=== PATIENT | male | born 1940 | race Caucasian/White ===

== ENCOUNTER 2022-07-26 07:17 | Outpatient (CLI) | payer MEDICARE, SELFPAY | END 2022-07-26 07:18 | disposition home or self-care (01) | LOC: INJ CL 07:18 | PROVIDERS: PCP Family Medicine; Visit Provider Family Medicine | DX: M51.36 Other intervertebral disc degeneration, lumbar region (principal); M54.16 Radiculopathy, lumbar region | CPT/HCPCS: 62323; J0702; Q9966 ==

== ENCOUNTER 2025-07-27 11:03 | Emergency (ER) | payer MEDICARE, SELFPAY ==
--- OUTSIDE RECORDS SUMMARY | 2025-06-30 08:46 | XMS_ITS | Encounter Summary ---
Author Organization [facility] Address [address] [place] [address] Care Team Providers Care Business Operations Analyst Name Role Phone Unavailable Primary Care Provider Unavailabl e Reason for Referral * Radiation Therapy (Routine) - Authorized Specialty Diagnoses / Procedures Referred By Norma t Referred To Contact Diagnoses Malignant Neoplasm Of Tongue Base (HCC) Procedures Initial Rad Onc Treatment Planning CT Simulation AR IMRT RADIOTHERAPY PLAN Julio Cesar Mendenhall M.D. [address] [place] [address] Phone: tel: fax: [facility] Radiation Oncology at [place] [address] [place] [address] Referral ID Status Reason Start Date Expiration Date V isits Requested Visits Authorized [id number] Authorized 07/02/2025 09/30/2026 2 2 * Outpatient (Routine) - Closed Specialty Diagnoses / Procedures Referred By Norma choi Referred To Contact Social Work Diagnoses Malignant Neoplasm Of Tongue Base (HCC) Julio Cesar Rebolledo M.D. [address] [place] [address] Phone: tel: fax: [facility] Region Referral ID Status Reason Start Date Expiration Date Visits Re quested Visits Authorized [id number] Closed 06/30/2025 12/30/2026 1 1 * Outpatient (Routine) - Closed Specialty Diagnoses / Procedures Referred By Norma choi Referred To Contact Radiation Oncology Diagnoses Malignant Neoplasm Of Tongue Base (HCC) Julio Cesar Rebolledo M.D. [address] [place] [address] Phone: tel: fax: [facility] Region Referral ID Status Reason Start Date Expiration Date Visits Re quested Visits Authorized [id number] Closed 06/30/2025 12/30/2026 1 1 * Specialty Diagnoses / Procedures Referred By Norma choi Referred To Contact Diagnoses Malignant Neoplasm Of Tongue Base (HCC) Julio Cesar Rebolledo M.D. [address] [place] [address] Phone: tel: fax: [facility] Region Referral ID Status Reason Start Date [...] Management Visit Julio Cesar Rebolledo M.D. [address] [place] [address] Phone: tel: fax: [facility] Region Referral ID Status Reason Start Date Expiration Date V isits Requested Visits Authorized [id number] Authorized 06/30/2025 09/30/2026 10 10 * Radiation Therapy (Routine) - Authorized Specialty Diagnoses / Procedures Referred By Norma choi Referred To Contact Diagnoses Malignant Neoplasm Of Tongue Base (HCC) Procedures Prior Auth Rad Tx AR IMRT COMPLEX AR GUIDANCE FOR LOC RAD TX AR IMRT RADIOTHERAPY PLAN IMRT Julio Cesar Rebolledo M.D. [address] [place] [address] Phone: tel: fax: [facility] Referral ID Status Reason Start Date Expiration Date V isits Requested Visits Authorized [id number] Authorized 07/14/2025 09/30/2026 35 35 Reason for Visit * Appointment Request (Routine) - Closed Specialty Diagnoses / Procedures Referred By Contac t Referred To Contact Radiation Oncology Diagnoses Malignant Neoplasm Of Tongue Base (HCC) Avery Holland M.D. [address] [address] Phone: tel: fax: Referral ID Status Reason Start Date Expiration Date Visits Re quested Visits Authorized [id number] Closed 06/19/2025 09/19/2026 1 1 Encounter Details Date Type Department Care Team (Latest Contact Info) Description 06/30/2025 8:46 AM CDT - 07/14/2025 5:41 PM CDT Hospital Encounter Department of Radiation Oncology in [place], [place] [address] [place] [phone] Julio Cesar Rebolledo M.D. [address] [place] [address] Malignant Neoplasm Of Tongue Base (HCC) (Primary [...] this encounter Medications at Time of Discharge folic acid 1 mg tablet Take 1 mg by mouth daily. 08/28/2024 methotrexate (TrexalL) 2.5 mg tablet Take 10 mg by mouth over 168 hr. 12/18/2024 documented as of this encounter Consult Notes * Julio Cesar Rebolledo M.D. - 06/30/2025 9:00 AM CDT RADIATION ONCOLOGY CONSULTATION SUBJECTIVE REQUESTING PROVIDER Avery Hloland M.D. REASON FOR CONSULT Asked to see [...] M.D. 07/14/2025 5:28 PM CDT Radiation Oncology [facility] Radiation Therapy Center [address] [place] [address] [1] Past Medical History: Diagnosis Date Gastroesophageal Reflux Disease NOS 04/11/2011 Presumptive diagnosis after negative stress echocardiogram. 04/11/2011 Hyperlipidemia Hypertension Essential Primary Psoriasis Raynaud's Phenomena Without Gangrene 04/11/2011 [2] Past Surgical History: Procedure Laterality Date PERICARDIECTOMY [3] No family history on file. documented in this encounter Plan of Treatment Upcoming Encounters Date Type Department Care Team (Late st Contact Info) Description 07/29/2025 8:30 AM CDT Appointment Department [place] [address] Julio Cesar Rebolledo M.D. [address] [place] [address] 07/30/2025 8:30 AM CDT Appointment Department of Radiation Oncology in [place], [place] [address] [facility] [place] [address] Julio Cesar Rebolledo M.D. [address] [place] [address] 07/31/2025 10:15 AM CDT Appointment Department of Radiation Oncology in [place], [place] [address] [facility] [place] [address] Julio Cesar Rebolledo M.D. [address] [place] [address] 07/31/2025 10:30 AM CDT Appointment Department of Radiation Oncology in [place], [place] [address] [place] [address] Julio Cesar Rebolledo M.D. [address] [place] [address] 08/01/2025 8:30 AM CDT Appointment Department of Radiation Oncology in [place], [place] [address] [place] [address] Julio Cesar Rebolledo M.D. [address] [place] [address] 08/04/2025 8:30 AM CDT Appointment Department of Radiation Oncology in [place], [place] [address] [facility] [place] [address] Julio Cesar Rebolledo M.D. [address] [place] [address] 08/05/2025 8:30 AM CDT Appointment Department of Radiation Oncology in [place], [place] [address] [place] [address] Julio Cesar Rebolledo M.D. [address] [place] [address] 08/06/2025 8:30 AM CDT Appointment Department of Radiation Oncology in [address] [address] Julio Cesar Rebolledo M.D. [address] [place] [address] 08/07/2025 8:30 AM CDT Appointment Department of Radiation Oncology in [address] [address] Julio Cesar Rebolledo M.D. [place] [address] 08/07/2025 9:00 AM CDT Appointment Department of Radiation Oncology in [address] [address] Julio Cesar Rebolledo M.D. [address] [place] [address] 08/07/2025 9:15 AM CDT Appointment Department of Radiation Oncology in [address] [address] Julio Cesar Rebolledo [place]. [place] [address] 08/08/2025 8:30 AM CDT Appointment Department of Radiation Oncology in [address] [address] Julio Cesar Rebolledo M.D. [address] [place] [address] 08/11/2025 8:30 AM CDT Appointment Department of Radiation Oncology in [place], [place] [address] [place] [address] Julio Cesar Rebolledo M.D. [address] [place] [address] 08/12/2025 8:30 AM CDT Appointment Department of Radiation Oncology in [place], [place] [address] [place] [address] Julio Cesar Rebolledo M.D. [address] [place] [address] 08/13/2025 8:30 AM CDT Appointment Department of Radiation Oncology in [place], [place] [address] [place] [address] Julio Cesar Rebolledo M.D. [address] [place] [address] 08/14/2025 8:30 AM CDT Appointment Department of Radiation Oncology in [place], [place] [address] [place] [address] Julio Cesar Rebolledo M.D. [address] [place] [address] 08/14/2025 9:00 AM CDT Appointment Department of Radiation Oncology in [place], [place] [address] [place] [address] Julio Cesar Rebolledo M.D. [address] [place] [address] 08/15/2025 8:30 AM CDT Appointment Department of Radiation Oncology in [place], [place] [address] [place] [address] Julio Cesar Rebolledo M.D. [address] [place] [address] 08/18/2025 8:30 AM CDT Appointment Department of Radiation Oncology in [place], [place] [address] [place] [address] Julio Cesar Rebolledo M.D. [address] [place] [address] 08/19/2025 8:30 AM CDT Appointment Department of Radiation Oncology in [address] [address] Julio Cesar Rebolledo M.D. [address] [place] [address] 08/20/2025 8:30 AM CDT Appointment Department of Radiation Oncology in [place], [place] [address] [place] [address] Julio Cesar Rebolledo M.D. [place] [address] 08/21/2025 8:30 AM CDT Appointment Department of Radiation Oncology in [place], [place] [address] [place] [address] Julio Cesar Rebolledo [place]. [place] [address] 08/21/2025 9:00 AM CDT Appointment Department of Radiation Oncology in [address] [address] Julio Cesar Rebolledo M.D. [address] [place] [address] 08/22/2025 8:30 AM CDT Appointment Department of Radiation Oncology in [place], [place] [address] [place] [address] Julio Cesar Rebolledo M.D. [address] [place] [address] 08/25/2025 8:30 AM CDT Appointment Department of Radiation Oncology in [place], [place] [address] [place] [address] Julio Cesar Rebolledo M.D. [place] [address] 08/26/2025 8:30 AM CDT Appointment Department of Radiation Oncology in [address] [address] Julio Cesar Rebolledo [place]. [place] [address] 08/27/2025 8:30 AM CDT Appointment Department of Radiation Oncology in [place], [place] [address] [place] [address] Julio Cesar Rebolledo [place]. [place] [address] 08/28/2025 8:30 AM CDT Appointment Department of Radiation Oncology in [place], [place] [address] [place] [address] Julio Cesar Rebolledo M.D. [address] [place] [address] 08/28/2025 9:00 AM CDT Appointment Department of Radiation Oncology in [place], [place] [address] [place] [address] Julio Cesar Rebolledo M.D. [address] [place] [address] 08/29/2025 8:30 AM CDT Appointment Department of Radiation Oncology in [place], [place] [address] [place] [address] Julio Cesar Rebolledo M.D. [address] [place] [address] 09/01/2025 8:30 AM CDT Appointment Department of Radiation Oncology in [address] [address] Julio Cesar Rebolledo [place] [address] 09/02/2025 8:30 AM CDT Appointment Department of Radiation Oncology in [place] [address] [place] [address] Julio Cesar Rebolledo [place]. [place] [address] 09/03/2025 8:30 AM CDT Appointment Department of Radiation Oncology in [place], [place] [address] [place] [address] Julio Cesar Rebolledo M.D. [address] [place] [address] 09/03/2025 8:45 AM CDT Appointment Department of Radiation Oncology in [address] [address] Julio Cesar Rebolledo [place]. [place] [address] 09/04/2025 8:30 AM CDT Appointment Department of Radiation Oncology in [place], [place] [address] [place] [address] Julio Cesar Rebolledo M.D. [address] [place] [address] 09/05/2025 8:30 AM CDT Appointment Department of Radiation Oncology in [address] [address] Julio Cesar Rebolledo M.D. [address] [place] [address] 09/08/2025 8:30 AM CDT Appointment Department of Radiation Oncology in [address] [address] Julio Cesar Rebolledo M.D. [address] [place] [address] Scheduled Orders Name Type Priority Associated Diagnoses [...] CT Simulation (07/02/2025 12:30 PM CDT) Narrative CARY VARGAS - 07/02/2025 12:30 PM CDT Julio Cesar [...] planning. CT images were transferred to the Eclipse treatment planning system, after a reference isocenter was determined and marked. Segmentation and treatment planning will take place prior to treatment delivery. Patient set up and imaging was appropriate and completed without incident. Electronic Console Display Operator use:No us Julio Cesar Rebolledo M.D. RADIATION [...]
--- OUTSIDE RECORDS SUMMARY | 2025-07-02 12:30 | XMS_ITS | Encounter Summary ---
Author Organization [facility] Address [address] [place] [address] Care Team Providers Care Media Relations Intern Name Role Phone Unavailable Primary Care Provider Unavailabl e Reason for Referral * Radiation Therapy (Routine) - Closed Specialty Diagnoses / Procedures Referred By Norma choi Referred To Contact Diagnoses Malignant Neoplasm Of Tongue Base (HCC) Procedures Verification/Re-Julio Cesar Mendenhall M.D. [address] [place] [address] Phone: tel: fax: [facility] Region Referral ID Status Reason Start Date Expiration Date Visits Re quested Visits Authorized [id number] Closed 07/03/2025 10/03/2026 1 1 * Radiation Therapy (Routine) - Authorized Specialty Diagnoses / Procedures Referred By Norma choi Referred To Contact Diagnoses Malignant Neoplasm Of Tongue Base (HCC) Procedures Initial Rad Onc Treatment Planning CT Simulation PA IMRT RADIOTHERAPY PLAN Julio Cesar Mendenhall M.D. [address] [place] [address] Phone: tel: fax: T Radiation Oncology at [address] [phone] Referral ID Status Reason Start Date Expiration Date V isits Requested Visits Authorized [id number] Authorized 07/02/2025 09/30/2026 2 2 Reason for Visit * Radiation Therapy (Routine) - Authorized Specialty Diagnoses / Procedures Referred By Norma t Referred To Contact Diagnoses Malignant Neoplasm Of Tongue Base (HCC) Procedures Initial Rad Onc Treatment Planning CT Simulation PA IMRT RADIOTHERAPY PLAN Julio Cesar Mendenhall M.D. [address] [place] [address] Phone: tel: fax: [facility] Radiation Oncology at [place] [address] [place] [phone] Referral ID Status Reason Start Date Expiration Date V isits Requested Visits Authorized [id number] Authorized 07/02/2025 09/30/2026 2 2 Encounter Details Date Type Department Care Team (Latest Contact Info) Description 07/02/2025 12:30 PM CDT - 07/02/2025 2:34 PM CDT Hospital Encounter Department of Radiation Oncology in [place], [place] [address] [place] [address] Julio Cesar Rebolledo M.D. [address] [place] [phone] Malignant Neoplasm Of Tongue Base (HCC) Social History Tobacco Use Types Packs/Day Years Used Date Smoking Tobacco: Never Sex and Gender Information Value Date Recorded Sex Assigned at Not on file Legal Sex Male 12:18 PM CDT Gender Identity Not on file Sexual Orientation Not on file documented as of this encounter Medications at Time of Discharge folic acid 1 mg tablet Take 1 mg by mouth daily. 08/28/2024 methotrexate (TrexalL) 2.5 mg tablet Take 10 mg by mouth over 168 hr. 12/18/2024 documented as of this encounter Procedure Notes * Mana Oreilly, RTT - 07/02/2025 12:30 PM CDTAssociated Order(s): Initial Rad Onc Treatment Planning CT Simulation Pre-Procedure Diagnose(s): Malignant Neoplasm Of Tongue Base (HCC) Post-Procedure Diagnose(s): Malignant Neoplasm Of Tongue Base (HCC) Initial Rad Onc Treatment Planning CT Simulation [...] planning. CT images were transferred to the Inotrem treatment planning system, after a reference isocenter was determined and marked. Segmentation and treatment planning will take place prior to treatment delivery. Patient set up and imaging was appropriate and completed without incident. Software Manager use:No Cosigned by Julio Cesar Rebolledo M.D. at 07/02/2025 2:33 PM CDT Associated attestation - Julio Cesar Rebolledo M.D. - 07/02/2025 2:33 PM CDT Agree with documentation as below. I was personally available during the simulation. documented in this encounter Miscellaneous Notes * Addendum Note - Julio Cesar Rebolledo M.D. - 07/02/2025 12:30 PM CDTEncounter addended by: Julio Cesar Rebolledo M.D. on: 07/03/2025 1:09 PM Actions taken: Order list changed, Diagnosis association updated documented in this encounter Plan of Treatment Upcoming Encounters Date Type Department Care Team (Late st Contact Info) Description 07/29/2025 8:30 AM CDT Appointment Department of Radiation Oncology in [place], [place] [address] [place] [address] Julio Cesar Rebolledo M.D. [address] [place] [address] 07/30/2025 8:30 AM CDT Appointment Department of Radiation Oncology in [place], [place] [address] [place] [address] Julio Cesar Rebolledo M.D. [address] [place] [address] 07/31/2025 10:15 AM CDT Appointment Department of Radiation Oncology in [place], [place] [address] [place] [address] Julio Cesar Rebolledo M.D. [facility] [place] [address] 07/31/2025 10:30 AM CDT Appointment Department of Radiation Oncology in [place], [place] [address] [place] [address] Julio Cesar Rebolledo M.D. [address] [place] [address] 08/01/2025 8:30 AM CDT Appointment Department of Radiation Oncology in [place], [place] [address] [place] [address] Julio Cesar Rebolledo M.D. [address] [place] [address] 08/04/2025 8:30 AM CDT Appointment Department of Radiation Oncology in [place], [place] [address] [place] [address] Julio Cesar Rebolledo M.D. [address] [place] [address] 08/05/2025 8:30 AM CDT Appointment Department of Radiation Oncology in [place], [place] [address] [place] [address] Julio Cesar Rebolledo M.D. [address] [place] [address] 08/06/2025 8:30 AM CDT Appointment Department of Radiation Oncology in [place], [place] [address] [place] [address] Julio Cesar Rebolledo M.D. [address] [place] [address] 08/07/2025 8:30 AM CDT Appointment Department of Radiation Oncology in [address] [address] Julio Cesar Rebolledo M.D. [facility] [place] [address] 08/07/2025 9:00 AM CDT Appointment Department of Radiation Oncology in [place] [address] [place] [address] Julio Cesar Rebolledo M.D. [facility] [place] [address] 08/07/2025 9:15 AM CDT Appointment Department of Radiation Oncology in [place], [place] [address] [place] [address] Julio Cesar Rebolledo M.D. [facility] [place] [address] 08/08/2025 8:30 AM CDT Appointment Department of Radiation Oncology in [place] [address] [place] [address] Julio Cesar Rebolledo M.D. [facility] [place] [address] 08/11/2025 8:30 AM CDT Appointment Department of Radiation Oncology in [place], [place] [address] [facility] [place] [address] Julio Cesar Rebolledo M.D. [address] [place] [address] 08/12/2025 8:30 AM CDT Appointment Department of Radiation Oncology in [place], [place] [address] [place] [address] Julio Cesar Rebolledo M.D. [facility] [place] [address] 08/13/2025 8:30 AM CDT Appointment Department of Radiation Oncology in [place], [place] [address] [place] [address] Julio Cesar Rebolledo M.D. [address] [place] [address] 08/14/2025 8:30 AM CDT Appointment Department of Radiation Oncology in [address] [address] Julio Cesar Rebolledo M.D. [address] [place] [address] 08/14/2025 9:00 AM CDT Appointment Department of Radiation Oncology in [place], [place] [address] [place] [address] Julio Cesar Rebolledo M.D. [facility] [place] [address] 08/15/2025 8:30 AM CDT Appointment Department of Radiation Oncology in [address] [place] [address] Julio Cesar Rebolledo M.D. [address] [place] [address] 08/18/2025 8:30 AM CDT Appointment Department of Radiation Oncology in [place], [place] [address] [place] [address] Julio Cesar Rebolledo M.D. [address] [place] [address] 08/19/2025 8:30 AM CDT Appointment Department of Radiation Oncology in [place] [address] [place] [address] Julio Cesar Rebolledo M.D. [facility] [place] [address] 08/20/2025 8:30 AM CDT Appointment Department of Radiation Oncology in [address] [address] Julio Cesar Rebolledo M.D. [facility] [place] [address] 08/21/2025 8:30 AM CDT Appointment Department of Radiation Oncology in [place], [place] [address] [place] [address] Julio Cesar Rebolledo M.D. [facility] [place] [address] 08/21/2025 9:00 AM CDT Appointment Department of Radiation Oncology in [address] [address] Julio Cesar Rebolledo M.D. [address] [place] [address] 08/22/2025 8:30 AM CDT Appointment Department of Radiation Oncology in [place], [place] [address] [place] [address] Julio Cesar Rebolledo M.D. [address] [place] [address] 08/25/2025 8:30 AM CDT Appointment Department of Radiation Oncology in [address] [address] Julio Cesar Rebolledo M.D. [facility] [place] [address] 08/26/2025 8:30 AM CDT Appointment Department of Radiation Oncology in [address] [address] Julio Cesar Rebolledo M.D. [facility] [place] [address] 08/27/2025 8:30 AM CDT Appointment Department of Radiation Oncology in [address] [address] Julio Cesar Rebolledo M.D. [address] [place] [address] 08/28/2025 8:30 AM CDT Appointment Department of Radiation Oncology in [address] [address] Julio Cesar Rebolledo M.D. [address] [place] [address] 08/28/2025 9:00 AM CDT Appointment Department of Radiation Oncology in [address] [address] Julio Cesar Rebolledo M.D. [address] [place] [address] 08/29/2025 8:30 AM CDT Appointment Department of Radiation Oncology in [place], [place] [address] [place] [address] Julio Cesar Rebolledo M.D. [address] [place] [address] 09/01/2025 8:30 AM CDT Appointment Department of Radiation Oncology in [place], [place] [address] [place] [address] Julio Cesar Rebolledo M.D. [address] [place] [address] 09/02/2025 8:30 AM CDT Appointment Department of Radiation Oncology in [place], [place] [address] [place] [address] Julio Cesar Rebolledo M.D. [address] [place] [address] 09/03/2025 8:30 AM CDT Appointment Department of Radiation Oncology in [place], [place] [address] [place] [address] Julio Cesar Rebolledo M.D. [address] [place] [address] 09/03/2025 8:45 AM CDT Appointment Department of Radiation Oncology in [place], [place] [address] [place] [address] Julio Cesar Rebolledo M.D. [address] [place] [address] 09/04/2025 8:30 AM CDT Appointment Department of Radiation Oncology in [address] [address] Julio Cesar Rebolledo M.D. [address] [place] [address] 09/05/2025 8:30 AM CDT Appointment Department of Radiation Oncology in [address] [address] Julio Cesar Rebolledo M.D. [address] [place] [address] 09/08/2025 8:30 AM CDT Appointment Department of Radiation Oncology in [address] [address] Julio Cesar Rebolledo M.D. [address] [place] [phone] documented as of this encounter Procedures Procedure Name Priority Date/Time Associated Diagnosis Comments INITIAL RAD ONC TREATMENT PLANNING CT SIMULATION Routine 07/02/2025 12:30 PM CDT Malignant Neoplasm Of Tongue Base (HCC) documented in this encounter Results * Verification/Re-Sim (07/15/2025 8:46 AM CDT) Narrative CARY VARGAS - 07/15/2025 8:46 AM CDT This exam does not require a oncologist review or interpretation. Please refer to the patient s medical record on this date for clinical details. us Julio Cesar Rebolledo M.D. RADIATION ONCOLOGY ORDER NAGI Final Result CARY VARGAS na * Initial Rad Onc Treatment Planning CT [...] planning. CT images were transferred to the Inotrem treatment planning system, after a reference isocenter was determined and marked. Segmentation and treatment planning will take place prior to treatment delivery. Patient set up and imaging was appropriate and completed without incident. Software Manager use:No us Julio Cesar Rebolledo M.D. 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
--- OUTSIDE RECORDS SUMMARY | 2025-07-15 08:46 | XMS_ITS | Encounter Summary ---
Author Organization [facility] Address [address] [place] [address] Care Team Providers Care Manager Ed Name Role Phone Unavailable Primary Care Provider Unavailabl e Reason for Referral * Radiation Therapy (Routine) - Closed Specialty Diagnoses / Procedures Referred By Norma choi Referred To Contact Diagnoses Malignant Neoplasm Of Tongue Base (HCC) Procedures Verification/Re-Sim Julio Cesar Rebolledo M.D. [address] [place] [address] Phone: tel: fax: [facility] Region Referral ID Status Reason Start Date Expiration Date Visits Re quested Visits Authorized [id number] Closed 07/03/2025 10/03/2026 1 1 Reason for Visit * Radiation Therapy (Routine) - Closed Specialty Diagnoses / Procedures Referred By Norma choi Referred To Contact Diagnoses Malignant Neoplasm Of Tongue Base (HCC) Procedures Verification/Re-Sim Julio Cesar Rebolledo M.D. [address] [place] [address] Phone: tel: fax: [facility] Region Referral ID Status Reason Start Date Expiration Date Visits Re quested Visits Authorized [id number] Closed 07/03/2025 10/03/2026 1 1 Encounter Details Date Type Department Care Team (Latest Contact Info) Description 07/15/2025 8:46 AM CDT - 07/15/2025 9:18 AM CDT Hospital Encounter Department of Radiation Oncology in [place], [place] [address] [place] [address] Julio Cesar Rebolledo M.D. [address] [place] [address] Malignant Neoplasm Of Tongue Base (HCC) Social [...] as of this encounter Procedure Notes * Joan Bright RTT - 07/15/2025 9:00 AM CDT Procedures Simulation was performed under physician supervision based [...] placed to facilitate marking of isocenter. Area scanned:Head and Neck Contrast used for the simulation procedure: None Patient position:head first supine Custom immobilization: 5 point mask Motion management: None Bolus: No CT guidance: [...] imaging was appropriate and completed without incident. Supervisor Asbestos Removal use:No Cosigned by Julio Cesar Rebolledo M.D. at 07/15/2025 4:36 PM CDT Associated attestation - Julio Cesar Rebolledo M.D. - 07/15/2025 4:36 PM CDT Agree with documentation as below. I was personally available during the simulation. documented in this encounter Plan of Treatment Upcoming Encounters Date Type Department Care Team (Late st Contact Info) Description 07/29/2025 8:30 AM CDT Appointment Department of Radiation Oncology in [address] [address] Julio Cesar Rebolledo M.D. [address] [place] [address] 07/30/2025 8:30 AM CDT Appointment Department of Radiation Oncology in [address] [address] Julio Cesar Rebolledo M.D. [address] [place] [address] 07/31/2025 10:15 AM CDT Appointment Department of Radiation Oncology in [address] [address] Julio Cesar Rebolledo M.D. [address] [place] [address] 07/31/2025 10:30 AM CDT Appointment Department of Radiation Oncology in [address] [address] Julio Cesar Rebolledo M.D. [address] [place] [address] 08/01/2025 8:30 AM CDT Appointment Department of Radiation Oncology in [address] [address] Julio Cesar Rebolledo M.D. [address] [place] [address] 08/04/2025 8:30 AM CDT Appointment Department of Radiation Oncology in [place], [place] [address] [place] [address] Julio Cesar Rebolledo M.D. [address] [place] [address] 08/05/2025 8:30 AM CDT Appointment Department of Radiation Oncology in [place], [place] [address] [place] [address] Julio Cesar Rebolledo M.D. [address] [place] [address] 08/06/2025 8:30 AM CDT Appointment Department of Radiation Oncology in [address] [address] Julio Cesar Rebolledo M.D. [facility] [place] [address] 08/07/2025 8:30 AM CDT Appointment Department of Radiation Oncology in [address] [address] Julio Cesar Rebolledo M.D. [facility] [place] [address] 08/07/2025 9:00 AM CDT Appointment Department of Radiation Oncology in [place], [place] [address] [place] [address] Julio Cesar Rebolledo M.D. [address] [place] [address] 08/07/2025 9:15 AM CDT Appointment Department of Radiation Oncology in [address] [address] Julio Cesar Rebolledo M.D. [address] [place] [address] 08/08/2025 8:30 AM CDT Appointment Department of Radiation Oncology in [place], [place] [address] [place] [address] Julio Cesar Rebolledo M.D. [address] [place] [address] 08/11/2025 8:30 AM CDT Appointment Department of Radiation Oncology in [place], [place] [address] [place] [address] Julio Cesar Rebolledo M.D. [facility] [place] [address] 08/12/2025 8:30 AM CDT Appointment Department of Radiation Oncology in [place], [place] [address] [place] [address] Julio Cesar Rebolledo M.D. [address] [place] [address] 08/13/2025 8:30 AM CDT Appointment Department of Radiation Oncology in [place], [place] [address] [place] [address] Julio Cesar Rebolledo M.D. [address] [place] [address] 08/14/2025 8:30 AM CDT Appointment Department of Radiation Oncology in [place], [place] [address] [place] [address] Julio Cesar Rebolledo M.D. [address] [place] [address] 08/14/2025 9:00 AM CDT Appointment Department of Radiation Oncology in [place], [place] [address] [facility] [place] [address] Julio Cesar Rebolledo M.D. [address] [place] [address] 08/15/2025 8:30 AM CDT Appointment Department of Radiation Oncology in [place], [place] [address] [place] [address] Julio Cesar Rebolledo M.D. [address] [place] [address] 08/18/2025 8:30 AM CDT Appointment Department of Radiation Oncology in [address] [address] Julio Cesar Rebolledo M.D. [facility] [place] [address] 08/19/2025 8:30 AM CDT Appointment Department of Radiation Oncology in [place], [place] [address] [place] [address] Julio Cesar Rebolledo M.D. [address] [place] [address] 08/20/2025 8:30 AM CDT Appointment Department of Radiation Oncology in [place], [place] [address] [place] [address] Julio Cesar Rebolledo M.D. [address] [place] [address] 08/21/2025 8:30 AM CDT Appointment Department of Radiation Oncology in [place], [place] [address] [place] [address] Julio Cesar Rebolledo M.D. [facility] [place] [address] 08/21/2025 9:00 AM CDT Appointment Department of Radiation Oncology in [place], [place] [address] [facility] [place] [address] Julio Cesar Rebolledo M.D. [address] [place] [address] 08/22/2025 8:30 AM CDT Appointment Department of Radiation Oncology in [place], [place] [address] [place] [address] Julio Cesar Rebolledo M.D. [facility] [place] [address] 08/25/2025 8:30 AM CDT Appointment Department of Radiation Oncology in [place], [place] [address] [place] [address] Julio Cesar Rebolledo M.D. [address] [place] [address] 08/26/2025 8:30 AM CDT Appointment Department of Radiation Oncology in [address] [address] Julio Cesar Rebolledo M.D. [facility] [place] [address] 08/27/2025 8:30 AM CDT Appointment Department of Radiation Oncology in [place], [place] [address] [place] [address] Julio Cesar Rebolledo M.D. [facility] [place] [address] 08/28/2025 8:30 AM CDT Appointment Department of Radiation Oncology in [address] [place] [address] Julio Cesar Rebolledo M.D. [address] [place] [address] 08/28/2025 9:00 AM CDT Appointment Department of Radiation Oncology in [place], [place] [address] [place] [address] Julio Cesar Rebolledo M.D. [address] [place] [address] 08/29/2025 8:30 AM CDT Appointment Department of Radiation Oncology in [place] [address] [place] [address] Julio Cesar Rebolledo M.D. [facility] [place] [address] 09/01/2025 8:30 AM CDT Appointment Department of Radiation Oncology in [address] [address] Julio Cesar Rebolledo M.D. [facility] [place] [address] 09/02/2025 8:30 AM CDT Appointment Department of Radiation Oncology in [place], [place] [address] [place] [address] Julio Cesar Rebolledo M.D. [facility] [place] [address] 09/03/2025 8:30 AM CDT Appointment Department of Radiation Oncology in [address] [address] Julio Cesar Rebolledo M.D. [address] [place] [address] 09/03/2025 8:45 AM CDT Appointment Department of Radiation Oncology in [address] [address] Julio Cesar Rebolledo M.D. [address] [place] [address] 09/04/2025 8:30 AM CDT Appointment Department of Radiation Oncology in [address] [address] Julio Cesar Rebolledo M.D. [address] [place] [address] 09/05/2025 8:30 AM CDT Appointment Department of Radiation Oncology in [address] [address] Julio Cesar Rebolledo M.D. [address] [place] [address] 09/08/2025 8:30 AM CDT Appointment Department of Radiation Oncology in [address] [address] Julio Cesar Rebolledo M.D. [address] [place] [address] documented as of this encounter Procedures Procedure Name Priority Date/Time Associated Diagnosis Comments VERIFICATION/RE-SIM Routine 07/15/2025 8 :46 AM CDT Malignant Neoplasm Of Tongue Base (HCC) documented in this encounter Results * Verification/Re-Sim (07/15/2025 8:46 AM CDT) Narrative CARY VARGAS - 07/15/2025 8:46 AM CDT This exam does not require a oncologist review or interpretation. Please refer to the patient s medical record on this date for clinical details. us Julio Cesar Rebolledo M.D. RADIATION ONCOLOGY ORDER NAGI Final Result CARY bishop documented in this encounter Visit Diagnoses Diagnosis Malignant Neoplasm Of Tongue Base (HCC) documented in this encounter Additional Health Concerns Infection Onset Date Last Indicated Resolved Time Protective Environment 06/30/2025 06/30/2025 documented as of this encounter
--- OUTSIDE RECORDS SUMMARY | 2025-07-21 08:08 | XMS_ITS | Encounter Summary ---
Author Organization [facility] Address [address] [place] [address] Care Team Providers Care Medical Staff Coordinator Name Role Phone Unavailable Primary Care Provider Unavailabl e Reason for Visit * Radiation Therapy (Routine) - Authorized Specialty Diagnoses / Procedures Referred By Contjerson t Referred To Contact Diagnoses Malignant Neoplasm Of Tongue Base (HCC) Procedures Prior Auth Rad Tx W[place] IMRT COMPLEX [place] GUIDANCE FOR LOC RAD TX W[place] IMRT RADIOTHERAPY PLAN IMRT Julio Cesar Rebolledo M.D. [address] [place] [phone] Phone: tel: fax: [facility] Referral ID Status Reason Start Date Expiration Date V isits Requested Visits Authorized [id number] Authorized 07/14/2025 09/30/2026 35 35 Encounter Details Date Type Department Care Team (Late st Contact Info) Description 07/21/2025 8:08 AM CDT Hospital Encounter Department of Radiation Oncology in [place], [place] [address] [place] [phone] Julio Cesar Rebolledo M.D. [address] [place] [phone] Social History Tobacco Use Types Packs/Day [...] things needed for daily living? No 07/22/2025 [facility] Utilities Answer Date Recorded In the past 12 months has [facility] electric, gas, oil, or water company threatened to shut off services in your home? No 07/22/2025 Housing Stability Answer Date Recorded What is your living situation today? I have a [facility] place to live 07/22/2025 Sex and Gender Information Value Date Recorded Sex Assigned at Not on file Legal Sex Male 12:18 PM CDT Gender Identity Not on file Sexual Orientation Not on file documented as of this encounter Plan of Treatment Upcoming Encounters Date Type Department Care Team (Late st Contact Info) Description 07/29/2025 8:30 AM CDT Appointment Department of Radiation Oncology in [place], [place] [address] [place] [phone] Julio Cesar Rebolledo M.D. [address] [place] [address] 07/30/2025 8:30 AM CDT Appointment Department of Radiation Oncology in [place], [place] [address] [place] [address] Julio Cesar Rebolledo M.D. [address] [place] [address] 07/31/2025 10:15 AM CDT Appointment Department of Radiation Oncology in [place], [place] [address] [place] [address] Julio Cesar Rebolledo M.D. [address] [place] [address] 07/31/2025 10:30 AM CDT Appointment Department of Radiation Oncology in [place], [place] [address] [place] [address] Julio Cesar Rebolledo M.D. [address] [place] [phone] 08/01/2025 8:30 AM CDT Appointment Department of Radiation Oncology in [address] [address] Julio Cesar Rebolledo M.D. [facility] [place] [address] 08/04/2025 8:30 AM CDT Appointment Department of Radiation Oncology in [place] [address] [place] [address] Julio Cesar Rebolledo M.D. [address] [place] [address] 08/05/2025 8:30 AM CDT Appointment Department of Radiation Oncology in [place], [place] [address] [place] [address] Julio Cesar Rebolledo M.D. [facility] [place] [address] 08/06/2025 8:30 AM CDT Appointment Department of Radiation Oncology in [address] [address] Julio Cesar Rebolledo M.D. [address] [place] [address] 08/07/2025 8:30 AM CDT Appointment Department of Radiation Oncology in [place], [place] [address] [place] [address] Julio Cesar Rebolledo M.D. [address] [place] [address] 08/07/2025 9:00 AM CDT Appointment Department of Radiation Oncology in [place], [place] [address] [place] [address] Julio Cesar Rebolledo M.D. [facility] [place] [address] 08/07/2025 9:15 AM CDT Appointment Department of Radiation Oncology in [place], [place] [address] [place] [address], [place] [address] Julio Cesar Rebolledo M.D. [address] [place] [address] 08/08/2025 8:30 AM CDT Appointment Department of Radiation Oncology in [place], [place] [address] [place] [address] Julio Cesar Rebolledo M.D. [address] [place] [address] 08/11/2025 8:30 AM CDT Appointment Department of Radiation Oncology in [place], [place] [address] [place] [address] Julio Cesar Rebolledo M.D. [address] [place] [address] 08/12/2025 8:30 AM CDT Appointment Department of Radiation Oncology in [place], [place] [address] [place] [address] Julio Cesar Rebolledo M.D. [address] [place] [address] 08/13/2025 8:30 AM CDT Appointment Department of Radiation Oncology in [place], [place] [address] [place] [address] Julio Cesar Rebolledo M.D. [address] [place] [address] 08/14/2025 8:30 AM CDT Appointment Department of Radiation Oncology in [address] [address] Julio Cesar Rebolledo M.D. [address] [place] [address] 08/14/2025 9:00 AM CDT Appointment Department of Radiation Oncology in [place], [place] [address] [place] [address] Julio Cesar Rebolledo M.D. [address] [place] [address] 08/15/2025 8:30 AM CDT Appointment Department of Radiation Oncology in [place], [place] [address] [place] [address] Julio Cesar Rebolledo M.D. [address] [place] [address] 08/18/2025 8:30 AM CDT Appointment Department of Radiation Oncology in [place], [place] [address] [place] [address] Julio Cesar Rebolledo M.D. [address] [place] [address] 08/19/2025 8:30 AM CDT Appointment Department of Radiation Oncology in [place], [place] [address] [place] [address] Julio Cesar Rebolledo M.D. [address] [place] [address] 08/20/2025 8:30 AM CDT Appointment Department of Radiation Oncology in [place], [place] [address] [place] [address] Julio Cesar Rebolledo M.D. [facility] [place] [address] 08/21/2025 8:30 AM CDT Appointment Department of Radiation Oncology in [address] [address] Julio Cesar Rebolledo M.D. [address] [place] [address] 08/21/2025 9:00 AM CDT Appointment Department of Radiation Oncology in [place] [address] [place] [address] Julio Cesar Rebolledo M.D. [address] [place] [address] 08/22/2025 8:30 AM CDT Appointment Department of Radiation Oncology in [place], [place] [address] [place] [address] Julio Cesar Rebolledo M.D. [address] [place] [address] 08/25/2025 8:30 AM CDT Appointment Department of Radiation Oncology in [place], [place] [address] [place] [address] Julio Cesar Rebolledo M.D. [address] [place] [address] 08/26/2025 8:30 AM CDT Appointment Department of Radiation Oncology in [place], [place] [address] [place] [address] Julio Cesar Rebolledo M.D. [address] [place] [address] 08/27/2025 8:30 AM CDT Appointment Department of Radiation Oncology in [address] [address] Julio Cesar Rebolledo M.D. [facility] [place] [address] 08/28/2025 8:30 AM CDT Appointment Department of Radiation Oncology in [place], [place] [address] [place] [address] Julio Cesar Rebolledo M.D. [facility] [place] [address] 08/28/2025 9:00 AM CDT Appointment Department of Radiation Oncology in [place], [place] [address] [place] [address] Julio Cesar Rebolledo M.D. [facility] [place] [address] 08/29/2025 8:30 AM CDT Appointment Department of Radiation Oncology in [place] [address] [place] [address] Julio Cesar Rebolledo M.D. [facility] [place] [address] 09/01/2025 8:30 AM CDT Appointment Department of Radiation Oncology in [place], [place] [address] [facility] [place] [address] Julio Cesar Rebolledo M.D. [address] [place] [address] 09/02/2025 8:30 AM CDT Appointment Department of Radiation Oncology in [place], [place] [address] [place] [address] Julio Cesar Rebolledo M.D. [address] [place] [address] 09/03/2025 8:30 AM CDT Appointment Department of Radiation Oncology in [place], [place] [address] [place] [address] Julio Cesar Rebolledo M.D. [address] [place] [address] 09/03/2025 8:45 AM CDT Appointment Department of Radiation Oncology in [place], [place] [address] [place] [address] Julio Cesar Rebolledo M.D. [address] [place] [address] 09/04/2025 8:30 AM CDT Appointment Department of Radiation Oncology in [place], [place] [address] [place] [address] Julio Cesar Rebolledo M.D. [address] [place] [address] 09/05/2025 8:30 AM CDT Appointment Department of Radiation Oncology in [address] [place] [address] Julio Cesar Rebolledo M.D. [address] [place] [address] 09/08/2025 8:30 AM CDT Appointment Department of Radiation Oncology in [address] [address] Julio Cesar Rebolledo M.D. [address] [place] [address] documented as of this encounter Visit Diagnoses Not on filedocumented in this encounter Additional Health Concerns Infection Onset Date Last Indicated Resolved Time Protective Environment 06/30/2025 06/30/2025 documented as of this encounter
--- OUTSIDE RECORDS SUMMARY | 2025-07-22 07:57 | XMS_ITS | Encounter Summary ---
Author Organization [facility] Address [address] [place] [address] Care Team Providers Care Physical Metallurgist Name Role Phone Unavailable Primary Care Provider Unavailabl e Reason for Visit * Radiation Therapy (Routine) - Authorized Specialty Diagnoses / Procedures Referred By Contjerson t Referred To Contact Diagnoses Malignant Neoplasm Of Tongue Base (HCC) Procedures Prior Auth Rad Tx [place] IMRT COMPLEX [place] GUIDANCE FOR LOC RAD TX [place] IMRT RADIOTHERAPY PLAN IMRT Julio Cesar Rebolledo M.D. [address] [place] [phone] Phone: tel: fax: [facility] Referral ID Status Reason Start Date Expiration Date V isits Requested Visits Authorized [id number] Authorized 07/14/2025 09/30/2026 35 35 Encounter Details Date Type Department Care Team (Late st Contact Info) Description 07/22/2025 7:57 AM CDT Hospital Encounter Department of Radiation Oncology in [place], [place] [address] [place] [phone] Julio Cesar Rebolledo M.D. [address] [place] [phone] Social History Tobacco Use Types Packs/Day [...] things needed for daily living? No 07/22/2025 [facility] Utilities Answer Date Recorded In the past 12 months has [facility] electric, gas, oil, or water company threatened to shut off services in your home? No 07/22/2025 Housing Stability Answer Date Recorded What is your living situation today? I have a [facility] place to live 07/22/2025 Sex and Gender Information Value Date Recorded Sex Assigned at Not on file Legal Sex Male 12:18 PM CDT Gender Identity Not on file Sexual Orientation Not on file documented as of this encounter Plan of Treatment Upcoming Encounters Date Type Department Care Team (Late st Contact Info) Description 07/29/2025 8:30 AM CDT Appointment Department of Radiation Oncology in [place], [place] [address] [place] [phone] Julio Cesar Rebolledo M.D. [address] [place] [address] 07/30/2025 8:30 AM CDT Appointment Department of Radiation Oncology in [place], [place] [address] [place] [address] Julio Cesar Rebolledo M.D. [address] [place] [address] 07/31/2025 10:15 AM CDT Appointment Department of Radiation Oncology in [place], [place] [address] [place] [address] Julio Cesar Rebolledo M.D. [address] [place] [address] 07/31/2025 10:30 AM CDT Appointment Department of Radiation Oncology in [place], [place] [address] [place] [address] Julio Cesar Rebolledo M.D. [address] [place] [address] 08/01/2025 8:30 AM CDT Appointment Department of Radiation Oncology in [address] [address] Julio Cesar Rebolledo M.D. [facility] [place] [address] 08/04/2025 8:30 AM CDT Appointment Department of Radiation Oncology in [place] [address] [place] [address] Julio Cesar Rebolledo M.D. [address] [place] [address] 08/05/2025 8:30 AM CDT Appointment Department of Radiation Oncology in [place], [place] [address] [place] [address] Julio Cesar Rebolledo M.D. [facility] [place] [address] 08/06/2025 8:30 AM CDT Appointment Department of Radiation Oncology in [address] [address] Julio Cesar Rebolledo M.D. [address] [place] [address] 08/07/2025 8:30 AM CDT Appointment Department of Radiation Oncology in [place], [place] [address] [place] [address] Julio Cesar Rebolledo M.D. [address] [place] [address] 08/07/2025 9:00 AM CDT Appointment Department of Radiation Oncology in [place], [place] [address] [place] [address] Julio Cesar Rebolledo M.D. [facility] [place] [address] 08/07/2025 9:15 AM CDT Appointment Department of Radiation Oncology in [place], [place] [address] [place] [address], [place] [address] Julio Cesar Rebolledo M.D. [address] [place] [address] 08/08/2025 8:30 AM CDT Appointment Department of Radiation Oncology in [place], [place] [address] [place] [address] Julio Cesar Rebolledo M.D. [address] [place] [address] 08/11/2025 8:30 AM CDT Appointment Department of Radiation Oncology in [place], [place] [address] [place] [address] Julio Cesar Rebolledo M.D. [address] [place] [address] 08/12/2025 8:30 AM CDT Appointment Department of Radiation Oncology in [place], [place] [address] [place] [address] Julio Cesar Rebolledo M.D. [address] [place] [address] 08/13/2025 8:30 AM CDT Appointment Department of Radiation Oncology in [place], [place] [address] [place] [address] Julio Cesar Rebolledo M.D. [address] [place] [address] 08/14/2025 8:30 AM CDT Appointment Department of Radiation Oncology in [address] [address] Julio Cesar Rebolledo M.D. [address] [place] [address] 08/14/2025 9:00 AM CDT Appointment Department of Radiation Oncology in [place], [place] [address] [place] [address] Julio Cesar Rebolledo M.D. [address] [place] [address] 08/15/2025 8:30 AM CDT Appointment Department of Radiation Oncology in [place], [place] [address] [place] [address] Julio Cesar Rebolledo M.D. [address] [place] [address] 08/18/2025 8:30 AM CDT Appointment Department of Radiation Oncology in [place], [place] [address] [place] [address] Julio Cesar Rebolledo M.D. [address] [place] [address] 08/19/2025 8:30 AM CDT Appointment Department of Radiation Oncology in [place], [place] [address] [place] [address] Julio Cesar Rebolledo M.D. [address] [place] [address] 08/20/2025 8:30 AM CDT Appointment Department of Radiation Oncology in [place], [place] [address] [place] [phone] Juilo Cesar Rebolledo M.D. [facility] [place] [address] 08/21/2025 8:30 AM CDT Appointment Department of Radiation Oncology in [address] [address] Julio Cesar Rebolledo M.D. [address] [place] [address] 08/21/2025 9:00 AM CDT Appointment Department of Radiation Oncology in [place] [address] [place] [address] Julio Cesar Rebolledo M.D. [address] [place] [address] 08/22/2025 8:30 AM CDT Appointment Department of Radiation Oncology in [place], [place] [address] [place] [address] Julio Cesar Rebolledo M.D. [address] [place] [address] 08/25/2025 8:30 AM CDT Appointment Department of Radiation Oncology in [place], [place] [address] [place] [address] Julio Cesar Rebolledo M.D. [address] [place] [address] 08/26/2025 8:30 AM CDT Appointment Department of Radiation Oncology in [place], [place] [address] [place] [address] Julio Cesar Rebolledo M.D. [address] [place] [address] 08/27/2025 8:30 AM CDT Appointment Department of Radiation Oncology in [address] [address] Julio Cesar Rebolledo M.D. [facility] [place] [address] 08/28/2025 8:30 AM CDT Appointment Department of Radiation Oncology in [place], [place] [address] [place] [address] Julio Cesar Rebolledo M.D. [facility] [place] [address] 08/28/2025 9:00 AM CDT Appointment Department of Radiation Oncology in [place], [place] [address] [place] [address] Julio Cesar Rebolledo M.D. [facility] [place] [address] 08/29/2025 8:30 AM CDT Appointment Department of Radiation Oncology in [place] [address] [place] [address] Julio Cesar Rebolledo M.D. [facility] [place] [address] 09/01/2025 8:30 AM CDT Appointment Department of Radiation Oncology in [place], [place] [address] [facility] [address] Julio Cesar Rebolledo M.D. [address] [place] [address] 09/02/2025 8:30 AM CDT Appointment Department of Radiation Oncology in [place], [place] [address] [place] [address] Julio Cesar Rebolledo M.D. [address] [place] [address] 09/03/2025 8:30 AM CDT Appointment Department of Radiation Oncology in [place], [place] [address] [place] [address] Julio Cesar Rebolledo M.D. [address] [place] [address] 09/03/2025 8:45 AM CDT Appointment Department of Radiation Oncology in [place], [place] [address] [place] [address] Julio Cesar Rebolledo M.D. [address] [place] [address] 09/04/2025 8:30 AM CDT Appointment Department of Radiation Oncology in [place], [place] [address] [place] [address] Julio Cesar Rebolledo M.D. [address] [place] [address] 09/05/2025 8:30 AM CDT Appointment Department of Radiation Oncology in [address] [place] [address] Julio Cesar Rebolledo M.D. [address] [place] [address] 09/08/2025 8:30 AM CDT Appointment Department of Radiation Oncology in [address] [address] Julio Cesar Rebolledo M.D. [address] [place] [address] documented as of this encounter Visit Diagnoses Not on filedocumented in this encounter Additional Health Concerns Infection Onset Date Last Indicated Resolved Time Protective Environment 06/30/2025 06/30/2025 documented as of this encounter
--- OUTSIDE RECORDS SUMMARY | 2025-07-22 08:41 | XMS_ITS | Encounter Summary ---
Author Organization [facility] Address [address] [place] [address] Care Team Providers Care Director Of Outpatient Services Name Role Phone Unavailable Primary Care Provider Unavailabl e Reason for Referral * Outpatient (Routine) - Closed Specialty Diagnoses / Procedures Referred By Norma choi Referred To Contact Social Work Diagnoses Malignant Neoplasm Of Tongue Base (HCC) Julio Cesar Rebolledo M.D. [address] [place] [address] Phone: tel: fax: [facility] Region Referral ID Status Reason Start Date Expiration Date Visits Re quested Visits Authorized [id number] Closed 06/30/2025 12/30/2026 1 1 Reason for Visit * Outpatient (Routine) - Closed Specialty Diagnoses / Procedures Referred By Norma choi Referred To Contact Social Work Diagnoses Malignant Neoplasm Of Tongue Base (HCC) Julio Cesar Rebolledo M.D. [address] [place] [address] Phone: tel: fax: [facility] Region Referral ID Status Reason Start Date Expiration Date Visits Re quested Visits Authorized [id number] Closed 06/30/2025 12/30/2026 1 1 Encounter Details Date Type Department Care Team (Latest Contact Info) Description 07/22/2025 8:41 AM CDT - 07/22/2025 9:33 AM CDT Hospital Encounter Department of Radiation Oncology in [place], [place] [address] [place] [address] Julio Cesar Rebolledo M.D. [address] [place] [address] Myra Mead M.S.W., L.I.C.S.W. 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 No 07/22/2025 [facility] Utilities Answer Date Recorded In the past 12 months has th e electric, gas, oil, or water company threatened to shut off services in your home? No 07/22/2025 Housing Stability Answer Date Recorded What is your living situation today? I have a [facility] place to live 07/22/2025 Sex and [...] hr. 12/18/2024 documented as of this encounter Progress Notes * Dawna Mane - 07/22/2025 9:00 AM CDT The patient was present for a consult via real-time audio/video technology by Myra Mead on 07/22/25. * Myra Mead M.S.Shoaib., L.IAliciaS.W. - 07/22/2025 9:00 AM CDT General Progress Note Referring provider: Julio Cesar Rebolledo M.D. Location: Department of Radiation Oncology in [place], [place] SUBJECTIVE Social Work received request from Radiation provider to meet with patient regarding his cancer diagnosis and treatments. Patient reported he is on day two of treatment and so far feeling well. He noted his daughter, Mauriciond , Antionette were present with him today. 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 Patient reported he hasn't let this get him down, he denies any history of mentalhealth concerns. 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 He noted his teeth were removed prior to starting treatment so he is on a soft foods diet but so far his appetite remains good. He denies any concerns with sleeping other thanwaking a couple times to use to the bathroom in the night. He has a great family support network and they deny any needs or concerns at this time. Social Work met with patient and family to check in on how he was doing, how he is coping, any concerns or care needs they have. Patient and family agree they are managing well and have no new concerns today. OBJECTIVE [place] Suicide Scale 1. Within the past month, have you wished you were or wished you could go to sleep and not wake up?: No (07/22/25928) 2. Within the past month, have you actually had any thoughts of killing yourself?: No 6. In your whole life have you ever done anything, started to do anything, or prepared to do anything to end your life?: No ASSESSMENT / PLAN ASSESSMENT MENTAL STATUS EXAM Orientation: Oriented to person, place and time Level of consciousness: Awake and alert Appearance: Age appearing, Relaxed, and Well-groomed Behavior observed: Calm and Interactive Memory: Good based on ability to recall Estimated intellectual functioning: Average for developmental level Status of concentration: Good based on conversation today Cooperation: Cooperative Mood: euthymic and Calm Affect: Mood-congruent Speech: Within normal limits for volume, rate and tone. Thought process: Logical, linear, and goal-directed Thought content, auditory/visual hallucinations and/or delusions: No abnormality noted Judgement: intact Insight: intact Motivation for treatment: Adequate Safety: low risk Suicidal ideation: Reported no suicidal ideation Homicidal ideations: Reported no homicidal ideation PLAN Patient was provided with the contact information for the following resourcesnone. Patient and family will reach out should any new needs, symptoms, or concerns arise. Richie Salazar, L.I.C.S.W. 07/22/2025 documented in this encounter Plan of Treatment Upcoming Encounters Date Type Department Care Team (Late st Contact Info) Description 07/29/2025 8:30 AM CDT Appointment Department of Radiation Oncology in [address] [phone] Julio Cesar Rebolledo M.D. [facility] [place] [address] 07/30/2025 8:30 AM CDT Appointment Department of Radiation Oncology in [address] [address] Julio Cesar Rebolledo M.D. [address] [place] [address] 07/31/2025 10:15 AM CDT Appointment Department of Radiation Oncology in [place], [place] [address] [facility] [place] [address] Julio Cesar Rebolledo M.D. [address] [place] [address] 07/31/2025 10:30 AM CDT Appointment Department of Radiation Oncology in [place], [place] [address] [facility] [place] [address] Julio Cesar Rebolledo M.D. [facility] [place] [address] 08/01/2025 8:30 AM CDT Appointment Department of Radiation Oncology in [place], [place] [address] [place] [address] Julio Cesar Rebolledo M.D. [address] [place] [address] 08/04/2025 8:30 AM CDT Appointment Department of Radiation Oncology in [place], [place] [address] [place] [address] Julio Cesar Rebolledo M.D. [address] [place] [address] 08/05/2025 8:30 AM CDT Appointment Department of Radiation Oncology in [place], [place] [address] [facility] [place] [address] Julio Cesar Rebolledo M.D. [address] [place] [address] 08/06/2025 8:30 AM CDT Appointment Department of Radiation Oncology in [place], [place] [address] [place] [address] Julio Cesar Rebolledo M.D. [address] [place] [address] 08/07/2025 8:30 AM CDT Appointment Department of Radiation Oncology in [place], [place] [address] [place] [address] Julio Cesar Rebolledo M.D. [address] [place] [address] 08/07/2025 9:00 AM CDT Appointment Department of Radiation Oncology in [address] [address] Julio Cesar Rebolledo M.D. [facility] [place] [address] 08/07/2025 9:15 AM CDT Appointment Department of Radiation Oncology in [address] [address] Julio Cesar Rebolledo M.D. [address] [place] [address] 08/08/2025 8:30 AM CDT Appointment Department of Radiation Oncology in [place], [place] [address] [place] [address] Julio Cesar Rebolledo M.D. [facility] [place] [address] 08/11/2025 8:30 AM CDT Appointment Department of Radiation Oncology in [address] [address] Julio Cesar Rebolledo M.D. [address] [place] [address] 08/12/2025 8:30 AM CDT Appointment Department of Radiation Oncology in [place], [place] [address] [place] [address] Julio Cesar Rebolledo M.D. [address] [place] [address] 08/13/2025 8:30 AM CDT Appointment Department of Radiation Oncology in [place], [place] [address] [place] [address] Julio Cesar Rebolledo M.D. [address] [place] [address] 08/14/2025 8:30 AM CDT Appointment Department of Radiation Oncology in [place], [place] [address] [place] [address], [place] [address] Julio Cesar Rebolledo M.D. [address] [place] [address] 08/14/2025 9:00 AM CDT Appointment Department of Radiation Oncology in [place], [place] [address] [place] [address] Julio Cesar Rebolledo M.D. [address] [place] [address] 08/15/2025 8:30 AM CDT Appointment Department of Radiation Oncology in [place], [place] [address] [place] [address] Julio Cesar Rebolledo M.D. [address] [place] [address] 08/18/2025 8:30 AM CDT Appointment Department of Radiation Oncology in [place], [place] [address] [facility] [place] [address] Julio Cesar Rebolledo M.D. [address] [place] [address] 08/19/2025 8:30 AM CDT Appointment Department of Radiation Oncology in [place], [place] [address] [place] [address] Julio Cesar Rebolledo M.D. [address] [place] [address] 08/20/2025 8:30 AM CDT Appointment Department of Radiation Oncology in [address] [address] Julio Cesar Rebolledo M.D. [address] [place] [address] 08/21/2025 8:30 AM CDT Appointment Department of Radiation Oncology in [place], [place] [address] [place] [address] Julio Cesar Rebolledo M.D. [address] [place] [address] 08/21/2025 9:00 AM CDT Appointment Department of Radiation Oncology in [place], [place] [address] [place] [address] Julio Cesar Rebolledo M.D. [address] [place] [address] 08/22/2025 8:30 AM CDT Appointment Department of Radiation Oncology in [place], [place] [address] [place] [address] Julio Cesar Rebolledo M.D. [address] [place] [address] 08/25/2025 8:30 AM CDT Appointment Department of Radiation Oncology in [place], [place] [address] [place] [address] Julio Cesar Rebolledo M.D. [address] [place] [address] 08/26/2025 8:30 AM CDT Appointment Department of Radiation Oncology in [place], [place] [address] [place] [address] Julio Cesar Rebolledo M.D. [facility] [place] [address] 08/27/2025 8:30 AM CDT Appointment Department of Radiation Oncology in [address] [address] Julio Cesar Rebolledo M.D. [address] [place] [address] 08/28/2025 8:30 AM CDT Appointment Department of Radiation Oncology in [place] [address] [place] [address] Julio Cesar Rebolledo M.D. [address] [place] [address] 08/28/2025 9:00 AM CDT Appointment Department of Radiation Oncology in [place], [place] [address] [place] [address] Julio Cesar Rebolledo M.D. [address] [place] [address] 08/29/2025 8:30 AM CDT Appointment Department of Radiation Oncology in [place], [place] [address] [place] [address] Julio Cesar Rebolledo M.D. [address] [place] [address] 09/01/2025 8:30 AM CDT Appointment Department of Radiation Oncology in [place], [place] [address] [place] [address] Julio Cesar Rebolledo M.D. [address] [place] [address] 09/02/2025 8:30 AM CDT Appointment Department of Radiation Oncology in [address] [address] Julio Cesar Rebolledo M.D. [facility] [place] [address] 09/03/2025 8:30 AM CDT Appointment Department of Radiation Oncology in [place], [place] [address] [place] [address] Julio Cesar Rebolledo M.D. [facility] [place] [address] 09/03/2025 8:45 AM CDT Appointment Department of Radiation Oncology in [place], [place] [address] [place] [address] Julio Cesar Rebolledo M.D. [address] [place] [address] 09/04/2025 8:30 AM CDT Appointment Department of Radiation Oncology in [place], [place] [address] [place] [address] Julio Cesar Rebolledo M.D. [facility] [place] [address] 09/05/2025 8:30 AM CDT Appointment Department of Radiation Oncology in [place], [place] [address] [facility] [place] [address] Julio Cesar Rebolledo M.D. [address] [place] [address] 09/08/2025 8:30 AM CDT Appointment Department of Radiation Oncology in [place], [place] [address] [place] [address] JulioC esar Rebolledo M.D. [facility] [place] [address] Scheduled Referrals Name Type Priority Associated Diagnoses Order Schedule Social Work - General consult (clinic) Outpatient Referral Routine Once for 1 Occurrences starting 07/22/2025 until 07/22/2025 documented as of this encounter Visit Diagnoses Diagnosis Malignant Neoplasm Of Tongue Base (HCC)- Primary documented in this encounter Additional Health Concerns Infection Onset Date Last Indicated Resolved Time Protective Environment 06/30/2025 06/30/2025 documented as of this encounter
--- OUTSIDE RECORDS SUMMARY | 2025-07-23 08:12 | XMS_ITS | Encounter Summary ---
Author Organization [facility] Address [address] [place] [address] Care Team Providers Care Sas Administrator Name Role Phone Unavailable Primary Care Provider Unavailabl e Reason for Visit * Radiation Therapy (Routine) - Authorized Specialty Diagnoses / Procedures Referred By Contjerson t Referred To Contact Diagnoses Malignant Neoplasm Of Tongue Base (HCC) Procedures Prior Auth Rad Tx [place] IMRT COMPLEX [place] GUIDANCE FOR LOC RAD [place] IMRT RADIOTHERAPY PLAN IMRT Julio Cesar Rebolledo M.D. [address] [place] [phone] Phone: tel: fax: [facility] Referral ID Status Reason Start Date Expiration Date V isits Requested Visits Authorized [id number] Authorized 07/14/2025 09/30/2026 35 35 Encounter Details Date Type Department Care Team (Late st Contact Info) Description 07/23/2025 8:12 AM CDT Hospital Encounter Department of Radiation Oncology in [place], [place] [address] [place] [phone] Julio Cesar Rebolledo M.D. [address] [place] [phone] Social History Tobacco Use Types Packs/Day [...] things needed for daily living? No 07/22/2025 [facility] Utilities Answer Date Recorded In the past 12 months has [facility] electric, gas, oil, or water company threatened to shut off services in your home? No 07/22/2025 Housing Stability Answer Date Recorded What is your living situation today? I have a [facility] place to live 07/22/2025 Sex and [...] CDT Appointment Department of Radiation Oncology in [place], [place] [address] [place] [phone] Julio Cesar Rebolledo M.D. [address] [place] [address] 07/30/2025 8:30 AM CDT Appointment Department of Radiation Oncology in [place], [place] [address] [place] [address] Julio Cesar Rebolledo M.D. [address] [place] [address] 07/31/2025 10:15 AM CDT Appointment Department of Radiation Oncology in [place], [place] [address] [place] [address] Julio Cesar Rebolledo M.D. [address] [place] [address] 07/31/2025 10:30 AM CDT Appointment Department of Radiation Oncology in [place], [place] [address] [place] [address] Julio Cesar Rebolledo M.D. [address] [place] [address] 08/01/2025 8:30 AM CDT Appointment Department of Radiation Oncology in [address] [address] Julio Cesar Rebolledo M.D. [facility] [place] [address] 08/04/2025 8:30 AM CDT Appointment Department of Radiation Oncology in [place] [address] [place] [address] Julio Cesar Rebolledo M.D. [address] [place] [address] 08/05/2025 8:30 AM CDT Appointment Department of Radiation Oncology in [place], [place] [address] [place] [address] Julio Cesar Rebolledo M.D. [facility] [place] [address] 08/06/2025 8:30 AM CDT Appointment Department of Radiation Oncology in [address] [address] Julio Cesar Rebolledo M.D. [address] [place] [address] 08/07/2025 8:30 AM CDT Appointment Department of Radiation Oncology in [place], [place] [address] [place] [address] Julio Cesar Rebolledo M.D. [address] [place] [address] 08/07/2025 9:00 AM CDT Appointment Department of Radiation Oncology in [place], [place] [address] [place] [address] Julio Cesar Rebolledo M.D. [facility] [place] [address] 08/07/2025 9:15 AM CDT Appointment Department of Radiation Oncology in [place], [place] [address] [place] [address], [place] [address] Julio Cesar Rebolledo M.D. [address] [place] [address] 08/08/2025 8:30 AM CDT Appointment Department of Radiation Oncology in [place], [place] [address] [place] [address] Julio Cesar Rebolledo M.D. [address] [place] [address] 08/11/2025 8:30 AM CDT Appointment Department of Radiation Oncology in [place], [place] [address] [place] [address] Julio Cesar Rebolledo M.D. [address] [place] [address] 08/12/2025 8:30 AM CDT Appointment Department of Radiation Oncology in [place], [place] [address] [place] [address] Julio Cesar Rebolledo M.D. [address] [place] [address] 08/13/2025 8:30 AM CDT Appointment Department of Radiation Oncology in [place], [place] [address] [place] [address] Julio Cesar Rebolledo M.D. [address] [place] [address] 08/14/2025 8:30 AM CDT Appointment Department of Radiation Oncology in [address] [address] Julio Cesar Rebolledo M.D. [address] [place] [address] 08/14/2025 9:00 AM CDT Appointment Department of Radiation Oncology in [place], [place] [address] [place] [address] Julio Cesar Rebolledo M.D. [address] [place] [address] 08/15/2025 8:30 AM CDT Appointment Department of Radiation Oncology in [place], [place] [address] [place] [address] Julio Cesar Rebolledo M.D. [address] [place] [address] 08/18/2025 8:30 AM CDT Appointment Department of Radiation Oncology in [place], [place] [address] [place] [address] Julio Cesar Rebolledo M.D. [address] [place] [address] 08/19/2025 8:30 AM CDT Appointment Department of Radiation Oncology in [place], [place] [address] [place] [address] Julio Cesar Rebolledo M.D. [address] [place] [address] 08/20/2025 8:30 AM CDT Appointment Department of Radiation Oncology in [place], [place] [address] [place] [address] Julio Cesar Rebolledo M.D. [facility] [place] [address] 08/21/2025 8:30 AM CDT Appointment Department of Radiation Oncology in [address] [address] Julio Cesar Rebolledo M.D. [address] [place] [address] 08/21/2025 9:00 AM CDT Appointment Department of Radiation Oncology in [place] [address] [place] [address] Julio Cesar Rebolledo M.D. [address] [place] [address] 08/22/2025 8:30 AM CDT Appointment Department of Radiation Oncology in [place], [place] [address] [place] [address] Julio Cesar Rebolledo M.D. [address] [place] [address] 08/25/2025 8:30 AM CDT Appointment Department of Radiation Oncology in [place], [place] [address] [place] [address] Julio Cesar Rebolledo M.D. [address] [place] [address] 08/26/2025 8:30 AM CDT Appointment Department of Radiation Oncology in [place], [place] [address] [place] [address] Julio Cesar Rebolledo M.D. [address] [place] [address] 08/27/2025 8:30 AM CDT Appointment Department of Radiation Oncology in [address] [address] Julio Cesar Rebolledo M.D. [facility] [place] [address] 08/28/2025 8:30 AM CDT Appointment Department of Radiation Oncology in [place], [place] [address] [place] [address] Julio Cesar Rebolledo M.D. [facility] [place] [address] 08/28/2025 9:00 AM CDT Appointment Department of Radiation Oncology in [place], [place] [address] [place] [address] Julio Cesar Rebolledo M.D. [facility] [place] [address] 08/29/2025 8:30 AM CDT Appointment Department of Radiation Oncology in [place] [address] [place] [address] Julio Cesar Rebolledo M.D. [facility] [place] [address] 09/01/2025 8:30 AM CDT Appointment Department of Radiation Oncology in [place], [place] [address] [facility] [place] [address] Julio Cesar Rebolledo M.D. [address] [place] [address] 09/02/2025 8:30 AM CDT Appointment Department of Radiation Oncology in [place], [place] [address] [place] [address] Julio Cesar Rebolledo M.D. [address] [place] [address] 09/03/2025 8:30 AM CDT Appointment Department of Radiation Oncology in [place], [place] [address] [place] [address] Julio Cesar Rebolledo M.D. [address] [place] [address] 09/03/2025 8:45 AM CDT Appointment Department of Radiation Oncology in [place], [place] [address] [place] [address] Julio Cesar Reboleldo M.D. [address] [place] [address] 09/04/2025 8:30 AM CDT Appointment Department of Radiation Oncology in [place], [place] [address] [place] [address] Julio Cesar Rebolledo M.D. [address] [place] [address] 09/05/2025 8:30 AM CDT Appointment Department of Radiation Oncology in [address] [place] [address] Julio Cesar Rebolledo M.D. [address] [place] [address] 09/08/2025 8:30 AM CDT Appointment Department of Radiation Oncology in [address] [address] Julio Cesar Rebolledo M.D. [address] [place] [address] documented as of this encounter Visit Diagnoses Not on filedocumented in this encounter Additional Health Concerns Infection Onset Date Last Indicated Resolved Time Protective Environment 06/30/2025 06/30/2025 documented as of this encounter
--- OUTSIDE RECORDS SUMMARY | 2025-07-24 08:09 | XMS_ITS | Encounter Summary ---
Author Organization [facility] Address [address] [place] [address] Care Team Providers Care Diesel Technology Instructor Name Role Phone Unavailable Primary Care Provider Unavailabl e Reason for Visit * Radiation Therapy (Routine) - Authorized Specialty Diagnoses / Procedures Referred By Contjerson t Referred To Contact Diagnoses Malignant Neoplasm Of Tongue Base (HCC) Procedures Prior Auth Rad Tx CO IMRT COMPLEX CO GUIDANCE FOR LOC RAD TX CO IMRT RADIOTHERAPY PLAN IMRT Julio Cesar Rebolledo M.D. [address] [place] [phone] Phone: tel: fax: [facility] Referral ID Status Reason Start Date Expiration Date V isits Requested Visits Authorized [id number] Authorized 07/14/2025 09/30/2026 35 35 Encounter Details Date Type Department Care Team (Late st Contact Info) Description 07/24/2025 8:09 AM CDT Hospital Encounter Department of Radiation Oncology in [place], [place] [address] [place] [phone] Julio Cesar Rebolledo M.D. [address] [place] [phone] Social History Tobacco Use Types Packs/Day [...] things needed for daily living? No 07/22/2025 [facility] Utilities Answer Date Recorded In the past 12 months has [facility] electric, gas, oil, or water company threatened to shut off services in your home? No 07/22/2025 Housing Stability Answer Date Recorded What is your living situation today? I have a [facility] place to live 07/22/2025 Sex and [...] CDT Appointment Department of Radiation Oncology in [place], [place] [address] [place] [phone] Julio Cesar Rebolledo M.D. [address] [place] [address] 07/30/2025 8:30 AM CDT Appointment Department of Radiation Oncology in [place], [place] [address] [place] [address] Julio Cesar Rebolledo M.D. [address] [place] [address] 07/31/2025 10:15 AM CDT Appointment Department of Radiation Oncology in [place], [place] [address] [place] [address] Julio Cesar Rebolledo M.D. [address] [place] [address] 07/31/2025 10:30 AM CDT Appointment Department of Radiation Oncology in [place], [place] [address] [place] [address] Julio Cesar Rebolledo M.D. [address] [place] [phone] 08/01/2025 8:30 AM CDT Appointment Department of Radiation Oncology in [address] [address] Julio Cesar Rebolledo M.D. [facility] [place] [address] 08/04/2025 8:30 AM CDT Appointment Department of Radiation Oncology in [place] [address] [place] [address] Julio Cesar Rebolledo M.D. [address] [place] [address] 08/05/2025 8:30 AM CDT Appointment Department of Radiation Oncology in [place], [place] [address] [place] [address] Julio Cesar Rebolledo M.D. [facility] [place] [address] 08/06/2025 8:30 AM CDT Appointment Department of Radiation Oncology in [address] [address] Julio Cesar Rebolledo M.D. [address] [place] [address] 08/07/2025 8:30 AM CDT Appointment Department of Radiation Oncology in [place], [place] [address] [place] [phone] Julio Cesar Rebolledo M.D. [address] [place] [address] 08/07/2025 9:00 AM CDT Appointment Department of Radiation Oncology in [place], [place] [address] [place] [address] Julio Cesar Rebolledo M.D. [facility] [place] [address] 08/07/2025 9:15 AM CDT Appointment Department of Radiation Oncology in [place], [place] [address] [place] [address], [place] [phone] Julio Cesar Rebolledo M.D. [address] [place] [address] 08/08/2025 8:30 AM CDT Appointment Department of Radiation Oncology in [place], [place] [address] [place] [address] Julio Cesar Rebolledo M.D. [address] [place] [address] 08/11/2025 8:30 AM CDT Appointment Department of Radiation Oncology in [place], [place] [address] [place] [address] Julio Cesar Rebolledo M.D. [address] [place] [address] 08/12/2025 8:30 AM CDT Appointment Department of Radiation Oncology in [place], [place] [address] [place] [address] Julio Cesar Rebolledo M.D. [address] [place] [address] 08/13/2025 8:30 AM CDT Appointment Department of Radiation Oncology in [place], [place] [address] [place] [address] Julio Cesar Rebolledo M.D. [address] [place] [address] 08/14/2025 8:30 AM CDT Appointment Department of Radiation Oncology in [address] [address] Julio Cesar Rebolledo M.D. [address] [place] [address] 08/14/2025 9:00 AM CDT Appointment Department of Radiation Oncology in [place], [place] [address] [place] [address] Julio Cesar Rebolledo M.D. [address] [place] [address] 08/15/2025 8:30 AM CDT Appointment Department of Radiation Oncology in [place], [place] [address] [place] [address] Julio Cesar Rebolledo M.D. [address] [place] [address] 08/18/2025 8:30 AM CDT Appointment Department of Radiation Oncology in [place], [place] [address] [place] [phone] Julio Cesar Rebolledo M.D. [address] [place] [address] 08/19/2025 8:30 AM CDT Appointment Department of Radiation Oncology in [place], [place] [address] [place] [address] Julio Cesar Rebolledo M.D. [address] [place] [address] 08/20/2025 8:30 AM CDT Appointment Department of Radiation Oncology in [place], [place] [address] [place] [address] Julio Cesar Rebolledo M.D. [facility] [place] [address] 08/21/2025 8:30 AM CDT Appointment Department of Radiation Oncology in [address] [address] Julio Cesar Rebolledo M.D. [address] [place] [phone] 08/21/2025 9:00 AM CDT Appointment Department of Radiation Oncology in [place] [address] [place] [address] Julio Cesar Rebolledo M.D. [address] [place] [address] 08/22/2025 8:30 AM CDT Appointment Department of Radiation Oncology in [place], [place] [address] [place] [address] Julio Cesar Rebolledo M.D. [address] [place] [address] 08/25/2025 8:30 AM CDT Appointment Department of Radiation Oncology in [place], [place] [address] [place] [address] Julio Cesar Rebolledo M.D. [address] [place] [address] 08/26/2025 8:30 AM CDT Appointment Department of Radiation Oncology in [place], [place] [address] [place] [phone] Julio Cesar Rebolledo M.D. [address] [place] [address] 08/27/2025 8:30 AM CDT Appointment Department of Radiation Oncology in [address] [address] Julio Cesar Rebolledo M.D. [facility] [place] [address] 08/28/2025 8:30 AM CDT Appointment Department of Radiation Oncology in [place], [place] [address] [place] [address] Julio Cesar Rebolledo M.D. [facility] [place] [address] 08/28/2025 9:00 AM CDT Appointment Department of Radiation Oncology in [place], [place] [address] [place] [address] Julio Cesar Rebolledo M.D. [facility] [place] [address] 08/29/2025 8:30 AM CDT Appointment Department of Radiation Oncology in [place] [address] [place] [address] Julio Cesar Rebolledo M.D. [facility] [place] [address] 09/01/2025 8:30 AM CDT Appointment Department of Radiation Oncology in [place], [place] [address] [facility] [place] [address] Julio Cesar Rebolledo M.D. [address] [place] [address] 09/02/2025 8:30 AM CDT Appointment Department of Radiation Oncology in [place], [place] [address] [place] [address] Julio Cesar Rebolledo M.D. [address] [place] [address] 09/03/2025 8:30 AM CDT Appointment Department of Radiation Oncology in [place], [place] [address] [place] [address] Julio Cesar Rebolledo M.D. [address] [place] [address] 09/03/2025 8:45 AM CDT Appointment Department of Radiation Oncology in [place], [place] [address] [place] [address] Julio Cesar Rebolledo M.D. [address] [place] [address] 09/04/2025 8:30 AM CDT Appointment Department of Radiation Oncology in [place], [place] [address] [place] [address] Julio Cesar Rebolledo M.D. [address] [place] [address] 09/05/2025 8:30 AM CDT Appointment Department of Radiation Oncology in [address] [place] [address] Julio Cesar Rebolledo M.D. [address] [place] [address] 09/08/2025 8:30 AM CDT Appointment Department of Radiation Oncology in [address] [address] Julio Cesar Rebolledo M.D. [address] [place] [address] documented as of this encounter Visit Diagnoses Not on filedocumented in this encounter Additional Health Concerns Infection Onset Date Last Indicated Resolved Time Protective Environment 06/30/2025 06/30/2025 documented as of this encounter
--- OUTSIDE RECORDS SUMMARY | 2025-07-24 08:10 | XMS_ITS | Encounter Summary ---
Author Organization [facility] Address [address] [place] [address] Care Team Providers Care Stone Lathe Operator Name Role Phone Unavailable Primary Care Provider Unavailabl e Reason for Referral * Specialty Diagnoses / Procedures Referred By Contac t Referred To Contact Julio Cesar Rebolledo M.D. [address] [place] [address] Phone: tel: fax: [facility] Region Referral ID Status Reason Start Date Expiration Date Visits Re quested Visits Authorized Scheduling Instructions Please do not schedule if patient has 10 fractions or less, unless requested by care team. Encounter Details Date Type Department Care Team (Latest Contact Info) Description 07/24/2025 8:10 AM CDT - 07/24/2025 9:28 AM CDT Hospital Encounter Department of Radiation Oncology in [place], [place] [address] [place] [address] Julio Cesar Rebolledo M.D. [address] [place] [phone] Britt Ayala R.N. [address] [place] [address] Malignant Neoplasm Of Tongue Base (HCC) (Primary [...] money to buy more. Never true 07/22/20 Within the past 12 months, t he [...] things needed for daily living? No 07/22/2025 [facility] Utilities Answer Date Recorded In the past 12 months has [employer] electric, gas, oil, or water company threatened to shut off services in your home? No 07/22/2025 Housing Stability Answer Date Recorded What is your living situation today? I have a [facility] place to live 07/22/2025 Sex and [...] as of this encounter Progress Notes * Michel Leach RElbaN. - 07/24/2025 9:45 AM CDT Patient was educated on side effects of radiation therapy. Their questions were answered to the best of my ability. The patient was encouraged to contact the team at any point, with questions or concerns. documented in this encounter Plan of Treatment Upcoming Encounters Date Type Department Care Team (Late st Contact Info) Description 07/29/2025 8:30 AM CDT Appointment Department of Radiation Oncology in [address] [address] Julio Cesar Rebolledo M.D. [address] [place] [phone] 07/30/2025 8:30 AM CDT Appointment Department of Radiation Oncology in [address] [address] Julio Cesar Rebolledo M.D. [address] [place] [phone] 07/31/2025 10:15 AM CDT Appointment Department of Radiation Oncology in [address] [address] Julio Cesar Rebolledo M.D. [address] [place] [phone] 07/31/2025 10:30 AM CDT Appointment Department of Radiation Oncology in [address] [address] Julio Cesar Rebolledo M.D. [address] [place] [phone] 08/01/2025 8:30 AM CDT Appointment Department of Radiation Oncology in [address] [address] Julio Cesar Rebolledo M.D. [address] [place] [phone] 08/04/2025 8:30 AM CDT Appointment Department of Radiation Oncology in [place], [place] [address] [place] [address] Julio Cesar Rebolledo M.D. [address] [place] [address] 08/05/2025 8:30 AM CDT Appointment Department of Radiation Oncology in [place], [place] [address] [place] [phone] Julio Cesar Rebolledo M.D. [address] [place] [address] 08/06/2025 8:30 AM CDT Appointment Department of Radiation Oncology in [place] [id number] [place] [address] [address] Rebol[address] M[address] [place] [address] 08/07/2025 8:30 AM CDT Appointment Department of Radiation Oncology in [address] [address] Julio Cesar Rebolledo M.D. [address] [place] [phone] 08/07/2025 9:00 AM CDT Appointment Department of Radiation Oncology in [address] [address] Julio Cesar Rebolledo M.D. [place] [address] 08/07/2025 9:15 AM CDT Appointment Department of Radiation Oncology in [address] [address] Julio Cesar Rebolledo M.D. [address] [place] [address] 08/08/2025 8:30 AM CDT Appointment Department of Radiation Oncology in [place], [place] [address] [place] [address] Julio Cesar Rebolledo M.D. [address] [place] [address] 08/11/2025 8:30 AM CDT Appointment Department of Radiation Oncology in [place], [place] [address] [place] [address] Julio Cesar Rebolledo M.D. [address] [place] [address] 08/12/2025 8:30 AM CDT Appointment Department of Radiation Oncology in [place], [place] [address] [place] [address] Julio Cesar Rebolledo M.D. [address] [place] [address] 08/13/2025 8:30 AM CDT Appointment Department of Radiation Oncology in [place], [place] [address] [place] [address] Julio Cesar Rebolledo M.D. [address] [place] [address] 08/14/2025 8:30 AM CDT Appointment Department of Radiation Oncology in [place], [place] [address] [place] [address] Julio Cesar Rebolledo M.D. [address] [place] [address] 08/14/2025 9:00 AM CDT Appointment Department of Radiation Oncology in [place], [place] [address] [place] [phone] Julio Cesar Rebolledo M.D. [address] [place] [address] 08/15/2025 8:30 AM CDT Appointment Department of Radiation Oncology in [place], [place] [address] [place] [address] Julio Cesar Rebolledo M.D. [address] [place] [address] 08/18/2025 8:30 AM CDT Appointment Department of Radiation Oncology in [address] [address] Julio Cesar Rebolledo M.D. [address] [place] [address] 08/19/2025 8:30 AM CDT Appointment Department of Radiation Oncology in [place], [place] [address] [place] [phone] Julio Cesar Rebolledo M.D. [address] [place] [address] 08/20/2025 8:30 AM CDT Appointment Department of Radiation Oncology in [place], [place] [address] [place] [address] [address] C[address] Rebolledo M.D. [place] [address] 08/21/2025 8:30 AM CDT Appointment Department of Radiation Oncology in [address] [address] Julio Cesar Rebolledo M.D. [address] [place] [address] 08/21/2025 9:00 AM CDT Appointment Department of Radiation Oncology in [place], [place] [address] [place] [phone] Julio Cesar Rebolledo M.D. [address] [place] [address] 08/22/2025 8:30 AM CDT Appointment Department of Radiation Oncology in [place], [place] [address] [place] [address] Julio Cesar Rebolledo M.D. [address] [place] [address] 08/25/2025 8:30 AM CDT Appointment Department of Radiation Oncology in [address] [address] Julio Cesar Rebolledo M.D. [address] [place] [address] 08/26/2025 8:30 AM CDT Appointment Department of Radiation Oncology in [place], [place] [address] [place] [address] [address] C[address] Rebolledo M.D. [place] [address] 08/27/2025 8:30 AM CDT Appointment Department of Radiation Oncology in [place], [place] [address] [place] [address] Julio Cesar Rebolledo M.D. [address] [place] [address] 08/28/2025 8:30 AM CDT Appointment Department of Radiation Oncology in [place], [place] [address] [place] [address] Julio Cesar Rebolledo M.D. [address] [place] [address] 08/28/2025 9:00 AM CDT Appointment Department of Radiation Oncology in [place], [place] [address] [place] [address] Julio Cesar Rebolledo M.D. [address] [place] [address] 08/29/2025 8:30 AM CDT Appointment Department of Radiation Oncology in [address] [address] Julio Cesar Rebolledo M.D. [address] [place] [address] 09/01/2025 8:30 AM CDT Appointment Department of Radiation Oncology in [place], [place] [address] [place] [address] Julio Cesar Rebolledo M.D. [address] [place] [address] 09/02/2025 8:30 AM CDT Appointment Department of Radiation Oncology in [place], [place] [address] [place] [address] Julio Cesar Rebolledo M.D. [address] [place] [address] 09/03/2025 8:30 AM CDT Appointment Department of Radiation Oncology in [place], [place] [address] [place] [address] Julio Cesar Rebolledo M.D. [place] [address] 09/03/2025 8:45 AM CDT Appointment Department of Radiation Oncology in [address] [address] Julio Cesar Rebolledo M.D. [address] [place] [address] 09/04/2025 8:30 AM CDT Appointment Department of Radiation Oncology in [address] [address] Julio Cesar Rebolledo M.D. [address] [place] [address] 09/05/2025 8:30 AM CDT Appointment Department of Radiation Oncology in [address] [address] Julio Cesar Rebolledo M.D. [address] [place] [address] 09/08/2025 8:30 AM CDT Appointment Department of Radiation Oncology in [address] [address] Julio Cesar Rebolledo M.D. [address] [place] [phone] Scheduled Referrals Name Type Priority Associated Diagnoses Order Schedule Radiation Oncology - Nurse education visit (clinic) Outpatient Referral Routine Once for 1 Occurrences starting 07/24/2025 until 07/24/2025 documented as of this encounter Visit Diagnoses Diagnosis Malignant Neoplasm Of Tongue Base (HCC)- Primary documented in this encounter Additional Health Concerns Infection Onset Date Last Indicated Resolved Time Protective Environment 06/30/2025 06/30/2025 documented as of this encounter
--- OUTSIDE RECORDS SUMMARY | 2025-07-24 08:10 | XMS_ITS | Encounter Summary ---
Author Organization [facility] Address [address] [place] [address] Care Team Providers Care Moss Gatherer Name Role Phone Unavailable Primary Care Provider Unavailabl e Reason for Referral * Radiation Therapy (Routine) - Authorized Specialty Diagnoses / Procedures Referred By Norma choi Referred To Contact Diagnoses Malignant Neoplasm Of Tongue Base (HCC) Procedures Management Visit Julio Cesar Rebolledo M.D. [address] [place] [address] Phone: tel: fax: [facility] Region Referral ID Status Reason Start Date Expiration Date V isits Requested Visits Authorized [id number] Authorized 06/30/2025 09/30/2026 10 10 Reason for Visit * Radiation Therapy (Routine) - Authorized Specialty Diagnoses / Procedures Referred By Norma choi Referred To Contact Diagnoses Malignant Neoplasm Of Tongue Base (HCC) Procedures Management Visit Julio Cesar Rebolledo M.D. [address] [place] [address] Phone: tel: fax: [facility] Region Referral ID Status Reason Start Date Expiration Date V isits Requested Visits Authorized [id number] Authorized 06/30/2025 09/30/2026 10 10 Encounter Details Date Type Department Care Team (Latest Contact Info) Description 07/24/2025 8:10 AM CDT Hospital Encounter Department of Radiation Oncology in [place], [place] [address] [place] [address] Julio Cesar Rebolledo M.D. [address] [place] [address] Malignant Neoplasm Of Tongue Base (HCC) Social [...] things needed for daily living? No 07/22/2025 [facility] Utilities Answer Date Recorded In the past 12 months has [facility] [employer], gas, oil, or water [employer] threatened to shut off services in your home? No 07/22/2025 Housing Stability Answer Date Recorded What is your living situation today? I have a [facility] place to live 07/22/2025 Sex and [...] Index - - documented in this encounter Plan of Treatment Upcoming Encounters Date Type Department Care Team (Late st Contact Info) Description 07/29/2025 8:30 AM CDT Appointment Department of Radiation Oncology in [address] [address] Julio Cesar Rebolledo M.D. [address] [place] [address] 07/30/2025 8:30 AM CDT Appointment Department of Radiation Oncology in [address] [address] Julio Cesar Rebolledo M.D. [address] [place] [address] 07/31/2025 10:15 AM CDT Appointment Department of Radiation Oncology in [address] [address] Julio Cesar Rebolledo M.D. [address] [place] [address] 07/31/2025 10:30 AM CDT Appointment Department of Radiation Oncology in [address] [address] Julio Cesar Rebolldeo M.D. [address] [place] [address] 08/01/2025 8:30 AM CDT Appointment Department of Radiation Oncology in [address] [address] Julio Cesar Rebolledo M.D. [address] [place] [address] 08/04/2025 8:30 AM CDT Appointment Department of Radiation Oncology in [place], [place] [address] [place] [address] Julio Cesar Rebolledo M.D. [address] [place] [address] 08/05/2025 8:30 AM CDT Appointment Department of Radiation Oncology in [address] [address] Julio Cesar Rebolledo M.D. [facility] [place] [place] [address] 08/06/2025 8:30 AM CDT Appointment Department of Radiation Oncology in [address] [address] Julio Cesar Rebolledo M.D. [address] [place] [address] 08/07/2025 8:30 AM CDT Appointment Department of Radiation Oncology in [address] [address] Julio Cesar Rebolledo M.D. [facility] [place] [place] [address] 08/07/2025 9:00 AM CDT Appointment Department of Radiation Oncology in [address] [address] Julio Cesar Rebolledo M.D. [address] [place] [address] 08/07/2025 9:15 AM CDT Appointment Department of Radiation Oncology in [place], [place] [address] [place] [address] Julio Cesar Rebolledo M.D. [address] [place] [address] 08/08/2025 8:30 AM CDT Appointment Department of Radiation Oncology in [place], [place] [address] [place] [address] Julio Cesar Rebolledo M.D. [address] [place] [address] 08/11/2025 8:30 AM CDT Appointment Department of Radiation Oncology in [address] [address] Julio Cesar Rebolledo M.D. [facility] [place] [place] [address] 08/12/2025 8:30 AM CDT Appointment Department of Radiation Oncology in [place], [place] [address] [place] [address] Julio Cesar Rebolledo M.D. [address] [place] [address] 08/13/2025 8:30 AM CDT Appointment Department of Radiation Oncology in [place], [place] [address] [place] [address] Julio Cesar Rebolledo M.D. [address] [place] [address] 08/14/2025 8:30 AM CDT Appointment Department of Radiation Oncology in [address] [address] Julio Cesar Rebolledo M.D. [address] [place] [address] 08/14/2025 9:00 AM CDT Appointment Department of Radiation Oncology in [place], [place] [address] [facility] [place] [address] Julio Cesar Rebolledo M.D. [address] [place] [address] 08/15/2025 8:30 AM CDT Appointment Department of Radiation Oncology in [place], [place] [address] [place] [address] Julio Cesar Rebolledo M.D. [address] [place] [address] 08/18/2025 8:30 AM CDT Appointment Department of Radiation Oncology in [place], [place] [address] [place] [address] Julio Cesar Rebolledo M.D. [address] [place] [address] 08/19/2025 8:30 AM CDT Appointment Department of Radiation Oncology in [place], [place] [address] [place] [address] Julio Cesar Rebolledo M.D. [address] [place] [address] 08/20/2025 8:30 AM CDT Appointment Department of Radiation Oncology in [place], [place] [address] [place] [address] Julio Cesar Rebolledo M.D. [address] [place] [address] 08/21/2025 8:30 AM CDT Appointment Department of Radiation Oncology in [place], [place] [address] [place] [address] Julio Cesar Rebolledo M.D. [address] [place] [address] 08/21/2025 9:00 AM CDT Appointment Department of Radiation Oncology in [place], [place] [address] [place] [address] Julio Cesar Rebolledo M.D. [address] [place] [address] 08/22/2025 8:30 AM CDT Appointment Department of Radiation Oncology in [address] [address] Julio Cesar Rebolledo M.D. [facility] [place] [address] 08/25/2025 8:30 AM CDT Appointment Department of Radiation Oncology in [place], [place] [address] [place] [address] Julio Cesar Rebolledo M.D. [facility] [place] [place] [address] 08/26/2025 8:30 AM CDT Appointment Department of Radiation Oncology in [place], [place] [address] [place] [address] Julio Cesar Rebolledo M.D. [facility] [place] [address] 08/27/2025 8:30 AM CDT Appointment Department of Radiation Oncology in [place], [place] [address] [place] [address] Julio Cesar Rebolledo M.D. [facility] [place] [place] [address] 08/28/2025 8:30 AM CDT Appointment Department of Radiation Oncology in [place], [place] [address] [place] [address] Julio Cesar Rebolledo M.D. [address] [place] [address] 08/28/2025 9:00 AM CDT Appointment Department of Radiation Oncology in [address] [address] Julio Cesar Rebolledo M.D. [facility] [place] [place] [address] 08/29/2025 8:30 AM CDT Appointment Department of Radiation Oncology in [address] [address] Julio Cesar Rebolledo M.D. [facility] [place] [address] 09/01/2025 8:30 AM CDT Appointment Department of Radiation Oncology in [address] [address] Julio Cesar Rebolledo M.D. [address] [place] [address] 09/02/2025 8:30 AM CDT Appointment Department of Radiation Oncology in [address] [address] Julio Cesar Rebolledo M.D. [facility] [place] [place] [address] 09/03/2025 8:30 AM CDT Appointment Department of Radiation Oncology in [address] [address] Julio Cesar Rebolledo M.D. [address] [place] [address] 09/03/2025 8:45 AM CDT Appointment Department of Radiation Oncology in [address] [address] Julio Cesar Rebolledo M.D. [facility] [place] [place] [address] 09/04/2025 8:30 AM CDT Appointment Department of Radiation Oncology in [address] [address] Julio Cesar Rebolledo M.D. [address] [place] [address] 09/05/2025 8:30 AM CDT Appointment Department of Radiation Oncology in [address] [address] Julio Cesar Rebolledo M.D. [address] [place] [address] 09/08/2025 8:30 AM CDT Appointment Department of Radiation Oncology in [address] [address] Julio Cesar Rebolledo M.D. [address] [place] [address] Scheduled Orders Name Type Priority Associated Diagnoses [...]
--- OUTSIDE RECORDS SUMMARY | 2025-07-24 08:10 | XMS_ITS | Encounter Summary ---
Author Organization [facility] Address [address] [place] [address] Care Team Providers Care Fire Department Marine Engineer Name Role Phone Unavailable Primary Care Provider Unavailabl e Reason for Referral * Outpatient (Routine) - Closed Specialty Diagnoses / Procedures Referred By Norma choi Referred To Contact Radiation Oncology Diagnoses Malignant Neoplasm Of Tongue Base (HCC) Julio Cesar Rebolledo M.D. [address] [place] [address] Phone: tel: fax: [facility] Region Referral ID Status Reason Start Date Expiration Date Visits Re quested Visits Authorized [id number] Closed 06/30/2025 12/30/2026 1 1 Reason for Visit * Outpatient (Routine) - Closed Specialty Diagnoses / Procedures Referred By Norma choi Referred To Contact Radiation Oncology Diagnoses Malignant Neoplasm Of Tongue Base (HCC) Julio Cesar Rebolledo M.D. [address] [place] [address] Phone: tel: fax: [facility] Region Referral ID Status Reason Start Date Expiration Date Visits Re quested Visits Authorized [id number] Closed 06/30/2025 12/30/2026 1 1 Encounter Details Date Type Department Care Team (Latest Contact Info) Description 07/24/2025 8:10 AM CDT - 07/24/2025 11:00 AM CDT Hospital Encounter Department of Radiation Oncology in [place] [address] [place] [address] Julio Cesar Rebolledo M.D. [address] [place] [phone] Gabriella Pascual, RDN, LD [address] [place] [address] Malignant Neoplasm Of Tongue Base [...] things needed for daily living? No 07/22/2025 [facility] Utilities Answer Date Recorded In the past 12 months has [facility] electric, gas, oil, or water company threatened to shut off services in your home? No 07/22/2025 Housing Stability Answer Date Recorded What is your living situation today? I have a [facility] place to live 07/22/2025 Sex and Gender [...] Chemo is weekly on Monday at the [facility]. ASSESSMENT Nutrition Focused Physical Findings Mouth/Esophagus/Throat: [...] CDT Appointment Department of Radiation Oncology in [address] [address] Julio Cesar Rebolledo M.D. [address] [place] [address] 07/30/2025 8:30 AM CDT Appointment Department of Radiation Oncology in [address] [address] Julio Cesar Rebolledo M.D. [address] [place] [address] 07/31/2025 10:15 AM CDT Appointment Department of Radiation Oncology in [address] [address] Julio Cesar Rebolledo M.D. [address] [place] [address] 07/31/2025 10:30 AM CDT Appointment Department of Radiation Oncology in [address] [address] Julio Cesar Rebolledo M.D. [address] [place] [address] 08/01/2025 8:30 AM CDT Appointment Department of Radiation Oncology in [place], [place] [address] [facility] [place] [address] Julio Cesar Rebolledo M.D. [address] [place] [address] 08/04/2025 8:30 AM CDT Appointment Department of Radiation Oncology in [place], [place] [address] [place] [address] [facility] [address] Julio Cesar Rebolledo M.D. [address] [place] [address] 08/05/2025 8:30 AM CDT Appointment Department of Radiation Oncology in [place] [id number] [facility] [place] [address] Julio Cesar Rebolledo M.D. [facility] [place] [address] 08/06/2025 8:30 AM CDT Appointment Department of Radiation Oncology in [address] [place] [address] Julio Cesar Rebolledo M.D. [address] [place] [address] 08/07/2025 8:30 AM CDT Appointment Department of Radiation Oncology in [place], [place] [address] [place] [address] Julio Cesar Rebolledo M.D. [facility] [place] [address] 08/07/2025 9:00 AM CDT Appointment Department of Radiation Oncology in [address] [address] Julio Cesar Rebolledo M.D. [address] [place] [address] 08/07/2025 9:15 AM CDT Appointment Department of Radiation Oncology in [place], [place] [address] [facility] [place] [address] Julio Cesar Rebolledo M.D. [address] [place] [address] 08/08/2025 8:30 AM CDT Appointment Department of Radiation Oncology in [place], [place] [address] [facility] [place] [address] Julio Cesar Rebolledo M.D. [address] [place] [address] 08/11/2025 8:30 AM CDT Appointment Department of Radiation Oncology in [place], [place] [address] [place] [address] Julio Cesar Rebolledo M.D. [address] [place] [address] 08/12/2025 8:30 AM CDT Appointment Department of Radiation Oncology in [place], [place] [address] [place] [address] Julio Cesar Rebolledo M.D. [address] [place] [address] 08/13/2025 8:30 AM CDT Appointment Department of Radiation Oncology in [place], [place] [address] [facility] [place] [address] Julio Cesar Rebolledo M.D. [address] [place] [address] 08/14/2025 8:30 AM CDT Appointment Department of Radiation Oncology in [place], [place] [address] [place] [address] Julio Cesar Rebolledo M.D. [address] [place] [address] 08/14/2025 9:00 AM CDT Appointment Department of Radiation Oncology in [place], [place] [address] [place] [address] Julio Cesar Rebolledo M.D. [address] [place] [address] 08/15/2025 8:30 AM CDT Appointment Department of Radiation Oncology in [place], [place] [address] [place] [address] Julio Cesar Rebolledo M.D. [facility] [place] [address] 08/18/2025 8:30 AM CDT Appointment Department of Radiation Oncology in [address] [address] Julio Cesar Rebolledo M.D. [address] [place] [address] 08/19/2025 8:30 AM CDT Appointment Department of Radiation Oncology in [place], [place] [address] [place] [address] Julio Cesar Rebolledo M.D. [facility] [place] [address] 08/20/2025 8:30 AM CDT Appointment Department of Radiation Oncology in [address] [address] Julio Cesar Rebolledo M.D. [address] [place] [address] 08/21/2025 8:30 AM CDT Appointment Department of Radiation Oncology in [place], [place] [address] [place] [address] Julio Cesar Rebolledo M.D. [address] [place] [address] 08/21/2025 9:00 AM CDT Appointment Department of Radiation Oncology in [place], [place] [address] [place] [address] Julio Cesar Rebolledo M.D. [address] [place] [address] 08/22/2025 8:30 AM CDT Appointment Department of Radiation Oncology in [place], [place] [address] [place] [address] Julio Cesar Rebolledo M.D. [address] [place] [address] 08/25/2025 8:30 AM CDT Appointment Department of Radiation Oncology in [place], [place] [address] [place] [address] Julio Cesar Rebolledo M.D. [address] [place] [address] 08/26/2025 8:30 AM CDT Appointment Department of Radiation Oncology in [place], [place] [address] [place] [address] Julio Cesar Rebolledo M.D. [address] [place] [address] 08/27/2025 8:30 AM CDT Appointment Department of Radiation Oncology in [place], [place] [address] [place] [address] Julio Cesar Rebolledo M.D. [address] [place] [address] 08/28/2025 8:30 AM CDT Appointment Department of Radiation Oncology in [place], [place] [address] [place] [address] Julio Cesar Rebolledo M.D. [address] [place] [address] 08/28/2025 9:00 AM CDT Appointment Department of Radiation Oncology in [address] [address] Julio Cesar Rebolledo M.D. [address] [place] [address] 08/29/2025 8:30 AM CDT Appointment Department of Radiation Oncology in [place], [place] [address] [place] [address] Julio Cesar Rebolledo M.D. [address] [place] [address] 09/01/2025 8:30 AM CDT Appointment Department of Radiation Oncology in [place], [place] [address] [place] [address] Julio Cesar Rebolledo M.D. [place] [place] [address] 09/02/2025 8:30 AM CDT Appointment Department of Radiation Oncology in [place], [place] [address] [place] [address] Julio Cesar Rebolledo M.D. [address] [place] [address] 09/03/2025 8:30 AM CDT Appointment Department of Radiation Oncology in [address] [address] Julio Cesar Rebolledo M.D. [address] [place] [address] 09/03/2025 8:45 AM CDT Appointment Department of Radiation Oncology in [address] [address] Julio Cesar Rebolledo M.D. [address] [place] [address] 09/04/2025 8:30 AM CDT Appointment Department of Radiation Oncology in [address] [address] Julio Cesar Rebolledo M.D. [address] [place] [address] 09/05/2025 8:30 AM CDT Appointment Department of Radiation Oncology in [address] [address] Julio Cesar Rebolledo M.D. [facility] [place] [address] 09/08/2025 8:30 AM CDT Appointment Department of Radiation Oncology in [address] [address] Julio Cesar Rebolledo M.D. [facility] [place] [address] Scheduled Referrals Name Type Priority Associated Diagnoses [...]
--- OUTSIDE RECORDS SUMMARY | 2025-07-25 08:10 | XMS_ITS | Encounter Summary ---
Author Organization [facility] Address [address] [place] [address] Care Team Providers Care Post Anesthesia Room Nurse Name Role Phone Unavailable Primary Care Provider Unavailabl e Reason for Visit * Radiation Therapy (Routine) - Authorized Specialty Diagnoses / Procedures Referred By Contjerson t Referred To Contact Diagnoses Malignant Neoplasm Of Tongue Base (HCC) Procedures Prior Auth Rad Tx ND IMRT COMPLEX ND GUIDANCE FOR LOC RAD TX ND IMRT RADIOTHERAPY PLAN IMRT Julio Cesar Rebolledo M.D. [address] [place] [phone] Phone: tel: fax: [facility] Referral ID Status Reason Start Date Expiration Date V isits Requested Visits Authorized [id number] Authorized 07/14/2025 09/30/2026 35 35 Encounter Details Date Type Department Care Team (Late st Contact Info) Description 07/25/2025 8:10 AM CDT Hospital Encounter Department of Radiation Oncology in [place], [place] [address] [place] [phone] Julio Cesar Rebolledo M.D. [address] [place] [phone] Social History Tobacco Use Types Packs/Day [...] things needed for daily living? No 07/22/2025 [facility] Utilities Answer Date Recorded In the past 12 months has [facility] electric, gas, oil, or water company threatened to shut off services in your home? No 07/22/2025 Housing Stability Answer Date Recorded What is your living situation today? I have a [facility] place to live 07/22/2025 Sex and [...] CDT Appointment Department of Radiation Oncology in [place], [place] [address] [place] [phone] Julio Cesar Rebolledo M.D. [address] [place] [address] 07/30/2025 8:30 AM CDT Appointment Department of Radiation Oncology in [place], [place] [address] [place] [address] Julio Cesar Rebolledo M.D. [address] [place] [address] 07/31/2025 10:15 AM CDT Appointment Department of Radiation Oncology in [place], [place] [address] [place] [address] Julio Cesar Rebolledo M.D. [address] [place] [address] 07/31/2025 10:30 AM CDT Appointment Department of Radiation Oncology in [place], [place] [address] [place] [address] Julio Cesar Rebolledo M.D. [address] [place] [phone] 08/01/2025 8:30 AM CDT Appointment Department of Radiation Oncology in [address] [phone] Julio Cesar Rebolledo M.D. [facility] [place] [address] 08/04/2025 8:30 AM CDT Appointment Department of Radiation Oncology in [place] [id number] [place] [address] Julio Cesar Rebolledo M.D. [address] [place] [address] 08/05/2025 8:30 AM CDT Appointment Department of Radiation Oncology in [place], [place] [address] [place] [address] Julio Cesar Rebolledo M.D. [facility] [place] [address] 08/06/2025 8:30 AM CDT Appointment Department of Radiation Oncology in [address] [phone] Julio Cesar Rebolledo M.D. [address] [place] [address] 08/07/2025 8:30 AM CDT Appointment Department of Radiation Oncology in [place], [place] [address] [place] [phone] Julio Cesar Rebolledo M.D. [address] [place] [address] 08/07/2025 9:00 AM CDT Appointment Department of Radiation Oncology in [place], [place] [address] [place] [address] Julio Cesar Rebolledo M.D. [facility] [place] [address] 08/07/2025 9:15 AM CDT Appointment Department of Radiation Oncology in [place], [place] [address] [place] [address], [place] [address] Julio Cesar Rebolledo M.D. [address] [place] [address] 08/08/2025 8:30 AM CDT Appointment Department of Radiation Oncology in [place], [place] [address] [place] [address] Julio Cesar Rebolledo M.D. [address] [place] [address] 08/11/2025 8:30 AM CDT Appointment Department of Radiation Oncology in [place], [place] [address] [place] [address] Julio Cesar Rebolledo M.D. [address] [place] [address] 08/12/2025 8:30 AM CDT Appointment Department of Radiation Oncology in [place], [place] [address] [place] [address] Julio Cesar Rebolledo M.D. [address] [place] [address] 08/13/2025 8:30 AM CDT Appointment Department of Radiation Oncology in [place], [place] [address] [place] [address] Julio Cesar Rebolledo M.D. [address] [place] [address] 08/14/2025 8:30 AM CDT Appointment Department of Radiation Oncology in [address] [phone] Julio Cesar Rebolledo M.D. [address] [place] [address] 08/14/2025 9:00 AM CDT Appointment Department of Radiation Oncology in [place], [place] [address] [place] [address] Julio Cesar Rebolledo M.D. [address] [place] [address] 08/15/2025 8:30 AM CDT Appointment Department of Radiation Oncology in [place], [place] [address] [place] [address] Julio Cesar Rebolledo M.D. [address] [place] [address] 08/18/2025 8:30 AM CDT Appointment Department of Radiation Oncology in [place], [place] [address] [place] [phone] Julio Cesar Rebolledo M.D. [address] [place] [address] 08/19/2025 8:30 AM CDT Appointment Department of Radiation Oncology in [place], [place] [address] [place] [address] Julio Cesar Rebolledo M.D. [address] [place] [address] 08/20/2025 8:30 AM CDT Appointment Department of Radiation Oncology in [place], [place] [address] [place] [phone] Julio Cesar Rebolledo M.D. [facility] [place] [address] 08/21/2025 8:30 AM CDT Appointment Department of Radiation Oncology in [address] [address] Julio Cesar Rebolledo M.D. [address] [place] [phone] 08/21/2025 9:00 AM CDT Appointment Department of Radiation Oncology in [place] [address] [place] [address] Julio Cesar Rebolledo M.D. [address] [place] [address] 08/22/2025 8:30 AM CDT Appointment Department of Radiation Oncology in [place], [place] [address] [place] [address] Julio Cesar Rebolledo M.D. [address] [place] [address] 08/25/2025 8:30 AM CDT Appointment Department of Radiation Oncology in [place], [place] [address] [place] [address] Julio Cesar Rebolledo M.D. [address] [place] [address] 08/26/2025 8:30 AM CDT Appointment Department of Radiation Oncology in [place], [place] [address] [place] [phone] Julio Cesar Rebolledo M.D. [address] [place] [address] 08/27/2025 8:30 AM CDT Appointment Department of Radiation Oncology in [address] [address] Julio Cesar Rebolledo M.D. [facility] [place] [address] 08/28/2025 8:30 AM CDT Appointment Department of Radiation Oncology in [place], [place] [address] [place] [address] Julio Cesar Rebolledo M.D. [facility] [place] [address] 08/28/2025 9:00 AM CDT Appointment Department of Radiation Oncology in [place], [place] [address] [place] [address] Julio Cesar Rebolledo M.D. [facility] [place] [address] 08/29/2025 8:30 AM CDT Appointment Department of Radiation Oncology in [place] [address] [place] [address] Julio Cesar Rebolledo M.D. [facility] [place] [address] 09/01/2025 8:30 AM CDT Appointment Department of Radiation Oncology in [place], [place] [address] [facility] [place] [address] Julio Cesar Rebolledo M.D. [address] [place] [address] 09/02/2025 8:30 AM CDT Appointment Department of Radiation Oncology in [place], [place] [address] [place] [address] Julio Cesar Rebolledo M.D. [address] [place] [address] 09/03/2025 8:30 AM CDT Appointment Department of Radiation Oncology in [place], [place] [address] [place] [address] Julio Cesar Rebolledo M.D. [address] [place] [address] 09/03/2025 8:45 AM CDT Appointment Department of Radiation Oncology in [place], [place] [address] [place] [address] Julio Cesar Rebolledo M.D. [address] [place] [address] 09/04/2025 8:30 AM CDT Appointment Department of Radiation Oncology in [place], [place] [address] [place] [address] Julio Cesar Rebolledo M.D. [address] [place] [address] 09/05/2025 8:30 AM CDT Appointment Department of Radiation Oncology in [address] [place] [address] Julio Cesar Rebolledo M.D. [address] [place] [address] 09/08/2025 8:30 AM CDT Appointment Department of Radiation Oncology in [address] [address] Julio Cesar Rebolledo M.D. [address] [place] [address] documented as of this encounter Visit Diagnoses Not on filedocumented in this encounter Additional Health Concerns Infection Onset Date Last Indicated Resolved Time Protective Environment 06/30/2025 06/30/2025 documented as of this encounter
--- OUTSIDE RECORDS SUMMARY | 2025-07-27 11:07 | XMS_ITS ---
Author Organization [facility] Address [address] [place] [address] Care Team Providers Care Acute Care Physician Name Role Phone Unavailable Primary Care Provider Unavailabl e Active Problems Problem Noted Date Diagnosed Date Malignant Neoplasm Of Tongue Base 06/24/2025 Raynaud's Phenomena Without Gangrene 04/11/2011 Gastroesophageal Reflux Disease NOS 04/11/2011 Overview (06/24/2025): Presumptive diagnosis after negative stress echocardiogram. 04/11/2011 Current Treatment and Therapy Plans No current plan information found. Past Treatment and Therapy Plans No past plan information found. Current Radiation Episodes * IMRT: Midline Head and neckOverview* First Treatment Date Latest Treatment Date Treatment Site Technique Goal Episode Provider 07/21/2025 07/25/2025 Midline Head and neck IMRT Curative * Linked Problems Malignant Neoplasm Of Tongue Base Treatment Courses* Course 1xOpx 07/21/2025 - 07/25/2025 Treatment Period Fraction Dose Fractions Total Dose Plans Planned F1Opx 07/21/2025 - 07/25/2025 200 cGy / 35 7 ,000 cGy Reference Points Delivered [id number] 07/21/2025 - 07/25/2025 1,000 cGy
--- OUTSIDE RECORDS SUMMARY | 2025-07-27 11:07 | XMS_ITS | Clinical Summary ---
Author Organization [facility] Address [address] [place] [id number] Care Team Providers Care Tempering Machine Operator Name Role Phone Kallie Rosales MD Primary Care Prov ider Katie Nevarez OCCUP THERAPIST Unavailable Annika Gray MD Unavailable [phone] Allergies Active Allergy Reactions Criticality Noted Date Comments Oxycodone-Acetaminophen Nausea And Vomiting Low Medications folic acid 1 mg tabletIndicatio ns:Psoriasis Take 1 Tablet (1 mg) by mouth once daily. 90 Tablet 4 Active methotrexate (RHEUMATREX) 2.5 mg tabletIndicatio ns:Psoriasis,Hi gh risk medication use Take 4 Tablets (10 mg) by mouth once weekly. 32 Tablet 5 Active methotrexate (RHEUMATREX) 2.5 mg tabletIndicatio ns:Psoriasis,Hi gh risk medication use Take 4 Tablets (10 mg) by mouth once weekly. 64 Tablet 1 5 07/13/20 25 Discontinu ed(Reorder (E-cancel not sent)) Active Problems Problem Noted Date Diagnosed Date Malignant neoplasm of tongue 07/15/2025 Raynaud's phenomenon 04/11/2011 GERD (gastroesophageal reflux disease) 1 Overview (04/11/2011): Presumptive diagnosis after negative stress echocardiogram. 04/11/2011 Elevated blood pressure read ing without diagnosis of hypertension 03/28/2011 Encounters Date Type Department Care Team Description 07/15/2025 7:50 AM CDT Office Visit [facility] [address] [place] [facility] [place] [address] Kallie Rosales MD Blood Pressure (Elevated blood pressure ) 07/15/2025 Telephone [facility] [address] [place] [address] Ijeoma Renteria MD Medication Management (methotrexate (RHEUMATREX) 2.5 mg tablet) 07/15/2025 Travel 07/13/2025 Refill [facility] [address] [place] [address] Ijeoma Renteria MD Refill Request (Methotrexate) 06/30/2025 Telephone [facility] [address] [facility] [address] [place] [address] Myrna Forrest PA Results 06/27/2025 2:52 PM CDT - 06/27/2025 11:59 PM CDT Hospital Encounter [facility] [address] [place] [address] Avery Holland MD 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 Travel 06/18/2025 Orders Only [facility] [address] [place] [address] Avery Holland MD <No scans attached> 06/17/2025 Telephone [facility] [address] [place] [address] Avery Holland MD Questions (Lump) 06/13/2025 8:31 AM CDT - 06/13/2025 11:59 PM CDT Hospital Encounter [facility] [address] [place] [address] Avery Holland MD Neck mass 06/13/2025 Travel 06/09/2025 Telephone [facility] [address] [place] [address] Avery Holland MD Follow Up 06/05/2025 11:40 AM CDT Office Visit [facility] [address] [place] [address] Avery Holland MD Consult (neck mass) 06/04/2025 Travel 06/03/2025 Telephone [facility] [address] [place] [address] Kallie Rosales MD Appointment ([facility] REFERRAL ) 05/29/2025 Telephone [facility] [address] [place] [address] Kallie Rosales MD Results 05/28/2025 3:30 PM CDT Ancillary Procedure [facility] [address] [place] [address] 05/27/2025 8:15 AM CDT Ancillary Procedure [facility] [address] [place] [address] 05/27/2025 Telephone [facility] [address] [place] [address] Kallie Rosales MD Results 05/27/2025 Travel 05/22/2025 Travel 05/14/2025 12:50 PM CDT Office Visit [facility] [address] [place] [address] Kallie Rosales MD Lump (Left side of neck) 05/13/2025 Travel 05/12/2025 Telephone [facility] [address] [place] [address] Kallie Rosales MD Appointment Request from Last 3 Months Immunizations Immunization Administration Dates Next Due COVID-19 vaccine (Prepair-Bio NTech 30mcg/0.3mL) 12YO+ BIVALENT PF, MDV 08/15/2022 HepA-HepB (Twinrix) 09/18/2019 Hepatitis B (Adult) 11/26/2019 Influenza, High-dose Inactivated 08/09/2024,08/28,08/30/2012 Influenza, High-dose Quadriv alent Inactivated 08/17/2021 Influenza, IIV3 (Age >=3 years) 10/15/1999,10/16 Influenza, Inactivated AIIV4 (Age 65+ Years) Preserv Free 08/30/2023,08/15/2022 Influenza, Inactivated IIV3 (Age 65+ Years) Preserv Free 08/03/2019 Pneumococcal Poly,23-Valent (Pneumovax) 08/30/20 12,09/27/2010 Pneumococcal conj 13-Valent (Prevnar 13) 015 Pneumococcal conj 7-Valent (Prevnar 7) 9 Td (Age >=7 Years) 09/13/1995 Tdap 09/18/2019 Zoster (Shingrix-RZV, recombinant) 05/18/2020, Family History Medical History Relation Name Comments Other Brother brainstem aneru ysm Hypertension Father Hypertension Mother Unknown Sister 1 Unknown Sister 2 Unknown Sister 3 Unknown Sister 4 Unknown Sister 5 Relation Name Status Comments Brother Father Alive Mother Sister 1 Sister 2 Sister 3 Sister 4 Sister 5 Social History Tobacco Use Types Packs/Day Years Used Date Smoking Tobacco: Never Smokeless Tobacco: Never Tobacco Cessation:Counseling Given: Yes Alcohol Use Standard Drinks/Week Comments Not Currently 1 (1 standard drink = 0.6 oz pur e alcohol) none for 2 months PHQ-2 Answer Date Recorded PHQ-2 TOTAL SCORE 0 09/04/2024 Social Connections Answer Date Recorded Do you often feel lonely or isolated from those around you? 0 05/13/2025 Financial Resource Strain Answer Date R ecorded Difficulty of Paying Living Expenses 3 05/13/2025 Difficulty of Paying Living Expenses Not on file 05/13/2025 Food Insecurity Answer Date Recorded Do you worry your food will run out before you are able to buy more? 1 05/13/2025 Transportation Needs Answer Date Record ed Does lack of transportation keep you from medica l appointments? 1 05/13/2025 Does lack of transportation keep you from work, meetings or getting things that you need? 1 05/13/2025 Housing Stability Answer Date Recorded What is your housing situation today? 1 05/13/2025 Utilities Answer Date Recorded Do you have trouble paying f or utilities (for example, heat, electricity, water, phone)? 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 Not on file Not on file Not o n file Obstetrics History Last Filed Vital Signs Vital Sign Reading Time Taken Comments Blood Pressure 163/81 07/15/2025 8:28 AM CDT Pulse 47 07/15/2025 8:28 AM CDT Temperature 36.8 C (98.3 F) 07/01/2024 9:52 AM CDT Respiratory Rate 16 07/01/2024 9:52 AM CDT Oxygen Saturation 99% 05/14/2025 1:04 PM CDT Inhaled Oxygen Concentration - - Weight 72.1 kg (159 lb) 07/15/2025 8:04 AM CDT Height 170.2 cm (5' 7) 05/14/2025 1:04 PM CDT Body Mass Index 24.9 05/14/2025 1:04 PM CDT Plan of Treatment Upcoming Encounters Date Type Department Care Team (Late st Contact Info) Description 08/20/2025 2:00 PM CDT Ancillary Procedure [facility] [address] [place] [address] 09/09/2025 9:40 AM CDT Office Visit [facility] [address] [address] Ijeoma Renteria MD [address] [address] Health Maintenance Due Date Last Done Comments RSV vaccine for adults or (1 - 1-dose 75+ series) 2016 Hepatitis B series for 19+ ( 3 of 3 - 19+ 3-dose series) 03/19/2020 11/26/2019, 09/18/2019 COVID-19 vaccine series (7 - Pfizer risk season) 2025 08/09/2024, 09/22/2023, 08/15/2022, Additional history exists Influenza Vaccine (#1) 2025 , 08/30/2023, 08/15/2022, Additional history exists Depression screening for age 12+ 09/04/2025 09/04/2024, 08/30/2023, 08/15/2022, Additional history exists Medicare Wellness for age 65+ 09/05/2025, 08/30/2023, 08/15/2022, Additional history exists BMI (ht and wt on same day) for age 18+ 05/14/2026 05/14/2025, 09/04/2024, 08/30/2023, Additional history exists Tetanus booster 09/18/2029 09/18/2019, 09/13/1995 Pneumococcal series for age 50+ Completed 08/17/2015, 08/30/2012, 09/27/2010, Additional history exists Zoster (shingles) series for age 50+ Completed 05/18/2020, 11/26/2019 Procedures Procedure Name Priority Date/Time Associated Diagnosis Comments PET CT SKULL BASE TO MID THIGH INITIAL TREAT [facility]ISTO 06/27/2025 4:45 PM CDT 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) US BIOPSY NECK SOFT TISSUE [facility]O 06/13/2025 10:07 AM CDT Neck mass PATH [facility] CYTOLOGY ASP CYTOLOGY Today 06/13/2025 9:[address] NECK SOFT TISSUE W EVARISTO 05/28/2025 4:01 PM CDT Neck mass CREATININE,ISTAT Routine 05/28/2025 3:39 PM CDT Observation or evaluation for suspected condition US NECK OR HEAD SOFT TISSUE Routine 05/27/2025 8:24 AM CDT Lump in neck from Last 3 Months Results * PET CT SKULL BASE TO MID THIGH INITIAL TREAT (06/27/2025 4:45 PM CDT) Anatomical Region Laterality Modality Positron Emissio n Tomography (PET) 06/27/2025 4:45 PM CDT Impressions 06/30/2025 7:24 AM CDT Findings suspicious for locally advanced left base of tongue neoplasm with left level IIA lymph node metastasis Narrative 06/30/2025 7:24 AM CDT For Patients: As a result of the Cures Act, medical imaging exams and procedure reports are released immediately into your electronic medical record. You may view this report before your referring provider. If you have questions, please contact your health care provider. EXAM: PET CT SKULL BASE TO MID THIGH INITIAL TREAT LOCATION: [facility] DATE: 06/27/2025 INDICATION: Initial treatment planning and staging for malignant neoplasm of base of tongue. COMPARISON: Head and neck ultrasound dated 05/27/2025 TECHNIQUE: Serum glucose level 84 mg/dL. One hour post intravenous administration of FDG 10.56 mCi, PET imaging was performed from the skull vertex to mid thighs utilizing attenuation correction with concurrent axial CT and PET/CT image fusion. Dose reduction techniques were used. FINDINGS: Large FDG avid lesion centered in the left base of tongue which partially effaces the left vallecula and appears to extend into and across midline measuring 3.3 x 2.6 x 2.8 cm with a dominant centrally necrotic left level II total conglomerate measuring 2.3 x 2.8 x 3.5 cm (Max SUV 14.3) suspicious for locally advanced left base of tongue neoplasm with left level IIA lymph node metastasis. Degenerative shoulder and hip synovitis. Injection related artifact in the left axillary region. Mild senescent intercranial changes. Mild paranasal sinus mucosal thickening. Mild carotid artery bifurcation calcification. The lungs are clear. Sigmoid diverticulosis. Pelvic phleboliths. Mild to moderate prostamegaly. Multiple chronic vertebral body compression deformities. Multilevel degenerative changes of the spine. Procedure Note Wilian Braswell MD - 06/30/2025 For Patients: As a result of the Cures Act, medical imagingexams and procedure reports are released immediately into your electronicmedical record. You may view this report before your referring provider.If you have questions, please contact your health care provider. EXAM: PET CT SKULL BASE TO MID THIGH INITIAL TREAT LOCATION: [facility] RE DATE: 06/27/2025 INDICATION: Initial treatment planning and staging for malignant neoplasmof base of tongue. COMPARISON: Head and neck ultrasound dated 05/27/2025 TECHNIQUE: Serum glucose level 84 mg/dL. One hour post intravenousadministration of FDG 10.56 mCi, PET imaging was performed from the skullvertex to mid thighs utilizing attenuation correction with concurrentaxial CT and PET/CT image fusion. Dose reduction techniques were used. FINDINGS: Large FDG avid lesion centered in the left base of tongue whichpartially effaces the left vallecula and appears to extend into and acrossmidline measuring 3.3 x 2.6 x 2.8 cm with a dominant centrally necroticleft level II total conglomerate measuring 2.3 x 2.8 x 3.5 cm (Max SUV14.3) suspicious for locally advanced left base of tongue neoplasm withleft level IIA lymph node metastasis. Degenerative shoulder and hip synovitis. Injection related artifact in theleft axillary region. Mild senescent intercranial changes. Mild paranasal sinus mucosalthickening. Mild carotid artery bifurcation calcification. The lungs areclear. Sigmoid diverticulosis. Pelvic phleboliths. Mild to moderateprostamegaly. Multiple chronic vertebral body compression deformities.Multilevel degenerative changes of the spine. IMPRESSION: Findings suspicious for locally advanced left base of tongue neoplasm withleft level IIA lymph node metastasis Avery Holland MD PET Dalila l Result * US BIOPSY NECK SOFT TISSUE (06/13/2025 10:07 AM CDT) Anatomical Region Laterality Modality NECK Ultrasound 06/13/2025 10:0 7 AM CDT Impressions 06/13/2025 10:34 AM CDT 1. Status post ultrasound-guided core needle biopsy of a 2.9 cm left neck lymph node. Reference CPT Code: 05558, 56974 Narrative 06/13/2025 10:34 AM CDT For Patients: As a result of the Century Cures Act, medical imaging exams and procedure reports are released immediately into your electronic medical record. You may view this report before your referring provider. If you have questions, please contact your health care provider. EXAM: 1. PERCUTANEOUS CORE NEEDLE BIOPSY LEFT NECK LYMPH NODE 2. ULTRASOUND GUIDANCE LOCATION: [facility] DATE: 06/13/2025 INDICATION: Neck Mass PROCEDURE: Informed written and verbal consent obtained. Site marked. Prior images reviewed. Required items made available. Patient identity confirmed verbally and with arm band. Patient reevaluated immediately before beginning the procedure. [place] protocol was followed. Time out performed. The site was prepped and draped in sterile fashion. Less than 10 mL of 1% lidocaine was infused into the local soft tissues. Using standard technique and under direct ultrasound guidance, a 18 gauge biopsy needle was used to make 6 core biopsies at the request of pathology. In addition, 4 mL of turbid, cloudy thick milky white fluid was aspirated. Tissue was submitted to Pathology, who indicated it was adequate. The patient tolerated the procedure well. No complications. Initial imaging again demonstrates the enlarged left level II neck lymph node, measuring 2.9 x 2.1 cm. This is heterogeneously isoechoic and hypoechoic with central fluid. There are mobile low-level internal echoes on real-time imaging. Subsequent imaging demonstrates needle placement. Initial passes revealed scant fluid and no cores, so I aspirated the fluid. The remaining lymph node measured 2.7 x 1.4 cm. I then took core samples from this lesion, with fragmented whitish cores obtained. At the end of the procedure, there was some introduced air in the lesion. Procedure Note So, J Luis Pascual MD - 06/13/2025 For Patients: As a result of the Century Cures Act, medical imagingexams and procedure reports are released immediately into your electronicmedical record. You may view this report before your referring provider.If you have questions, please contact your health care provider. EXAM: 1. PERCUTANEOUS CORE NEEDLE BIOPSY LEFT NECK LYMPH NODE 2. ULTRASOUND GUIDANCE LOCATION: [facility] DATE: 06/13/2025 INDICATION: Neck Mass PROCEDURE: Informed written and verbal consent obtained. Site marked.Prior images reviewed. Required items made available. Patient identityconfirmed verbally and with arm band. Patient reevaluated immediatelybefore beginning the procedure. [place] protocol was followed. Time outperformed. The site was prepped and draped in sterile fashion. Less than10 mL of 1% lidocaine was infused into the local soft tissues. Usingstandard technique and under direct ultrasound guidance, a 18 gauge biopsyneedle was used to make 6 core biopsies at the request of pathology. Inaddition, 4 mL of turbid, cloudy thick milky white fluid was aspirated.Tissue was submitted to Pathology, who indicated it was adequate. The patient tolerated the procedure well. No complications. Initial imaging again demonstrates the enlarged left level II neck lymphnode, measuring 2.9 x 2.1 cm. This is heterogeneously isoechoic andhypoechoic with central fluid. There are mobile low-level internal echoeson real-time imaging. Subsequent imaging demonstrates needle placement.Initial passes revealed scant fluid and no cores, so I aspirated thefluid. The remaining lymph node measured 2.7 x 1.4 cm. I then took coresamples from this lesion, with fragmented whitish cores obtained. At theend of the procedure, there was some introduced air in the lesion. IMPRESSION: 1. Status post ultrasound-guided core needle biopsy of a 2.9 cm left necklymph node. Reference CPT Code: 17322, 27373 Avery Holland MD Dalila luna Result * [facility] Cytology GENERAL MANAGER IN TRAINING (06/13/2025 9:15 AM CDT) Case Report Medical Cytology Report Case: [id number] Authorizing Provider: Avery Holland, Collected: 06/13/2025 0915 Ordering Location: [facility] Received: 06/13/2025 1044 Imaging Pathologist: Helen Taveras MD Specimen: Left Neck Lymph Node 5 5:18 PM CDT [facility] Final Diagnosis A) LYMPH NODE, LEFT NECK, RADIOGRAPHIC GUIDED CORE BIOPSY: 1. Positive for metastatic minimally keratinizing, HPV positive squamous cell carcinoma 2. Focal lymphoid tissue consistent with sampling of a lymph node 5 5:18 PM CDT [facility] at 1718 CDT Comment HPV Status Testing Patient Results: Positive for P16 by immunohistochemistry (diffuse moderate to strong cytoplasmic and nuclear staining in > 70% of the invasive tumor cells (by manual morphometry)). This case will be sent for confirmatory HR-HPV testing (RNA-ROMAN), the results will be issued in an amended report. Per CAP guidelines HPV status testing is recommended for: 1. Squamous cell carcinomas of the oropharynx 2. Squamous cell carcinoma metastatic to neck lymph nodes with unknown primary This case meets these criteria. P16 has been found to be a sensitive surrogate marker for high risk HPV infection and HPV-associated tumor prognosis. For this reason an immunohistochemical stain was performed for P16. Testing performed on block A4 Reference: [email or web address] Case seen in consultation with Dr. Mcclelland. 5 5:18 PM CDT [facility] Clinical Information Mr. Orr is a 84 y.o. man who with a neck mass and the following recent CT findings: Impression: 1. 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 Recommend ENT consultation. 2. 2.7 cm necrotic left level IIa lymph node consistent with regional lynn metastasis. 3. Additional mild asymmetric enlargement of two subcentimeter left level III nodes. 5 5:18 PM CDT [facility] Gross Description A) Received identified as Left Neck Lymph Node is a radiologic guided biopsy specimen. The core biopsy sampling measures 0.2 cm x 0.3 cm in aggregate. The specimen consists of: -8 Air dried slides -3 Formalin vials -1 Container with 4cc of light yellow opaque fluid -1 RPMI vial The following were prepared from the specimen submitted: -8 Diff-Quik stained slides -3 H&E stained cell block slides The biopsy material is entirely submitted in 3 cassettes. A2 Cell block material was removed from the patient and placed directly in formalin at 0930 on 06/13/25 and fixed in formalin at least 6 hours and no more than 72 hours. A3 Cell block material was removed from the patient and placed directly in formalin at 0930 on 06/13/25 and fixed in formalin at least 6 hours and no more than 72 hours. A4 Cell block material was removed from the patient and placed directly in formalin at 0950 on 06/13/25 and fixed in formalin at least 6 hours and no more than 72 hours. 5 5:18 PM CDT [facility] Adequacy Assessment A) [facility] assessed adequacy from the air-dried smears at the time of the procedure with an impression of Adequate. 5:[address] [facility] Microscopic Description Specimen adequacy: Adequate for interpretation. All slides were reviewed. The microscopic appearance substantiates the diagnosis. To confirm the squamous nature p40 immunoperoxidase stain is performed on A4 and is positive. 5:18 PM CDT [facility] Additional Information Cytology is screened at [facility] - [address] [place] [address] and [facility] - [address] [place] [address] and [facility] - [address] [place] [id number] Interpreted at [facility] - [address], [place] [address] Immunohistochemistry controls were reviewed and approved as appropriate by the pathologist during this examination. 5:18 PM CDT [facility] Aspirate (Left Neck Lymph Node) 06/13/2025 9:15 AM CDT 06/13/2025 10:44 AM CDT Avery Holland MD PATHOLOGY/CYTOLOGY F inal Result [facility] [address] [place] [address], [facility] [address] INTERNAL ZIP [id number] [place] [id number] * CT NECK SOFT TISSUE W (05/28/2025 4:01 PM CDT) Anatomical Region Laterality Modality NECK Computed Tomogra phy 05/28/2025 10:1 8 PM CDT Narrative 05/28/2025 10:18 PM CDT For Patients: As a result of the Century Cures Act, medical imaging exams and procedure reports are released immediately into your electronic medical record. You may view this report before your referring provider. If you have questions, please contact your health care provider. Indication: Neck mass. Technique: Contrast-enhanced CT of the neck with multiplanar reconstruction utilizing 100 cc Omnipaque 350 iodinated intravenous contrast. Comparison: None available. Findings: An enhancing soft tissue mass at the left base of tongue measures up to 3.6 cm (series 10, image 58). An enlarged necrotic left level IIa lymph node measures up to 2.7 cm (series 10, image 57). More inferiorly, there is mild asymmetric enlargement of two subcentimeter left level III nodes (series 10, images 68 and 77). Normal parotid and submandibular glands. 6 mm hypodense left thyroid nodule. Clear lung apices. No aggressive osseous lesion. Evidence of prior median sternotomy. The imaged intracranial structures and orbits appear within normal limits. Impression: 1. 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 Recommend ENT consultation. 2. 2.7 cm necrotic left level IIa lymph node consistent with regional lynn metastasis. 3. Additional mild asymmetric enlargement of two subcentimeter left level III nodes. Please note that all CT scans at this facility use dose modulation, iterative reconstruction, and/or weight-based dosing when appropriate to reduce radiation dose to as low as reasonably achievable. Dictated by Kwame Kennedy MD @ 05/28/2025 10:18:08 PM (Electronically Signed) Procedure Note Ric Kennedy MD - 05/28/2025 For Patients: As a result of the 21st Century Cures Act, medical imagingexams and procedure reports are released immediately into your electronicmedical record. You may view this report before your referring provider.If you have questions, please contact your health care provider. Indication: Neck mass. Technique: Contrast-enhanced CT of the neck with multiplanar reconstruction cc Omnipaque 350 iodinated intravenous contrast. Comparison: None available. Findings: An enhancing soft tissue mass at the left base of tongue measures up to3.6 cm (series 10, image 58). An enlarged necrotic left level IIa lymph node measures up to 2.7 cm(series 10, image 57). More inferiorly, there is mild asymmetricenlargement of two subcentimeter left level III nodes (series 10, [id number] and 77). Normal parotid and submandibular glands. 6 mm hypodense left thyroidnodule. Clear lung apices. No aggressive osseous lesion. Evidence of prior mediansternotomy. The imaged intracranial structures and orbits appear withinnormal limits. Impression: 1. 3.6 cm enhancing soft tissue mass at the left base of tongue highlysuspicious for oropharyngeal squamous cell carcinoma. Recommend ENTconsultation. 2. 2.7 cm necrotic left level IIa lymph node consistent with regionalnodal metastasis. 3. Additional mild asymmetric enlargement of two subcentimeter left levelIII nodes. Please note that all CT scans at this facility use dose modulation,iterative reconstruction, and/or weight-based dosing when appropriate toreduce radiation dose to as low as reasonably achievable. Dictated by Kwame Kennedy MD @ 05/28/2025 10:18:08 PM (Electronically Signed) Kallie Rosales MD CT Fi nal Result * CREATININE,ISTAT (05/28/2025 3:39 PM CDT) POCT,CREATININ E, ISTAT 1.1 0.6 - 1.3 mg/dL [facility] Blood BLOOD SPECIMEN / Unknown 05/28/2025 3:39 PM CDT 05/28/2025 3:39 PM CDT Kallie Rosales MD CHEMISTRY Fi nal Result [facility] [address] [place] [address], [facility] [address] [place] [address] * US NECK OR HEAD SOFT TISSUE (05/27/2025 8:24 AM CDT) Anatomical Region Laterality Modality NECK Ultrasound 05/27/2025 12:4 7 PM CDT Narrative 05/27/2025 12:47 PM CDT For Patients: As a result of the Century Cures Act, medical imaging exams and procedure reports are released immediately into your electronic medical record. You may view this report before your referring provider. If you have questions, please contact your health care provider. Indication: Lump in the neck Technique: Grayscale and color Doppler ultrasound of the left submandibular soft tissues performed. Comparison: None Findings: Solid hypoechoic masses present within the submandibular space which measures 3.9 x 2.2 x 3.2 cm. Some vascularity is suspected at the posterior aspect. Impression: Indeterminate circumscribed hypoechoic mass submandibular left neck measuring 3.[address] neck with contrast recommended. Dictated by Lio Abreu MD @ 05/27/2025 12:47:33 PM (Electronically Signed) Procedure Note Lio Abreu MD - 05/27/2025 For Patients: As a result of the Cures Act, medical imagingexams and procedure reports are released immediately into your electronicmedical record. You may view this report before your referring provider.If you have questions, please contact your health care provider. Indication: Lump in the neck Technique: Grayscale and color Doppler ultrasound of the left submandibular softtissues performed. Comparison: None Findings: Solid hypoechoic masses present within the submandibular space whichmeasures 3.9 x 2.2 x 3.2 cm. Some vascularity is suspected at theposterior aspect. Impression: Indeterminate circumscribed hypoechoic mass submandibular left neckmeasuring 3.[address] neck with contrast recommended. 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
--- OUTSIDE RECORDS SUMMARY | 2025-07-27 11:07 | XMS_ITS | Encounter Summary ---
Author Organization [facility] Address [address] [place] [address] Care Team Providers Care Access Liaison Name Role Phone Unavailable Primary Care Provider Unavailabl e Encounter Details Date Type Department Care Team (Late st Contact Info) Description 07/03/2025 Clinical Communication Department of Radiation Oncology in [place], [place] [address] [place] [phone] Julio Cesar Rebolldeo M.D. [address] [place] [phone] Social History Tobacco Use Types Packs/Day Years Used Date Smoking Tobacco: Never Sex and Gender Information Value Date Recorded Sex Assigned at Not on file Legal Sex Male 12:18 PM CDT Gender Identity Not on file Sexual Orientation Not on file documented as of this encounter Miscellaneous Notes * Telephone Encounter - Helena Marcus - 07/03/2025 9:31 AM CDT Other Reason for Call Caller: Dr. Hanh Dixon Relationships to patient: Dentist Reason for call: Dr. Dixon called asking if Dr. Rebolledo or someone from his team could please give her a call back regarding Mr. Orr. She can be reached at [phone]. documented in this encounter Plan of Treatment Upcoming Encounters Date Type Department Care Team (Late st Contact Info) Description 07/29/2025 8:30 AM CDT Appointment Department of Radiation Oncology in [place], [place] [address] [place] [phone] Julio Cesar Rebolledo M.D. [address] [place] [address] 07/30/2025 8:30 AM CDT Appointment Department of Radiation Oncology in [place], [place] [address] [place] [phone] Julio Cesar Rebolledo M.D. [address] [place] [address] 07/31/2025 10:15 AM CDT Appointment Department of Radiation Oncology in [place], [place] [address] [place] [phone] Julio Cesar Rebolledo M.D. [facility] [place] [address] 07/31/2025 10:30 AM CDT Appointment Department of Radiation Oncology in [address] [address] Julio Cesar Rebolledo M.D. [address] [place] [phone] 08/01/2025 8:30 AM CDT Appointment Department of Radiation Oncology in [address] [address] Julio Cesar Rebolledo M.D. [address] [place] [address] 08/04/2025 8:30 AM CDT Appointment Department of Radiation Oncology in [place], [place] [address] [place] [phone] Julio Cesar Rebolledo M.D. [address] [place] [address] 08/05/2025 8:30 AM CDT Appointment Department of Radiation Oncology in [place], [place] [address] [place] [address] Julio Cesar Rebolledo M.D. [address] [place] [address] 08/06/2025 8:30 AM CDT Appointment Department of Radiation Oncology in [address] [address] Julio Cesar Rebolledo M.D. [address] [place] [address] 08/07/2025 8:30 AM CDT Appointment Department of Radiation Oncology in [address] [address] Julio Cesar Rebolledo M.D. [facility] [place] [address] 08/07/2025 9:00 AM CDT Appointment Department of Radiation Oncology in [place] [address] [place] [address] Julio Cesar Rebolledo M.D. [facility] [place] [address] 08/07/2025 9:15 AM CDT Appointment Department of Radiation Oncology in [address] [address] Julio Cesar Rebolledo M.D. [facility] [place] [address] 08/08/2025 8:30 AM CDT Appointment Department of Radiation Oncology in [address] [address] Julio Cesar Rebolledo M.D. [address] [place] [address] 08/11/2025 8:30 AM CDT Appointment Department of Radiation Oncology in [place], [place] [address] [facility] [place] [address] Julio Cesar Rebolledo M.D. [address] [place] [address] 08/12/2025 8:30 AM CDT Appointment Department of Radiation Oncology in [place], [place] [address] [place] [address] Julio Cesar Rebolledo M.D. [address] [place] [address] 08/13/2025 8:30 AM CDT Appointment Department of Radiation Oncology in [place], [place] [address] [place] [address] Julio Cesar Rebolledo M.D. [address] [place] [address] 08/14/2025 8:30 AM CDT Appointment Department of Radiation Oncology in [place], [place] [address] [place] [address] Julio Cesar Rebolledo M.D. [address] [place] [address] 08/14/2025 9:00 AM CDT Appointment Department of Radiation Oncology in [place], [place] [address] [place] [address] Julio Cesar Rebolledo M.D. [address] [place] [address] 08/15/2025 8:30 AM CDT Appointment Department of Radiation Oncology in [place], [place] [address] [place] [address] Julio Cesar Rebolledo M.D. [address] [place] [address] 08/18/2025 8:30 AM CDT Appointment Department of Radiation Oncology in [place], [place] [address] [place] [address] Julio Cesar Rebolledo M.D. [address] [place] [address] 08/19/2025 8:30 AM CDT Appointment Department of Radiation Oncology in [address] [address] Julio Cesar Rebolledo M.D. [facility] [place] [address] 08/20/2025 8:30 AM CDT Appointment Department of Radiation Oncology in [place], [place] [address] [place] [address] Julio Cesar Reoblledo M.D. [facility] [place] [address] 08/21/2025 8:30 AM CDT Appointment Department of Radiation Oncology in [place], [place] [address] [place] [address] Julio Cesar Rebolledo M.D. [facility] [place] [address] 08/21/2025 9:00 AM CDT Appointment Department of Radiation Oncology in [place], [place] [address] [place] [address] Julio Cesar Rebolledo M.D. [facility] [place] [address] 08/22/2025 8:30 AM CDT Appointment Department of Radiation Oncology in [place], [place] [address] [place] [address] [place] [address] Julio Cesar Rebolledo M.D. [address] [place] [address] 08/25/2025 8:30 AM CDT Appointment Department of Radiation Oncology in [address] [address] Julio Cesar Rebolledo M.D. [facility] [place] [address] 08/26/2025 8:30 AM CDT Appointment Department of Radiation Oncology in [address] [address] Julio Cesar Rebolledo M.D. [facility] [place] [address] 08/27/2025 8:30 AM CDT Appointment Department of Radiation Oncology in [address] [address] Julio Cesar Rebolledo M.D. [address] [place] [address] 08/28/2025 8:30 AM CDT Appointment Department of Radiation Oncology in [address] [address] Julio Cesar Rebolledo M.D. [facility] [place] [address] 08/28/2025 9:00 AM CDT Appointment Department of Radiation Oncology in [address] [address] Julio Cesar Rebolledo M.D. [address] [place] [address] 08/29/2025 8:30 AM CDT Appointment Department of Radiation Oncology in [place], [place] [address] [place] [address] Julio Cesra Rebolledo M.D. [address] [place] [address] 09/01/2025 8:30 AM CDT Appointment Department of Radiation Oncology in [place], [place] [address] [facility] [place] [address] Julio Cesar Rebolledo M.D. [address] [place] [address] 09/02/2025 8:30 AM CDT Appointment Department of Radiation Oncology in [place], [place] [address] [place] [address] Julio Cesar Rebolledo M.D. [address] [place] [address] 09/03/2025 8:30 AM CDT Appointment Department of Radiation Oncology in [place], [place] [address] [place] [address] Julio Cesar Rebolledo M.D. [address] [place] [address] 09/03/2025 8:45 AM CDT Appointment Department of Radiation Oncology in [place], [place] [address] [facility] [place] [address] Julio Cesar Rebolledo M.D. [address] [place] [address] 09/04/2025 8:30 AM CDT Appointment Department of Radiation Oncology in [place], [place] [address] [place] [address] Julio Cesar Rebolledo M.D. [address] [place] [address] 09/05/2025 8:30 AM CDT Appointment Department of Radiation Oncology in [address] [address] Julio Cesar Rebolledo M.D. [address] [place] [address] 09/08/2025 8:30 AM CDT Appointment Department of Radiation Oncology in [address] [address] Julio Cesar Rebolledo M.D. [address] [place] [phone] documented as of this encounter Visit Diagnoses Not on filedocumented in this encounter Additional Health Concerns Infection Onset Date Last Indicated Resolved Time Protective Environment 06/30/2025 06/30/2025 documented as of this encounter
--- OUTSIDE RECORDS SUMMARY | 2025-07-27 11:07 | XMS_ITS | Clinical Summary ---
Author Organization [facility] Address [address] [place] [address] Care Team Providers Care Lpn Private Duty Name Role Phone Unavailable Primary Care Provider Unavailabl e Source Comments Patient records contain information from all sites at [facility]. For routine questions regarding patient records, call [phone] during business hours, M-F 8:00 AM - 5:00 PM Central Time. Record requests for emergency care only can be directed to [phone] at any time.[facility] Allergies No known active allergies Medications folic acid 1 mg tablet Take 1 mg by mouth daily. 08/28/2024 Active methotrexate (TrexalL) 2.5 mg tablet Take 10 mg by mouth over 168 hr. 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 04/11/2011 Encounters Date Type Department Care Team Description 07/25/2025 8:10 AM CDT Hospital Encounter Department of Radiation Oncology in [place], [place] [address] [place] [address] Julio Cesar Rebolledo M.D. 07/24/2025 8:10 AM CDT - 07/24/2025 9:28 AM CDT Hospital Encounter Department of Radiation Oncology in [place], [place] [address] [place] [address] Julio Cesar Rebolledo M.D. Retterath, Chelsey A, RElbaN. 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 von Ruden, Kristi A, RDN, LD Malignant Neoplasm Of Tongue Base (HCC) (Primary Dx) 07/24/2025 8:10 AM CDT Hospital Encounter Department of Radiation Oncology in [address] [address] Julio Cesar Rebolledo M.D. Malignant Neoplasm Of Tongue Base (HCC) 07/24/2025 8:09 AM CDT Hospital Encounter Department of Radiation Oncology in [address] [address] Julio Cesar Rebolledo M.D. 07/23/2025 8:12 AM CDT Hospital Encounter Department of Radiation Oncology in [address] [address] Julio Cesar Rebolledo M.D. 07/22/2025 8:41 AM CDT - 07/22/2025 9:33 AM CDT Hospital Encounter Department of Radiation Oncology in [address] [address] Julio Cesar Rebolledo M.D. Wacholz, Abigail M, M.S.W., L.I.C.S.W. Malignant Neoplasm Of Tongue Base (HCC) (Primary Dx) Discharge Disposition: Home or Self Care 07/22/2025 7:57 AM CDT Hospital Encounter Department of Radiation Oncology in [address] [address] Julio Cesar Rebolledo M.D. 07/21/2025 8:08 AM CDT Hospital Encounter Department of Radiation Oncology in [address] [address] Julio Cesar Rebolledo M.D. 07/15/2025 8:46 AM CDT - 07/15/2025 9:18 AM CDT Hospital Encounter Department of Radiation Oncology in [address] [address] Julio Cesar Rebolledo M.D. Malignant Neoplasm Of Tongue Base (HCC) 07/03/2025 Clinical Communication Department of Radiation Oncology in [address] [address] Julio Cesar Rebolledo M.D. 07/02/2025 12:30 PM CDT - 07/02/2025 2:34 PM CDT Hospital Encounter Department of Radiation Oncology in [address] [address] Julio Cesar Rebolledo M.D. Malignant Neoplasm Of Tongue Base (HCC) 06/30/2025 8:46 AM CDT - 07/14/2025 5:41 PM CDT Hospital Encounter Department of Radiation Oncology in [address] [address] Julio Cesar Rebolledo M.D. Malignant Neoplasm Of Tongue Base (HCC) (Primary Dx) from Last 3 Months Social History Tobacco Use Types Packs/Day Years Used Date Smoking Tobacco: Never Tobacco Cessation:Counseling Given: Not Answered Humiliation, Afraid, Rape, and Kick questionnair e [...] things needed for daily living? No 07/22/2025 [facility] Utilities Answer Date Recorded In the past 12 months has [employer] electric, gas, oil, or water i3 membrane threatened to shut off services in your home? No 07/22/2025 Housing Stability Answer Date Recorded What is your living situation today? I have a [facility] place to live 07/22/2025 Sex and Gender Information Value Date Recorded Sex Assigned at Not on file Legal Sex Male 12:18 PM CDT Gender Identity Not on file Sexual Orientation Not on file Last Filed Vital Signs Vital Sign Reading [...] - - Body Mass Index - - Plan of Treatment Upcoming Encounters Date Type Department Care Team (Late st Contact Info) Description 07/29/2025 8:30 AM CDT Appointment Department of Radiation Oncology in [address] [phone] Julio Cesar Rebolledo M.D. [facility] [place] [address] 07/30/2025 8:30 AM CDT Appointment Department of Radiation Oncology in [address] [address] Julio Cesar Rebolledo M.D. [address] [place] [address] 07/31/2025 10:15 AM CDT Appointment Department of Radiation Oncology in [place], [place] [address] [place] [address] Julio Cesar Rebolledo M.D. [address] [place] [address] 07/31/2025 10:30 AM CDT Appointment Department of Radiation Oncology in [place], [place] [address] [place] [address] Julio Cesar Rebolledo M.D. [address] [place] [address] 08/01/2025 8:30 AM CDT Appointment Department of Radiation Oncology in [place], [place] [address] [place] [address] Julio Cesar Rebolledo M.D. [address] [place] [address] 08/04/2025 8:30 AM CDT Appointment Department of Radiation Oncology in [place], [place] [address] [place] [address] Julio Cesar Rebolledo M.D. [address] [place] [address] 08/05/2025 8:30 AM CDT Appointment Department of Radiation Oncology in [place], [place] [address] [place] [address] Julio Cesar Rebolledo M.D. [address] [place] [address] 08/06/2025 8:30 AM CDT Appointment Department of Radiation Oncology in [place], [place] [address] [place] [address] Julio Cesar Rebolledo M.D. [address] [place] [address] 08/07/2025 8:30 AM CDT Appointment Department of Radiation Oncology in [place], [place] [address] [place] [address] Julio Cesar Rebolledo M.D. [address] [place] [address] 08/07/2025 9:00 AM CDT Appointment Department of Radiation Oncology in [address] [address] Julio Cesar Rebolledo M.D. [facility] [place] [address] 08/07/2025 9:15 AM CDT Appointment Department of Radiation Oncology in [place], [place] [address] [place] [address] Julio Cesar Rebolledo M.D. [facility] [place] [address] 08/08/2025 8:30 AM CDT Appointment Department of Radiation Oncology in [place], [place] [address] [place] [address] Julio Cesar Rebolledo M.D. [address] [place] [address] 08/11/2025 8:30 AM CDT Appointment Department of Radiation Oncology in [place], [place] [address] [place] [address] Julio Cesar Rebolledo M.D. [address] [place] [address] 08/12/2025 8:30 AM CDT Appointment Department of Radiation Oncology in [place], [place] [address] [facility] [place] [address] Julio Cesar Rebolledo M.D. [address] [place] [address] 08/13/2025 8:30 AM CDT Appointment Department of Radiation Oncology in [place], [place] [address] [facility] [place] [address] Julio Cesar Rebolledo M.D. [address] [place] [address] 08/14/2025 8:30 AM CDT Appointment Department of Radiation Oncology in [place], [place] [address] [facility] [place] [address] Julio Cesar Rebolledo M.D. [address] [place] [address] 08/14/2025 9:00 AM CDT Appointment Department of Radiation Oncology in [address] [place] [address] Julio Cesar Rebolledo M.D. [address] [place] [address] 08/15/2025 8:30 AM CDT Appointment Department of Radiation Oncology in [place], [place] [address] [place] [address] Julio Cesar Rebolledo M.D. [facility] [place] [address] 08/18/2025 8:30 AM CDT Appointment Department of Radiation Oncology in [address] [address] Julio Cesar Rebolledo M.D. [address] [place] [address] 08/19/2025 8:30 AM CDT Appointment Department of Radiation Oncology in [place], [place] [address] [facility] [place] [address] Julio Cesar Rebolledo M.D. [address] [place] [address] 08/20/2025 8:30 AM CDT Appointment Department of Radiation Oncology in [place], [place] [address] [facility] [place] [address] Julio Cesar Rebolledo M.D. [address] [place] [address] 08/21/2025 8:30 AM CDT Appointment Department of Radiation Oncology in [place], [place] [address] [place] [address] Julio Cesar Rebolledo M.D. [address] [place] [address] 08/21/2025 9:00 AM CDT Appointment Department of Radiation Oncology in [place], [place] [address] [place] [address] Julio Cesar Rebolledo M.D. [address] [place] [address] 08/22/2025 8:30 AM CDT Appointment Department of Radiation Oncology in [place], [place] [address] [facility] [place] [address] Julio Cesar Rebolledo M.D. [address] [place] [address] 08/25/2025 8:30 AM CDT Appointment Department of Radiation Oncology in [place], [place] [address] [place] [address] Julio Cesar Rebolledo M.D. [address] [place] [address] 08/26/2025 8:30 AM CDT Appointment Department of Radiation Oncology in [address] [address] Julio Cesar Rebolledo M.D. [facility] [place] [address] 08/27/2025 8:30 AM CDT Appointment Department of Radiation Oncology in [place], [place] [address] [place] [address] Julio Cesar Rebolledo M.D. [facility] [place] [address] 08/28/2025 8:30 AM CDT Appointment Department of Radiation Oncology in [address] [address] Julio Cesar Rebolledo M.D. [address] [place] [address] 08/28/2025 9:00 AM CDT Appointment Department of Radiation Oncology in [address] [address] Julio Cesar Rebolledo M.D. [facility] [place] [address] 08/29/2025 8:30 AM CDT Appointment Department of Radiation Oncology in [address] [address] Julio Cesar Rebolledo M.D. [address] [place] [address] 09/01/2025 8:30 AM CDT Appointment Department of Radiation Oncology in [place], [place] [address] [place] [address] Julio Cesar Rebolledo M.D. [address] [place] [address] 09/02/2025 8:30 AM CDT Appointment Department of Radiation Oncology in [place], [place] [address] [place] [address] Julio Cesar Rebolledo M.D. [address] [place] [address] 09/03/2025 8:30 AM CDT Appointment Department of Radiation Oncology in [place], [place] [address] [place] [address] Julio Cesar Rebolledo M.D. [address] [place] [address] 09/03/2025 8:45 AM CDT Appointment Department of Radiation Oncology in [place], [place] [address] [place] [address] Julio Cesar Rebolledo M.D. [address] [place] [address] 09/04/2025 8:30 AM CDT Appointment Department of Radiation Oncology in [place], [place] [address] [place] [address] Julio Cesar Rebolledo M.D. [address] [place] [address] 09/05/2025 8:30 AM CDT Appointment Department of Radiation Oncology in [place], [place] [address] [place] [address] Julio Cesar Rebolledo M.D. [address] [place] [address] 09/08/2025 8:30 AM CDT Appointment Department of Radiation Oncology in [place], [place] [address] [place] [address] Julio Cesar Rebolledo M.D. [facility] [place] [address] Health Maintenance Due Date Last Done Comments RSV vaccine - (32-36 weeks) or 60+ years (1 - 1-dose 75+ series) 2016 COVID-19 Vaccine (2 - Pfizer risk series) 09/05/2022 08/15/2022 Depression Screening (Annual PHQ-2) 11/27/2024 Fall Risk Screen (Annual) 11/27/2024 Influenza Vaccine (#1) 2025 , 08/30/2023, 08/15/2022, Additional history exists DTaP,Tdap,and Td Vaccines (2 - Td or Tdap) 09/18/2029 09/18/2019 Pneumococcal vaccine (50+ years) Completed 08/17/2015, 08/30/2012, 09/27/2010, Additional history exists Zoster Vaccines Completed 05/18/2020, 11/26/2019 HPV Vaccines Aged Out No longer eligi ble based on patient's age to complete this topic IPV Vaccines Aged Out No longer eligi ble based on patient's age to complete this topic Procedures Procedure Name Priority Date/Time Associated Diagnosis Comments ARIA DAILY TREATMENT INFORMATION Routine 07/25/2025 8:31 AM CDT ARIA DAILY TREATMENT INFORMATION Routine 07/24/2025 8:42 AM CDT ARIA DAILY TREATMENT INFORMATION Routine 07/23/2025 8:39 AM CDT ARIA DAILY TREATMENT INFORMATION Routine 07/22/2025 8:33 AM CDT ARIA DAILY TREATMENT INFORMATION Routine 07/21/2025 8:38 AM CDT VERIFICATION/RE-SIM Routine 07/15/2025 8 :46 AM CDT Malignant Neoplasm Of Tongue Base (HCC) INITIAL RAD ONC TREATMENT PLANNING CT SIMULATION Routine 07/02/2025 12:30 PM CDT Malignant Neoplasm Of Tongue Base (HCC) OUTSIDE NM PET Routine 06/27/2025 4:30 PM CDT OUTSIDE US NEURO Routine 06/13/2025 9:[address] NEURO Routine 05/28/2025 3:45 PM CDT OUTSIDE US NEURO Routine 05/27/2025 8:05 AM CDT from Last 3 Months Results * Aria Daily Treatment Information (07/25/2025 8:31 AM CDT) Only the most recent of5 resultswithin the time period is included. Course ID [id number] TOWNSEND ARIA Course Start Date 5 08:42 CDT TOWNSEND ARIA First Treatment Date 5 08:35 CDT TOWNSEND ARIA Last Treatment Date 5 08:31 CDT TOWNSEND ARIA Treatment Elapsed Days 4 TOWNSEND ARIA Reference Point [id number] TOWNSEND ARIA Dosage Given to Date cGy 1000 TOWNSEND ARIA Session Dosage Given 200 TOWNSEND ARIA Plan ID [id number] TOWNSEND ARIA Fractions Treated to Date 5 TOWNSEND ARIA Planned Total Fractions 35 TOWNSEND ARIA Prescribed Dose Per Fraction 200 TOWNSEND ARIA Prescription Dose in cGy 7000 TOWNSEND ARIA Plan Primary Reference Point [id number] TOWNSEND ARIA 07/25/2025 8:31 AM CDT us Provider Not In System RADIATION ONCOLOGY ORDERA BLES Final Result Performing Organization Address [facility] Co de Phone Number CARY bishop * Verification/Re-Sim (07/15/2025 8:46 AM CDT) Narrative CARY VARGAS - 07/15/2025 8:46 AM CDT This exam does not require a oncologist review or interpretation. Please refer to the patient s medical record on this date for clinical details. Julio Cesar Rebolledo M.D. RADIATION ONCOLOGY ORDER NAGI Final Result Performing Organization Address [facility] Co de Phone Number CARY bishop * Initial Rad [...] imaging was appropriate and completed without incident. Bobbin Winder Tender use:No Julio Cesar Rebolledo M.D. RADIATION ONCOLOGY ORDER NAGI Final Result Performing Organization Address [facility] Co de Phone Number CARY bishop * Outside NV Pet (06/27/2025 4:30 PM CDT) 06/30/2025 7:26 AM CDT Addenda Addendum by Yodio, Outside on 06/30/2025 7:24 AM CDT BELOW REPORT RECEIVED BY [facility] ON 06/30/2025 09:08:50 [id number] For Patients: As a result of the Century Cures Act, medical imaging exams and procedure reports are released immediately into your electronic medical record. You may view this report before your referring provider. If you have questions, please contact your health care provider. EXAM: PET CT SKULL BASE TO MID THIGH INITIAL TREAT LOCATION: [facility] DATE: 06/27/2025 INDICATION: Initial treatment planning [...] deformities. Multilevel degenerative changes of the spine. 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 You may view this report before your referring provider. If you have questions, please contact your health care provider. EXAM: PET CT SKULL BASE TO MID THIGH INITIAL TREAT LOCATION: [facility] DATE: 06/27/2025 INDICATION: Initial treatment planning and [...] deformities. Multilevel degenerative changes of the spine. 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 You may view this report before your referring provider. If you have questions, please contact your health care provider. EXAM: PET CT SKULL BASE TO MID THIGH INITIAL TREAT LOCATION: [facility] DATE: 06/27/2025 INDICATION: Initial treatment planning and [...] deformities. Multilevel degenerative changes of the spine. 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 If available, original interpretation can be found on the Media Tab in Chart Review, in Document Viewer, as an image in InfinityView or as an Addendum. If a re-interpretation or overread is required please follow defined workflow. Procedure Note Digital Media, Outside - 06/30/2025 This order has been created and auto-finalized to support the import ofoutside images. If available, original interpretation can be found on theMedia Tab in Chart Review, in Document Viewer, as an image in InfinityViewor as an Addendum. If a re-interpretation or overread is required please follow definedworkflow. us Provider Not In System IMG NM PROCEDURES Edited Result - Final IMAGING NA * Outside US Neuro (06/13/2025 9:10 AM CDT) Only the most recent of2 resultswithin the time period is included. 06/13/2025 10:3 6 AM CDT Addenda Addendum by Yodio, Outside on 06/13/2025 10:34 AM CDT BELOW REPORT RECEIVED BY [facility] ON 06/19/2025 15:16:26 [id number] For Patients: As a result of the Century Cures Act, medical imaging exams and procedure reports are released immediately into your electronic medical record. You may view this report before your referring provider. If you have questions, please contact your health care provider. EXAM: 1. PERCUTANEOUS CORE NEEDLE BIOPSY LEFT NECK LYMPH NODE 2. ULTRASOUND GUIDANCE LOCATION: [facility] DATE: 06/13/2025 INDICATION: Neck Mass PROCEDURE: Informed written and verbal consent obtained. Site marked. Prior images reviewed. Required items made available. Patient identity confirmed verbally and with arm band. Patient reevaluated immediately before beginning the procedure. [place] protocol was followed. Time out performed. The [...] was some introduced air in the lesion. Impression: 1. Status post ultrasound-guided core needle biopsy of a 2.9 cm left neck lymph node. Reference CPT Code: 11226, 76928 READ BY J Luis Pascual So RELEASED BY SO Addendum by Yodio, Outside on 06/13/2025 10:34 AM CDT BELOW REPORT RECEIVED BY [facility] ON 06/19/2025 15:15:52 [id number] For Patients: As a result of the Century Cures Act, medical imaging exams and procedure reports are released immediately into your electronic medical record. You may view this report before your referring provider. If you have questions, please contact your health care provider. EXAM: 1. PERCUTANEOUS CORE NEEDLE BIOPSY LEFT NECK LYMPH NODE 2. ULTRASOUND GUIDANCE LOCATION: [facility] DATE: 06/13/2025 INDICATION: Neck Mass PROCEDURE: Informed written and verbal consent obtained. Site marked. Prior images reviewed. Required items made available. Patient identity confirmed verbally and with arm band. Patient reevaluated immediately before beginning the procedure. [place] protocol was followed. Time out performed. The [...] was some introduced air in the lesion. Impression: 1. Status post ultrasound-guided core needle biopsy of a 2.9 cm left neck lymph node. Reference CPT Code: 64536, 49492 READ BY J Luis Pascual So RELEASED BY SO Narrative IMAGING - 06/19/2025 3:28 PM CDT This order has been created and auto-finalized to support the import of outside images. If available, original interpretation can be found on the Media Tab in Chart Review, in Document Viewer, as an image in InfinityView or as an Addendum. If a re-interpretation or overread is required please follow defined workflow. Procedure Note Digital [place], Outside - 06/19/2025 This order has been created and auto-finalized to support the import ofoutside images. If available, original interpretation can be found on theMedia Tab in Chart Review, in Document Viewer, as an image in InfinityViewor as an Addendum. If a re-interpretation or overread is required please follow definedworkflow. us Provider Not In System IMG US PROCEDURES Edited Result - Final IMAGING NA * Outside CT Neuro (05/28/2025 3:45 PM CDT) 05/28/2025 10:1 8 PM CDT Addenda Addendum by Yodio, Outside on 05/28/2025 10:18 PM CDT BELOW REPORT RECEIVED BY [facility] ON 06/19/2025 15:18:52 [id number] For Patients: As a result of the 21st Century Cures Act, medical imaging exams and [...] MD @ 05/28/2025 10:18:08 PM (Electronically Signed) READ BY Ric Kennedy RELEASED BY CAYDEN Addendum by Yodio, Outside on 05/28/2025 10:18 PM CDT BELOW REPORT RECEIVED BY [facility] ON 06/19/2025 15:18:42 [id number] For Patients: As a result of the 21st Century Cures Act, medical imaging exams and [...] MD @ 05/28/2025 10:18:08 PM (Electronically Signed) READ BY Ric Kennedy RELEASED BY CAYDEN Addendum by Yodio, Outside on 05/28/2025 10:18 PM CDT BELOW REPORT RECEIVED BY [facility] ON 06/19/2025 15:17:52 [id number] For Patients: As a result of the [...] MD @ 05/28/2025 10:18:08 PM (Electronically Signed) READ BY Ric Kennedy RELEASED BY CAYDEN Kaye IMAGING - 06/19/2025 3:32 PM CDT This order has been created and auto-finalized to support the import of outside images. If available, original interpretation can be found on the Media Tab in Chart Review, in Document Viewer, as an image in InfinityView or as an Addendum. If a re-interpretation or overread is required please follow defined workflow. Procedure Note Digital Media, Outside - 06/19/2025 This order has been created and auto-finalized to support the import ofoutside images. If available, original interpretation can be found on theMedia Tab in Chart Review, in Document Viewer, as an image in InfinityViewor as an Addendum. If a re-interpretation or overread is required please follow definedworkflow. us Provider Not In System IMG CT PROCEDURES Edited Result - Final IMAGING NA from Last 3 Months Additional Health Concerns Infection Onset Date Last Indicated Protective Environment 06/30/2025 5 Insurance [facility]
[2025-07-27 11:10] VITALS: BP 178/108; PULSE 92; RESP 18; TEMP 36.6; O2SAT 95; BMI 22.0
--- NOTE | 2025-07-27 11:26 | ED_ITS ---
HPI - Chest Pain General Time Seen by Provider: 11:26 Date Seen: 07/27/25 Chief Complaint: Chest Pain Stated Complaint: chest pain, chemo/radiation past week, constipatio Time Seen by Provider: 07/27/25 11:25 Source: patient and RN notes reviewed Mode of arrival: ambulatory Limitations: no limitations History of Present Illness HPI narrative: This 84-year-old male is ambulatory into the ER accompanied by his with central substernal chest pain. He notes no cough or cold symptoms, no shortness of breath. He feels it started with straining on the toilet yesterday afternoon. He has had pain all night, states he really could not sleep because of it. He has had a remote history of his pericardial sac being removed, did have a sternotomy, this was reported to be for pericarditis per his . This was decades ago, he has not been diagnosed with cardiac ischemic disease before. 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 neck with contrast recommended. 05/28/25:CT neck soft tissue: Impression: ?1. 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 Recommend ENT consultation.? ?2. 2.7 cm necrotic left level IIa lymph node consistent with regional lynn metastasis.? ?3. Additional mild asymmetric enlargement of two subcentimeter left level III nodes. 06/13/25: Biopsy Impression: 1.? Status post ultrasound-guided core needle biopsy of a 2.9 cm left neck lymph node. A) LYMPH NODE, LEFT NECK, RADIOGRAPHIC GUIDED CORE BIOPSY: ?1. Positive for metastatic minimally keratinizing, HPV positive squamous cell carcinoma ?2. Focal lymphoid tissue consistent with sampling of a lymph node 06/27/25: PET EXAM: PET CT SKULL BASE TO MID THIGH INITIAL TREAT ?DATE: 06/27/2025 ??INDICATION: Initial treatment planning and staging for malignant neoplasm of base of tongue. ?COMPARISON: Head and neck ultrasound dated 05/27/2025 ?TECHNIQUE: Serum glucose level 84 mg/dL. One hour post intravenous admin istration of FDG 10.56 mCi, PET imaging was performed from the skull vertex to mid thighs utilizing attenuation correction with concurrent axial CT and PET/CT image fusion. Dose reduction techniques were used. ?FINDINGS: Large FDG avid lesion centered in the left base of tongue which partially effaces the left vallecula and appears to extend into and across midline measuring 3.3 x 2.6 x 2.8 cm with a dominant?centrally necrotic left level II total conglomerate measuring 2.3 x 2.8 x 3.5 cm (Max SUV 14.3) suspicious for locally advanced left base of tongue neoplasm with left level IIA lymph node metastasis. ?Degenerative shoulder and hip synovitis. Injection?related artifact in the left axillary region. ?Mild senescent intercranial changes. Mild paranasal sinus mucosal thickening. Mild carotid artery bifurcation calcification. The lungs are clear. Sigmoid diverticulosis. Pelvic phleboliths. Mild to moderate prostamegaly. Multiple chronic vertebral body compression deformities. Multilevel degenerative changes of the spine. 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 -he will be getting dental clearance this afternoon -he will be getting simulation today -will request audiology consultation -placed for Zofran and Compazine -place for potassium supplementation at home -place for IV fluids/potassium/magnesium along with cisplatin -?? NGS testing -at this point were not actionable eating from [employer] [phone] to pursue Keytruda (this was using perioperative setting, and not in definitive concurrent chemo XRT setting) Torsten is here with his supportive - Antionette and son from [place].. Son's daughter is going to [employer] and she wants to be floor assembler. Tumor was for first noted by their daughter Jamia. They seem to be a very fun loving and close knit family. # advance care planning Prognosis excellent Intent of treatment curative lines of treatment available 2+ Living with power of commercial attorney: Yes Understanding of health related issues: Somewhat (above from oncology note visit on 07/01/25) MD complaint: chest pain Related Data Home Medications ?Medication ?Instructions ?Recorded ?Confirmed folic acid 1 mg tablet 1 mg PO DAILY 04/25/2407/27 ibuprofen 200 mg tablet 200 mg PO Q6H PRN 07/02/25 0 07/27/25 methotrexate sodium 2.5 mg tablet 20 mg PO QWEEK 07/0207/27/25 Previous Rx's ?Medication ?Instructions ?Recorded ondansetron HCl 4 mg tablet 4 mg PO Q8H #60 tabs 07/02 prochlorperazine maleate 5 mg 5 mg PO BID PRN nausea a nd 07/02/25 tablet (Compazine) vomiting #60 tabs Allergies Allergy/AdvReac Type Severity Reaction Status Date / Time acetaminophen (From Percocet) Allergy Verified 07/27/25 11:15 oxycodone (From Percocet) Allergy Verified 07/27/25 11:15 Review of Systems Status of ROS Reports: 6 or more systems reviewed and unremarkable except as noted in History and below PFSH PFSH Social History Smoking Status: Former smoker Exam Const Vital Signs, click to edit/add: Vital Signs - 24 hr 07/27/25 11:10 07/27/25 11:45 07/27/25 11:55 Temperature 97.9 F Pulse Rate [Right Pulse Oximeter] 92 84 89 Respiratory Rate 18 28 H 8 L Blood Pressure [Right Upper Arm] 178/108 H 166/111 H 152/98 H Pulse Oximetry 95 98 98 Oxygen Delivery Method Room Air Room Air Room Air 07/27/25 12:00 07/27/25 12:05 07/27/25 12:10 Temperature Pulse Rate [Right Pulse Oximeter] 129 H 122 H 113 H Respiratory Rate 9 L 16 Blood Pressure [Right Upper Arm] 107/69 93/79 128/98 H Pulse Oximetry 96 95 96 Oxygen Delivery Method Room Air Room Air Room Air This is a slender 84-year-old gentleman ambulatory into the ED of his own accord. He is alert, interactive, no apparent distress. He is hard of hearing but seems to understand me, does understand when I just speak a little louder and enunciate slowly. Sclera clear, face atraumatic. Next Oriana, no jugular venous distension. Lungs are clear come good air entry, no wheeze or crackles, no tachypnea. CV is regular, no significant murmur her normal S1-S2. Has old sternotomy scar, no reproducible tenderness of his chest wall. Abdomen is soft, nontender, nondistended, no organomegaly. He has no lower extremity edema, no calf tenderness. Documenting provider has reviewed patient's vital signs: yes Course Course ED Course: Do have concerns that this patient may actually have ischemic cardiac disease. It is possible he could have some transmission of GI symptoms into chest symptomatology. Did ask nursing staff to get an EKG, we will give him 324 mg of aspirin. Nursing staff did do the EKG right away and it is showing a STEMI. Asked staff to contact [facility] immediately. Reevaluation(s) Time of Reevaluation #1: 12:07 Reevaluation #1: Have discussed with patient the medicines were giving, risk of bleeding but the necessity of these medicines and potentially helping open up vessels and decreasing platelet aggregation. We will start nitro sublingual. Have confirmed with him that he would want to be full code. He understands and agrees that he will transfer to [facility], knows that he will be going to angiogram. Time of Reevaluation #2: 12:15 Reevaluation #2: [facility] is here. Helicopter was able to be here within 15 minutes, opted to go with [facility] to expedite his transfer. They will initiate a nitro drip or morphine. He did get 1 sublingual nitroglycerin here and dropped to systolic pressure to 95. His last systolic is back to 128. His pain originally he was stating was almost 11, he states he is down to a 9.5. [facility] will continue to work on his pain. They have the heparin as well. Consultations Consultation #1: Have spoken with the compliance and control analyst Dr. Guerrero from [facility]. He agrees that the EKG is consistent with a STEMI. We will load with Brilinta, do ACS heparin and I will work on getting the patient's pain down. My plan is to start with s ublingual nitroglycerin, moved to nitroglycerin drip +/-morphine for goal of pain-free. Time: 11:40 Vital Signs Vital signs: Initial Vital Signs Temperature 97.9 F 07/27/25 11:10 Temperature Source Temporal Artery Scan 07/27/25 11:10 Pulse Rate 92 07/27/25 11:10 Pulse Rhythm Regular 07/27/25 11:10 Pulse Strength 3+ Normal 07/27/25 11:10 Respiratory Rate 18 07/27/25 11:10 Blood Pressure 178/108 H 07/27/25 11:10 Blood Pressure Mean 131 H 07/27/25 11:10 Blood Pressure Position Sitting 07/27/25 11:10 Pulse Oximetry 95 07/27/25 11:10 Oxygen Delivery Method Room Air 07/27/25 11:10 Vital Signs Temperature 97.9 F 07/27/25 11:10 Pulse Rate 92 07/27/25 11:10 Respiratory Rate 18 07/27/25 11:10 Blood Pressure 178/108 H 07/27/25 11:10 Pulse Oximetry 95 07/27/25 11:10 Oxygen Delivery Method Room Air 07/27/25 11:10 Temperature 97.9 F 07/27/25 11:10 Pulse Rate 113 H 07/27/25 12:10 Respiratory Rate 16 07/27/25 12:10 Blood Pressure 128/98 H 07/27/25 12:10 Pulse Oximetry 96 07/27/25 12:10 Oxygen Delivery Method Room Air 07/27/25 12:10 Medications Administered Medications: Discontinued Medications Generic Name Dose Route Start Last Admin Trade Name Freq PRN Reason Stop Dose Admin Aspirin 324 mg 07/27/25 11:30 07/27/25 11:35 Aspirin 81 Mg Tab.Chew PO 07/27/25 11:31 324 mg ONCE ONE Administration Heparin Sodium (Porcine) 3,900 unit 07/27/25 11:46 07/27/25 12:00 Heparin 5,000 Unit/0.5 Ml Inj 60 unit/kg (3900 unit) 07/27/25 11:47 3,900 unit IVP Administration ONCE ONE Heparin Sodium/Dextrose 25,000 unit in 500 mls @ 0 mls/hr 07/27/25 12:00 07/27/25 11:56 Heparin IV 800 unit/hr .Q0M FIDELIA 16 mls/hr Protocol Administration Per Protocol Nitroglycerin 0.4 mg 07/27/25 11:46 07/27/25 11:52 Nitroglycerin 0.4 Mg Tab.Subl SUBLINGUAL 0.4 mg Q5M PRN Administration Ticagrelor 180 mg 07/27/25 11:46 07/27/25 11:58 Ticagrelor 90 Mg Tablet PO 07/27/25 11:47 180 mg ONCE ONE Administration MDM - Chest Pain Lab Data Attestation: I reviewed the patient's lab results. Labs: Lab Results 07/27/25 07/27/25 Range/Units 11:30 11:40 WBC 6.51 (4.50-11.00) K/uL RBC 4.56 (4.30-5.90) m/uL Hgb 13.9 (13.5-17.5) gm/dL Hct 42.3 (37.0-53.0) % MCV 93 (80-100) fL MCH 31 (26-34) pg MCHC 33 (32-36) gm/dL RDW Coeff of Dennis 14.3 (11.5-15.5) % Plt Count 299 (140-440) K/uL Neut % (Auto) 82.1 H (42.0-72.0) % Lymph % (Auto) 8.3 L (20-44) % Winn % (Auto) 8.4 (0.0-11.0) % Eos % (Auto) 0.8 (0.0-7.0) % Baso % (Auto) 0.2 (0.0-3.0) % Neut # (Auto) 5.30 (1.7-7.0) K/uL Lymph # (Auto) 0.50 L (0.90-2.90) K/uL Winn # (Auto) 0.50 (0.00-0.90) K/UL Eos # (Auto) 0.05 (0.00-0.50) K/uL Baso # (Auto) 0.01 (0.00-0.30) K/uL Abs Immat Gran (auto) 0.01 (0.00-0.30) K/uL Imm/Tot Granulo (auto) 0.2 % INR 1.01 (0.91-1.10) APTT 31 (23-33) Seconds D-Dimer Quant (PE/DVT) 0.69 H (0.00-0.50) ug/ml VBG pH 7.353 (7.32-7.43) VBG pCO2 47 (40-50) mmHG VBG pO2 < 30.1 (25-47) mmHG VBG HCO3 26 (21-28) mmol/L Sodium 131 L (135-149) mmol/L Potassium 4.8 (3.6-5.1) mmol/L Chloride 97 (96-114) mmol/L Carbon Dioxide 26 (20-32) mmol/L Anion Gap 8 (7-15) mEq/L BUN 31 H (7-30) mg/dL Creatinine 1.0 (0.5-1.5) mg/dL Estimated Creat Clear 52.07 Estimated GFR 75 ml/min Glucose 154 H (60-115) mg/dL Lactate 1.6 (0.5-1.9) mmol/L Calcium 9.8 (8.4-10.6) mg/dL Total Bilirubin 0.4 (0.1-1.5) mg/dL Direct Bilirubin 0.3 (0.0-0.5) mg/dL AST 233 H (12-35) U/L ALT 39 (4-50) U/L Alkaline Phosphatase 80 (40-150) U/L Troponin I 17.10 H* (0.01-0.04) ng/mL C-Reactive Protein 4.8 H (0.5-1.0) mg/dL NT-Pro-B Natriuret Pep 8080 H (See Note) pg/mL Total Protein 8.5 H (6.0-8.3) g/dL Albumin 4.2 (3.3-5.0) g/dL Lipase 287 (23-300) U/L Imaging Data Chest x-ray: Attestation: I have reviewed the pertinent imaging results. My impression: No acute pathology on my preliminary review of his portable chest x-ray. Radiologist's impression: Patient: TORSTEN CRISTOBAL Facility:?[facility] Patient ID:?[id number] Site Patient ID:?[id number]. Site :?[id number] Study:?XRay-Chest PORTABLE-07/27/2025 11:47:38 AM Ordering Physician:?Theresa Collier Final Report: INDICATION: Chest pain. TECHNIQUE: Chest 1 portable view. COMPARISON: None. FINDINGS: No pneumothorax or pleural effusion. Lungs are clear. Median sternotomy. Aortic atherosclerosis and tortuosity. Mild cardiomegaly. No pulmonary edema. Upper abdomen and osseous structures as imaged show no acute abnormality. IMPRESSION: No evidence of acute cardiopulmonary disease. Dictated by Rikki Sullivan MD @ 07/27/2025 12:25:42 PM (Electronic Signature) ECG Data Attestation: I personally reviewed and interpreted this ECG as follows: (Sinus rhythm with PAC, [address] elevation V2 through V5, nonspecific change V6, consistent with STEMI.) ECG interpretation date: 07/27/25 ECG interpretation time: 11:34 Prior ECG tracings: not available for review Critical Care Time Critical Care Time Total Critical Care Time in Minutes: 50 Discharge Plan Discharge Clinical Impression: ST elevation (STEMI) myocardial infarction Qualifiers: Involved coronary artery: unspecified coronary artery Qualified Code(s): I21.3 - ST elevation (STEMI) myocardial infarction of unspecified site Patient Disposition: Xfer [facility] Discharge Location: [facility] Prescriptions: No Action folic acid 1 mg tablet 1 mg PO DAILY methotrexate sodium 2.5 mg tablet 20 mg PO QWEEK ibuprofen 200 mg tablet 200 mg PO Q6H PRN prochlorperazine maleate [Compazine] 5 mg tablet 5 mg PO BID PRN (Reason: nausea and vomiting) Qty: 60 0RF ondansetron HCl 4 mg tablet 4 mg PO Q8H Qty: 60 0RF Stand Alone Forms: MyHealth Info Instructions Procedures ABG Interpretation ABG Results: 07/27/25 11:30 VBG pH 7.353 VBG pCO2 47 VBG pO2 < 30.1 VBG HCO3 26
--- NOTE | 2025-07-27 11:30 | CRLHL7_ITS ---
For Patients: As a result of the Cures Act, medical imaging exams and procedure reports are released immediately into your electronic medical record. You may view this report before your referring provider. If you have questions, please contact your health care provider. INDICATION: Chest pain. TECHNIQUE: Chest 1 portable view. COMPARISON: None. FINDINGS: No pneumothorax or pleural effusion. Lungs are clear. Median sternotomy. Aortic atherosclerosis and tortuosity. Mild cardiomegaly. No pulmonary edema. Upper abdomen and osseous structures as imaged show no acute abnormality. IMPRESSION: No evidence of acute cardiopulmonary disease. Dictated by Rikki Sullivan MD @ 07/27/2025 12:25:42 PM (Electronically Signed)
[2025-07-27] MEDS: ASPIRIN 81 MG TAB.CHEW 324 MG PO (11:35)
[2025-07-27 11:45] VITALS: BP 166/111; PULSE 84; RESP 28; O2SAT 98
[2025-07-27 11:45] LABS: HCO3 VBG 26 mmol/L (21-28); Lactate* 1.6 mmol/L (0.5-1.9); PCO2 VBG 47 mmHG (40-50); PO2 VBG < 30.1 mmHG (25-47); pH VBG 7.353 (7.32-7.43)
[2025-07-27] MEDS: NITROGLYCERIN 0.4 MG TAB.SUBL SUBLINGUAL (11:52)
[2025-07-27 11:54] LABS: Hematocrit* 42.3 % (37.0-53.0); Hemoglobin* 13.9 gm/dL (13.5-17.5); Immature Granulocytes Abs Auto 0.01 K/uL (0.00-0.30); Immature Granulocytes Pct Auto 0.2 %; Mean Corpuscular HGB Conc 33 gm/dL (32-36); Mean Corpuscular Hemoglobin 31 pg (26-34); Mean Corpuscular Volume 93 fL (80-100); RDW Coefficient of Variation % 14.3 % (11.5-15.5); Red Blood Count* 4.56 m/uL (4.30-5.90); White Blood Count* 6.51 K/uL (4.50-11.00)
[2025-07-27 11:55] VITALS: BP 152/98; PULSE 89; RESP 8; O2SAT 98
[2025-07-27] MEDS: HEPARIN 25,000 UNIT/500 ML BAG 16 UNIT IV (11:56)
[2025-07-27] MEDS: TICAGRELOR 90 MG TABLET 180 MG PO (11:58)
[2025-07-27 11:59] LABS: Lymphocytes Absolute Auto 0.50 K/uL (0.90-2.90); Slide Review Reflex No
[2025-07-27 12:00] VITALS: BP 107/69; PULSE 129; RESP 9; O2SAT 96
[2025-07-27] MEDS: HEPARIN 5,000 UNIT/0.5 ML INJ 3900 UNIT IVP (12:00)
[2025-07-27 12:05] VITALS: BP 93/79; PULSE 122; O2SAT 95
[2025-07-27 12:10] VITALS: BP 128/98; PULSE 113; RESP 16; O2SAT 96
[2025-07-27 12:30] LABS: Albumin* 4.2 g/dL (3.3-5.0); Chloride* 97 mmol/L (96-114)
[2025-07-27 12:31] LABS: INR 1.01 (0.91-1.10); Potassium* 4.8 mmol/L (3.6-5.1); Prothrombin Time 14.1 Seconds; Sodium* 131 mmol/L (135-149)
[2025-07-27 12:33] LABS: Blood Urea Nitrogen* 31 mg/dL (7-30); Creatinine* 1.0 mg/dL (0.5-1.5); Est. Creatinine Clearance* 52.07; Estimated Glomerular Filt Rate 75 ml/min
[2025-07-27 12:34] LABS: Alanine Aminotransferase* 39 U/L (4-50); Alkaline Phosphatase* 80 U/L (40-150); Anion Gap 8 mEq/L (7-15); Aspartate Amino Transferase* 233 U/L (12-35); Bilirubin Direct* 0.3 mg/dL (0.0-0.5); Bilirubin Total* 0.4 mg/dL (0.1-1.5); Calcium* 9.8 mg/dL (8.4-10.6); Carbon Dioxide* 26 mmol/L (20-32); D Dimer Quantitative* 0.69 ug/ml (0.00-0.50); Glucose* 154 mg/dL (60-115); Total Protein* 8.5 g/dL (6.0-8.3)
[2025-07-27 12:55] LABS: NT Pro B Type NatriureticPept* 8080 pg/mL (See Note)
== END 2025-07-27 12:35 | disposition short-term general hospital (02) ==
PROVIDERS: Emergency Provider Family Medicine; PCP Family Medicine
DX: I21.3 ST elevation (STEMI) myocardial infarction of unspecified site (principal); R07.89 Other chest pain
CPT/HCPCS: 36415; 71045; 80053; 82248; 82803; 83605; 83690; 83880; 84484; 85025; 85379; 85610; 85730; 86140; 93005; 94761; 99284; 99291; A9270; J1644

== ENCOUNTER 2025-08-01 22:30 | Emergency (ER) | payer MEDICARE, SELFPAY ==
--- OUTSIDE RECORDS SUMMARY | 2025-06-30 08:46 | XMS_ITS | Encounter Summary ---
Author Organization [facility] Address [address] [place] [address] Care Team Providers Care Clinical Laboratory Aide Name Role Phone Unavailable Primary Care Provider Unavailabl e Reason for Referral * Radiation Therapy (Routine) - Authorized Specialty Diagnoses / Procedures Referred By Norma choi Referred To Contact Diagnoses Malignant Neoplasm Of Tongue Base (HCC) Procedures Initial Rad Onc Treatment Planning CT Simulation [place] IMRT RADIOTHERAPY PLAN Julio Cesar Mendenhall M.D. [address] [place] [address] Phone: tel: fax: [facility] Radiation Oncology at [place] [address] [place] [address] Referral ID Status Reason Start Date Expiration Date V isits Requested Visits Authorized [id number] Authorized 07/02/2025 09/30/2026 2 2 * Outpatient (Routine) - Closed Specialty Diagnoses / Procedures Referred By Norma choi Referred To Contact Social Work Diagnoses Malignant Neoplasm Of Tongue Base (HCC) Julio Cesar Rebolledo M.D. [address] [place] [address] Phone: tel: fax: [facility] Region Referral ID Status Reason Start Date Expiration Date Visits Re quested Visits Authorized [id number] Closed 06/30/2025 12/30/2026 1 1 * Outpatient (Routine) - Closed Specialty Diagnoses / Procedures Referred By Norma choi Referred To Contact Radiation Oncology Diagnoses Malignant Neoplasm Of Tongue Base (HCC) Julio Cesar Rebolledo M.D. [address] [place] [address] Phone: tel: fax: [facility] Region Referral ID Status Reason Start Date Expiration Date Visits Re quested Visits Authorized [id number] Closed 06/30/2025 12/30/2026 1 1 * Specialty Diagnoses / Procedures Referred By Norma choi Referred To Contact Diagnoses Malignant Neoplasm Of Tongue Base (HCC) Julio Cesar Rebolledo M.D. [address] [place] [address] Phone: tel: fax: [facility] Region Referral ID Status Reason Start Date Expiration Date Visits Re quested Visits Authorized Scheduling Instructions Please do not schedule if patient has 10 fractions or less, unless requested by care team. * Radiation Therapy (Routine) - Authorized Specialty Diagnoses / Procedures Referred By Norma choi Referred To Contact Diagnoses Malignant Neoplasm Of Tongue Base (HCC) Procedures Management Visit Julio Cesar Rebolledo M.D. [address] [place] [address] Phone: tel: fax: [facility] Region Referral ID Status Reason Start Date Expiration Date V isits Requested Visits Authorized [id number] Authorized 06/30/2025 09/30/2026 10 10 * Radiation Therapy (Routine) - Authorized Specialty Diagnoses / Procedures Referred By Norma t Referred To Contact Diagnoses Malignant Neoplasm Of Tongue Base (HCC) Procedures Prior Auth Rad Tx [place] IMRT COMPLEX [place] GUIDANCE FOR LOC RAD TX [place] IMRT RADIOTHERAPY PLAN IMRT Julio Cesar Rebolledo M.D. [address] [place] [address] Phone: tel: fax: [facility] Referral ID Status Reason Start Date Expiration Date V isits Requested Visits Authorized [id number] Authorized 07/14/2025 09/30/2026 35 35 Reason for Visit * Appointment Request (Routine) - Closed Specialty Diagnoses / Procedures Referred By Contac t Referred To Contact Radiation Oncology Diagnoses Malignant Neoplasm Of Tongue Base (HCC) Avery Holland M.D. [address] [address] Phone: tel: fax: Referral ID Status Reason Start Date Expiration Date Visits Re quested Visits Authorized [id number] Closed 06/19/2025 09/19/2026 1 1 Encounter Details Date Type Department Care Team (Latest Contact Info) Description 06/30/2025 8:46 AM CDT - 07/14/2025 5:41 PM CDT Hospital Encounter Department of Radiation Oncology in [place], [place] [address] [place] [address] Julio Cesar Rebolledo M.D. [address] [place] [address] Malignant Neoplasm Of Tongue Base (HCC) (Primary Dx) Social History Tobacco Use Types Packs/Day Years Used Date Smoking Tobacco: Never Tobacco Cessation:Counseling Given: Not Answered Sex and Gender Information Value Date Recorded Sex Assigned at Not on file Legal Sex Male 12:18 PM CDT Gender Identity Not on file Sexual Orientation Not on file documented as of this encounter Last Filed Vital Signs Vital Sign Reading Time Taken Comments Blood Pressure 184/92 06/30/2025 8:51 AM CDT Pulse 66 06/30/2025 8:51 AM CDT Temperature 36.4 C (97.6 F) 06/30/2025 8:51 AM CDT Respiratory Rate - - Oxygen Saturation - - Inhaled Oxygen Concentration - - Weight 74.6 kg (164 lb 6.4 oz) 06/30/2025 8:51 A M CDT Height - - Body Mass Index - - documented in this encounter Medications at Time of Discharge chlorhexidine (Peridex) 0.12 % mouthwash Take 15 mL by mouth. 07/05/2025 folic acid 1 mg tablet Take 1 mg by mouth daily. 08/28/2024 methotrexate (TrexalL) 2.5 mg tablet Take 10 mg by mouth over 168 hr. 12/18/2024 triazolam (Halcion) 0.25 mg tablet Take 0.25 mg by mouth. 07/05/2025 documented as of this encounter Consult Notes * Julio Cesar Rebolledo M.D. - 06/30/2025 9:00 AM CDT RADIATION ONCOLOGY CONSULTATION SUBJECTIVE REQUESTING PROVIDER Avery Holland M.D. REASON FOR CONSULT Asked to see patient by Dr. 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 He had no other symptoms. On 05/27/2025 and ultrasound of the neck mass showed a solid hypoechoic mass within the submandibular space measuring 3.9 x 2.2 x 3.2 cm. Some vascularity is suspected at the posterior aspect. 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 Also noted was a 2.7 cm necrotic left level 2A lymph node consistent with regional lymph node metastasis. Mild asymmetry in the enlargement of 2 subcentimeter left level 3 lymphnodes was also noted. 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 06/27/2025 PET-CT scan was performed showing a large FDG avid lesion in the left base of tongue which partly effaces the vallecula and appears to extend across the midline measuring 3.3 x 2.6 x 2.8 cm with a dominant centrally necrotic left level 2 conglomerate measuring 2.3 x 2.8 x 3.5 cm with an SUV maximum of 14.3 suspicious for locally advanced left base of tongue neoplasm with left level 2A lymph node involvement. He reports minimal symptoms overall but is disturbed by the growing neck mass. He denies ear pain or significant issues with swallowing or voice changes. He denies any prior radiation therapy or collagen vascular disease or inflammatory bowel disease. No implanted medical devices such as pacemakers. The patient presents now to discuss radiation options. ECOG performance status is 1. MEDICAL HISTORY Medical History[1] SURGICAL HISTORY Surgical History[2] SOCIAL HISTORY He only smoked briefly in his use and is not a habitual smoker. Occasional alcohol. FAMILY HISTORY Family History[3] OBJECTIVE BP (!) 184/92 (BP Location: Right arm, Patient Position: Sitting, Cuff Size: Regular) Pulse 66 Temp 36.4 ??C (Temporal) Wt 74.6 kg PHYSICAL EXAMINATION General: Well-developed, well-nourished and in no apparent distress. HEENT: Normocephalic. Atraumatic. Sclera anicteric. Pupils equal round and reactive to light. Mucous membranes moist and pink. No visible or palpable mass in the oral cavity. Neck: Supple. Left-sided mass. Lymph: Palpable large firm mobile left level 2 mass. It is nontender. No other palpable submental submandibular cervical or supraclavicular lymphadenopathy. Lungs: Clear to auscultation bilaterally. Normal respiratory effort. Good air entry bilaterally. Heart: Regular rate and rhythm. No murmurs. Abdomen: Soft, non-distended. Skin: Warm. Normal color. No rashes or ecchymosis. Extremities: No clubbing, cyanosis, or edema. After application of 4% topical lidocaine spray fiberoptic laryngoscopy was performed. The visualized portions of the nasal cavity and nasopharynx were unremarkable. On inspection of the base of tongue there is a large fungating submucosal mass left of center but crossing the midline. It extends toand at times abuts the vallecula. The epiglottis, aryepiglottic folds, true and false vocal folds, and piriform sinuses were unremarkable. Vocal folds were freely mobile bilaterally. DIAGNOSTICS At the time of consultation images for the PET scan were not yet available and were been requested. 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 I discussed with him that definitive radiation therapy would be appropriate. He has already met with ENT and is not deemed to be a good surgical candidate and I agree with this based on the size and location of his primary tumor as well as the extremely high probability of his lymph node would showextranodal extension on the pathology report if it were excised. I discussed the standard of care would be concurrent chemoradiotherapy, however the risk benefit ratio of chemotherapy tends to decrease with age in head and neck patients and at age 84 his medical oncologist may discuss adjusting the chemotherapy. If he is unable to get chemotherapy we would treathim with altered fractionation radiation therapy. I discussed the potential risks and adverse effects of radiation therapy with him extensively whichinclude but are not limited to; fatigue, mucositis, pain, dysphagia, odynophagia, possible need forfeeding tube placement, risk of serious dehydration or malnutrition, erythema and irritation of theskin, loss of facial hair, xerostomia which may be permanent, changes in taste, hypothyroidism, oste oradionecrosis, accelerated tooth decay, fibrosis, and lymphedema. I recommended a dental exam prior to initiating radiation therapy. He expresses understanding wished to proceed with treatment. EDUCATION Ready to learn, no apparent learning barriers were identified; learning preferences include listening. Explained diagnosis and treatment plan; patient expressed understanding of the content. CONSENT Discussed the risks, benefits, alternatives, and the necessity of other members of the healthcare team participating in the procedure. All questions answered and consent given. I personally spent 60 minutes in care of the patient today. Time includes both non face to face andface to face patient care. Signed by: Julio Cesar Rebolledo M.D. 07/14/2025 5:28 PM CDT Radiation Oncology [facility] [address] [place] [address] [1] Past Medical History: Diagnosis Date Gastroesophageal Reflux Disease NOS 04/11/2011 Presumptive diagnosis after negative stress echocardiogram. 04/11/2011 Hyperlipidemia Hypertension Essential Primary Psoriasis Raynaud's Phenomena Without Gangrene 04/11/2011 [2] Past Surgical History: Procedure Laterality Date PERICARDIECTOMY [3] No family history on file. documented in this encounter Plan of Treatment Upcoming Encounters Date Type Department Care Team (Late st Contact Info) Description 08/04/2025 8:30 AM CDT Appointment Department of Radiation Oncology in [place], [place] [address] [place] [address] Julio Cesar Rebolledo M.D. [address] [place] [address] 08/04/2025 8:45 AM CDT Appointment Department of Radiation Oncology in [address] [address] Jamie Maria M.D. [address] [place] [address] 08/05/2025 8:30 AM CDT Appointment Department of Radiation Oncology in [address] [address] Julio Cesar Rebolledo M.D. [place] [address] 08/06/2025 8:30 AM CDT Appointment Department of Radiation Oncology in [address] [address] Julio Cesar Rebolledo M.D. [address] [place] [address] 08/07/2025 8:30 AM CDT Appointment Department of Radiation Oncology in [address] [address] Julio Cesar Rebolledo M.D. [address] [place] [address] 08/07/2025 9:00 AM CDT Appointment Department of Radiation Oncology in [address] [place] [address] Julio Cesar Rebolledo M.D. [address] [place] [address] 08/07/2025 9:15 AM CDT Appointment Department of Radiation Oncology in [place], [place] [address] [place] [address] Julio Cesar Rebolledo M.D. [address] [place] [address] 08/08/2025 8:30 AM CDT Appointment Department of Radiation Oncology in [place], [place] [address] [place] [address] Julio Cesar Rebolledo M.D. [address] [place] [address] 08/11/2025 8:30 AM CDT Appointment Department of Radiation Oncology in [address] [address] Julio Cesar Rebolledo M.D. [address] [place] [address] 08/12/2025 8:30 AM CDT Appointment Department of Radiation Oncology in [place], [place] [address] [place] [address] Julio Cesar Rebolledo M.D. [address] [place] [address] 08/13/2025 8:30 AM CDT Appointment Department of Radiation Oncology in [place], [place] [address] [place] [address] Julio Cesar Rebolledo M.D. [address] [place] [address] 08/14/2025 8:30 AM CDT Appointment Department of Radiation Oncology in [place], [place] [address] [place] [address] Julio Cesar Rebolledo M.D. [address] [place] [address] 08/14/2025 9:00 AM CDT Appointment Department of Radiation Oncology in [place], [place] [address] [place] [address] Julio Cesar Rebolledo M.D. [address] [place] [address] 08/15/2025 8:30 AM CDT Appointment Department of Radiation Oncology in [place], [place] [address] [place] [address] Julio Cesar Rebolledo M.D. [facility] [address] 08/18/2025 8:30 AM CDT Appointment Department of Radiation Oncology in [address] [address] Julio Cesar Rebolledo M.D. [place] [address] 08/19/2025 8:30 AM CDT Appointment Department of Radiation Oncology in [address] [address] Julio Cesar Rebolledo M.D. [facility] [address] 08/20/2025 8:30 AM CDT Appointment Department of Radiation Oncology in [address] [address] Julio Cesar Rebolledo M.D. [address] [place] [address] 08/21/2025 8:30 AM CDT Appointment Department of Radiation Oncology in [place], [place] [address] [facility] [place] [address] Julio Cesar Rebolledo M.D. [address] [place] [address] 08/21/2025 9:00 AM CDT Appointment Department of Radiation Oncology in [place], [place] [address] [facility] [place] [address] Julio Cesar Rebolledo M.D. [address] [place] [address] 08/22/2025 8:30 AM CDT Appointment Department of Radiation Oncology in [place], [place] [address] [facility] [place] [address] Julio Cesar Rebolledo M.D. [address] [place] [address] 08/25/2025 8:30 AM CDT Appointment Department of Radiation Oncology in [place], [place] [address] [place] [address] Julio Cesar Rebolledo M.D. [address] [place] [address] 08/26/2025 8:30 AM CDT Appointment Department of Radiation Oncology in [place], [place] [address] [place] [address] Julio Cesar Rebolledo M.D. [address] [place] [address] 08/27/2025 8:30 AM CDT Appointment Department of Radiation Oncology in [place], [place] [address] [place] [address] Julio Cesar Rebolledo M.D. [address] [place] [address] 08/28/2025 8:30 AM CDT Appointment Department of Radiation Oncology in [place], [place] [address] [place] [address] Julio Cesar Rebolledo M.D. [address] [place] [address] 08/28/2025 9:00 AM CDT Appointment Department of Radiation Oncology in [address] [address] Julio Cesar Rebolledo M.D. [place] [place] [address] 08/29/2025 8:30 AM CDT Appointment Department of Radiation Oncology in [place], [place] [address] [place] [address] Julio Cesar Rebolledo M.D. [facility] [address] 09/01/2025 8:30 AM CDT Appointment Department of Radiation Oncology in [place], [place] [address] [place] [address] Julio Cesar Rebolledo M.D. [place] [address] 09/02/2025 8:30 AM CDT Appointment Department of Radiation Oncology in [place], [place] [address] [place] [address] Julio Cesar Rebolledo M.D. [address] [place] [address] 09/03/2025 8:30 AM CDT Appointment Department of Radiation Oncology in [place], [place] [address] [place] [address] Julio Cesar Rebolledo M.D. [address] [place] [address] 09/03/2025 8:45 AM CDT Appointment Department of Radiation Oncology in [address] [address] Julio Cesar Rebolledo M.D. [place] [address] 09/04/2025 8:30 AM CDT Appointment Department of Radiation Oncology in [address] [address] Julio Cesar Rebolledo M.D. [place] [address] 09/05/2025 8:30 AM CDT Appointment Department of Radiation Oncology in [place], [place] [address] [place] [address] Julio Cesar Rebolledo M.D. [facility] [address] 09/08/2025 8:30 AM CDT Appointment Department of Radiation Oncology in [place], [place] [address] [place] [address] Julio Cesar Rebolledo M.D. [place] [address] Scheduled Orders Name Type Priority Associated Diagnoses Order Schedule Prior Auth Rad Tx Radiation Oncology Routine Malignant Neoplasm Of Tongue Base (HCC) Ordered: 06/30/2025 Management Visit Radiation Oncology Routine Malignant Neoplasm Of Tongue Base (HCC) 10 Occurrences starting 06/30/2025 until 09/30/2026 Scheduled Referrals Name Type Priority Associated Diagnoses Orde r Schedule Radiation Oncology - Nurse education visit (clinic) Outpatient Referral Routine Malignant Neoplasm Of Tongue Base (HCC) Expected: 06/30/2025, Expires: 09/30/2026 Radiation Oncology - Medical nutrition therapy consult (clinic) Outpatient Referral Routine Malignant Neoplasm Of Tongue Base (HCC) Expected: 06/30/2025, Expires: 09/30/2026 Social Work - General consult (clinic) Outpatient Referral Routine Malignant Neoplasm Of Tongue Base (HCC) Expected: 06/30/2025, Expires: 09/30/2026 documented as of this encounter Results * Initial Rad Onc Treatment Planning CT Simulation (07/02/2025 12:30 PM CDT) Narrative TOWNSEND ALICIA - 07/02/2025 12:30 PM CDT Julio Cesar Rebolledo M.D. 07/02/2025 2:33 PM Initial Rad Onc Treatment Planning CT Simulation Performed by: Julio Cesar Rebolledo M.D. Authorized by: Julio Cesar Rebolledo M.D. Simulation was performed under physician supervision based on physician order in preparation for radiation therapy. Physician was immediately available to provide assistance and direction throughout the procedure. Written consent for treatment was completed or confirmed. The patient was appropriately identified and placed in the treatment position using the necessary immobilization to ensure a reproducible treatment position. Reference saleh were placed to facilitate marking of isocenter. Area scanned:Head, Neck, and Chest Contrast used for the simulation procedure: None Patient position:head first supine Custom immobilization: 5 point mask, Custom neck rest, and Custom mouth piece Motion management: None Bolus: No CT guidance: Following positioning of the patient, a series of slices was obtained to be utilized in treatment planning. CT images were transferred to the [employer] treatment planning system, after a reference isocenter was determined and marked. Segmentation and treatment planning will take place prior to treatment delivery. Patient set up and imaging was appropriate and completed without incident. Housekeeping Manager use:No us Julio Cesar Rebolledo M.D. RADIATION ONCOLOGY ORDER NAGI Final Result CARY VARGAS na documented in this encounter Visit Diagnoses Diagnosis Malignant Neoplasm Of Tongue Base (HCC)- Primary Malignant Neoplasm Of Tongue Base (HCC) documented in this encounter Additional Health Concerns Infection Onset Date Last Indicated Resolved Time Protective Environment 06/30/2025 06/30/2025 documented as of this encounter
--- OUTSIDE RECORDS SUMMARY | 2025-07-02 12:30 | XMS_ITS | Encounter Summary ---
Author Organization [facility] Address [address] [place] [address] Care Team Providers Care Reactor Service Operator Name Role Phone Unavailable Primary Care Provider Unavailabl e Reason for Referral * Radiation Therapy (Routine) - Closed Specialty Diagnoses / Procedures Referred By Norma choi Referred To Contact Diagnoses Malignant Neoplasm Of Tongue Base (HCC) Procedures Verification/Re-Julio Cesar Mendenhall M.D. [address] [place] [address] Phone: tel: fax: [facility] Region Referral ID Status Reason Start Date Expiration Date Visits Re quested Visits Authorized [id number] Closed 07/03/2025 10/03/2026 1 1 * Radiation Therapy (Routine) - Authorized Specialty Diagnoses / Procedures Referred By Norma choi Referred To Contact Diagnoses Malignant Neoplasm Of Tongue Base (HCC) Procedures Initial Rad Onc Treatment Planning CT Simulation IA IMRT RADIOTHERAPY PLAN Julio Cesar Mendenhall M.D. [address] [place] [address] Phone: tel: fax: T Radiation Oncology at [address] [phone] Referral ID Status Reason Start Date Expiration Date V isits Requested Visits Authorized [id number] Authorized 07/02/2025 09/30/2026 2 2 Reason for Visit * Radiation Therapy (Routine) - Authorized Specialty Diagnoses / Procedures Referred By Norma choi Referred To Contact Diagnoses Malignant Neoplasm Of Tongue Base (HCC) Procedures Initial Rad Onc Treatment Planning CT Simulation IA IMRT RADIOTHERAPY PLAN Julio Cesar Mendenhall M.D. [address] [place] [address] Phone: tel: fax: [facility] Radiation Oncology at [place] [address] [place] [phone] Referral ID Status Reason Start Date Expiration Date V isits Requested Visits Authorized [id number] Authorized 07/02/2025 09/30/2026 2 2 Encounter Details Date Type Department Care Team (Latest Contact Info) Description 07/02/2025 12:30 PM CDT - 07/02/2025 2:34 PM CDT Hospital Encounter Department of Radiation Oncology in [place], [place] [address] [place] [phone] Julio Cesar Rebolledo M.D. [address] [place] [phone] Malignant Neoplasm Of Tongue Base (HCC) Social [...] by: Julio Cesar Rebolledo M.D. Authorized by: Aurora, Julio Cesar, M.D. Simulation was performed under physician supervision [...] planning. CT images were transferred to the Lab4U treatment planning system, after a reference isocenter was determined and marked. Segmentation and treatment planning will take place prior to treatment delivery. Patient set up and imaging was appropriate and completed without incident. Ruby Rails Developer use:No Cosigned by Julio Cesar Rebolledo M.D. [...] CDT Appointment Department of Radiation Oncology in [place] [address] [place] [address] Julio Cesar Rebolledo M.D. [address] [place] [address] 08/04/2025 8:45 AM CDT Appointment Department of Radiation Oncology in [place], [place] [address] [place] [address] Jamie Maria M.D. [address] [place] [address] 08/05/2025 8:30 AM CDT Appointment Department of Radiation Oncology in [place], [place] [address] [place] [address] Julio Cesar Rebolledo M.D. [facility] [place] [address] 08/06/2025 8:30 AM CDT Appointment Department of Radiation Oncology in [place], [place] [address] [place] [address] Julio Cesar Rebolledo M.D. [facility] [place] [address] 08/07/2025 8:30 AM CDT Appointment Department of Radiation Oncology in [address] [address] Julio Cesar Rebolledo M.D. [facility] [place] [address] 08/07/2025 9:00 AM CDT Appointment Department of Radiation Oncology in [address] [address] Julio Cesar Rebolledo M.D. [facility] [place] [address] 08/07/2025 9:15 AM CDT Appointment Department of Radiation Oncology in [place], [place] [address] [place] [address] Julio Cesar Rebolledo M.D. [address] [place] [address] 08/08/2025 8:30 AM CDT Appointment Department of Radiation Oncology in [place], [place] [address] [place] [address] Julio Cesar Rebolledo M.D. [address] [place] [address] 08/11/2025 8:30 AM CDT Appointment Department of Radiation Oncology in [address] [address] Julio Cesar Rebolledo M.D. [facility] [place] [address] 08/12/2025 8:30 AM CDT Appointment Department of Radiation Oncology in [place], [place] [address] [place] [address] Julio Cesar Rebolledo M.D. [facility] [place] [address] 08/13/2025 8:30 AM CDT Appointment Department of Radiation Oncology in [place], [place] [address] [place] [address] Julio Cesar Rebolledo M.D. [facility] [place] [address] 08/14/2025 8:30 AM CDT Appointment Department of Radiation Oncology in [place], [place] [address] [place] [address] Julio Cesar Rebolledo M.D. [facility] [place] [address] 08/14/2025 9:00 AM CDT Appointment Department of Radiation Oncology in [place], [place] [address] [facility] [place] [address] Julio Cesar Rebolledo M.D. [address] [place] [address] 08/15/2025 8:30 AM CDT Appointment Department of Radiation Oncology in [place], [place] [address] [place] [address] Julio Cesar Rebolledo M.D. [address] [place] [address] 08/18/2025 8:30 AM CDT Appointment Department of Radiation Oncology in [place], [place] [address] [place] [address] Julio Cesar Rebolledo M.D. [address] [place] [address] 08/19/2025 8:30 AM CDT Appointment Department of Radiation Oncology in [place], [place] [address] [place] [address] Julio Cesar Rebolledo M.D. [address] [place] [address] 08/20/2025 8:30 AM CDT Appointment Department of Radiation Oncology in [place], [place] [address] [place] [address] Julio Cesar Rebolledo M.D. [address] [place] [address] 08/21/2025 8:30 AM CDT Appointment Department of Radiation Oncology in [address] [place] [address] Julio Cesar Rebolledo M.D. [address] [place] [address] 08/21/2025 9:00 AM CDT Appointment Department of Radiation Oncology in [place], [place] [address] [place] [address] Julio Cesar Rebolledo M.D. [facility] [place] [address] 08/22/2025 8:30 AM CDT Appointment Department of Radiation Oncology in [address] [address] Julio Cesar Rebolledo M.D. [facility] [place] [address] 08/25/2025 8:30 AM CDT Appointment Department of Radiation Oncology in [address] [address] Julio Cesar Rebolledo M.D. [facility] [place] [address] 08/26/2025 8:30 AM CDT Appointment Department of Radiation Oncology in [place], [place] [address] [place] [address] Julio Cesar Rebolledo M.D. [facility] [place] [address] 08/27/2025 8:30 AM CDT Appointment Department of Radiation Oncology in [address] [address] Julio Cesar Rebolledo M.D. [facility] [place] [address] 08/28/2025 8:30 AM CDT Appointment Department of Radiation Oncology in [place], [place] [address] [place] [address] Julio Cesar Rebolledo M.D. [address] [place] [address] 08/28/2025 9:00 AM CDT Appointment Department of Radiation Oncology in [address] [address] Julio Cesar Rebolledo M.D. [facility] [place] [address] 08/29/2025 8:30 AM CDT Appointment Department of Radiation Oncology in [address] [address] Julio Cesar Rebolledo M.D. [facility] [place] [address] 09/01/2025 8:30 AM CDT Appointment Department of Radiation Oncology in [address] [address] Julio Cesar Rebolledo M.D. [facility] [place] [address] 09/02/2025 8:30 AM CDT Appointment Department of Radiation Oncology in [address] [address] Julio Cesar Rebolledo M.D. [facility] [place] [address] 09/03/2025 8:30 AM CDT Appointment Department of Radiation Oncology in [address] [address] Julio Cesar Rebolledo M.D. [address] [place] [address] 09/03/2025 8:45 AM CDT Appointment Department of Radiation Oncology in [address] [address] Julio Cesar Rebolledo M.D. [address] [place] [phone] 09/04/2025 8:30 AM CDT Appointment Department of Radiation Oncology in [address] [address] Julio Cesar Rebolledo M.D. [address] [place] [address] 09/05/2025 8:30 AM CDT Appointment Department of Radiation Oncology in [address] [address] Julio Cesar Rebolledo M.D. [address] [place] [phone] 09/08/2025 8:30 AM CDT Appointment Department of Radiation Oncology in [address] [address] Julio Cesar Rebolledo M.D. [address] [place] [phone] documented as of this encounter Procedures Procedure [...] record on this date for clinical details. Julio Cesar Rebolledo M.D. RADIATION ONCOLOGY ORDER NAGI Final Result Performing Organization Address [facility] Phone Number CARY bishop * Initial Rad Onc Treatment Planning CT Simulation (07/02/2025 12:30 PM CDT) Narrative CARY ALICIA - 07/02/2025 12:30 PM CDT Julio [...] planning. CT images were transferred to the Lab4U treatment planning system, after a reference isocenter was determined and marked. Segmentation and treatment planning will take place prior to treatment delivery. Patient set up and imaging was appropriate and completed without incident. Ruby Rails Developer use:No Julio Cesar Rebolledo M.D. 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
--- OUTSIDE RECORDS SUMMARY | 2025-07-15 08:46 | XMS_ITS | Encounter Summary ---
Author Organization [facility] Address [address] [place] [address] Care Team Providers Care Emissions Engineer Name Role Phone Unavailable Primary Care Provider Unavailabl e Reason for Referral * Radiation Therapy (Routine) - Closed Specialty Diagnoses / Procedures Referred By Norma choi Referred To Contact Diagnoses Malignant Neoplasm Of Tongue Base (HCC) Procedures Verification/Re-Sim Julio Cesar Rebolledo M.D. [address] [place] [address] Phone: tel: fax: [facility] Region Referral ID Status Reason Start Date Expiration Date Visits Re quested Visits Authorized [id number] Closed 07/03/2025 10/03/2026 1 1 Reason for Visit * Radiation Therapy (Routine) - Closed Specialty Diagnoses / Procedures Referred By Norma choi Referred To Contact Diagnoses Malignant Neoplasm Of Tongue Base (HCC) Procedures Verification/Re-Sim Julio Cesar Rebolledo M.D. [address] [place] [address] Phone: tel: fax: [facility] Region Referral ID Status Reason Start Date Expiration Date Visits Re quested Visits Authorized [id number] Closed 07/03/2025 10/03/2026 1 1 Encounter Details Date Type Department Care Team (Latest Contact Info) Description 07/15/2025 8:46 AM CDT - 07/15/2025 9:18 AM CDT Hospital Encounter Department of Radiation Oncology in [place], [place] [address] [place] [address] Julio Cesar Rebolledo M.D. [address] [place] [address] Malignant Neoplasm Of Tongue Base (HCC) Social [...] mouth. 07/05/2025 documented as of this encounter Procedure Notes [...] imaging was appropriate and completed without incident. Cmo use:No Cosigned by Julio Cesar Rebolledo M.D. [...] CDT Appointment Department of Radiation Oncology in [address] [address] Julio Cesar Rebolledo M.D. [address] [place] [address] 08/04/2025 8:45 AM CDT Appointment Department of Radiation Oncology in [address] [address] Jamie Maria M.D. [address] [place] [address] 08/05/2025 8:30 AM CDT Appointment Department of Radiation Oncology in [address] [address] Julio Cesar Rebolledo M.D. [address] [place] [address] 08/06/2025 8:30 AM CDT Appointment Department of Radiation Oncology in [address] [address] Julio Cesar Rebolledo M.D. [address] [place] [address] 08/07/2025 8:30 AM CDT Appointment Department of Radiation Oncology in [address] [address] Julio Cesar Rebolledo M.D. [address] [place] [address] 08/07/2025 9:00 AM CDT Appointment Department of Radiation Oncology in [place], [place] [address] [place] [address] Julio Cesar Rebolledo M.D. [address] [place] [address] 08/07/2025 9:15 AM CDT Appointment Department of Radiation Oncology in [place], [place] [address] [place] [address] Julio Cesar Rebolledo M.D. [address] [place] [address] 08/08/2025 8:30 AM CDT Appointment Department of Radiation Oncology in [place], [place] [address] [place] [address], [place] [address] Julio Cesar Rebolledo M.D. [address] [place] [address] 08/11/2025 8:30 AM CDT Appointment Department of Radiation Oncology in [place], [place] [address] [place] [address] Julio Cesar Rebolledo M.D. [address] [place] [address] 08/12/2025 8:30 AM CDT Appointment Department of Radiation Oncology in [place], [place] [address] [place] [address] Julio Cesar Rebolledo M.D. [address] [place] [address] 08/13/2025 8:30 AM CDT Appointment Department of Radiation Oncology in [place], [place] [address] [place] [address] Julio Cesar Rebolledo M.D. [address] [place] [address] 08/14/2025 8:30 AM CDT Appointment Department of Radiation Oncology in [place], [place] [address] [place] [address] Julio Cesar Rebolledo M.D. [address] [place] [address] 08/14/2025 9:00 AM CDT Appointment Department of Radiation Oncology in [address] [address] Julio Cesar Rebolledo M.D. [address] [place] [address] 08/15/2025 8:30 AM CDT Appointment Department of Radiation Oncology in [place], [place] [address] [place] [address] Julio Cesar Rebolledo M.D. [address] [place] [address] 08/18/2025 8:30 AM CDT Appointment Department of Radiation Oncology in [place], [place] [address] [place] [address] Julio Cesar Rebolledo M.D. [address] [place] [address] 08/19/2025 8:30 AM CDT Appointment Department of Radiation Oncology in [place], [place] [address] [place] [address] Julio Cesar Rebolledo M.D. [address] [place] [address] 08/20/2025 8:30 AM CDT Appointment Department of Radiation Oncology in [place], [place] [address] [place] [address] Julio Cesar Rebolledo M.D. [address] [place] [address] 08/21/2025 8:30 AM CDT Appointment Department of Radiation Oncology in [place], [place] [address] [place] [address] Julio Cesar Rebolledo M.D. [facility] [place] [address] 08/21/2025 9:00 AM CDT Appointment Department of Radiation Oncology in [address] [address] Julio Cesar Rebolledo M.D. [address] [place] [address] 08/22/2025 8:30 AM CDT Appointment Department of Radiation Oncology in [address] [address] Julio Cesar Rebolledo M.D. [address] [place] [address] 08/25/2025 8:30 AM CDT Appointment Department of Radiation Oncology in [place], [place] [address] [place] [address] Julio Cesar Rebolledo M.D. [address] [place] [address] 08/26/2025 8:30 AM CDT Appointment Department of Radiation Oncology in [place], [place] [address] [place] [address] Julio Cesar Rebolledo M.D. [address] [place] [address] 08/27/2025 8:30 AM CDT Appointment Department of Radiation Oncology in [place], [place] [address] [place] [address] Julio Cesar Rebolledo M.D. [facility] [place] [address] 08/28/2025 8:30 AM CDT Appointment Department of Radiation Oncology in [address] [address] Julio Cesar Rebolledo M.D. [facility] [place] [address] 08/28/2025 9:00 AM CDT Appointment Department of Radiation Oncology in [place], [place] [address] [place] [address] Julio Cesar Rebolledo M.D. [facility] [place] [address] 08/29/2025 8:30 AM CDT Appointment Department of Radiation Oncology in [place], [place] [address] [place] [address] Julio Cesar Rebolledo M.D. [facility] [place] [address] 09/01/2025 8:30 AM CDT Appointment Department of Radiation Oncology in [address] [address] Julio Cesar Rebolledo M.D. [facility] [place] [address] 09/02/2025 8:30 AM CDT Appointment Department of Radiation Oncology in [place], [place] [address] [facility] [place] [address] Julio eCsar Rebolledo M.D. [address] [place] [address] 09/03/2025 8:30 AM CDT Appointment Department of Radiation Oncology in [place], [place] [address] [place] [address] Julio Cesar Rebolledo M.D. [address] [place] [address] 09/03/2025 8:45 AM CDT Appointment Department of Radiation Oncology in [place], [place] [address] [place] [address] Julio Cesar Rebolledo M.D. [address] [place] [address] 09/04/2025 8:30 AM CDT Appointment Department of Radiation Oncology in [place], [place] [address] [place] [address] Julio Cesar Rebolledo M.D. [address] [place] [address] 09/05/2025 8:30 AM CDT Appointment Department of Radiation Oncology in [place], [place] [address] [place] [address] Julio Cesar Rebolledo M.D. [address] [place] [address] 09/08/2025 8:30 AM CDT Appointment Department of Radiation Oncology in [address] [place] [address] Julio Cesar Rebolledo M.D. [address] [place] [address] documented as of this encounter Procedures Procedure [...]
--- OUTSIDE RECORDS SUMMARY | 2025-07-21 08:08 | XMS_ITS | Encounter Summary ---
Author Organization [facility] Address [address] [place] [address] Care Team Providers Care Superintendent Storage Area Name Role Phone Unavailable Primary Care Provider Unavailabl e Reason for Visit * Radiation Therapy (Routine) - Authorized Specialty Diagnoses / Procedures Referred By Norma t Referred To Contact Diagnoses Malignant Neoplasm Of Tongue Base (HCC) Procedures Prior Auth Rad Tx [place] IMRT COMPLEX [place] GUIDANCE FOR LOC RAD TX [place] IMRT RADIOTHERAPY PLAN IMRT Julio Cesar Rebolledo M.D. [address] [place] [phone] Phone: tel: fax: [facility] Referral ID Status Reason Start Date Expiration Date V isits Requested Visits Authorized [id number] Authorized 07/14/2025 09/30/2026 35 35 Encounter Details Date Type Department Care Team (Late st Contact Info) Description 07/21/2025 8:08 AM CDT Hospital Encounter Department of Radiation Oncology in [address] [phone] Julio Cesar Rebolledo M.D. [address] [place] [phone] Social History Tobacco Use Types Packs/Day Years Used Date Smoking Tobacco: Never Humiliation, Afraid, Rape, and Kick questionnair e Answer Date Recorded Within the last year, have y ou been afraid of your partner or ex-partner? No 07/22/2025 Within the last year, have y ou been humiliated or emotionally abused in other ways by your partner or ex-partner? No Within the last year, have y ou been kicked, hit, slapped, or otherwise physically hurt by your partner or ex-partner? No 07/22/2025 Within the last year, have y ou been raped or forced to have any kind of sexual activity by your partner or ex-partner? No 07/22/2025 Hunger Vital Sign Answer Date Recorded Within the past 12 months, y ou worried that your food would run out before you got the money to buy more. Never true 07/22/20 25 Within the past 12 months, t he food you bought just didn't last and you didn't have money to get more. Never true 07/22/2025 PRAPARE - Transportation Answer Date Re corded In the past 12 months, has l ack of transportation kept you from medical appointments or from getting medications? No 06/28 In the past 12 months, has l ack of transportation kept you from meetings, work, or from getting things needed for daily living? No 07/22/2025 [facility] Utilities Answer Date Recorded In the past 12 months has e electric, gas, oil, or water company threatened to shut off services in your home? No 07/22/2025 Housing Stability Answer Date Recorded What is your living situation today? I have a [facility] place to live 07/22/2025 Sex and Gender Information Value Date Recorded Sex Assigned at Not on file Legal Sex Male 12:18 PM CDT Gender Identity Not on file Sexual Orientation Not on file documented as of this encounter Plan of Treatment Upcoming Encounters Date Type Department Care Team (Late st Contact Info) Description 08/04/2025 8:30 AM CDT Appointment Department of Radiation Oncology in [place], [place] [address] [place] [phone] Julio Cesar Rebolledo M.D. [address] [place] [address] 08/04/2025 8:45 AM CDT Appointment Department of Radiation Oncology in [place], [place] [address] [place] [phone] Jamie Maria M.D. [address] [place] [address] 08/05/2025 8:30 AM CDT Appointment Department of Radiation Oncology in [place], [place] [address] [place] [address] Julio Cesar Rebolledo M.D. [address] [place] [address] 08/06/2025 8:30 AM CDT Appointment Department of Radiation Oncology in [place], [place] [address] [place] [phone] Julio Cesar Rebolledo M.D. [address] [place] [phone] 08/07/2025 8:30 AM CDT Appointment Department of Radiation Oncology in [address] [address] Julio Cesar Rebolledo M.D. [address] [place] [phone] 08/07/2025 9:00 AM CDT Appointment Department of Radiation Oncology in [address] [address] Julio Cesar Rebolledo M.D. [address] [place] [address] 08/07/2025 9:15 AM CDT Appointment Department of Radiation Oncology in [place], [place] [address] [place] [address] Julio Cesar Rebolledo M.D. [facility] [place] [address] 08/08/2025 8:30 AM CDT Appointment Department of Radiation Oncology in [address] [address] Julio Cesar Rebolledo M.D. [address] [place] [address] 08/11/2025 8:30 AM CDT Appointment Department of Radiation Oncology in [place], [place] [address] [place] [address] Julio Cesar Rebolledo M.D. [address] [place] [address] 08/12/2025 8:30 AM CDT Appointment Department of Radiation Oncology in [place], [place] [address] [place] [address] Julio Cesar Rebolledo M.D. [address] [place] [address] 08/13/2025 8:30 AM CDT Appointment Department of Radiation Oncology in [place], [place] [address] [place] [address] Julio Cesar Rebolledo M.D. [address] [place] [address] 08/14/2025 8:30 AM CDT Appointment Department of Radiation Oncology in [place], [place] [address] [place] [address] Julio Cesar Rebolledo M.D. [address] [place] [address] 08/14/2025 9:00 AM CDT Appointment Department of Radiation Oncology in [place], [place] [address] [place] [address] Julio Cesar Rebolledo M.D. [address] [place] [address] 08/15/2025 8:30 AM CDT Appointment Department of Radiation Oncology in [place], [place] [address] [place] [address] Julio Cesar Rebolledo M.D. [address] [place] [address] 08/18/2025 8:30 AM CDT Appointment Department of Radiation Oncology in [place], [place] [address] [place] [address] Julio Cesar Rebolledo M.D. [address] [place] [address] 08/19/2025 8:30 AM CDT Appointment Department of Radiation Oncology in [address] [address] Julio Cesar Rebolledo M.D. [facility] [place] [address] 08/20/2025 8:30 AM CDT Appointment Department of Radiation Oncology in [address] [address] Julio Cesar Rebolledo M.D. [facility] [place] [address] 08/21/2025 8:30 AM CDT Appointment Department of Radiation Oncology in [address] [address] Julio Cesar Rebolledo M.D. [facility] [place] [address] 08/21/2025 9:00 AM CDT Appointment Department of Radiation Oncology in [address] [address] Julio Cesar Rebolledo M.D. [address] [place] [address] 08/22/2025 8:30 AM CDT Appointment Department of Radiation Oncology in [place], [place] [address] [place] [address] Julio Cesar Rebolledo M.D. [address] [place] [address] 08/25/2025 8:30 AM CDT Appointment Department of Radiation Oncology in [place], [place] [address] [place] [address] Julio Cesar Rebolledo M.D. [facility] [place] [address] 08/26/2025 8:30 AM CDT Appointment Department of Radiation Oncology in [address] [address] Julio Cesar Rebolledo M.D. [address] [place] [address] 08/27/2025 8:30 AM CDT Appointment Department of Radiation Oncology in [place] [address] [place] [address] Julio Cesar Rebolledo M.D. [address] [place] [address] 08/28/2025 8:30 AM CDT Appointment Department of Radiation Oncology in [place], [place] [address] [place] [address] Julio Cesar Rebolledo M.D. [address] [place] [address] 08/28/2025 9:00 AM CDT Appointment Department of Radiation Oncology in [place], [place] [address] [place] [address] Julio Cesar Rebolledo M.D. [address] [place] [address] 08/29/2025 8:30 AM CDT Appointment Department of Radiation Oncology in [place], [place] [address] [place] [address] Julio Cesar Rebolledo M.D. [address] [place] [address] 09/01/2025 8:30 AM CDT Appointment Department of Radiation Oncology in [address] [address] Julio Cesar Rebolledo M.D. [facility] [place] [address] 09/02/2025 8:30 AM CDT Appointment Department of Radiation Oncology in [place] [address] [place] [address] Julio Cesar Rebolledo M.D. [facility] [place] [address] 09/03/2025 8:30 AM CDT Appointment Department of Radiation Oncology in [place], [place] [address] [place] [address] Julio Cesar Rebolledo M.D. [address] [place] [address] 09/03/2025 8:45 AM CDT Appointment Department of Radiation Oncology in [address] [address] Julio Cesar Rebolledo M.D. [address] [place] [address] 09/04/2025 8:30 AM CDT Appointment Department of Radiation Oncology in [place], [place] [address] [facility] [place] [address] Julio Cesar Rebolledo M.D. [address] [place] [address] 09/05/2025 8:30 AM CDT Appointment Department of Radiation Oncology in [place], [place] [address] [place], [place] [address] [place] [address] Julio Cesar Rebolledo M.D. [address] [facility] [place] [address] 09/08/2025 8:30 AM CDT Appointment Department of Radiation Oncology in [place], [place] [address] [facility] [place] [address] Julio Cesar Rebolledo M.D. [address] [place] [address] documented as of this encounter Visit Diagnoses Not on filedocumented in this encounter Additional Health Concerns Infection Onset Date Last Indicated Resolved Time Protective Environment 06/30/2025 06/30/2025 documented as of this encounter
--- OUTSIDE RECORDS SUMMARY | 2025-07-22 07:57 | XMS_ITS | Encounter Summary ---
Author Organization [facility] Address [address] [place] [address] Care Team Providers Care Associate Professor Of Library Media Name Role Phone Unavailable Primary Care Provider Unavailabl e Reason for Visit * Radiation Therapy (Routine) - Authorized Specialty Diagnoses / Procedures Referred By Norma t Referred To Contact Diagnoses Malignant Neoplasm Of Tongue Base (HCC) Procedures Prior Auth Rad Tx [place] IMRT COMPLEX [place] GUIDANCE FOR LOC RAD TX [place] IMRT RADIOTHERAPY PLAN IMRT Julio Cesar Rebolledo M.D. [address] [place] [phone] Phone: tel: fax: [facility] Referral ID Status Reason Start Date Expiration Date V isits Requested Visits Authorized [id number] Authorized 07/14/2025 09/30/2026 35 35 Encounter Details Date Type Department Care Team (Late st Contact Info) Description 07/22/2025 7:57 AM CDT Hospital Encounter Department of Radiation Oncology in [address] [phone] Julio Cesar Rebolledo M.D. [address] [place] [phone] Social History Tobacco Use Types Packs/Day [...] things needed for daily living? No 07/22/2025 [facility] Utilities Answer Date Recorded In the past 12 months has e electric, gas, oil, or water company threatened to shut off services in your home? No 07/22/2025 Housing Stability Answer Date Recorded What is your living situation today? I have a [facility] place to live 07/22/2025 Sex and Gender Information Value Date Recorded Sex Assigned at Not on file Legal Sex Male 12:18 PM CDT Gender Identity Not on file Sexual Orientation Not on file documented as of this encounter Plan of Treatment Upcoming Encounters Date Type Department Care Team (Late st Contact Info) Description 08/04/2025 8:30 AM CDT Appointment Department of Radiation Oncology in [place], [place] [address] [place] [address] Julio Cesar Rebolledo M.D. [address] [place] [address] 08/04/2025 8:45 AM CDT Appointment Department of Radiation Oncology in [place], [place] [address] [place] [address] Jamie Maria M.D. [address] [place] [address] 08/05/2025 8:30 AM CDT Appointment Department of Radiation Oncology in [place], [place] [address] [place] [address] Julio Cesar Rebolledo M.D. [address] [place] [address] 08/06/2025 8:30 AM CDT Appointment Department of Radiation Oncology in [place], [place] [address] [place] [address] Julio Cesar Rebolledo M.D. [address] [place] [phone] 08/07/2025 8:30 AM CDT Appointment Department of Radiation Oncology in [address] [address] Julio Cesar Rebolledo M.D. [address] [place] [phone] 08/07/2025 9:00 AM CDT Appointment Department of Radiation Oncology in [address] [address] Julio Cesar Rebolledo M.D. [address] [place] [address] 08/07/2025 9:15 AM CDT Appointment Department of Radiation Oncology in [place], [place] [address] [place] [phone] Julio Cesar Rebolledo M.D. [place] [address] 08/08/2025 8:30 AM CDT Appointment Department of Radiation Oncology in [address] [address] Julio Cesar Rebolledo M.D. [address] [place] [address] 08/11/2025 8:30 AM CDT Appointment Department of Radiation Oncology in [place], [place] [address] [place] [address] Julio Cesar Rebolledo M.D. [address] [place] [address] 08/12/2025 8:30 AM CDT Appointment Department of Radiation Oncology in [place], [place] [address] [place] [address] Julio Cesar Rebolledo M.D. [address] [place] [address] 08/13/2025 8:30 AM CDT Appointment Department of Radiation Oncology in [place], [place] [address] [place] [address] Julio Cesar Rebolledo M.D. [address] [place] [address] 08/14/2025 8:30 AM CDT Appointment Department of Radiation Oncology in [place], [place] [address] [place] [address] Julio Cesar Rebolledo M.D. [address] [place] [address] 08/14/2025 9:00 AM CDT Appointment Department of Radiation Oncology in [place], [place] [address] [place] [address] Julio Cesar Rebolledo M.D. [address] [place] [address] 08/15/2025 8:30 AM CDT Appointment Department of Radiation Oncology in [place], [place] [address] [place] [phone] Julio Cesar Rebolledo M.D. [address] [place] [address] 08/18/2025 8:30 AM CDT Appointment Department of Radiation Oncology in [place], [place] [address] [place] [phone] Julio Cesar Rebolledo M.D. [address] [place] [address] 08/19/2025 8:30 AM CDT Appointment Department of Radiation Oncology in [address] [address] Julio Cesar Rebolledo M.D. [facility] [place] [address] 08/20/2025 8:30 AM CDT Appointment Department of Radiation Oncology in [address] [address] Julio Cesar Rebolledo M.D. [facility] [place] [address] 08/21/2025 8:30 AM CDT Appointment Department of Radiation Oncology in [address] [address] Julio Cesar Rebolledo M.D. [place] [address] 08/21/2025 9:00 AM CDT Appointment Department of Radiation Oncology in [address] [address] Julio Cesar Rebolledo M.D. [address] [place] [address] 08/22/2025 8:30 AM CDT Appointment Department of Radiation Oncology in [place], [place] [address] [place] [address] Julio Cesar Rebolledo M.D. [address] [place] [address] 08/25/2025 8:30 AM CDT Appointment Department of Radiation Oncology in [place], [place] [address] [place] [phone] Julio Cesar Rebolledo M.D. [place] [address] 08/26/2025 8:30 AM CDT Appointment Department of Radiation Oncology in [address] [address] Julio Cesar Rebolledo M.D. [address] [place] [address] 08/27/2025 8:30 AM CDT Appointment Department of Radiation Oncology in [place] [address] [place] [address] Julio Cesar Rebolledo M.D. [address] [place] [address] 08/28/2025 8:30 AM CDT Appointment Department of Radiation Oncology in [place], [place] [address] [place] [phone] Julio Cesar Rebolledo M.D. [address] [place] [address] 08/28/2025 9:00 AM CDT Appointment Department of Radiation Oncology in [place], [place] [address] [place] [address] Julio Cesar Rebolledo M.D. [address] [place] [address] 08/29/2025 8:30 AM CDT Appointment Department of Radiation Oncology in [place], [place] [address] [place] [phone] Julio Cesar Rebolledo M.D. [address] [place] [address] 09/01/2025 8:30 AM CDT Appointment Department of Radiation Oncology in [address] [address] Julio Cesar Rebolledo M.D. [place] [address] 09/02/2025 8:30 AM CDT Appointment Department of Radiation Oncology in [place] [address] [place] [address] Julio Cesar Rebolledo M.D. [place] [address] 09/03/2025 8:30 AM CDT Appointment Department of Radiation Oncology in [place], [place] [address] [place] [address] Julio Cesar Rebolledo M.D. [address] [place] [address] 09/03/2025 8:45 AM CDT Appointment Department of Radiation Oncology in [address] [address] Julio Cesar Rebolledo M.D. [address] [place] [address] 09/04/2025 8:30 AM CDT Appointment Department of Radiation Oncology in [place], [place] [address] [facility] [place] [address] Julio Cesar Rebolledo M.D. [address] [place] [address] 09/05/2025 8:30 AM CDT Appointment Department of Radiation Oncology in [place], [place] [address] [place], [place] [address] [facility] [place] [place] [address] Julio Cesar Rebolledo M.D. [address] [facility] [place] [address] 09/08/2025 8:30 AM CDT Appointment Department of Radiation Oncology in [place], [place] [address] [facility] [place] [address] Julio Cesar Rebolledo M.D. [address] [place] [address] documented as of this encounter Visit Diagnoses Not on filedocumented in this encounter Additional Health Concerns Infection Onset Date Last Indicated Resolved Time Protective Environment 06/30/2025 06/30/2025 documented as of this encounter
--- OUTSIDE RECORDS SUMMARY | 2025-07-22 08:41 | XMS_ITS | Encounter Summary ---
Author Organization [facility] Address [address] [place] [address] Care Team Providers Care Iuss Master Analyst Name Role Phone Unavailable Primary Care Provider Unavailabl e Reason for Referral * Outpatient (Routine) - Closed Specialty Diagnoses / Procedures Referred By Norma choi Referred To Contact Social Work Diagnoses Malignant Neoplasm Of Tongue Base (HCC) Julio Cesar Rebolledo M.D. [address] [place] [address] Phone: tel: fax: [facility] Region Referral ID Status Reason Start Date Expiration Date Visits Re quested Visits Authorized [id number] Closed 06/30/2025 12/30/2026 1 1 Reason for Visit * Outpatient (Routine) - Closed Specialty Diagnoses / Procedures Referred By Norma choi Referred To Contact Social Work Diagnoses Malignant Neoplasm Of Tongue Base (HCC) Julio Cesar Rebolledo M.D. [address] [place] [address] Phone: tel: fax: [facility] Region Referral ID Status Reason Start Date Expiration Date Visits Re quested Visits Authorized [id number] Closed 06/30/2025 12/30/2026 1 1 Encounter Details Date Type Department Care Team (Latest Contact Info) Description 07/22/2025 8:41 AM CDT - 07/22/2025 9:33 AM CDT Hospital Encounter Department of Radiation Oncology in [place], [place] [address] [place] [address] Julio Cesar Rebolledo M.D. [address] [place] [address] Myra Mead M.S.W., L.I.C.S.W. [address] [facility] [address] Malignant Neoplasm Of Tongue Base (HCC) (Primary [...] things needed for daily living? No 07/22/2025 [facility] Utilities Answer Date Recorded In [...] mouth. 07/05/2025 documented as of this encounter Progress Notes * Dawna Mane - 07/22/2025 9:00 AM CDT The patient was present for a consult via real-time audio/video technology by Myra Mead on 07/22/25. * Myra Mead, M.S.W., L.Lety.S.W. - 07/22/2025 9:00 AM CDT General Progress Note Referring provider: Julio Cesar Rebolledo M.D. Location: Department of Radiation Oncology in [facility] Social Work received request from Radiation provider to meet with patient regarding his cancer diagnosis and treatments. Patient reported he is on day two of treatment and so far feeling well. He noted his daughter, Hollie , Antionette were present with him today. [...] and have no new concerns today. OBJECTIVE [place] Suicide Scale 1. Within the past month, have you wished you were or wished you could go to sleep and not wake up?: No (07/22/2583) 2. Within the past month, have you [...] CDT Appointment Department of Radiation Oncology in [place], [place] [address] [place] [address] Julio Cesar Rebolledo M.D. [address] [place] [address] 08/04/2025 8:45 AM CDT Appointment Department of Radiation Oncology in [place], [place] [address] [facility] [place] [address] Jamie Maria M.D. [address] [place] [address] 08/05/2025 8:30 AM CDT Appointment Department of Radiation Oncology in [address] [address] Julio Cesar Rebolledo M.D. [address] [place] [address] 08/06/2025 8:30 AM CDT Appointment Department of Radiation Oncology in [address] [address] Julio Cesar Rebolledo M.D. [facility] [place] [address] 08/07/2025 8:30 AM CDT Appointment Department of Radiation Oncology in [address] [address] Julio Cesar Rebolledo M.D. [facility] [place] [address] 08/07/2025 9:00 AM CDT Appointment Department of Radiation Oncology in [address] [address] Julio Cesar Rebolledo M.D. [facility] [place] [address] 08/07/2025 9:15 AM CDT Appointment Department of Radiation Oncology in [address] [address] Julio Cesar Rebolledo M.D. [address] [place] [address] 08/08/2025 8:30 AM CDT Appointment Department of Radiation Oncology in [place], [place] [address] [facility] [place] [address] Julio Cesar Rebolledo M.D. [address] [place] [address] 08/11/2025 8:30 AM CDT Appointment Department of Radiation Oncology in [place], [place] [address] [facility] [place] [address] Julio Cesar Rebolledo M.D. [address] [place] [address] 08/12/2025 8:30 AM CDT Appointment Department of Radiation Oncology in [place], [place] [address] [place] [address] Julio Cesar Rebolledo M.D. [address] [place] [address] 08/13/2025 8:30 AM CDT Appointment Department of Radiation Oncology in [place], [place] [address] [place] [address] Julio Cesar Rebolledo M.D. [address] [place] [address] 08/14/2025 8:30 AM CDT Appointment Department of Radiation Oncology in [place], [place] [address] [facility] [place] [address] Julio Cesar Rebolledo M.D. [address] [place] [address] 08/14/2025 9:00 AM CDT Appointment Department of Radiation Oncology in [place], [place] [address] [place] [address] Julio Cesar Rebolledo M.D. [address] [place] [address] 08/15/2025 8:30 AM CDT Appointment Department of Radiation Oncology in [place], [place] [address] [place] [address] Julio Cesar Rebolledo M.D. [address] [place] [address] 08/18/2025 8:30 AM CDT Appointment Department of Radiation Oncology in [place], [place] [address] [place] [address] Julio Cesar Rebolledo M.D. [facility] [place] [address] 08/19/2025 8:30 AM CDT Appointment Department of Radiation Oncology in [address] [address] Julio Cesar Rebolledo M.D. [address] [place] [address] 08/20/2025 8:30 AM CDT Appointment Department of Radiation Oncology in [place], [place] [address] [place] [address] Julio Cesar Rebolledo M.D. [facility] [place] [address] 08/21/2025 8:30 AM CDT Appointment Department of Radiation Oncology in [address] [address] Julio Cesar Rebolledo M.D. [address] [place] [address] 08/21/2025 9:00 AM CDT Appointment Department of Radiation Oncology in [place], [place] [address] [place] [address] Julio Cesar Rebolledo M.D. [address] [place] [address] 08/22/2025 8:30 AM CDT Appointment Department of Radiation Oncology in [place], [place] [address] [place] [address] Julio Cesar Rebolledo M.D. [address] [place] [address] 08/25/2025 8:30 AM CDT Appointment Department of Radiation Oncology in [place], [place] [address] [place] [address] Julio Cesar Rebolledo M.D. [address] [place] [address] 08/26/2025 8:30 AM CDT Appointment Department of Radiation Oncology in [place], [place] [address] [place] [address] Julio Cesar Rebolledo M.D. [address] [place] [address] 08/27/2025 8:30 AM CDT Appointment Department of Radiation Oncology in [place], [place] [address] [place] [address] Julio Cesar Rebolledo M.D. [address] [place] [address] 08/28/2025 8:30 AM CDT Appointment Department of Radiation Oncology in [place], [place] [address] [place] [address] Julio Cesar Rebolledo M.D. [address] [place] [address] 08/28/2025 9:00 AM CDT Appointment Department of Radiation Oncology in [place], [place] [address] [place] [address] Julio Cesar Rebolledo M.D. [address] [place] [address] 08/29/2025 8:30 AM CDT Appointment Department of Radiation Oncology in [address] [address] Julio Cesar Rebolledo M.D. [address] [place] [address] 09/01/2025 8:30 AM CDT Appointment Department of Radiation Oncology in [place], [place] [address] [place] [address] Julio Cesar Rebolledo M.D. [address] [place] [address] 09/02/2025 8:30 AM CDT Appointment Department of Radiation Oncology in [place], [place] [address] [place] [address] Julio Cesar Rebolledo M.D. [facility] [place] [address] 09/03/2025 8:30 AM CDT Appointment Department of Radiation Oncology in [place], [place] [address] [place] [address] Julio Cesar Rebolledo M.D. [address] [place] [address] 09/03/2025 8:45 AM CDT Appointment Department of Radiation Oncology in [address] [address] Julio Cesar Rebolledo M.D. [address] [place] [address] 09/04/2025 8:30 AM CDT Appointment Department of Radiation Oncology in [address] [address] Julio Cesar Rebolledo M.D. [address] [place] [address] 09/05/2025 8:30 AM CDT Appointment Department of Radiation Oncology in [address] [address] Julio Cesar Rebolledo M.D. [address] [place] [address] 09/08/2025 8:30 AM CDT Appointment Department of Radiation Oncology in [address] [address] Julio Cesar Rebolledo M.D. [address] [place] [address] Scheduled Referrals Name Type Priority Associated Diagnoses [...]
--- OUTSIDE RECORDS SUMMARY | 2025-07-23 08:12 | XMS_ITS | Encounter Summary ---
Author Organization [facility] Address [address] [place] [address] Care Team Providers Care Medical Supply Technician Name Role Phone Unavailable Primary Care Provider Unavailabl e Reason for Visit * Radiation Therapy (Routine) - Authorized Specialty Diagnoses / Procedures Referred By Norma t Referred To Contact Diagnoses Malignant Neoplasm Of Tongue Base (HCC) Procedures Prior Auth Rad Tx [place] IMRT COMPLEX [place] GUIDANCE FOR LOC RAD TX [place] IMRT RADIOTHERAPY PLAN IMRT Julio Cesar Rebolledo M.D. [address] [place] [address] Phone: tel: fax: [facility] Referral ID Status Reason Start Date Expiration Date V isits Requested Visits Authorized [id number] Authorized 07/14/2025 09/30/2026 35 35 Encounter Details Date Type Department Care Team (Late st Contact Info) Description 07/23/2025 8:12 AM CDT Hospital Encounter Department of Radiation Oncology in [address] [phone] Julio Cesar Rebolledo M.D. [address] [place] [address] Social History Tobacco Use Types Packs/Day [...] things needed for daily living? No 07/22/2025 [facility] Utilities Answer Date Recorded In the past 12 months has e electric, gas, oil, or water company threatened to shut off services in your home? No 07/22/2025 Housing Stability Answer Date Recorded What is your living situation today? I have a [facility] place to live 07/22/2025 Sex and Gender Information Value Date Recorded Sex Assigned at Not on file Legal Sex Male 12:18 PM CDT Gender Identity Not on file Sexual Orientation Not on file documented as of this encounter Plan of Treatment Upcoming Encounters Date Type Department Care Team (Late st Contact Info) Description 08/04/2025 8:30 AM CDT Appointment Department of Radiation Oncology in [place], [place] [address] [place] [address] Julio Cesar Rebolledo M.D. [address] [place] [address] 08/04/2025 8:45 AM CDT Appointment Department of Radiation Oncology in [place], [place] [address] [place] [address] Jamie Maria M.D. [address] [place] [address] 08/05/2025 8:30 AM CDT Appointment Department of Radiation Oncology in [place], [place] [address] [place] [address] Julio Cesar Rebolledo M.D. [address] [place] [address] 08/06/2025 8:30 AM CDT Appointment Department of Radiation Oncology in [place], [place] [address] [place] [address] Julio Cesar Rebolledo M.D. [address] [place] [address] 08/07/2025 8:30 AM CDT Appointment Department of Radiation Oncology in [address] [address] Julio Cesar Rebolledo M.D. [address] [place] [address] 08/07/2025 9:00 AM CDT Appointment Department of Radiation Oncology in [address] [address] uJlio Cesar Rebolledo M.D. [address] [place] [address] 08/07/2025 9:15 AM CDT Appointment Department of Radiation Oncology in [place], [place] [address] [place] [address] Julio Cesar Rebolledo M.D. [place] [address] 08/08/2025 8:30 AM CDT Appointment Department of Radiation Oncology in [address] [address] Julio Cesar Rebolledo M.D. [address] [place] [address] 08/11/2025 8:30 AM CDT Appointment Department of Radiation Oncology in [place], [place] [address] [place] [address] Julio Cesar Rebolledo M.D. [address] [place] [address] 08/12/2025 8:30 AM CDT Appointment Department of Radiation Oncology in [place], [place] [address] [place] [address] Julio Cesar Rebolledo M.D. [address] [place] [address] 08/13/2025 8:30 AM CDT Appointment Department of Radiation Oncology in [place], [place] [address] [place] [address] Julio Cesar Rebolledo M.D. [address] [place] [address] 08/14/2025 8:30 AM CDT Appointment Department of Radiation Oncology in [place], [place] [address] [place] [address] Julio Cesar Rebolledo M.D. [address] [place] [address] 08/14/2025 9:00 AM CDT Appointment Department of Radiation Oncology in [place], [place] [address] [place] [address] Julio Cesar Rebolledo M.D. [address] [place] [address] 08/15/2025 8:30 AM CDT Appointment Department of Radiation Oncology in [place], [place] [address] [place] [address] Julio Cesar Rebolledo M.D. [address] [place] [address] 08/18/2025 8:30 AM CDT Appointment Department of Radiation Oncology in [place], [place] [address] [place] [address] Julio Cesar Rebolledo M.D. [address] [place] [address] 08/19/2025 8:30 AM CDT Appointment Department of Radiation Oncology in [address] [address] Julio Cesar Rebolledo M.D. [facility] [place] [address] 08/20/2025 8:30 AM CDT Appointment Department of Radiation Oncology in [address] [address] Julio Cesar Rebolledo M.D. [facility] [place] [address] 08/21/2025 8:30 AM CDT Appointment Department of Radiation Oncology in [address] [address] Julio Cesar Rebolledo M.D. [place] [address] 08/21/2025 9:00 AM CDT Appointment Department of Radiation Oncology in [address] [address] Julio Cesar Rebolledo M.D. [address] [place] [address] 08/22/2025 8:30 AM CDT Appointment Department of Radiation Oncology in [place], [place] [address] [place] [address] Julio Cesar Rebolledo M.D. [address] [place] [address] 08/25/2025 8:30 AM CDT Appointment Department of Radiation Oncology in [place], [place] [address] [place] [address] Julio Cesar Rebolledo M.D. [place] [address] 08/26/2025 8:30 AM CDT Appointment Department of Radiation Oncology in [address] [address] Julio Cesar Rebolledo M.D. [address] [place] [phone] 08/27/2025 8:30 AM CDT Appointment Department of Radiation Oncology in [place] [address] [place] [address] Julio Cesar Rebolledo M.D. [address] [place] [address] 08/28/2025 8:30 AM CDT Appointment Department of Radiation Oncology in [place], [place] [address] [place] [address] Julio Cesar Rebolledo M.D. [address] [place] [address] 08/28/2025 9:00 AM CDT Appointment Department of Radiation Oncology in [place], [place] [address] [place] [address] Julio Cesar Rebolledo M.D. [address] [place] [address] 08/29/2025 8:30 AM CDT Appointment Department of Radiation Oncology in [place], [place] [address] [place] [address] Julio Cesar Rebolledo M.D. [address] [place] [address] 09/01/2025 8:30 AM CDT Appointment Department of Radiation Oncology in [address] [address] Julio Cesar Rebolledo M.D. [place] [address] 09/02/2025 8:30 AM CDT Appointment Department of Radiation Oncology in [place] [address] [place] [address] Julio Cesar Rebolledo M.D. [place] [address] 09/03/2025 8:30 AM CDT Appointment Department of Radiation Oncology in [place], [place] [address] [place] [address] Julio Cesar Rebolledo M.D. [address] [place] [address] 09/03/2025 8:45 AM CDT Appointment Department of Radiation Oncology in [address] [address] Julio Cesar Rebolledo M.D. [address] [place] [address] 09/04/2025 8:30 AM CDT Appointment Department of Radiation Oncology in [place], [place] [address] [place] [address] Julio Cesar Rebolledo M.D. [address] [place] [address] 09/05/2025 8:30 AM CDT Appointment Department of Radiation Oncology in [place], [place] [address] [place], [place] [address] [place] [address] Julio Cesar Rebolledo M.D. [address] [facility] [place] [address] 09/08/2025 8:30 AM CDT Appointment Department of Radiation Oncology in [place], [place] [address] [place] [address] Julio Cesar Rebolledo M.D. [address] [place] [address] documented as of this encounter Visit Diagnoses Not on filedocumented in this encounter Additional Health Concerns Infection Onset Date Last Indicated Resolved Time Protective Environment 06/30/2025 06/30/2025 documented as of this encounter
--- OUTSIDE RECORDS SUMMARY | 2025-07-24 08:09 | XMS_ITS | Encounter Summary ---
Author Organization [facility] Address [address] [place] [address] Care Team Providers Care Special Library Librarian Name Role Phone Unavailable Primary Care Provider Unavailabl e Reason for Visit * Radiation Therapy (Routine) - Authorized Specialty Diagnoses / Procedures Referred By Norma t Referred To Contact Diagnoses Malignant Neoplasm Of Tongue Base (HCC) Procedures Prior Auth Rad Tx DE IMRT COMPLEX DE GUIDANCE FOR LOC RAD TX DE IMRT RADIOTHERAPY PLAN IMRT Julio Cesar Rebolledo M.D. [address] [place] [phone] Phone: tel: fax: [facility] Referral ID Status Reason Start Date Expiration Date V isits Requested Visits Authorized [id number] Authorized 07/14/2025 09/30/2026 35 35 Encounter Details Date Type Department Care Team (Late st Contact Info) Description 07/24/2025 8:09 AM CDT Hospital Encounter Department of Radiation Oncology in [address] [phone] Julio Cesar Rebolledo M.D. [address] [place] [address] Social History Tobacco Use Types Packs/Day [...] for daily living? No 07/22/2025 [facility] Utilities Answer Date Recorded In the past 12 months has e electric, gas, oil, or water company threatened to shut off services in your home? No 07/22/2025 Housing Stability Answer Date Recorded What is your living situation today? I have a [facility] place to live 07/22/2025 Sex and [...] CDT Appointment Department of Radiation Oncology in [place], [place] [address] [place] [address] Julio Cesar Rebolledo M.D. [address] [place] [address] 08/04/2025 8:45 AM CDT Appointment Department of Radiation Oncology in [place], [place] [address] [place] [phone] Jamie Maria M.D. [address] [place] [address] 08/05/2025 8:30 AM CDT Appointment Department of Radiation Oncology in [place], [place] [address] [place] [address] Julio Cesar Rebolledo M.D. [address] [place] [address] 08/06/2025 8:30 AM CDT Appointment Department of Radiation Oncology in [place], [place] [address] [place] [address] Julio Cesar Rebolledo M.D. [address] [place] [address] 08/07/2025 8:30 AM CDT Appointment Department of Radiation Oncology in [address] [address] Julio Cesar Rebolledo M.D. [address] [place] [address] 08/07/2025 9:00 AM CDT Appointment Department of Radiation Oncology in [address] [address] Julio Cesar Rebolledo M.D. [address] [place] [address] 08/07/2025 9:15 AM CDT Appointment Department of Radiation Oncology in [place], [place] [address] [place] [address] Julio Cesar Rebolledo M.D. [place] [place] [address] 08/08/2025 8:30 AM CDT Appointment Department of Radiation Oncology in [address] [address] Julio Cesar Rebolledo M.D. [address] [place] [address] 08/11/2025 8:30 AM CDT Appointment Department of Radiation Oncology in [place], [place] [address] [place] [address] Julio Cesar Rebolledo M.D. [address] [place] [address] 08/12/2025 8:30 AM CDT Appointment Department of Radiation Oncology in [place], [place] [address] [place] [address] Julio Cesar Rebolledo M.D. [address] [place] [address] 08/13/2025 8:30 AM CDT Appointment Department of Radiation Oncology in [place], [place] [address] [place] [address] Julio Cesar Rebolledo M.D. [address] [place] [address] 08/14/2025 8:30 AM CDT Appointment Department of Radiation Oncology in [place], [place] [address] [place] [address] Julio Cesar Rebolledo M.D. [address] [place] [address] 08/14/2025 9:00 AM CDT Appointment Department of Radiation Oncology in [place], [place] [address] [place] [address] Julio Cesar Rebolledo M.D. [address] [place] [address] 08/15/2025 8:30 AM CDT Appointment Department of Radiation Oncology in [place], [place] [address] [place] [address] Julio Cesar Rebolledo M.D. [address] [place] [address] 08/18/2025 8:30 AM CDT Appointment Department of Radiation Oncology in [place], [place] [address] [place] [address] Julio Cesar Rebolledo M.D. [address] [place] [address] 08/19/2025 8:30 AM CDT Appointment Department of Radiation Oncology in [address] [address] Julio Cesar Rebolledo M.D. [facility] [place] [address] 08/20/2025 8:30 AM CDT Appointment Department of Radiation Oncology in [address] [address] Julio Cesar Rebolledo M.D. [facility] [place] [address] 08/21/2025 8:30 AM CDT Appointment Department of Radiation Oncology in [address] [address] Julio Cesar Rebolledo M.D. [place] [place] [address] 08/21/2025 9:00 AM CDT Appointment Department of Radiation Oncology in [address] [address] Julio Cesar Rebolledo M.D. [address] [place] [address] 08/22/2025 8:30 AM CDT Appointment Department of Radiation Oncology in [place], [place] [address] [place] [address] Julio Cesar Rebolledo M.D. [address] [place] [address] 08/25/2025 8:30 AM CDT Appointment Department of Radiation Oncology in [place], [place] [address] [place] [address] Julio Cesar Rebolledo M.D. [place] [place] [address] 08/26/2025 8:30 AM CDT Appointment Department of Radiation Oncology in [address] [address] Julio Cesar Rebolledo M.D. [address] [place] [address] 08/27/2025 8:30 AM CDT Appointment Department of Radiation Oncology in [place] [address] [place] [address] Julio Cesar Rebolledo M.D. [address] [place] [address] 08/28/2025 8:30 AM CDT Appointment Department of Radiation Oncology in [place], [place] [address] [place] [address] Julio Cesar Rebolledo M.D. [address] [place] [address] 08/28/2025 9:00 AM CDT Appointment Department of Radiation Oncology in [place], [place] [address] [place] [address] Julio Cesar Rebolledo M.D. [address] [place] [address] 08/29/2025 8:30 AM CDT Appointment Department of Radiation Oncology in [place], [place] [address] [place] [address] Julio Cesar Rebolledo M.D. [address] [place] [address] 09/01/2025 8:30 AM CDT Appointment Department of Radiation Oncology in [address] [address] Julio Cesar Rebolledo M.D. [place] [address] 09/02/2025 8:30 AM CDT Appointment Department of Radiation Oncology in [place] [address] [place] [address] Julio Cesar Rebolledo M.D. [place] [address] 09/03/2025 8:30 AM CDT Appointment Department of Radiation Oncology in [place], [place] [address] [place] [address] Julio Cesar Rebolledo M.D. [address] [place] [address] 09/03/2025 8:45 AM CDT Appointment Department of Radiation Oncology in [address] [address] Julio Cesar Rebolledo M.D. [address] [place] [address] 09/04/2025 8:30 AM CDT Appointment Department of Radiation Oncology in [place], [place] [address] [facility] [place] [address] Julio Cesar Rebolledo M.D. [address] [place] [place] [address] 09/05/2025 8:30 AM CDT Appointment Department of Radiation Oncology in [place], [place] [address] [place], [place] [address] [place] [place] [address] Juilo Cesar Rebolledo M.D. [address] [facility] [place] [address] 09/08/2025 8:30 AM CDT Appointment Department of Radiation Oncology in [place], [place] [address] [facility] [place] [address] Julio Cesar Rebolledo M.D. [address] [place] [address] documented as of this encounter Visit Diagnoses Not on filedocumented in this encounter Additional Health Concerns Infection Onset Date Last Indicated Resolved Time Protective Environment 06/30/2025 06/30/2025 documented as of this encounter
--- OUTSIDE RECORDS SUMMARY | 2025-07-24 08:10 | XMS_ITS | Encounter Summary ---
Author Organization [facility] Address [address] [place] [address] Care Team Providers Care Scratch Polisher Name Role Phone Unavailable Primary Care Provider Unavailabl e Reason for Referral * Radiation Therapy (Routine) - Authorized Specialty Diagnoses / Procedures Referred By Norma choi Referred To Contact Diagnoses Malignant Neoplasm Of Tongue Base (HCC) Procedures Management Visit Julio Cesar Rebolledo M.D. [address] [place] [address] Phone: tel: fax: [facility] Region Referral ID Status Reason Start Date Expiration Date V isits Requested Visits Authorized [id number] Authorized 06/30/2025 09/30/2026 10 10 Reason for Visit * Radiation Therapy (Routine) - Authorized Specialty Diagnoses / Procedures Referred By Norma choi Referred To Contact Diagnoses Malignant Neoplasm Of Tongue Base (HCC) Procedures Management Visit Julio Cesar Rebolledo M.D. [address] [place] [address] Phone: tel: fax: [facility] Region Referral ID Status Reason Start Date Expiration Date V isits Requested Visits Authorized [id number] Authorized 06/30/2025 09/30/2026 10 10 Encounter Details Date Type Department Care Team (Latest Contact Info) Description 07/24/2025 8:10 AM CDT - 07/31/2025 8:40 AM CDT Hospital Encounter Department of Radiation Oncology in [place], [place] [address] [place] [phone] Julio Cesar Rebolledo M.D. [address] [place] [address] Malignant Neoplasm Of Tongue Base (HCC) Social [...] things needed for daily living? No 07/22/2025 [facility] Utilities Answer Date Recorded In the past [address] [facility] electric, gas, oil, or water [employer] threatened to shut off services in your home? No 07/22/2025 Housing Stability Answer Date Recorded What is your living situation today? I have a [facility] place to live 07/22/2025 Sex and [...] Take 1 mg by mouth daily. 08/28/2024 isosorbide mononitrate (Imdur) 30 mg 24 hr tablet Take 15 mg by mouth. 07/29/2025 losartan (Cozaar) 25 mg tablet Take 12.5 mg by mouth daily. 07/29/2025 methotrexate (TrexalL) 2.5 mg tablet Take 10 mg by mouth over 168 hr. 12/18/2024 metoprolol succinate (Toprol XL) 25 mg 24 hr tablet Take 25 mg by mouth daily. 07/30/2025 naloxone (Narcan) 4 mg/actuation nasal spray Administer 1 spray (4 mg total) into nostril(s) as needed for reversal. Use 1 spray in 1 nostril. Repeat with second device in other nostril after 2-3 minutes if no or minimal response. 2 each 07/30/2025 nitroglycerin (Nitrostat) 0.[address] 0.4 mg under the tongue every 5 (five) minutes as needed. 07/29/2025 oxyCODONE (Roxicodone) 5 mg immediate release tabletIndications :Prolonged Acute Pain/Traumatic Injury Take 1 tablet (5 mg total) by mouth every 8 (eight) hours as needed for pain or severe pain or score 7-10 of 10 Indication: Prolonged Acute Pain/Traumatic Injury. 30 tablet 07/30/2025 rosuvastatin (Crestor) 20 mg tablet Take 20 [...] First Treatment Last Treatment Elapsed Days [id number] [phone] 07/21/2025 07/24/2025 3 Course Summary 07/21/2025 07/24/2025 [...] treatment well overall. He met with our scarf and anneal operator today. Dr. Rebolledo was in for any [...] Upcoming Encounters Date Type Department Care Team ([facility] st Contact Info) Description 08/04/2025 8:30 AM CDT Appointment Department of Radiation Oncology in [place], [place] [address] [place] [address] Julio Cesar Rebolledo M.D. [address] [place] [address] 08/04/2025 8:45 AM CDT Appointment Department of Radiation Oncology in [place], [place] [address] [place] [address] Jamie Maria M.D. [address] [place] [address] 08/05/2025 8:30 AM CDT Appointment Department of Radiation Oncology in [address] [address] Julio Cesar Rebolledo M.D. [place] [place] [address] 08/06/2025 8:30 AM CDT Appointment Department of Radiation Oncology in [address] [address] Julio Cesar Rebolledo M.D. [address] [place] [phone] 08/07/2025 8:30 AM CDT Appointment Department of Radiation Oncology in [address] [address] Julio Cesar Rebolledo M.D. [facility] [place] [address] 08/07/2025 9:00 AM CDT Appointment Department of Radiation Oncology in [address] [address] Julio Cesar Rebolledo M.D. [address] [place] [address] 08/07/2025 9:15 AM CDT Appointment Department of Radiation Oncology in [place], [place] [address] [place] [address] Julio Cesar Rebolledo M.D. [address] [place] [address] 08/08/2025 8:30 AM CDT Appointment Department of Radiation Oncology in [place], [place] [address] [place] [address] Julio Cesar Rebolledo M.D. [address] [place] [address] 08/11/2025 8:30 AM CDT Appointment Department of Radiation Oncology in [place], [place] [address] [place] [address] Julio Cesar Rebolledo M.D. [address] [place] [address] 08/12/2025 8:30 AM CDT Appointment Department of Radiation Oncology in [place], [place] [address] [place] [address] Julio Cesar Rebolledo M.D. [address] [place] [address] 08/13/2025 8:30 AM CDT Appointment Department of Radiation Oncology in [place], [place] [address] [place] [address] Julio Cesar Rebolledo M.D. [address] [place] [address] 08/14/2025 8:30 AM CDT Appointment Department of Radiation Oncology in [place], [place] [address] [place] [address] Julio Cesar Rebolledo M.D. [address] [place] [address] 08/14/2025 9:00 AM CDT Appointment Department of Radiation Oncology in [place], [place] [address] [place] [address] Julio Cesar Rebolledo M.D. [address] [place] [address] 08/15/2025 8:30 AM CDT Appointment Department of Radiation Oncology in [address] [address] Julio Cesar Rebolledo M.D. [address] [place] [address] 08/18/2025 8:30 AM CDT Appointment Department of Radiation Oncology in [place], [place] [address] [place] [address] Julio Cesar Rebolledo M.D. [address] [place] [address] 08/19/2025 8:30 AM CDT Appointment Department of Radiation Oncology in [place], [place] [address] [place] [address] Julio Cesar Rebolledo M.D. [address] [place] [address] 08/20/2025 8:30 AM CDT Appointment Department of Radiation Oncology in [place], [place] [address] [place] [address] Julio Cesar Rebolledo M.D. [address] [place] [address] 08/21/2025 8:30 AM CDT Appointment Department of Radiation Oncology in [place], [place] [address] [place] [address] Julio Cesar Rebolledo M.D. [address] [place] [address] 08/21/2025 9:00 AM CDT Appointment Department of Radiation Oncology in [place], [place] [address] [place] [address] Julio Cesar Rebolledo M.D. [place] [address] 08/22/2025 8:30 AM CDT Appointment Department of Radiation Oncology in [place], [place] [address] [place] [address] Julio Cesar Rebolledo M.D. [address] [place] [address] 08/25/2025 8:30 AM CDT Appointment Department of Radiation Oncology in [place], [place] [address] [place] [address] Julio Cesar Rebolledo M.D. [address] [place] [address] 08/26/2025 8:30 AM CDT Appointment Department of Radiation Oncology in [place], [place] [address] [place] [address] Julio Cesar Rebolledo M.D. [address] [place] [address] 08/27/2025 8:30 AM CDT Appointment Department of Radiation Oncology in [place], [place] [address] [place] [address] Julio Cesar Rebolledo M.D. [address] [place] [address] 08/28/2025 8:30 AM CDT Appointment Department of Radiation Oncology in [place], [place] [address] [place] [address] Julio Cesar Rebolledo M.D. [address] [place] [address] 08/28/2025 9:00 AM CDT Appointment Department of Radiation Oncology in [address] [address] Julio Cesar Rebolledo M.D. [place] [address] 08/29/2025 8:30 AM CDT Appointment Department of Radiation Oncology in [place], [place] [address] [place] [address] Julio Cesar Rebolledo M.D. [place] [address] 09/01/2025 8:30 AM CDT Appointment Department of Radiation Oncology in [place], [place] [address] [place] [address] Julio Cesar Rebolledo M.D. [facility] [place] [address] 09/02/2025 8:30 AM CDT Appointment Department of Radiation Oncology in [place], [place] [address] [place] [address] Julio Cesar Rebolledo M.D. [place] [place] [address] 09/03/2025 8:30 AM CDT Appointment Department of Radiation Oncology in [address] [address] Julio Cesar Rebolledo M.D. [address] [place] [address] 09/03/2025 8:45 AM CDT Appointment Department of Radiation Oncology in [address] [address] Julio Cesar Rebolledo M.D. [address] [place] [address] 09/04/2025 8:30 AM CDT Appointment Department of Radiation Oncology in [address] [address] Julio Cesar Rebolledo M.D. [place] [address] 09/05/2025 8:30 AM CDT Appointment Department of Radiation Oncology in [address] [address] Julio Cesar Rebolledo M.D. [place] [place] [address] 09/08/2025 8:30 AM CDT Appointment Department of Radiation Oncology in [address] [address] Julio Cesar Rebolledo M.D. [place] [address] Scheduled Orders Name Type Priority Associated Diagnoses [...]
--- OUTSIDE RECORDS SUMMARY | 2025-07-24 08:10 | XMS_ITS | Encounter Summary ---
Author Organization [facility] Address [address] [place] [address] Care Team Providers Care Financial Controller Name Role Phone Unavailable Primary Care Provider Unavailabl e Reason for Referral * Outpatient (Routine) - Closed Specialty Diagnoses / Procedures Referred By Norma choi Referred To Contact Radiation Oncology Diagnoses Malignant Neoplasm Of Tongue Base (HCC) Julio Cesar Rebolledo M.D. [address] [place] [address] Phone: tel: fax: [facility] Region Referral ID Status Reason Start Date Expiration Date Visits Re quested Visits Authorized [id number] Closed 06/30/2025 12/30/2026 1 1 Reason for Visit * Outpatient (Routine) - Closed Specialty Diagnoses / Procedures Referred By Norma choi Referred To Contact Radiation Oncology Diagnoses Malignant Neoplasm Of Tongue Base (HCC) Julio Cesar Rebolledo M.D. [address] [place] [address] Phone: tel: fax: [facility] Region Referral ID Status Reason Start Date Expiration Date Visits Re quested Visits Authorized [id number] Closed 06/30/2025 12/30/2026 1 1 Encounter Details Date Type Department Care Team (Latest Contact Info) Description 07/24/2025 8:10 AM CDT - 07/24/2025 11:00 AM CDT Hospital Encounter Department of Radiation Oncology in [place], [place] [address] [place] [address] Julio Cesar Rebolledo M.D. [address] [place] [phone] Gabriella Pascual, RDN, LD [address] [place] [address] Malignant Neoplasm Of Tongue Base (HCC) (Primary [...] things needed for daily living? No 07/22/2025 [facility] Utilities Answer Date Recorded In the past 12 months has [facility] electric, gas, oil, or water company threatened to shut off services in your home? No 07/22/2025 Housing Stability Answer Date Recorded What is your living situation today? I have a [facility] place to live 07/22/2025 Sex and [...] mg by mouth over 168 hr. 12/18/2024 oxyCODONE (Roxicodone) 5 mg immediate release tabletIndication s:Prolonged Acute Pain/Traumatic Injury Take 1 tablet (5 mg total) by mouth every 8 (eight) hours as needed for pain or severe pain or score 7-10 of 10 Indication: Prolonged Acute Pain/Traumatic Injury. 30 tablet 07/30/2025 triazolam (Halcion) 0.25 mg tablet Take 0.25 mg by mouth. 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 ASSESSMENT Nutrition Focused Physical Findings Mouth/Esophagus/Throat: none Bowels: managed with meds Nausea/Vomiting: nausea managed with meds; no vomiting Food/Nutrition Related History Patient 84 y/o male. Attended appointment with his and daughter. He reports getting up about 6:30 each day and eating shortly after waking. Today he had 2 eggs and a nutrition supplement (170 calories and 20 grams of protein). Some days he has oatmeal by itself. Today he had a cup of black coffee with breakfast, however, prior to today he was not drinking coffee since his teeth were pulled. Lunch is usually leftovers with water. The evening meal is generally a protein with vegetables and water to drink. Joshua reports he is drinking at least 64 ounces of water a day. He has some coffee and currently 1 nutrition supplement a day (170 calories and 20 grams of protein) and/or a smoothie or shake. Patient reports liking peanut butter, avocado, cottage cheese, and yogurt. Daughter reports she haspurchased whey protein to make smoothies and shakes. Patient reports motivation related to adequateoral intake due to not wanting a tube feeding. Weight History Height: 172.7 cm Weight: 70.2 kg BMI: 23.5 Weight History (chart): 06/30/25 74.6 kg 05/14/25 74.0 kg 09/04/24 70.8 kg 07/01/24 68.0 kg Usual Weight: Chart weight history shows a decrease of 4.4 kg/9.7 lbs or 5.9% weight loss in 3 weeks which is a significant loss of weight. Chart weight history 1 year ago weight 2.2 kg/4.8 lbs lower than today and 09/04/24 weight is 0.6 kg/1.3 lbs higher than today's weight. Patient reports a usual weight between 150 and 160 lbs, he reports a weight of 164 lbs would be a high weight for him. However, he and his and daughter report that they had been working on gaining weight prior to treatment. He had teeth removed about 3 weeks ago and intake decreased due to eating pureed to currently ???toddler foods?? and less of them, therefore they are not surprised weight is down. Estimation of Daily Nutrition Needs using weight of 74.6 kg/BMI 25. Calorie: 1673 to 1865 (HB + .2 to actual wt/kg x 25 kcal/kg) Protein: 82 to 97 grams (1.1 to 1.3 gm/kg) Fluid: 1865 to 2238 mL/day (wt/kg x 25 to wt/kg x 30) NUTRITION DIAGNOSIS Nutrition knowledge deficit related to tongue cancer with treatment and need for education to meet estimated nutrition needs during treatment. Unintentional weigh loss related to teeth extraction and related decreased intake as evidenced by asignificant weight loss of 5.9% weight loss in 3 weeks and need for education to meet estimated nutrition needs. Nutrition Prescription/Recommendation At least 1700 calories, 82 grams of protein and 8 cups of fluid a day. INTERVENTION Today we discussed the role of nutrition during radiation treatment. Discussed weight and potentialfor weight loss and the goal of maintaining current weight with the possibility of tube feeding if unable to maintain weight with oral intake. Discussed principles of weight maintenance and oral intake recommendations for patients undergoing cancer treatment. Provided patient with calorie, protein and fluid goals. Discussed different options for protein sources and fluids including nutrition supplements in meeting his nutrition needs. Discussed importance of staying hydrated and signs/symptoms of dehydration. Encouraged patient toward looking at adequate nutrition like a job or medicine. They declined nutrition supplement samples at this time. They would like to use the whey protein and supplements they purchased in making smoothies and shakes. Eating Hints booklet and Calorie and Protein Content of Foods handout also provided. MONITORING AND EVALUATION: Nutrition parameter to monitor: weight Desired Outcome: Maintain weight 70.2 kg/154.4 lbs without a loss of 5% 66.7 lg146.7 lbs. Patient Goal(s): 1. A minimum of 1700 calories, 82 grams of protein and 8 cups of fluid. 2. Addition of high calorie, high protein foods and supplements to meet estimated nutrition needs. FOLLOW UP PLAN: Schedule for 2 weeks, encouraged patient to contact sooner if needed. Time spent with patient (minutes): 30 documented in this encounter Plan of Treatment Upcoming Encounters Date Type Department Care Team (Late st Contact Info) Description 08/04/2025 8:30 AM CDT Appointment Department of Radiation Oncology in [address] [address] Julio Cesar Rebolledo M.D. [address] [place] [address] 08/04/2025 8:45 AM CDT Appointment Department of Radiation Oncology in [address] [phone] Jamie Maria M.D. [address] [place] [address] 08/05/2025 8:30 AM CDT Appointment Department of Radiation Oncology in [address] [address] Julio Cesar Rebolledo M.D. [address] [place] [address] 08/06/2025 8:30 AM CDT Appointment Department of Radiation Oncology in [place], [place] [address] [place] [address] Julio Cesar Rebolledo M.D. [address] [place] [address] 08/07/2025 8:30 AM CDT Appointment Department of Radiation Oncology in [place], [place] [address] [facility] [place] [address] Julio Cesar Rebolledo M.D. [facility] [place] [address] 08/07/2025 9:00 AM CDT Appointment Department of Radiation Oncology in [place], [place] [address] [place] [address] Julio Cesar Rebolledo M.D. [facility] [place] [address] 08/07/2025 9:15 AM CDT Appointment Department of Radiation Oncology in [place], [place] [address] [place] [address] Julio Cesar Rebolledo M.D. [facility] [place] [address] 08/08/2025 8:30 AM CDT Appointment Department of Radiation Oncology in [place] [address] [facility] [place] [address] Julio Cesar Rebolledo M.D. [address] [place] [address] 08/11/2025 8:30 AM CDT Appointment Department of Radiation Oncology in [place], [place] [address] [facility] [place] [address] Julio Cesar Rebolledo M.D. [address] [place] [address] 08/12/2025 8:30 AM CDT Appointment Department of Radiation Oncology in [place], [place] [address] [place] [address] Julio Cesar Rebolledo M.D. [address] [place] [address] 08/13/2025 8:30 AM CDT Appointment Department of Radiation Oncology in [place], [place] [address] [place] [address] Julio Cesar Rebolledo M.D. [facility] [place] [address] 08/14/2025 8:30 AM CDT Appointment Department of Radiation Oncology in [place], [place] [address] [place] [address] Julio Cesar Rebolledo M.D. [address] [place] [address] 08/14/2025 9:00 AM CDT Appointment Department of Radiation Oncology in [place], [place] [address] [place] [address] Julio Cesar Rebolledo M.D. [facility] [place] [address] 08/15/2025 8:30 AM CDT Appointment Department of Radiation Oncology in [place], [place] [address] [place] [address] Julio Cesar Rebolledo M.D. [address] [place] [address] 08/18/2025 8:30 AM CDT Appointment Department of Radiation Oncology in [place], [place] [address] [place] [address] Julio Cesar Rebolledo M.D. [address] [place] [address] 08/19/2025 8:30 AM CDT Appointment Department of Radiation Oncology in [place], [place] [address] [place] [address] Julio Cesar Rebolledo M.D. [address] [place] [address] 08/20/2025 8:30 AM CDT Appointment Department of Radiation Oncology in [address] [address] Julio Cesar Rebolledo M.D. [address] [place] [address] 08/21/2025 8:30 AM CDT Appointment Department of Radiation Oncology in [place], [place] [address] [place] [address] Julio Cesar Rebolledo M.D. [address] [place] [address] 08/21/2025 9:00 AM CDT Appointment Department of Radiation Oncology in [place], [place] [address] [place] [address] Julio Cesar Rebolledo M.D. [address] [place] [address] 08/22/2025 8:30 AM CDT Appointment Department of Radiation Oncology in [place], [place] [address] [place] [address] Julio Cesar Rebolledo M.D. [address] [place] [address] 08/25/2025 8:30 AM CDT Appointment Department of Radiation Oncology in [place], [place] [address] [place] [address] Julio Cesar Rebolledo M.D. [address] [place] [address] 08/26/2025 8:30 AM CDT Appointment Department of Radiation Oncology in [address] [address] Julio Cesar Rebolledo M.D. [facility] [place] [address] 08/27/2025 8:30 AM CDT Appointment Department of Radiation Oncology in [place], [place] [address] [place] [address] Julio Cesar Rebolledo M.D. [facility] [place] [address] 08/28/2025 8:30 AM CDT Appointment Department of Radiation Oncology in [place], [place] [address] [place] [address] Julio Cesar Rebolledo M.D. [address] [place] [address] 08/28/2025 9:00 AM CDT Appointment Department of Radiation Oncology in [address] [address] Julio Cesar Rebolledo M.D. [address] [place] [address] 08/29/2025 8:30 AM CDT Appointment Department of Radiation Oncology in [place], [place] [address] [place] [address] Julio Cesar Rebolledo M.D. [address] [place] [address] 09/01/2025 8:30 AM CDT Appointment Department of Radiation Oncology in [place], [place] [address] [place] [address] Julio Cesar Rebolledo M.D. [facility] [place] [address] 09/02/2025 8:30 AM CDT Appointment Department of Radiation Oncology in [place], [place] [address] [place] [address] Julio Cesar Rebolledo M.D. [address] [place] [address] 09/03/2025 8:30 AM CDT Appointment Department of Radiation Oncology in [address] [address] Julio Cesar Rebolledo M.D. [address] [place] [address] 09/03/2025 8:45 AM CDT Appointment Department of Radiation Oncology in [place], [place] [address] [place] [address] Julio Cesar Rebolledo M.D. [address] [place] [address] 09/04/2025 8:30 AM CDT Appointment Department of Radiation Oncology in [address] [address] Julio Cesar Rebolledo M.D. [address] [place] [address] 09/05/2025 8:30 AM CDT Appointment Department of Radiation Oncology in [address] [address] Julio Cesar Rebolledo M.D. [address] [place] [address] 09/08/2025 8:30 AM CDT Appointment Department of Radiation Oncology in [address] [address] Julio Cesar Rebolledo M.D. [address] [place] [address] Scheduled Referrals Name Type Priority Associated Diagnoses Order Schedule Radiation Oncology - Medical nutrition therapy consult (clinic) Outpatient Referral Routine Once for 1 Occurrences starting 07/24/2025 until 07/24/2025 documented as of this encounter Visit Diagnoses Diagnosis Malignant Neoplasm Of Tongue Base (HCC)- Primary documented in this encounter Additional Health Concerns Infection Onset Date Last Indicated Resolved Time Protective Environment 06/30/2025 06/30/2025 documented as of this encounter
--- OUTSIDE RECORDS SUMMARY | 2025-07-24 08:10 | XMS_ITS | Encounter Summary ---
Author Organization [facility] Address [address] [place] [address] Care Team Providers Care Car Wiper Name Role Phone Unavailable Primary Care Provider Unavailabl e Reason for Referral * Specialty Diagnoses / Procedures Referred By Contac t Referred To Contact Julio Cesar Rebolledo M.D. [address] [place] [address] Phone: tel: fax: [facility] [...] Hospital Encounter Department of Radiation Oncology in [place], [place] [address] [place] [address] Julio Cesar Rebolledo M.D. [address] [place] [address] Britt Ayala R.N. 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 No 07/22/2025 [facility] Utilities Answer Date Recorded In the past 12 months has [employer] electric, gas, oil, or water company threatened to shut off services in your home? No 07/22/2025 Housing Stability Answer Date Recorded What is your living situation today? I have a [facility] place to live 07/22/2025 Sex and [...] this encounter Progress Notes * Michel Leach R.N. - 07/24/2025 9:45 AM CDT Patient was [...] CDT Appointment Department of Radiation Oncology in [address] [address] Julio Cesar Rebolledo M.D. [address] [place] [address] 08/04/2025 8:45 AM CDT Appointment Department of Radiation Oncology in [address] [address] Jamie Maria M.D. [address] [place] [address] 08/05/2025 8:30 AM CDT Appointment Department of Radiation Oncology in [address] [address] Julio Cesar Rebolledo M.D. [address] [place] [address] 08/06/2025 8:30 AM CDT Appointment Department of Radiation Oncology in [address] [address] Julio Cesar Rebolledo M.D. [address] [place] [address] 08/07/2025 8:30 AM CDT Appointment Department of Radiation Oncology in [place], [place] [address] [place] [address] Julio Cesar Rebolledo M.D. [address] [place] [address] 08/07/2025 9:00 AM CDT Appointment Department of Radiation Oncology in [place], [place] [address] [place] [address] Julio Cesar Rebolledo M.D. [address] [place] [address] 08/07/2025 9:15 AM CDT Appointment Department of Radiation Oncology in [address] [place] [address] Julio Cesar Rebolledo M.D. [address] [place] [address] 08/08/2025 8:30 AM CDT Appointment Department of Radiation Oncology in [place], [place] [address] [place] [address] Julio Cesar Rebolledo M.D. [address] [place] [address] 08/11/2025 8:30 AM CDT Appointment Department of Radiation Oncology in [place], [place] [address] [place] [address] Julio Cesar Rebolledo M.D. [address] [place] [address] 08/12/2025 8:30 AM CDT Appointment Department of Radiation Oncology in [place], [place] [address] [facility] [place] [address] Julio Cesar Rebolledo M.D. [address] [place] [address] 08/13/2025 8:30 AM CDT Appointment Department of Radiation Oncology in [place], [place] [address] [place] [address] Juli oCesar Rebolledo M.D. [address] [place] [address] 08/14/2025 8:30 AM CDT Appointment Department of Radiation Oncology in [address] [address] Julio Cesar Rebolledo M.D. [address] [place] [address] 08/14/2025 9:00 AM CDT Appointment Department of Radiation Oncology in [place], [place] [address] [facility] [place] [address] Julio Cesar Rebolledo M.D. [address] [place] [address] 08/15/2025 8:30 AM CDT Appointment Department of Radiation Oncology in [place], [place] [address] [place] [address] Julio Cesar Rebolledo M.D. [address] [place] [address] 08/18/2025 8:30 AM CDT Appointment Department of Radiation Oncology in [place], [place] [address] [place] [address] Julio Cesar Rebolledo M.D. [address] [place] [address] 08/19/2025 8:30 AM CDT Appointment Department of Radiation Oncology in [place], [place] [address] [place] [address] uJlio Cesar Rebolledo M.D. [address] [place] [address] 08/20/2025 8:30 AM CDT Appointment Department of Radiation Oncology in [place], [place] [address] [place] [address] Julio Cesar Rebolledo M.D. [facility] [place] [address] 08/21/2025 8:30 AM CDT Appointment Department of Radiation Oncology in [place], [place] [address] [place] [address] Julio Cesar Rebolledo M.D. [address] [place] [address] 08/21/2025 9:00 AM CDT Appointment Department of Radiation Oncology in [address] [address] Julio Cesar Rebolledo M.D. [address] [place] [address] 08/22/2025 8:30 AM CDT Appointment Department of Radiation Oncology in [place], [place] [address] [place] [address] Julio Cesar Rebolledo M.D. [address] [place] [address] 08/25/2025 8:30 AM CDT Appointment Department of Radiation Oncology in [place], [place] [address] [place] [address] Julio Cesar Rebolledo M.D. [address] [place] [address] 08/26/2025 8:30 AM CDT Appointment Department of Radiation Oncology in [place], [place] [address] [place] [address] Julio Cesar Rebolledo M.D. [address] [place] [address] 08/27/2025 8:30 AM CDT Appointment Department of Radiation Oncology in [address] [address] Julio Cesar Rebolledo M.D. [facility] [place] [address] 08/28/2025 8:30 AM CDT Appointment Department of Radiation Oncology in [place], [place] [address] [place] [address] Julio Cesar Rebolledo M.D. [facility] [place] [address] 08/28/2025 9:00 AM CDT Appointment Department of Radiation Oncology in [place], [place] [address] [place] [address] Julio Cesar Rebolledo M.D. [address] [place] [address] 08/29/2025 8:30 AM CDT Appointment Department of Radiation Oncology in [place], [place] [address] [place] [address] Julio Cesar Rebolledo M.D. [facility] [place] [address] 09/01/2025 8:30 AM CDT Appointment Department of Radiation Oncology in [place], [place] [address] [facility] [place] [address] Julio Cesar Rebolledo M.D. [address] [place] [address] 09/02/2025 8:30 AM CDT Appointment Department of Radiation Oncology in [place], [place] [address] [place] [address] Julio Cesar Rebolledo M.D. [address] [place] [address] 09/03/2025 8:30 AM CDT Appointment Department of Radiation Oncology in [place], [place] [address] [place] [address] Julio Cesar Rebolledo M.D. [address] [place] [address] 09/03/2025 8:45 AM CDT Appointment Department of Radiation Oncology in [address] [address] Julio Cesar Rebolledo M.D. [address] [place] [address] 09/04/2025 8:30 AM CDT Appointment Department of Radiation Oncology in [place], [place] [address] [place] [address] Julio Cesar Rebolledo M.D. [address] [place] [address] 09/05/2025 8:30 AM CDT Appointment Department of Radiation Oncology in [address] [place] [address] Julio Cesar Rebolledo M.D. [address] [place] [address] 09/08/2025 8:30 AM CDT Appointment Department of Radiation Oncology in [address] [address] Julio Cesar Rebolledo M.D. [address] [place] [address] Scheduled Referrals Name Type Priority Associated Diagnoses [...]
--- OUTSIDE RECORDS SUMMARY | 2025-07-25 08:10 | XMS_ITS | Encounter Summary ---
Author Organization [facility] Address [address] [place] [address] Care Team Providers Care Cerner Analyst Name Role Phone Unavailable Primary Care Provider Unavailabl e Reason for Visit * Radiation Therapy (Routine) - Authorized Specialty Diagnoses / Procedures Referred By Norma t Referred To Contact Diagnoses Malignant Neoplasm Of Tongue Base (HCC) Procedures Prior Auth Rad Tx ND IMRT COMPLEX ND GUIDANCE FOR LOC RAD TX ND IMRT RADIOTHERAPY PLAN IMRT Julio Cesar Rebolledo M.D. [address] [place] [address] Phone: tel: fax: [facility] Referral ID Status Reason Start Date Expiration Date V isits Requested Visits Authorized [id number] Authorized 07/14/2025 09/30/2026 35 35 Encounter Details Date Type Department Care Team (Late st Contact Info) Description 07/25/2025 8:10 AM CDT Hospital Encounter Department of Radiation Oncology in [address] [phone] Julio Cesar Rebolledo M.D. [address] [place] [address] Social History Tobacco Use Types Packs/Day [...] things needed for daily living? No 07/22/2025 [facility] Utilities Answer Date Recorded In the past 12 months has e electric, gas, oil, or water company threatened to shut off services in your home? No 07/22/2025 Housing Stability Answer Date Recorded What is your living situation today? I have a [facility] place to live 07/22/2025 Sex [...] CDT Appointment Department of Radiation Oncology in [place], [place] [address] [place] [address] Julio Cesar Rebolledo M.D. [address] [place] [address] 08/04/2025 8:45 AM CDT Appointment Department of Radiation Oncology in [place], [place] [address] [place] [address] Jamie Maria M.D. [address] [place] [address] 08/05/2025 8:30 AM CDT Appointment Department of Radiation Oncology in [place], [place] [address] [place] [address] Julio Cesar Rebolledo M.D. [address] [place] [address] 08/06/2025 8:30 AM CDT Appointment Department of Radiation Oncology in [place], [place] [address] [place] [address] Julio Cesar Rebolledo M.D. [address] [place] [address] 08/07/2025 8:30 AM CDT Appointment Department of Radiation Oncology in [address] [address] Julio Cesar Rebolledo M.D. [address] [place] [address] 08/07/2025 9:00 AM CDT Appointment Department of Radiation Oncology in [address] [address] Julio Cesar Rebolledo M.D. [address] [place] [address] 08/07/2025 9:15 AM CDT Appointment Department of Radiation Oncology in [place], [place] [address] [place] [address] Julio Cesar Rebolledo M.D. [facility] [place] [address] 08/08/2025 8:30 AM CDT Appointment Department of Radiation Oncology in [address] [address] Julio Cesar Rebolledo M.D. [address] [place] [address] 08/11/2025 8:30 AM CDT Appointment Department of Radiation Oncology in [place], [place] [address] [place] [address] Julio Cesar Rebolledo M.D. [address] [place] [address] 08/12/2025 8:30 AM CDT Appointment Department of Radiation Oncology in [place], [place] [address] [place] [address] Julio Cesar Rebolledo M.D. [address] [place] [address] 08/13/2025 8:30 AM CDT Appointment Department of Radiation Oncology in [place], [place] [address] [place] [address] Julio Cesar Rebolledo M.D. [address] [place] [address] 08/14/2025 8:30 AM CDT Appointment Department of Radiation Oncology in [place], [place] [address] [place] [address] Julio Cesar Rebolledo M.D. [address] [place] [address] 08/14/2025 9:00 AM CDT Appointment Department of Radiation Oncology in [place], [place] [address] [place] [address] Julio Cesar Rebolledo M.D. [address] [place] [address] 08/15/2025 8:30 AM CDT Appointment Department of Radiation Oncology in [place], [place] [address] [place] [address] Julio Cesar Rebolledo M.D. [address] [place] [address] 08/18/2025 8:30 AM CDT Appointment Department of Radiation Oncology in [place], [place] [address] [place] [address] Julio Cesar Rebolledo M.D. [address] [place] [address] 08/19/2025 8:30 AM CDT Appointment Department of Radiation Oncology in [address] [address] Julio Cesar Rebolledo M.D. [facility] [place] [address] 08/20/2025 8:30 AM CDT Appointment Department of Radiation Oncology in [address] [address] Julio Cesar Rebolledo M.D. [facility] [place] [address] 08/21/2025 8:30 AM CDT Appointment Department of Radiation Oncology in [address] [address] Julio Cesar Rebolledo M.D. [facility] [place] [address] 08/21/2025 9:00 AM CDT Appointment Department of Radiation Oncology in [address] [address] Julio Cesar Rebolledo M.D. [address] [place] [address] 08/22/2025 8:30 AM CDT Appointment Department of Radiation Oncology in [place], [place] [address] [place] [address] Julio Cesar Rebolledo M.D. [address] [place] [address] 08/25/2025 8:30 AM CDT Appointment Department of Radiation Oncology in [place], [place] [address] [place] [address] Julio Cesar Rebolledo M.D. [facility] [place] [address] 08/26/2025 8:30 AM CDT Appointment Department of Radiation Oncology in [address] [address] Julio Cesar Rebolledo M.D. [address] [place] [address] 08/27/2025 8:30 AM CDT Appointment Department of Radiation Oncology in [place] [address] [place] [address] Julio Cesar Rebolledo M.D. [address] [place] [address] 08/28/2025 8:30 AM CDT Appointment Department of Radiation Oncology in [place], [place] [address] [place] [address] Julio Cesar Rebolledo M.D. [address] [place] [address] 08/28/2025 9:00 AM CDT Appointment Department of Radiation Oncology in [place], [place] [address] [place] [address] Julio Cesar Rebolledo M.D. [address] [place] [address] 08/29/2025 8:30 AM CDT Appointment Department of Radiation Oncology in [place], [place] [address] [place] [address] Julio Cesar Rebolledo M.D. [address] [place] [address] 09/01/2025 8:30 AM CDT Appointment Department of Radiation Oncology in [address] [address] Julio Cesar Rebolledo M.D. [facility] [place] [address] 09/02/2025 8:30 AM CDT Appointment Department of Radiation Oncology in [place] [address] [place] [address] Julio Cesar Rebolledo M.D. [facility] [place] [address] 09/03/2025 8:30 AM CDT Appointment Department of Radiation Oncology in [place], [place] [address] [place] [address] Julio Cesar Rebolledo M.D. [address] [place] [address] 09/03/2025 8:45 AM CDT Appointment Department of Radiation Oncology in [address] [address] Julio Cesar Rbeolledo M.D. [address] [place] [address] 09/04/2025 8:30 AM CDT Appointment Department of Radiation Oncology in [place], [place] [address] [place] [facility] [place] [address] Julio Cesar Rebolledo M.D. [address] [place] [address] 09/05/2025 8:30 AM CDT Appointment Department of Radiation Oncology in [place], [place] [address] [place], [place] [address] [facility] [place] [address] Julio Cesar Rebolledo M.D. [address] [facility] [place] [address] 09/08/2025 8:30 AM CDT Appointment Department of Radiation Oncology in [place], [place] [address] [place] [facility] [facility] [place] [address] Julio Cesar Rebolledo M.D. [address] [place] [address] documented as of this encounter Visit Diagnoses Not on filedocumented in this encounter Additional Health Concerns Infection Onset Date Last Indicated Resolved Time Protective Environment 06/30/2025 06/30/2025 documented as of this encounter
--- OUTSIDE RECORDS SUMMARY | 2025-07-30 13:31 | XMS_ITS | Encounter Summary ---
Author Organization [facility] Address [address] [place] [address] Care Team Providers Care Inspector Optical Instrument Name Role Phone Unavailable Primary Care Provider Unavailabl e Reason for Referral * Outpatient (Routine) - Authorized Specialty Diagnoses / Procedures Referred By Norma choi Referred To Contact Radiation Oncology Diagnoses Malignant Neoplasm Of Tongue Base (HCC) Julio Cesar Rebolledo M.D. [address] [place] [address] Phone: tel: fax: [facility] Region Referral ID Status Reason Start Date Expiration Date V isits Requested Visits Authorized [id number] Authorized 07/30/2025 01/29/2027 3 3 Reason for Visit * Outpatient (Routine) - Authorized Specialty Diagnoses / Procedures Referred By Norma choi Referred To Contact Radiation Oncology Diagnoses Malignant Neoplasm Of Tongue Base (HCC) Julio Cesar Rebolledo M.D. [address] [place] [address] Phone: tel: fax: [facility] Region Referral ID Status Reason Start Date Expiration Date V isits Requested Visits Authorized [id number] Authorized 07/30/2025 01/29/2027 3 3 Encounter Details Date Type Department Care Team (Latest Contact Info) Description 07/30/2025 1:31 PM CDT Hospital Encounter Department of Radiation Oncology in [place], [place] [address] [place] [phone] Julio Cesar Rebolledo M.D. [address] [place] [address] Michel Leach RElbaNElba Malignant Neoplasm Of Tongue Base (HCC) (Primary [...] things needed for daily living? No 07/22/2025 [facility] Utilities Answer Date Recorded In the past 12 months has [facility] electric, gas, oil, or water company threatened to shut off services in your home? No 07/22/2025 Housing Stability Answer Date Recorded What is your living situation today? I have a [facility] place to live 07/22/2025 Sex and Gender Information Value Date Recorded Sex Assigned at Not on file Legal Sex Male 12:18 PM CDT Gender Identity Not on file Sexual Orientation Not on file documented as of this encounter Progress Notes * Michel Leach Francisco - 07/30/2025 2:00 PM CDT SUBJECTIVE Radiation [...] CDT Appointment Department of Radiation Oncology in [place], [place] [address] [place] [address] Julio Cesar Rebolledo M.D. [address] [place] [address] 08/04/2025 8:45 AM CDT Appointment Department of Radiation Oncology in [place], [place] [address] [facility] [place] [address] Jamie Maria M.D. [address] [place] [address] 08/05/2025 8:30 AM CDT Appointment Department of Radiation Oncology in [address] [address] Julio Cesar Rebolledo M.D. [address] [place] [address] 08/06/2025 8:30 AM CDT Appointment Department of Radiation Oncology in [address] [address] Julio Cesar Rebolledo M.D. [facility] [place] [address] 08/07/2025 8:30 AM CDT Appointment Department of Radiation Oncology in [address] [address] Julio Cesar Rebolledo M.D. [facility] [place] [address] 08/07/2025 9:00 AM CDT Appointment Department of Radiation Oncology in [address] [address] Julio Cesar Rebolledo M.D. [facility] [place] [address] 08/07/2025 9:15 AM CDT Appointment Department of Radiation Oncology in [address] [address] Julio Cesar Rebolledo M.D. [address] [place] [address] 08/08/2025 8:30 AM CDT Appointment Department of Radiation Oncology in [place], [place] [address] [facility] [place] [address] Julio Cesar Rebolledo M.D. [address] [place] [address] 08/11/2025 8:30 AM CDT Appointment Department of Radiation Oncology in [place], [place] [address] [facility] [place] [address] Julio Cesar Rebolledo M.D. [address] [place] [address] 08/12/2025 8:30 AM CDT Appointment Department of Radiation Oncology in [place], [place] [address] [place] [address] Julio Cesar Rebolledo M.D. [address] [place] [address] 08/13/2025 8:30 AM CDT Appointment Department of Radiation Oncology in [place], [place] [address] [place] [address] Julio Cesar Rebolledo M.D. [address] [place] [address] 08/14/2025 8:30 AM CDT Appointment Department of Radiation Oncology in [place], [place] [address] [facility] [place] [address] Julio Cesar Rebolledo M.D. [address] [place] [address] 08/14/2025 9:00 AM CDT Appointment Department of Radiation Oncology in [place], [place] [address] [place] [address] Julio Cesar Rebolledo M.D. [address] [place] [address] 08/15/2025 8:30 AM CDT Appointment Department of Radiation Oncology in [place], [place] [address] [place] [address] Julio Cesar Rebolledo M.D. [address] [place] [address] 08/18/2025 8:30 AM CDT Appointment Department of Radiation Oncology in [place], [place] [address] [place] [address] Julio Cesar Rebolledo M.D. [facility] [place] [address] 08/19/2025 8:30 AM CDT Appointment Department of Radiation Oncology in [address] [address] Julio Cesar Rebolledo M.D. [address] [place] [address] 08/20/2025 8:30 AM CDT Appointment Department of Radiation Oncology in [place], [place] [address] [place] [address] Julio Cesar Rebolledo M.D. [facility] [place] [address] 08/21/2025 8:30 AM CDT Appointment Department of Radiation Oncology in [address] [address] Julio Cesar Rebolledo M.D. [address] [place] [address] 08/21/2025 9:00 AM CDT Appointment Department of Radiation Oncology in [place], [place] [address] [place] [address] Julio Cesar Rebolledo M.D. [address] [place] [address] 08/22/2025 8:30 AM CDT Appointment Department of Radiation Oncology in [place], [place] [address] [place] [address] Julio Cesar Rebolledo M.D. [address] [place] [address] 08/25/2025 8:30 AM CDT Appointment Department of Radiation Oncology in [place], [place] [address] [place] [address] Julio Cesar Rebolledo M.D. [address] [place] [address] 08/26/2025 8:30 AM CDT Appointment Department of Radiation Oncology in [place], [place] [address] [place] [address] Julio Cesar Rebolledo M.D. [address] [place] [address] 08/27/2025 8:30 AM CDT Appointment Department of Radiation Oncology in [place], [place] [address] [place] [address] Julio Cesar Rebolledo M.D. [address] [place] [address] 08/28/2025 8:30 AM CDT Appointment Department of Radiation Oncology in [place], [place] [address] [place] [address] Julio Cesar Rebolledo M.D. [address] [place] [address] 08/28/2025 9:00 AM CDT Appointment Department of Radiation Oncology in [place], [place] [address] [place] [address] Julio Cesar Rebolledo M.D. [address] [place] [address] 08/29/2025 8:30 AM CDT Appointment Department of Radiation Oncology in [address] [address] Julio Cesar Rebolledo M.D. [address] [place] [address] 09/01/2025 8:30 AM CDT Appointment Department of Radiation Oncology in [place], [place] [address] [place] [address] Julio Cesar Rebolledo M.D. [address] [place] [address] 09/02/2025 8:30 AM CDT Appointment Department of Radiation Oncology in [place], [place] [address] [place] [address] Julio Cesar Rebolledo M.D. [facility] [place] [address] 09/03/2025 8:30 AM CDT Appointment Department of Radiation Oncology in [place], [place] [address] [place] [address] Julio Cesar Rebolledo M.D. [address] [place] [address] 09/03/2025 8:45 AM CDT Appointment Department of Radiation Oncology in [address] [address] Julio Cesar Rebolledo M.D. [address] [place] [address] 09/04/2025 8:30 AM CDT Appointment Department of Radiation Oncology in [address] [address] Julio Cesar Rebolledo M.D. [address] [place] [address] 09/05/2025 8:30 AM CDT Appointment Department of Radiation Oncology in [address] [address] Julio Cesar Rebolledo M.D. [address] [place] [address] 09/08/2025 8:30 AM CDT Appointment Department of Radiation Oncology in [address] [address] Julio Cesar Rebolledo M.D. [address] [place] [phone] Scheduled Referrals Name Type Priority Associated Diagnoses [...]
--- OUTSIDE RECORDS SUMMARY | 2025-07-30 13:31 | XMS_ITS | Encounter Summary ---
Author Organization [facility] Address [address] [place] [address] Care Team Providers Care Dormitory Counselor Name Role Phone Unavailable Primary Care Provider Unavailabl e Reason for Visit * Radiation Therapy (Routine) - Authorized Specialty Diagnoses / Procedures Referred By Norma t Referred To Contact Diagnoses Malignant Neoplasm Of Tongue Base (HCC) Procedures Prior Auth Rad Tx DE IMRT COMPLEX DE GUIDANCE FOR LOC RAD TX DE IMRT RADIOTHERAPY PLAN IMRT Julio Cesar Rebolledo M.D. [address] [place] [address] Phone: tel: fax: [facility] Referral ID Status Reason Start Date Expiration Date V isits Requested Visits Authorized [id number] Authorized 07/14/2025 09/30/2026 35 35 Encounter Details Date Type Department Care Team (Late st Contact Info) Description 07/30/2025 1:31 PM CDT Hospital Encounter Department of Radiation Oncology in [address] [phone] Julio Cesar Rebolledo M.D. [address] [place] [address] Social History Tobacco Use Types Packs/Day [...] things needed for daily living? No 07/22/2025 [facility] Utilities Answer Date Recorded In the past 12 months has e electric, gas, oil, or water company threatened to shut off services in your home? No 07/22/2025 Housing Stability Answer Date Recorded What is your living situation today? I have a [facility] place to live 07/22/2025 Sex and [...] CDT Appointment Department of Radiation Oncology in [place], [place] [address] [place] [address] Julio Cesar Rebolledo M.D. [address] [place] [address] 08/04/2025 8:45 AM CDT Appointment Department of Radiation Oncology in [place], [place] [address] [place] [address] Jamie Maria M.D. [address] [place] [address] 08/05/2025 8:30 AM CDT Appointment Department of Radiation Oncology in [place], [place] [address] [place] [address] Julio Cesar Rebolledo M.D. [address] [place] [address] 08/06/2025 8:30 AM CDT Appointment Department of Radiation Oncology in [place], [place] [address] [place] [address] Julio Cesar Rebolledo M.D. [address] [place] [address] 08/07/2025 8:30 AM CDT Appointment Department of Radiation Oncology in [address] [address] Julio Cesar Rebolledo M.D. [address] [place] [address] 08/07/2025 9:00 AM CDT Appointment Department of Radiation Oncology in [address] [address] Julio Cesar Rebolledo M.D. [address] [place] [address] 08/07/2025 9:15 AM CDT Appointment Department of Radiation Oncology in [place], [place] [address] [place] [address] Julio Cesar Rebolledo M.D. [facility] [place] [address] 08/08/2025 8:30 AM CDT Appointment Department of Radiation Oncology in [address] [address] Julio Cesar Rebolledo M.D. [address] [place] [address] 08/11/2025 8:30 AM CDT Appointment Department of Radiation Oncology in [place], [place] [address] [place] [address] Julio Cesar Rebolledo M.D. [address] [place] [address] 08/12/2025 8:30 AM CDT Appointment Department of Radiation Oncology in [place], [place] [address] [place] [address] Julio Cesar Rebolledo M.D. [address] [place] [address] 08/13/2025 8:30 AM CDT Appointment Department of Radiation Oncology in [place], [place] [address] [place] [address] Julio Cesar Rebolledo M.D. [address] [place] [address] 08/14/2025 8:30 AM CDT Appointment Department of Radiation Oncology in [place], [place] [address] [place] [address] Julio Cesar Rebolledo M.D. [address] [place] [address] 08/14/2025 9:00 AM CDT Appointment Department of Radiation Oncology in [place], [place] [address] [place] [address] Julio Cesar Rebolledo M.D. [address] [place] [address] 08/15/2025 8:30 AM CDT Appointment Department of Radiation Oncology in [place], [place] [address] [place] [address] Julio Cesar Rebolledo M.D. [address] [place] [address] 08/18/2025 8:30 AM CDT Appointment Department of Radiation Oncology in [place], [place] [address] [place] [phone] Julio Cesar Rebolledo M.D. [address] [place] [address] 08/19/2025 8:30 AM CDT Appointment Department of Radiation Oncology in [address] [address] Julio Cesar Rebolledo M.D. [facility] [place] [address] 08/20/2025 8:30 AM CDT Appointment Department of Radiation Oncology in [address] [address] Julio Cesar Rebolledo M.D. [facility] [place] [address] 08/21/2025 8:30 AM CDT Appointment Department of Radiation Oncology in [address] [address] Julio Cesar Rebolledo M.D. [facility] [place] [address] 08/21/2025 9:00 AM CDT Appointment Department of Radiation Oncology in [address] [address] Julio Cesar Rebolledo M.D. [address] [place] [address] 08/22/2025 8:30 AM CDT Appointment Department of Radiation Oncology in [place], [place] [address] [place] [address] Julio Cesar Rebolledo M.D. [address] [place] [address] 08/25/2025 8:30 AM CDT Appointment Department of Radiation Oncology in [place], [place] [address] [place] [address] Julio Cesar Rebolledo M.D. [facility] [place] [address] 08/26/2025 8:30 AM CDT Appointment Department of Radiation Oncology in [address] [address] Julio Cesar Rebolledo M.D. [address] [place] [address] 08/27/2025 8:30 AM CDT Appointment Department of Radiation Oncology in [place] [address] [place] [address] Julio Cesar Rebolledo M.D. [address] [place] [address] 08/28/2025 8:30 AM CDT Appointment Department of Radiation Oncology in [place], [place] [address] [place] [address] Julio Cesar Rebolledo M.D. [address] [place] [address] 08/28/2025 9:00 AM CDT Appointment Department of Radiation Oncology in [place], [place] [address] [place] [address] Julio Cesar Rebolledo M.D. [address] [place] [address] 08/29/2025 8:30 AM CDT Appointment Department of Radiation Oncology in [place], [place] [address] [place] [address] Julio Cesar Rebolledo M.D. [address] [place] [address] 09/01/2025 8:30 AM CDT Appointment Department of Radiation Oncology in [address] [address] Julio Cesar Rebolledo M.D. [facility] [place] [address] 09/02/2025 8:30 AM CDT Appointment Department of Radiation Oncology in [place] [address] [place] [address] Julio Cesar Rebolledo M.D. [facility] [place] [address] 09/03/2025 8:30 AM CDT Appointment Department of Radiation Oncology in [place], [place] [address] [place] [address] Julio Cesar Rebolledo M.D. [address] [place] [address] 09/03/2025 8:45 AM CDT Appointment Department of Radiation Oncology in [address] [address] Julio Cesar Rebolledo M.D. [address] [place] [address] 09/04/2025 8:30 AM CDT Appointment Department of Radiation Oncology in [place], [place] [address] [facility] [place] [address] Julio Cesar Rebolledo M.D. [address] [place] [address] 09/05/2025 8:30 AM CDT Appointment Department of Radiation Oncology in [place], [place] [address] [place], [place] [address] [facility] [place] [address] Julio Cesar Rebolledo M.D. [address] [facility] [place] [address] 09/08/2025 8:30 AM CDT Appointment Department of Radiation Oncology in [place], [place] [address] [facility] [place] [address] Julio Cesar Rebolledo M.D. [address] [place] [address] documented as of this encounter Visit Diagnoses Not on filedocumented in this encounter Additional Health Concerns Infection Onset Date Last Indicated Resolved Time Protective Environment 06/30/2025 06/30/2025 documented as of this encounter
--- OUTSIDE RECORDS SUMMARY | 2025-07-31 10:00 | XMS_ITS | Encounter Summary ---
Author Organization [facility] Address [address] [place] [address] Care Team Providers Care Staff Training And Development Manager Name Role Phone Unavailable Primary Care Provider Unavailabl e Reason for Referral * Radiation Therapy (Routine) - Authorized Specialty Diagnoses / Procedures Referred By Norma choi Referred To Contact Diagnoses Malignant Neoplasm Of Tongue Base (HCC) Procedures Management Visit Julio Cesar Rebolledo M.D. [address] [place] [address] Phone: tel: fax: [facility] Region Referral ID Status Reason Start Date Expiration Date V isits Requested Visits Authorized [id number] Authorized 06/30/2025 09/30/2026 10 10 Reason for Visit * Radiation Therapy (Routine) - Authorized Specialty Diagnoses / Procedures Referred By Norma choi Referred To Contact Diagnoses Malignant Neoplasm Of Tongue Base (HCC) Procedures Management Visit Julio Cesar Rebolledo M.D. [address] [place] [address] Phone: tel: fax: [facility] Region Referral ID Status Reason Start Date Expiration Date V isits Requested Visits Authorized [id number] Authorized 06/30/2025 09/30/2026 10 10 Encounter Details Date Type Department Care Team (Latest Contact Info) Description 07/31/2025 10:00 AM CDT - 07/31/2025 10:59 AM CDT Hospital Encounter Department of Radiation Oncology in [place], [place] [address] [place] [address] Julio Cesar Rebolledo M.D. [address] [place] [address] Malignant Neoplasm Of Tongue Base (HCC) (Primary [...] needed for daily living? No 07/22/2025 [facility] Utilities Answer Date Recorded In the past 12 months has [facility] electric, gas, oil, or water [employer] threatened to shut off services in your home? No 07/22/2025 Housing Stability Answer Date Recorded What is your living situation today? I have a [facility] place to live 07/22/2025 Sex [...] CDT Appointment Department of Radiation Oncology in [address] [address] Julio Cesar Rebolledo M.D. [address] [place] [address] 08/04/2025 8:45 AM CDT Appointment Department of Radiation Oncology in [address] [address] Jamie Maria M.D. [address] [place] [address] 08/05/2025 8:30 AM CDT Appointment Department of Radiation Oncology in [address] [address] Julio Cesar Rebolledo M.D. [address] [place] [address] 08/06/2025 8:30 AM CDT Appointment Department of Radiation Oncology in [place], [place] [address] [place] [address] Julio Cesar Rebolledo M.D. [address] [place] [address] 08/07/2025 8:30 AM CDT Appointment Department of Radiation Oncology in [place], [place] [address] [place] [address] Julio Cesar Rebolledo M.D. [facility] [place] [address] 08/07/2025 9:00 AM CDT Appointment Department of Radiation Oncology in [place], [place] [address] [place] [address] Julio Cesar Rebolledo M.D. [facility] [place] [address] 08/07/2025 9:15 AM CDT Appointment Department of Radiation Oncology in [address] [address] Julio Cesar Rebolledo M.D. [address] [place] [address] 08/08/2025 8:30 AM CDT Appointment Department of Radiation Oncology in [place], [place] [address] [place] [address] Julio Cesar Rebolledo M.D. [address] [place] [address] 08/11/2025 8:30 AM CDT Appointment Department of Radiation Oncology in [place], [place] [address] [place] [address] Julio Cesar Rebolledo M.D. [address] [place] [address] 08/12/2025 8:30 AM CDT Appointment Department of Radiation Oncology in [place], [place] [address] [place] [address] Julio Cesar Rebolledo M.D. [address] [place] [address] 08/13/2025 8:30 AM CDT Appointment Department of Radiation Oncology in [address] [address] Julio Cesar Rebolledo M.D. [facility] [place] [address] 08/14/2025 8:30 AM CDT Appointment Department of Radiation Oncology in [place], [place] [address] [place] [address] Julio Cesar Rebolledo M.D. [facility] [place] [address] 08/14/2025 9:00 AM CDT Appointment Department of Radiation Oncology in [place], [place] [address] [place] [address] Julio Cesar Rebolledo M.D. [facility] [place] [address] 08/15/2025 8:30 AM CDT Appointment Department of Radiation Oncology in [place], [place] [address] [place] [address] Julio Cesar Rebolledo M.D. [facility] [place] [address] 08/18/2025 8:30 AM CDT Appointment Department of Radiation Oncology in [place], [place] [address] [place] [address] Julio Cesar Rebolledo M.D. [address] [place] [address] 08/19/2025 8:30 AM CDT Appointment Department of Radiation Oncology in [address] [address] Julio Cesar Rebolledo M.D. [facility] [place] [address] 08/20/2025 8:30 AM CDT Appointment Department of Radiation Oncology in [address] [address] Julio Cesar Rebolledo M.D. [facility] [place] [address] 08/21/2025 8:30 AM CDT Appointment Department of Radiation Oncology in [address] [address] Julio Cesar Rebolledo M.D. [facility] [place] [address] 08/21/2025 9:00 AM CDT Appointment Department of Radiation Oncology in [address] [address] Julio Cesar Rebolledo M.D. [facility] [place] [address] 08/22/2025 8:30 AM CDT Appointment Department of Radiation Oncology in [address] [address] Julio Cesar Rebolledo M.D. [address] [place] [address] 08/25/2025 8:30 AM CDT Appointment Department of Radiation Oncology in [place], [place] [address] [place] [address] Julio Cesar Rebolledo M.D. [address] [place] [address] 08/26/2025 8:30 AM CDT Appointment Department of Radiation Oncology in [place], [place] [address] [place] [address] [place] [address] Julio Cesar Rebolledo M.D. [facility] [place] [address] 08/27/2025 8:30 AM CDT Appointment Department of Radiation Oncology in [address] [address] Julio Cesar Rebolledo M.D. [address] [place] [address] 08/28/2025 8:30 AM CDT Appointment Department of Radiation Oncology in [place], [place] [address] [place] [address] Julio Cesar Rebolledo M.D. [address] [place] [address] 08/28/2025 9:00 AM CDT Appointment Department of Radiation Oncology in [place], [place] [address] [place] [address] [place] [address] Julio Cesar Rebolledo M.D. [address] [place] [address] 08/29/2025 8:30 AM CDT Appointment Department of Radiation Oncology in [place], [place] [address] [place] [address] Julio Cesar Rebolledo M.D. [address] [place] [address] 09/01/2025 8:30 AM CDT Appointment Department of Radiation Oncology in [place], [place] [address] [place] [address] Julio Cesar Rebolledo M.D. [address] [place] [address] 09/02/2025 8:30 AM CDT Appointment Department of Radiation Oncology in [place], [place] [address] [place] [address] Julio Cesar Rebolledo M.D. [facility] [place] [address] 09/03/2025 8:30 AM CDT Appointment Department of Radiation Oncology in [address] [address] Julio Cesar Rebolledo M.D. [address] [place] [address] 09/03/2025 8:45 AM CDT Appointment Department of Radiation Oncology in [place], [place] [address] [place] [address] Julio Cesar Rebolledo M.D. [facility] [place] [address] 09/04/2025 8:30 AM CDT Appointment Department of Radiation Oncology in [address] [address] Julio Cesar Rebolledo M.D. [address] [place] [address] 09/05/2025 8:30 AM CDT Appointment Department of Radiation Oncology in [address] [address] Julio Cesar Rebolledo M.D. [facility] [place] [address] 09/08/2025 8:30 AM CDT Appointment Department of Radiation Oncology in [address] [address] Julio Cesar Rebolledo M.D. [address] [place] [address] Scheduled Orders Name Type Priority Associated Diagnoses [...]
--- OUTSIDE RECORDS SUMMARY | 2025-07-31 11:00 | XMS_ITS | Encounter Summary ---
Author Organization [facility] Address [address] [place] [address] Care Team Providers Care Prototype Technician Name Role Phone Unavailable Primary Care Provider Unavailabl e Reason for Visit * Radiation Therapy (Routine) - Authorized Specialty Diagnoses / Procedures Referred By Norma t Referred To Contact Diagnoses Malignant Neoplasm Of Tongue Base (HCC) Procedures Prior Auth Rad Tx AL IMRT COMPLEX AL GUIDANCE FOR LOC RAD TX AL IMRT RADIOTHERAPY PLAN IMRT Julio Cesar Rebolledo M.D. [address] [place] [address] Phone: tel: fax: [facility] Referral ID Status Reason Start Date Expiration Date V isits Requested Visits Authorized [id number] Authorized 07/14/2025 09/30/2026 35 35 Encounter Details Date Type Department Care Team (Late st Contact Info) Description 07/31/2025 11:00 AM CDT Hospital Encounter Department of Radiation Oncology in [address] [phone] Julio Cesar Rebolledo M.D. [address] [place] [address] Social History Tobacco Use Types Packs/Day [...] things needed for daily living? No 07/22/2025 [facility] Utilities Answer Date Recorded In the past 12 months has e electric, gas, oil, or water company threatened to shut off services in your home? No 07/22/2025 Housing Stability Answer Date Recorded What is your living situation today? I have a [facility] place to live 07/22/2025 Sex and [...] CDT Appointment Department of Radiation Oncology in [place], [place] [address] [place] [address] Julio Cesar Rebolledo M.D. [address] [place] [address] 08/04/2025 8:45 AM CDT Appointment Department of Radiation Oncology in [place], [place] [address] [place] [address] Jamie Maria M.D. [address] [place] [address] 08/05/2025 8:30 AM CDT Appointment Department of Radiation Oncology in [place], [place] [address] [place] [address] Julio Cesar Rebolledo M.D. [address] [place] [address] 08/06/2025 8:30 AM CDT Appointment Department of Radiation Oncology in [place], [place] [address] [place] [address] Julio Cesar Rebolledo M.D. [address] [place] [address] 08/07/2025 8:30 AM CDT Appointment Department of Radiation Oncology in [address] [address] Julio Cesar Rebolledo M.D. [address] [place] [address] 08/07/2025 9:00 AM CDT Appointment Department of Radiation Oncology in [address] [address] Julio Cesar Rebolledo M.D. [address] [place] [address] 08/07/2025 9:15 AM CDT Appointment Department of Radiation Oncology in [place], [place] [address] [place] [address] Julio Cesar Rebolledo M.D. [facility] [place] [address] 08/08/2025 8:30 AM CDT Appointment Department of Radiation Oncology in [address] [address] Julio Cesar Rebolledo M.D. [address] [place] [address] 08/11/2025 8:30 AM CDT Appointment Department of Radiation Oncology in [place], [place] [address] [place] [address] Julio Cesar Rebolledo M.D. [address] [place] [address] 08/12/2025 8:30 AM CDT Appointment Department of Radiation Oncology in [place], [place] [address] [place] [address] Julio Cesar Rebolledo M.D. [address] [place] [address] 08/13/2025 8:30 AM CDT Appointment Department of Radiation Oncology in [place], [place] [address] [place] [address] Julio Cesar Rebolledo M.D. [address] [place] [address] 08/14/2025 8:30 AM CDT Appointment Department of Radiation Oncology in [place], [place] [address] [place] [address] Julio Cesar Rebolledo M.D. [address] [place] [address] 08/14/2025 9:00 AM CDT Appointment Department of Radiation Oncology in [place], [place] [address] [place] [address] Julio Cesar Rebolledo M.D. [address] [place] [address] 08/15/2025 8:30 AM CDT Appointment Department of Radiation Oncology in [place], [place] [address] [place] [address] Julio Cesar Rebolledo M.D. [address] [place] [address] 08/18/2025 8:30 AM CDT Appointment Department of Radiation Oncology in [place], [place] [address] [place] [address] Julio Cesar Rebolledo M.D. [address] [place] [address] 08/19/2025 8:30 AM CDT Appointment Department of Radiation Oncology in [address] [address] Julio Cesar Rebolledo M.D. [facility] [place] [address] 08/20/2025 8:30 AM CDT Appointment Department of Radiation Oncology in [address] [address] Julio Cesar Rebolledo M.D. [facility] [place] [address] 08/21/2025 8:30 AM CDT Appointment Department of Radiation Oncology in [address] [address] Julio Cesar Rebolledo M.D. [facility] [place] [address] 08/21/2025 9:00 AM CDT Appointment Department of Radiation Oncology in [address] [address] Julio Cesar Rebolledo M.D. [address] [place] [address] 08/22/2025 8:30 AM CDT Appointment Department of Radiation Oncology in [place], [place] [address] [place] [address] Julio Cesar Rebolledo M.D. [address] [place] [address] 08/25/2025 8:30 AM CDT Appointment Department of Radiation Oncology in [place], [place] [address] [place] [address] Julio Cesar Rebolledo M.D. [facility] [place] [address] 08/26/2025 8:30 AM CDT Appointment Department of Radiation Oncology in [address] [address] Julio Cesar Rebolledo M.D. [address] [place] [address] 08/27/2025 8:30 AM CDT Appointment Department of Radiation Oncology in [place] [address] [place] [address] Julio Cesar Rebolledo M.D. [address] [place] [address] 08/28/2025 8:30 AM CDT Appointment Department of Radiation Oncology in [place], [place] [address] [place] [address] Julio Cesar Rebolledo M.D. [address] [place] [address] 08/28/2025 9:00 AM CDT Appointment Department of Radiation Oncology in [place], [place] [address] [place] [address] Julio Cesar Rebolledo M.D. [address] [place] [address] 08/29/2025 8:30 AM CDT Appointment Department of Radiation Oncology in [place], [place] [address] [place] [address] Julio Cesar Rebolledo M.D. [address] [place] [address] 09/01/2025 8:30 AM CDT Appointment Department of Radiation Oncology in [address] [address] Julio Cesar Rebolledo M.D. [facility] [place] [address] 09/02/2025 8:30 AM CDT Appointment Department of Radiation Oncology in [place] [address] [place] [address] Julio Cesar Rebolledo M.D. [facility] [place] [address] 09/03/2025 8:30 AM CDT Appointment Department of Radiation Oncology in [place], [place] [address] [place] [address] Julio Cesar Rebolledo M.D. [address] [place] [address] 09/03/2025 8:45 AM CDT Appointment Department of Radiation Oncology in [address] [address] Julio Cesar Rebolledo M.D. [address] [place] [address] 09/04/2025 8:30 AM CDT Appointment Department of Radiation Oncology in [place], [place] [address] [place] [address] Julio Cesar Rebolledo M.D. [address] [facility] [place] [address] 09/05/2025 8:30 AM CDT Appointment Department of Radiation Oncology in [place], [place] [address] [place], [place] [address] [facility] [address] Julio Cesar Rebolledo M.D. [address] [facility] [place] [address] 09/08/2025 8:30 AM CDT Appointment Department of Radiation Oncology in [place], [place] [address] [place] [address] Julio Cesar Rebolledo M.D. [address] [place] [address] documented as of this encounter Visit Diagnoses Not on filedocumented in this encounter Additional Health Concerns Infection Onset Date Last Indicated Resolved Time Protective Environment 06/30/2025 06/30/2025 documented as of this encounter
[2025-08-01] VITALS (23 sets, daily range): BP systolic 88–125; BP diastolic 61–85; PULSE 66–89; RESP 12–22; TEMP 36.2; O2SAT 91–100; BMI 21.5
--- OUTSIDE RECORDS SUMMARY | 2025-08-01 08:13 | XMS_ITS | Encounter Summary ---
Author Organization [facility] Address [address] [place] [address] Care Team Providers Care Counter Maker Name Role Phone Unavailable Primary Care Provider Unavailabl e Reason for Visit * Radiation Therapy (Routine) - Authorized Specialty Diagnoses / Procedures Referred By Norma t Referred To Contact Diagnoses Malignant Neoplasm Of Tongue Base (HCC) Procedures Prior Auth Rad Tx CT IMRT COMPLEX CT GUIDANCE FOR LOC RAD TX CT IMRT RADIOTHERAPY PLAN IMRT Julio Cesar Rebolledo M.D. [address] [place] [phone] Phone: tel: fax: [facility] Referral ID Status Reason Start Date Expiration Date V isits Requested Visits Authorized [id number] Authorized 07/14/2025 09/30/2026 35 35 Encounter Details Date Type Department Care Team (Late st Contact Info) Description 08/01/2025 8:13 AM CDT Hospital Encounter Department of Radiation Oncology in [address] [phone] Julio Cesar Rebolledo M.D. [address] [place] [phone] Social History Tobacco Use Types Packs/Day [...] needed for daily living? No 07/22/2025 [facility] Utilities Answer Date Recorded In the past 12 months has e electric, gas, oil, or water company threatened to shut off services in your home? No 07/22/2025 Housing Stability Answer Date Recorded What is your living situation today? I have a [facility] place to live 07/22/2025 Sex and [...] CDT Appointment Department of Radiation Oncology in [place], [place] [address] [place] [phone] Julio Cesar Rebolledo M.D. [address] [place] [address] 08/04/2025 8:45 AM CDT Appointment Department of Radiation Oncology in [place], [place] [address] [place] [phone] Jamie Maria M.D. [address] [place] [address] 08/05/2025 8:30 AM CDT Appointment Department of Radiation Oncology in [place], [place] [address] [place] [address] Julio Cesar Rebolledo M.D. [address] [place] [address] 08/06/2025 8:30 AM CDT Appointment Department of Radiation Oncology in [place], [place] [address] [place] [phone] Julio Cesar Rebolledo M.D. [address] [place] [phone] 08/07/2025 8:30 AM CDT Appointment Department of Radiation Oncology in [address] [address] Julio Cesar Rebolledo M.D. [address] [place] [phone] 08/07/2025 9:00 AM CDT Appointment Department of Radiation Oncology in [address] [address] Julio Cesar Rebolledo M.D. [address] [place] [address] 08/07/2025 9:15 AM CDT Appointment Department of Radiation Oncology in [place], [place] [address] [place] [phone] Julio Cesar Rebolledo M.D. [facility] [place] [address] 08/08/2025 8:30 AM CDT Appointment Department of Radiation Oncology in [address] [address] Julio Cesar Rebolledo M.D. [address] [place] [address] 08/11/2025 8:30 AM CDT Appointment Department of Radiation Oncology in [place], [place] [address] [place] [address] Julio Cesar Rebolledo M.D. [address] [place] [address] 08/12/2025 8:30 AM CDT Appointment Department of Radiation Oncology in [place], [place] [address] [place] [address] Julio Cesar Rebolledo M.D. [address] [place] [address] 08/13/2025 8:30 AM CDT Appointment Department of Radiation Oncology in [place], [place] [address] [place] [address] Julio Cesar Rebolledo M.D. [address] [place] [address] 08/14/2025 8:30 AM CDT Appointment Department of Radiation Oncology in [place], [place] [address] [place] [address] Julio Cesar Rebolledo M.D. [address] [place] [address] 08/14/2025 9:00 AM CDT Appointment Department of Radiation Oncology in [place], [place] [address] [place] [address] Julio Cesar Rebolledo M.D. [address] [place] [address] 08/15/2025 8:30 AM CDT Appointment Department of Radiation Oncology in [place], [place] [address] [place] [address] Julio Cesar Rebolledo M.D. [address] [place] [address] 08/18/2025 8:30 AM CDT Appointment Department of Radiation Oncology in [place], [place] [address] [place] [address] Julio Cesar Rebolledo M.D. [address] [place] [address] 08/19/2025 8:30 AM CDT Appointment Department of Radiation Oncology in [address] [address] Julio Cesar Rebolledo M.D. [facility] [place] [address] 08/20/2025 8:30 AM CDT Appointment Department of Radiation Oncology in [address] [address] Julio Cesar Rebolledo M.D. [facility] [place] [address] 08/21/2025 8:30 AM CDT Appointment Department of Radiation Oncology in [address] [address] Julio Cesar Rebolledo M.D. [facility] [place] [address] 08/21/2025 9:00 AM CDT Appointment Department of Radiation Oncology in [address] [address] Julio Cesar Rebolledo M.D. [address] [place] [address] 08/22/2025 8:30 AM CDT Appointment Department of Radiation Oncology in [place], [place] [address] [place] [address] Julio Cesar Rebolledo M.D. [address] [place] [address] 08/25/2025 8:30 AM CDT Appointment Department of Radiation Oncology in [place], [place] [address] [place] [address] Julio Cesar Rebolledo M.D. [facility] [place] [address] 08/26/2025 8:30 AM CDT Appointment Department of Radiation Oncology in [address] [address] Julio Cesar Rebolledo M.D. [address] [place] [address] 08/27/2025 8:30 AM CDT Appointment Department of Radiation Oncology in [place] [place] [address] Julio Cesar Rebolledo M.D. [address] [place] [address] 08/28/2025 8:30 AM CDT Appointment Department of Radiation Oncology in [place], [place] [address] [place] [address] Julio Cesar Rebolledo M.D. [address] [place] [address] 08/28/2025 9:00 AM CDT Appointment Department of Radiation Oncology in [place], [place] [address] [place] [address] Julio Cesar Rebolledo M.D. [address] [place] [address] 08/29/2025 8:30 AM CDT Appointment Department of Radiation Oncology in [place], [place] [address] [place] [address] Julio Cesar Rebolledo M.D. [address] [place] [address] 09/01/2025 8:30 AM CDT Appointment Department of Radiation Oncology in [address] [address] Julio Cesar Rebolledo M.D. [facility] [place] [address] 09/02/2025 8:30 AM CDT Appointment Department of Radiation Oncology in [place] [place] [address] Julio Cesar Rebolledo M.D. [facility] [place] [address] 09/03/2025 8:30 AM CDT Appointment Department of Radiation Oncology in [place], [place] [address] [place] [address] Julio Cesar Rebolledo M.D. [address] [place] [address] 09/03/2025 8:45 AM CDT Appointment Department of Radiation Oncology in [address] [address] Julio Cesar Rebolledo M.D. [address] [place] [address] 09/04/2025 8:30 AM CDT Appointment Department of Radiation Oncology in [place], [place] [address] [place] [address] Julio Cesar Rebolledo M.D. [address] [place] [address] 09/05/2025 8:30 AM CDT Appointment Department of Radiation Oncology in [place], [place] [address] [place], [place] [address] [address] Julio Cesar Rebolledo M.D. [address] [facility] [place] [address] 09/08/2025 8:30 AM CDT Appointment Department of Radiation Oncology in [place], [place] [address] [place] [address] Julio Cesar Rebolledo M.D. [address] [place] [address] documented as of this encounter Visit Diagnoses Not on filedocumented in this encounter Additional Health Concerns Infection Onset Date Last Indicated Resolved Time Protective Environment 06/30/2025 06/30/2025 documented as of this encounter
--- OUTSIDE RECORDS SUMMARY | 2025-08-01 22:34 | XMS_ITS | Encounter Summary ---
Author Organization [facility] Address [address] [place] [address] Care Team Providers Care Contractor Field Hauling Name Role Phone Unavailable Primary Care Provider Unavailabl e Encounter Details Date Type Department Care Team (Late st Contact Info) Description 07/30/2025 Clinical Communication Department of Radiation Oncology in [place], [place] [address] [place] [address] Michel Leach, R.N. Social History Tobacco Use Types Packs/Day Years [...] things needed for daily living? No 07/22/2025 [facility] Utilities Answer Date Recorded In the past 12 months has e electric, gas, oil, or water company threatened to shut off services in your home? No 07/22/2025 Housing Stability Answer Date Recorded What is your living situation today? I have a [facility] place to live 07/22/2025 Sex [...] Appointment Department of Radiation Oncology in [address] [address] Julio Cesar Rebolledo M.D. [address] [place] [address] 08/04/2025 8:45 AM CDT Appointment Department of Radiation Oncology in [address] [address] [place] [address] 08/05/2025 8:30 AM CDT Appointment Department of Radiation Oncology in [address] [address] Julio Cesar Rebolledo M.D. [facility] [place] [address] 08/06/2025 8:30 AM CDT Appointment Department of Radiation Oncology in [address] [address] Julio Cesar Rebolledo M.D. [address] [place] [address] 08/07/2025 8:30 AM CDT Appointment Department of Radiation Oncology in [place], [place] [address] [place] [address] [place] [address] Julio Cesar Rebolledo M.D. [address] [place] [address] 08/07/2025 9:00 AM CDT Appointment Department of Radiation Oncology in [place], [place] [address] [place] [address] Julio Cesar Rebolledo M.D. [facility] [place] [address] 08/07/2025 9:15 AM CDT Appointment Department of Radiation Oncology in [address] [address] Julio Cesar Rebolledo M.D. [facility] [place] [address] 08/08/2025 8:30 AM CDT Appointment Department of Radiation Oncology in [address] [address] Julio Cesar Rebolledo M.D. [address] [place] [address] 08/11/2025 8:30 AM CDT Appointment Department of Radiation Oncology in [address] [address] Julio Cesar Rebolledo M.D. [facility] [place] [address] 08/12/2025 8:30 AM CDT Appointment Department of Radiation Oncology in [address] [address] Julio Cesar Rebolledo M.D. [address] [place] [address] 08/13/2025 8:30 AM CDT Appointment Department of Radiation Oncology in [place], [place] [address] [facility] [place] [address] Julio Cesar Rebolledo M.D. [address] [place] [address] 08/14/2025 8:30 AM CDT Appointment Department of Radiation Oncology in [place], [place] [address] [facility] [place] [address] Julio Cesar Rebolledo M.D. [address] [place] [address] 08/14/2025 9:00 AM CDT Appointment Department of Radiation Oncology in [place], [place] [address] [place] [address] Julio Cesar Rebolledo M.D. [address] [place] [address] 08/15/2025 8:30 AM CDT Appointment Department of Radiation Oncology in [place], [place] [address] [place] [address] Julio Cesar Rebolledo M.D. [address] [place] [address] 08/18/2025 8:30 AM CDT Appointment Department of Radiation Oncology in [place], [place] [address] [facility] [place] [address] Julio Cesar Rebolledo M.D. [address] [place] [address] 08/19/2025 8:30 AM CDT Appointment Department of Radiation Oncology in [place], [place] [address] [place] [address] Julio Cesar Rebolledo M.D. [address] [place] [address] 08/20/2025 8:30 AM CDT Appointment Department of Radiation Oncology in [place], [place] [address] [place] [address] Julio Cesar Rebolledo M.D. [address] [place] [address] 08/21/2025 8:30 AM CDT Appointment Department of Radiation Oncology in [place], [place] [address] [place] [address] Julio Cesar Rebolledo M.D. [facility] [place] [address] 08/21/2025 9:00 AM CDT Appointment Department of Radiation Oncology in [address] [address] Julio Cesar Rebolledo M.D. [address] [place] [address] 08/22/2025 8:30 AM CDT Appointment Department of Radiation Oncology in [place], [place] [address] [place] [address] Julio Cesar Rebolledo M.D. [facility] [place] [address] 08/25/2025 8:30 AM CDT Appointment Department of Radiation Oncology in [address] [address] Julio Cesar Rebolledo M.D. [address] [place] [address] 08/26/2025 8:30 AM CDT Appointment Department of Radiation Oncology in [place], [place] [address] [place] [address] Julio Cesar Rebolledo M.D. [address] [place] [address] 08/27/2025 8:30 AM CDT Appointment Department of Radiation Oncology in [place], [place] [address] [place] [address] Julio Cesar Rebolledo M.D. [facility] [place] [address] 08/28/2025 8:30 AM CDT Appointment Department of Radiation Oncology in [place], [place] [address] [place] [address] Julio Cesar Rebolledo M.D. [address] [place] [address] 08/28/2025 9:00 AM CDT Appointment Department of Radiation Oncology in [place], [place] [address] [place] [address] Julio Cesar Rebolledo M.D. [facility] [place] [address] 08/29/2025 8:30 AM CDT Appointment Department of Radiation Oncology in [place], [place] [address] [place] [address] Julio Cesar Rebolledo M.D. [address] [place] [address] 09/01/2025 8:30 AM CDT Appointment Department of Radiation Oncology in [place], [place] [address] [place] [address] Julio Cesar Rebolledo M.D. [address] [place] [address] 09/02/2025 8:30 AM CDT Appointment Department of Radiation Oncology in [place], [place] [address] [place] [address] Julio Cesar Rebolledo M.D. [address] [place] [address] 09/03/2025 8:30 AM CDT Appointment Department of Radiation Oncology in [address] [address] Julio Cesar Rebolledo M.D. [address] [place] [address] 09/03/2025 8:45 AM CDT Appointment Department of Radiation Oncology in [place], [place] [address] [place] [address] Julio Cesar Rebolledo M.D. [address] [place] [address] 09/04/2025 8:30 AM CDT Appointment Department of Radiation Oncology in [place], [place] [address] [place] [address] Julio Cesar Rebolledo M.D. [address] [place] [address] 09/05/2025 8:30 AM CDT Appointment Department of Radiation Oncology in [place], [place] [address] [place] [address] Julio Cesar Rebolledo M.D. [address] [place] [address] 09/08/2025 8:30 AM CDT Appointment Department of Radiation Oncology in [place], [place] [address] [place] [address] Julio Cesar Rebolledo M.D. [address] [place] [address] documented as of this encounter Visit Diagnoses Not on filedocumented in this encounter Additional Health Concerns Infection Onset Date Last Indicated Resolved Time Protective Environment 06/30/2025 06/30/2025 documented as of this encounter
--- OUTSIDE RECORDS SUMMARY | 2025-08-01 22:34 | XMS_ITS | Clinical Summary ---
Author Organization [facility] Address [address] [place] [address] Care Team Providers Care Compensation Advisor Name Role Phone Unavailable Primary Care Provider Unavailabl e Source Comments Patient records contain information from all sites at [facility]. For routine questions regarding patient records, call [phone] during business hours, M-F 8:00 AM - 5:00 PM Central Time. Record requests for emergency care only can be directed to [phone] at any time.[facility] Allergies No known active allergies Medications folic acid 1 mg tablet Take 1 mg by mouth daily. 4 Active methotrexate (TrexalL) 2.5 mg tablet Take 10 mg by mouth over 168 hr. 5 Active naloxone (Narcan) 4 mg/actuation nasal spray Administer 1 spray (4 mg total) into nostril(s) as needed for reversal. Use 1 spray in 1 nostril. Repeat with second device in other nostril after 2-3 minutes if no or minimal response. 2 each 5 Active oxyCODONE (Roxicodone) 5 mg immediate release tabletIndication s:Prolonged Acute Pain/Traumatic Injury Take 1 tablet (5 mg total) by mouth every 8 (eight) hours as needed for pain or severe pain or score 7-10 of 10 Indication: Prolonged Acute Pain/Traumatic Injury. 30 tablet 5 Active aspirin 81 mg chewable tablet 81 mg by Nasogastric route. 5 Active isosorbide mononitrate (Imdur) 30 mg 24 hr tablet Take 15 mg by mouth. 5 Active losartan (Cozaar) 25 mg tablet Take 12.5 mg by mouth daily. 5 Active metoprolol succinate (Toprol XL) 25 mg 24 hr tablet Take 25 mg by mouth daily. Active nitroglycerin (Nitrostat) 0.[address] 0.4 mg under the tongue every 5 (five) minutes as needed. Active rosuvastatin (Crestor) 20 mg tablet Take 20 mg by mouth at bedtime. Active spironolactone (Aldactone) 25 mg tablet Take 12.5 mg by mouth. Active ticagrelor (Brilinta) 90 mg tablet Take 90 mg by mouth. Active triazolam (Halcion) 0.25 mg tablet Take 0.25 mg by mouth. Active chlorhexidine (Peridex) 0.12 % mouthwash Take 15 mL by mouth. 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 04/11/2011 Encounters Date Type Department Care Team Description 08/01/2025 8:13 AM CDT Hospital Encounter Department of Radiation Oncology in [address] [address] Julio Cesar Rebolledo M.D. 08/01/2025 Orders Only Department of Radiation Oncology in [address] [address] Jamie Maria M.D. Malignant Neoplasm Of Tongue Base (HCC) (Primary Dx) 07/31/2025 11:00 AM CDT Hospital Encounter Department of Radiation Oncology in [address] [address] Julio Cesar Rebolledo M.D. 07/31/2025 10:00 AM CDT - 07/31/2025 10:59 AM CDT Hospital Encounter Department of Radiation Oncology in [address] [address] Julio Cesar Rebolledo M.D. Malignant Neoplasm Of Tongue Base (HCC) (Primary Dx) 07/30/2025 1:31 PM CDT Hospital Encounter Department of Radiation Oncology in [address] [address] Julio Cesar Rebolledo M.D. Moorhouse, Alexis E, R.NElba Malignant Neoplasm Of Tongue Base (HCC) (Primary Dx) 07/30/2025 1:31 PM CDT Hospital Encounter Department of Radiation Oncology in [address] [address] Julio Cesar Rebolledo M.D. 07/30/2025 Clinical Communication Department of Radiation Oncology in [address] [address] Michel Leach, Olga LidiaNElba 07/25/2025 8:10 AM CDT Hospital Encounter Department of Radiation Oncology in [address] [address] Julio Cesar Rebolledo M.D. 07/24/2025 8:10 AM CDT - 07/24/2025 9:28 AM CDT Hospital Encounter Department of Radiation Oncology in [address] [address] Julio Cesar Rebolledo M.D. Retterath, Chelsey A, R.N. Malignant Neoplasm Of Tongue Base (HCC) (Primary Dx) 07/24/2025 8:10 AM CDT - 07/24/2025 11:00 AM CDT Hospital Encounter Department of Radiation Oncology in [address] [address] Julio Cesar Rebolledo M.D. von Ruden, Kristi A, RDN, LD Malignant Neoplasm Of Tongue Base (HCC) (Primary Dx) 07/24/2025 8:10 AM CDT - 07/31/2025 8:40 AM CDT Hospital Encounter Department of Radiation Oncology in [address] [address] Julio Cesar Rebolledo M.D. Malignant Neoplasm Of Tongue Base (HCC) 07/24/2025 8:09 AM CDT Hospital Encounter Department of Radiation Oncology in [address] [address] Julio Cesar Rebolledo M.D. 07/23/2025 8:12 AM CDT Hospital Encounter Department of Radiation Oncology in [address] [address] Julio Cesar Rebolledo M.D. 07/22/2025 8:41 AM CDT - 07/22/2025 9:33 AM CDT Hospital Encounter Department of Radiation Oncology in [address] [address] Julio Cesar Rebolledo M.D. Myra Mead, M.S.W., L.I.C.S.W. Malignant Neoplasm Of Tongue Base (HCC) (Primary Dx) Discharge Disposition: Home or Self Care 07/22/2025 7:57 AM CDT Hospital Encounter Department of Radiation Oncology in [address] [address] Julio Cesar Rebolledo M.D. 07/21/2025 8:08 AM CDT Hospital Encounter Department of Radiation Oncology in [address] [address] Julio Cesar Rebolledo M.D. 07/15/2025 8:46 AM CDT - 07/15/2025 9:18 AM CDT Hospital Encounter Department of Radiation Oncology in [address] [address] Julio Cesar Rebolledo M.D. Malignant Neoplasm Of Tongue Base (HCC) 07/03/2025 Clinical Communication Department of Radiation Oncology in [address] [address] Julio Cesar Rebolledo M.D. 07/02/2025 12:30 PM CDT - 07/02/2025 2:34 PM CDT Hospital Encounter Department of Radiation Oncology in [place], [place] [address] [place] [address] Julio Cesar Rebolledo M.D. Malignant Neoplasm Of Tongue Base (HCC) 06/30/2025 8:46 AM CDT - 07/14/2025 5:41 PM CDT Hospital Encounter Department of Radiation Oncology in [place], [place] [address] [place] [address] Julio Cesar Rebolledo M.D. Malignant Neoplasm Of [...] things needed for daily living? No 07/22/2025 [facility] Utilities Answer Date Recorded In the past 12 months has [employer], gas, oil, or water company threatened to shut off services in your home? No 07/22/2025 Housing Stability Answer Date Recorded What is your living situation today? [facility] 07/22/2025 Sex and [...] CDT Appointment Department of Radiation Oncology in [address] [address] Julio Cesar Rebolledo M.D. [address] [place] [address] 08/04/2025 8:45 AM CDT Appointment Department of Radiation Oncology in [place], [place] [address] [place] [phone] Jamie Maria M.D. [address] [place] [address] 08/05/2025 8:30 AM CDT Appointment Department of Radiation Oncology in [place], [place] [address] [place] [address] Julio Cesar Rebolledo M.D. [address] [place] [address] 08/06/2025 8:30 AM CDT Appointment Department of Radiation Oncology in [place], [place] [address] [place] [address] Julio Cesar Rebolledo M.D. [address] [place] [address] 08/07/2025 8:30 AM CDT Appointment Department of Radiation Oncology in [place], [place] [address] [place] [address] Julio Cesar Rebolledo M.D. [address] [place] [address] 08/07/2025 9:00 AM CDT Appointment Department of Radiation Oncology in [address] [address] Julio Cesar Rebolledo M.D. [address] [place] [address] 08/07/2025 9:15 AM CDT Appointment Department of Radiation Oncology in [address] [address] Julio Cesar Rebolledo M.D. [address] [place] [address] 08/08/2025 8:30 AM CDT Appointment Department of Radiation Oncology in [address] [address] Julio Cesar Rebolledo M.D. [facility] [place] [address] 08/11/2025 8:30 AM CDT Appointment Department of Radiation Oncology in [address] [address] Julio Cesar Rebolledo M.D. [address] [place] [address] 08/12/2025 8:30 AM CDT Appointment Department of Radiation Oncology in [place], [place] [address] [place] [address] Julio Cesar Rebolledo M.D. [address] [place] [address] 08/13/2025 8:30 AM CDT Appointment Department of Radiation Oncology in [place], [place] [address] [place] [address] Julio Cesar Rebolledo M.D. [facility] [place] [address] 08/14/2025 8:30 AM CDT Appointment Department of Radiation Oncology in [address] [address] Julio Cesar Rebolledo M.D. [address] [place] [address] 08/14/2025 9:00 AM CDT Appointment Department of Radiation Oncology in [place] [address] [place] [address] Julio Cesar Rebolledo M.D. [address] [place] [address] 08/15/2025 8:30 AM CDT Appointment Department of Radiation Oncology in [place], [place] [address] [place] [address] Julio Cesar Rebolledo M.D. [address] [place] [address] 08/18/2025 8:30 AM CDT Appointment Department of Radiation Oncology in [place], [place] [address] [place] [address] Julio Cesar Rebolledo M.D. [address] [place] [address] 08/19/2025 8:30 AM CDT Appointment Department of Radiation Oncology in [place], [place] [address] [place] [address] Julio Cesar Rebolledo M.D. [address] [place] [address] 08/20/2025 8:30 AM CDT Appointment Department of Radiation Oncology in [address] [address] Julio Cesar Rebolledo M.D. [facility] [place] [address] 08/21/2025 8:30 AM CDT Appointment Department of Radiation Oncology in [place] [address] [place] [address] Julio Cesar Rebolledo M.D. [facility] [place] [address] 08/21/2025 9:00 AM CDT Appointment Department of Radiation Oncology in [place], [place] [address] [place] [address] Julio Cesar Rebolledo M.D. [address] [place] [address] 08/22/2025 8:30 AM CDT Appointment Department of Radiation Oncology in [address] [address] Julio Cesar Rebolledo M.D. [address] [place] [address] 08/25/2025 8:30 AM CDT Appointment Department of Radiation Oncology in [place], [place] [address] [facility] [place] [address] Julio Cesar Rebolledo M.D. [address] [place] [address] 08/26/2025 8:30 AM CDT Appointment Department of Radiation Oncology in [place], [place] [address] [place] [address] Julio Cesar Rebolledo M.D. [address] [place] [address] 08/27/2025 8:30 AM CDT Appointment Department of Radiation Oncology in [place], [place] [address] [place] [address] Julio Cesar Rebolledo M.D. [address] [place] [address] 08/28/2025 8:30 AM CDT Appointment Department of Radiation Oncology in [place], [place] [address] [place] [address] Julio Cesar Rebolledo M.D. [address] [place] [address] 08/28/2025 9:00 AM CDT Appointment Department of Radiation Oncology in [place], [place] [address] [place] [address] Julio Cesar Rebolledo M.D. [address] [place] [address] 08/29/2025 8:30 AM CDT Appointment Department of Radiation Oncology in [place], [place] [address] [place] [address] Julio Cesar Rebolledo M.D. [address] [place] [address] 09/01/2025 8:30 AM CDT Appointment Department of Radiation Oncology in [place], [place] [address] [place] [address] Julio Cesar Rebolledo M.D. [address] [place] [address] 09/02/2025 8:30 AM CDT Appointment Department of Radiation Oncology in [place], [place] [address] [place] [address] Julio Cesar Rebolledo M.D. [facility] [place] [address] 09/03/2025 8:30 AM CDT Appointment Department of Radiation Oncology in [place], [place] [address] [place] [address] Julio Cesar Rebolledo M.D. [facility] [place] [address] 09/03/2025 8:45 AM CDT Appointment Department of Radiation Oncology in [place], [place] [address] [place] [address] Julio Cesar Rebolledo M.D. [address] [place] [address] 09/04/2025 8:30 AM CDT Appointment Department of Radiation Oncology in [place], [place] [address] [place] [address] Julio Cesar Rebolledo M.D. [address] [place] [address] 09/05/2025 8:30 AM CDT Appointment Department of Radiation Oncology in [place], [place] [address] [place] [address] Julio Cesar Rebolledo M.D. [address] [place] [address] 09/08/2025 8:30 AM CDT Appointment Department of Radiation Oncology in [place], [place] [address] [place] [address] Julio Cesar Rebolledo M.D. [address] [place] [address] Health Maintenance Due Date Last Done Comments RSV vaccine - (32-36 weeks) or 60+ years (1 - 1-dose 75+ series) 2016 COVID-19 Vaccine (2 - Pfizer risk series) 09/05/2022 08/15/2022 Depression Screening (Annual PHQ-2) 11/27/2024 Fall Risk Screen (Annual) 11/27/2024 Influenza Vaccine (#1) 2025 , 08/30/2023, 08/15/2022, Additional history exists Creatinine Level (Kidney Function Test) 07/29/2026 07/29/2025, 07/28/2025, 07/27/2025, Additional history exists Potassium Level 07/29/2026 07/29/2025, 0 11/2024, 07/27/2025, Additional history exists Sodium Level 07/29/2026 07/29/2025, 0 11/2024, 07/27/2025, Additional history exists DTaP,Tdap,and Td Vaccines (2 [...] Diagnosis Comments ARIA DAILY TREATMENT INFORMATION Routine 08/01/2025 8:41 AM CDT ARIA DAILY TREATMENT INFORMATION Routine 07/31/2025 11:33 AM CDT ARIA DAILY TREATMENT INFORMATION Routine 07/30/2025 1:53 PM CDT ARIA DAILY TREATMENT INFORMATION Routine 07/25/2025 8:31 [...] Months Results * Aria Daily Treatment Information (08/01/2025 8:41 AM CDT) Only the most recent of8 resultswithin the time period is included. Course ID [id number] TOWNSEND ARIA Course Start Date 5 08:42 CDT TOWNSEND ARIA First Treatment Date 5 08:35 CDT TOWNSEND ARIA Last Treatment Date 5 08:41 CDT TOWNSEND ARIA Treatment Elapsed Days 11 TOWNSEND ARIA Reference Point [id number] TOWNSEND ARIA Dosage Given to Date cGy 1600 TOWNSEND ARIA Session Dosage Given 200 TOWNSEND ARIA Plan ID [id number] TOWNSEND ARIA Fractions Treated to Date 8 TOWNSEND ARIA Planned Total Fractions 35 TOWNSEND ARIA Prescribed Dose Per Fraction 200 TOWNSEND ARIA Prescription Dose in cGy 7000 TOW[place]END ARIA Plan Primary Reference Point [id number] TOWNSEND ARIA 08/01/2025 8:41 AM CDT us Provider Not In System RADIATION ONCOLOGY ORDERA BLES Final Result Performing Organization Address City/[facility] Co de Phone Number CARY VARGAS na * Verification/Re-Sim (07/15/2025 8:46 AM CDT) Narrative CARY VARGAS - 07/15/2025 8:46 AM CDT This exam does not require a oncologist review or interpretation. Please refer to the patient s medical record on this date for clinical details. us Julio Cesar Rebolledo M.D. RADIATION ONCOLOGY ORDER NAGI Final Result Performing Organization Address City/[facility]/ZIP Co de Phone Number CARY VARGAS na * Initial Rad Onc Treatment Planning CT Simulation (07/02/2025 12:30 PM CDT) Narrative CARY ALICIAA - 07/02/2025 12:30 PM CDT Julio Cesar [...] planning. CT images were transferred to the [facility] treatment planning system, after a reference isocenter was determined and marked. Segmentation and treatment planning will take place prior to treatment delivery. Patient set up and imaging was appropriate and completed without incident. 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 RADIATION ONCOLOGY ORDER NAGI Final Result TOWNSEND ALICIA na * Outside [place] Pet (06/27/2025 4:30 PM CDT) 06/30/2025 7:26 AM CDT Addenda Addendum by [employer], Outside on 06/30/2025 7:24 AM CDT BELOW REPORT RECEIVED BY [facility] ON 06/30/2025 09:08:50 [id number] For Patients: As a result of the 21st Century Cures Act, medical imaging exams and procedure reports are released immediately into your electronic medical record. You may view this report before your referring provider. If you have questions, please contact your health care provider. EXAM: PET CT SKULL BASE TO MID THIGH INITIAL TREAT LOCATION: [facility] DATE: 06/27/2025 INDICATION: Initial treatment planning and [...] Wilian Braswell RELEASED BY ANASTACIA Addendum by [employer], Outside on 06/30/2025 7:24 AM CDT BELOW REPORT RECEIVED BY [facility] ON 06/30/2025 09:07:51 [id number] For Patients: As a result of the Century Cures Act, medical imaging exams and procedure reports are released immediately into your electronic medical record. You may view this report before your referring provider. If you have questions, please contact your health care provider. EXAM: PET CT SKULL BASE TO MID THIGH INITIAL TREAT LOCATION: [facility] DATE: 06/27/2025 INDICATION: Initial treatment planning and [...] Wilian Braswell RELEASED BY ANASTACIA Addendum by [employer], Outside on 06/30/2025 7:24 AM CDT BELOW REPORT RECEIVED BY [facility] ON 06/30/2025 09:06:25 [id number] For Patients: As a result of the Cures Act, medical imaging exams and procedure reports are released immediately into your electronic medical record. You may view this report before your referring provider. If you have questions, please contact your health care provider. EXAM: PET CT SKULL BASE TO MID THIGH INITIAL TREAT LOCATION: [facility] DATE: 06/27/2025 INDICATION: Initial treatment planning [...] READ BY Wilian Braswell RELEASED BY ANASTACIA Narrative IMAGING - 06/30/2025 9:25 AM CDT This order has been created and auto-finalized to support the import of outside images. If available, original interpretation can be found on the Media Tab in Chart Review, in Document Viewer, as an image in InfinityView or as an Addendum. If a re-interpretation or overread is required please follow defined workflow. Procedure Note Digital [employer]ge, Outside - 06/30/2025 This order has been [...] 10:3 6 AM CDT Addenda Addendum by [employer], Outside on 06/13/2025 10:34 AM CDT BELOW REPORT RECEIVED BY [facility] ON 06/19/2025 15:16:26 [id number] For Patients: As a result of the 21st Century Cures Act, medical imaging exams and procedure reports are released immediately into your electronic medical record. You may view this report before your referring provider. If you have questions, please contact your health care provider. EXAM: 1. PERCUTANEOUS CORE NEEDLE BIOPSY LEFT NECK LYMPH NODE 2. ULTRASOUND GUIDANCE LOCATION: [facility] DATE: 06/13/2025 INDICATION: Neck Mass PROCEDURE: Informed written and verbal consent obtained. Site marked. Prior images reviewed. Required items made available. Patient identity confirmed verbally and with arm band. Patient reevaluated immediately before beginning the procedure. [place] protocol was followed. Time out performed. The [...] left neck lymph node. Reference CPT Code: 32451, 79622 READ BY J Luis Pascual So RELEASED BY SO Addendum by [employer], Outside on 06/13/2025 10:34 AM CDT BELOW REPORT RECEIVED BY [facility] ON 06/19/2025 15:15:52 [id number] For Patients: As a result of the 21st Century Cures Act, medical imaging exams and procedure reports are released immediately into your electronic medical record. You may view this report before your referring provider. If you have questions, please contact your health care provider. EXAM: 1. PERCUTANEOUS CORE NEEDLE BIOPSY LEFT NECK LYMPH NODE 2. ULTRASOUND GUIDANCE LOCATION: [facility] DATE: 06/13/2025 INDICATION: Neck Mass PROCEDURE: Informed written and verbal consent obtained. Site marked. Prior images reviewed. Required items made available. Patient identity confirmed verbally and with arm band. Patient reevaluated immediately before beginning the procedure. [place] protocol was followed. Time out performed. The [...] left neck lymph node. Reference CPT Code: 02928, 17423 READ BY J Luis Pascual So RELEASED [...] 10:1 8 PM CDT Addenda Addendum by [employer], Outside on 05/28/2025 10:18 PM CDT BELOW REPORT RECEIVED BY [facility] ON 06/19/2025 15:18:52 [id number] For Patients: As a result of the [...] Ric Kennedy RELEASED BY CAYDEN Addendum by [employer], Outside on 05/28/2025 10:18 PM CDT BELOW REPORT RECEIVED BY [facility] ON 06/19/2025 15:18:42 [id number] For Patients: As a result of the [...] Ric Kennedy RELEASED BY CAYDEN Addendum by [employer], Outside on 05/28/2025 10:18 PM CDT BELOW REPORT RECEIVED BY [facility] ON 06/19/2025 15:17:52 [id number] For Patients: As a result of the [...] READ BY Ric Kennedy RELEASED BY CAYDEN Narrative IMAGING - 06/19/2025 3:32 PM CDT This [...] Last Indicated Protective Environment 06/30/2025 5 Insurance [facility]
--- OUTSIDE RECORDS SUMMARY | 2025-08-01 22:34 | XMS_ITS ---
Author Organization [facility] Address [address] [place] [address] Care Team Providers Care Supervisor Coal Handling Name Role Phone Unavailable Primary Care Provider [...] Treatment Site Technique Goal Episode Provider 07/21/2025 08/01/2025 Midline Head and neck IMRT Curative * Linked Problems Malignant Neoplasm Of Tongue Base Treatment Courses* Course 1xOpx 07/21/2025 - 08/01/2025 Treatment Period Fraction Dose Fractions Total Dose Plans Planned F1Opx 07/21/2025 - 08/01/2025 200 cGy / 35 7 ,000 cGy Reference Points Delivered [id number] 07/21/2025 - 08/01/2025 1,600 cGy
--- OUTSIDE RECORDS SUMMARY | 2025-08-01 22:34 | XMS_ITS | Encounter Summary ---
Author Organization [facility] Address [address] [place] [id number] Care Team Providers Care Crew Leader/Control Room Operator Name Role Phone Unavailable Primary Care Provider Unavailabl e Reason for Referral * Radiation Therapy (Routine) - Authorized Specialty Diagnoses / Procedures Referred By Norma t Referred To Contact Diagnoses Malignant Neoplasm Of Tongue Base (HCC) Procedures Verification/Re-Sim Jamie Maria M.D. [address] [place] [phone] Phone: tel: fax: [facility] Region Referral ID Status Reason Start Date Expiration Date V isits Requested Visits Authorized [id number] Authorized 08/01/2025 11/01/2026 1 1 Encounter Details Date Type Department Care Team (Late st Contact Info) Description 08/01/2025 Orders Only Department of Radiation Oncology in [address] [phone] Jamie Maria M.D. [address] [place] [phone] Malignant Neoplasm Of Tongue Base (HCC) (Primary [...] things needed for daily living? No 07/22/2025 [facility] Utilities Answer Date Recorded In the past 12 months has e electric, gas, oil, or water [employer] threatened to shut off services in your home? No 07/22/2025 Housing Stability Answer Date Recorded What is your living situation today? I have a [facility] place to live 07/22/2025 Sex and [...] CDT Appointment Department of Radiation Oncology in [address] [address] Julio Cesar Rebolledo M.D. [address] [place] [address] 08/04/2025 8:45 AM CDT Appointment Department of Radiation Oncology in [address] [phone] Jamie Maria M.D. 200 [place] [address] 08/05/2025 8:30 AM CDT Appointment Department of Radiation Oncology in [place], [place] [address] [place] [address] Julio Cesar Rebolledo M.D. [address] [place] [address] 08/06/2025 8:30 AM CDT Appointment Department of Radiation Oncology in [place], [place] [address] [place] [phone] Julio Cesar Rebolledo M.D. [facility] [place] [address] 08/07/2025 8:30 AM CDT Appointment Department of Radiation Oncology in [place], [place] [address] [place] [address] Julio Cesar Rebolledo M.D. [facility] [place] [address] 08/07/2025 9:00 AM CDT Appointment Department of Radiation Oncology in [place], [place] [address] [place] [phone] Julio Cesar Rebolledo M.D. [address] [place] [address] 08/07/2025 9:15 AM CDT Appointment Department of Radiation Oncology in [place], [place] [address] [place] [address] Julio Cesar Rebolledo M.D. [address] [place] [address] 08/08/2025 8:30 AM CDT Appointment Department of Radiation Oncology in [place], [place] [address] [place] [address] Julio Cesar Rebolledo M.D. [address] [place] [address] 08/11/2025 8:30 AM CDT Appointment Department of Radiation Oncology in [place], [place] [address] [place] [address] Julio Cesar Rebolledo M.D. [address] [place] [address] 08/12/2025 8:30 AM CDT Appointment Department of Radiation Oncology in [address] [address] Julio Cesar Rebolledo M.D. [facility] [place] [address] 08/13/2025 8:30 AM CDT Appointment Department of Radiation Oncology in [place], [place] [address] [place] [address] Julio Cesar Rebolledo M.D. [facility] [place] [address] 08/14/2025 8:30 AM CDT Appointment Department of Radiation Oncology in [place], [place] [address] [place] [address] Julio Cesar Rebolledo M.D. [facility] [place] [address] 08/14/2025 9:00 AM CDT Appointment Department of Radiation Oncology in [place], [place] [address] [place] [address] Julio Cesar Rebolledo M.D. [facility] [place] [address] 08/15/2025 8:30 AM CDT Appointment Department of Radiation Oncology in [place], [place] [address] [facility] [place] [address] Julio Cesar Rebolledo M.D. [address] [place] [address] 08/18/2025 8:30 AM CDT Appointment Department of Radiation Oncology in [place], [place] [address] [place] [address] Julio Cesar Rebolledo M.D. [facility] [place] [address] 08/19/2025 8:30 AM CDT Appointment Department of Radiation Oncology in [place], [place] [address] [place] [address] Julio Cesar Rebolledo M.D. [address] [place] [address] 08/20/2025 8:30 AM CDT Appointment Department of Radiation Oncology in [address] [address] Julio Cesar Rebolledo M.D. [address] [place] [address] 08/21/2025 8:30 AM CDT Appointment Department of Radiation Oncology in [place], [place] [address] [place] [address] Julio Cesar Rebolledo M.D. [facility] [place] [address] 08/21/2025 9:00 AM CDT Appointment Department of Radiation Oncology in [address] [place] [address] Julio Cesar Rebolledo M.D. [address] [place] [address] 08/22/2025 8:30 AM CDT Appointment Department of Radiation Oncology in [place], [place] [address] [place] [address] Julio Cesar Rebolledo M.D. [address] [place] [address] 08/25/2025 8:30 AM CDT Appointment Department of Radiation Oncology in [place] [address] [place] [address] Julio Cesar Rebolledo M.D. [facility] [place] [address] 08/26/2025 8:30 AM CDT Appointment Department of Radiation Oncology in [address] [address] Julio Cesar Rebolledo M.D. [facility] [place] [address] 08/27/2025 8:30 AM CDT Appointment Department of Radiation Oncology in [place], [place] [address] [place] [address] Julio Cesar Rebolledo M.D. [address] [place] [address] 08/28/2025 8:30 AM CDT Appointment Department of Radiation Oncology in [address] [address] Julio Cesar Rebolledo M.D. [address] [place] [address] 08/28/2025 9:00 AM CDT Appointment Department of Radiation Oncology in [place], [place] [address] [place] [address] Julio Cesar Rebolledo M.D. [address] [place] [address] 08/29/2025 8:30 AM CDT Appointment Department of Radiation Oncology in [address] [address] Julio Cesar Rebolledo M.D. [facility] [place] [address] 09/01/2025 8:30 AM CDT Appointment Department of Radiation Oncology in [address] [address] Julio Cesar Rebolledo M.D. [facility] [place] [address] 09/02/2025 8:30 AM CDT Appointment Department of Radiation Oncology in [address] [address] Julio Cesar Rebolledo M.D. [address] [place] [address] 09/03/2025 8:30 AM CDT Appointment Department of Radiation Oncology in [address] [address] Julio Cesar Rebolledo M.D. [address] [place] [address] 09/03/2025 8:45 AM CDT Appointment Department of Radiation Oncology in [address] [address] Julio Cesar Rebolledo M.D. [address] [place] [address] 09/04/2025 8:30 AM CDT Appointment Department of Radiation Oncology in [place], [place] [address] [place] [address] Julio Cesar Rebolledo M.D. [address] [place] [address] 09/05/2025 8:30 AM CDT Appointment Department of Radiation Oncology in [place], [place] [address] [place] [address] Julio Cesar Rebolledo M.D. [facility] [place] [address] 09/08/2025 8:30 AM CDT Appointment Department of Radiation Oncology in [place], [place] [address] [place] [address] Julio Cesar Rebolledo M.D. [facility] [place] [place] [address] documented as of this encounter Visit Diagnoses Diagnosis Malignant Neoplasm Of Tongue Base (HCC)- Primary documented in this encounter Additional Health Concerns Infection Onset Date Last Indicated Resolved Time Protective Environment 06/30/2025 06/30/2025 documented as of this encounter
--- OUTSIDE RECORDS SUMMARY | 2025-08-01 22:35 | XMS_ITS | Encounter Summary ---
Author Organization [facility] Address [address] [place] [address] Care Team Providers Care Cleaning And Washing Equipment Operator Name Role Phone Unavailable Primary Care Provider Unavailabl e Encounter Details Date Type Department Care Team (Late st Contact Info) Description 07/03/2025 Clinical Communication Department of Radiation Oncology in [place], [place] [address] [place] [phone] Julio Cesar Rebolledo M.D. [address] [place] [phone] Social History Tobacco Use Types Packs/Day Years [...] Mr. Orr. She can be reached at [phone]. documented in this encounter Plan of Treatment Upcoming Encounters Date Type Department Care Team (Late st Contact Info) Description 08/04/2025 8:30 AM CDT Appointment Department of Radiation Oncology in [place], [place] [address] [place] [phone] Julio Cesar Rebolledo M.D. [address] [place] [address] 08/04/2025 8:45 AM CDT Appointment Department of Radiation Oncology in [place], [place] [address] [place] [phone] Jamie Maria M.D. [address] [place] [address] 08/05/2025 8:30 AM CDT Appointment Department of Radiation Oncology in [place], [place] [address] [place] [address] Julio Cesar Rebolledo M.D. [facility] [place] [address] 08/06/2025 8:30 AM CDT Appointment Department of Radiation Oncology in [address] [address] Julio Cesar Rebolledo M.D. [address] [place] [address] 08/07/2025 8:30 AM CDT Appointment Department of Radiation Oncology in [address] [address] Julio Cesar Rebolledo M.D. [facility] [place] [address] 08/07/2025 9:00 AM CDT Appointment Department of Radiation Oncology in [address] [address] Julio Cesar Rebolledo M.D. [address] [place] [address] 08/07/2025 9:15 AM CDT Appointment Department of Radiation Oncology in [place], [place] [address] [place] [address] Julio Cesar Rebolledo M.D. [address] [place] [address] 08/08/2025 8:30 AM CDT Appointment Department of Radiation Oncology in [place], [place] [address] [place] [address] Julio Cesar Rebolledo M.D. [address] [place] [address] 08/11/2025 8:30 AM CDT Appointment Department of Radiation Oncology in [address] [address] Julio Cesar Rebolledo M.D. [facility] [place] [address] 08/12/2025 8:30 AM CDT Appointment Department of Radiation Oncology in [place] [address] [place] [address] Julio Cesar Rebolledo M.D. [facility] [place] [address] 08/13/2025 8:30 AM CDT Appointment Department of Radiation Oncology in [place], [place] [address] [place] [address] Julio Cesar Rebolledo M.D. [address] [place] [address] 08/14/2025 8:30 AM CDT Appointment Department of Radiation Oncology in [address] [address] Julio Cesar Rebolledo M.D. [facility] [place] [address] 08/14/2025 9:00 AM CDT Appointment Department of Radiation Oncology in [place], [place] [address] [facility] [place] [address] Julio Cesar Rebolledo M.D. [address] [place] [address] 08/15/2025 8:30 AM CDT Appointment Department of Radiation Oncology in [place], [place] [address] [place] [address] Julio Cesar Rebolledo M.D. [address] [place] [address] 08/18/2025 8:30 AM CDT Appointment Department of Radiation Oncology in [place], [place] [address] [place] [address] Julio Cesar Rebolledo M.D. [address] [place] [address] 08/19/2025 8:30 AM CDT Appointment Department of Radiation Oncology in [place], [place] [address] [place] [address] Julio Cesar Rebolledo M.D. [address] [place] [address] 08/20/2025 8:30 AM CDT Appointment Department of Radiation Oncology in [place], [place] [address] [place] [address] Julio Cesar Rebolledo M.D. [address] [place] [address] 08/21/2025 8:30 AM CDT Appointment Department of Radiation Oncology in [place], [place] [address] [place] [address] Julio Cesar Rebolledo M.D. [address] [place] [address] 08/21/2025 9:00 AM CDT Appointment Department of Radiation Oncology in [place], [place] [address] [place] [address] Julio Cesar Rebolledo M.D. [address] [place] [address] 08/22/2025 8:30 AM CDT Appointment Department of Radiation Oncology in [address] [address] Julio Cesar Rebolledo M.D. [facility] [place] [address] 08/25/2025 8:30 AM CDT Appointment Department of Radiation Oncology in [place], [place] [address] [place] [address] Julio Cesar Rebolledo M.D. [facility] [place] [address] 08/26/2025 8:30 AM CDT Appointment Department of Radiation Oncology in [place], [place] [address] [place] [address] Julio Cesar Rebolledo M.D. [address] [place] [address] 08/27/2025 8:30 AM CDT Appointment Department of Radiation Oncology in [place], [place] [address] [place] [address] Julio Cesar Rebolledo M.D. [facility] [place] [address] 08/28/2025 8:30 AM CDT Appointment Department of Radiation Oncology in [place], [place] [address] [facility] [address] Julio Cesar Rebolledo M.D. [address] [place] [address] 08/28/2025 9:00 AM CDT Appointment Department of Radiation Oncology in [place], [place] [address] [place] [address] Julio Cesar Rebolledo M.D. [address] [place] [address] 08/29/2025 8:30 AM CDT Appointment Department of Radiation Oncology in [place], [place] [address] [place] [address] Julio Cesar Rebolledo M.D. [facility] [place] [address] 09/01/2025 8:30 AM CDT Appointment Department of Radiation Oncology in [address] [address] Julio Cesar Rebolledo M.D. [address] [place] [address] 09/02/2025 8:30 AM CDT Appointment Department of Radiation Oncology in [place], [place] [address] [place] [address] Julio Cesar Rebolledo M.D. [facility] [place] [address] 09/03/2025 8:30 AM CDT Appointment Department of Radiation Oncology in [address] [address] Julio Cesar Rebolledo M.D. [address] [facility] [place] [address] 09/03/2025 8:45 AM CDT Appointment Department of Radiation Oncology in [place], [place] [address] [facility] [place] [address] Julio Cesar Rebolledo M.D. [address] [place] [address] 09/04/2025 8:30 AM CDT Appointment Department of Radiation Oncology in [place], [place] [address] [facility] [place] [address] Julio Cesar Rebolledo M.D. [address] [place] [address] 09/05/2025 8:30 AM CDT Appointment Department of Radiation Oncology in [place], [place] [address] [facility] [address] Julio Cesar Rebolledo M.D. [address] [place] [address] 09/08/2025 8:30 AM CDT Appointment Department of Radiation Oncology in [place], [place] [address] [facility] [address] Julio Cesar Rebolledo M.D. [address] [place] [address] documented as of this encounter Visit Diagnoses Not on filedocumented in this encounter Additional Health Concerns Infection Onset Date Last Indicated Resolved Time Protective Environment 06/30/2025 06/30/2025 documented as of this encounter
--- OUTSIDE RECORDS SUMMARY | 2025-08-01 22:35 | XMS_ITS | Clinical Summary ---
Author Organization [employer] [facility] [employer] Address [address] [place] [id number] Care Team Providers Care Gum Puller Name Role Phone Kallie Rosales MD Primary Care Prov ider Katie Nevarez NP Unavailable Annika Gray MD Unavailable [phone] Allergies Active Allergy Reactions Criticality Noted Date Comments Oxycodone-Acetaminophen Nausea And Vomiting Low Medications chlorhexidine (PERIDEX) 0.12 % solution Swish and spit 15 mL by mouth two times daily. recent oral extractions 07/05/20 25 Active ondansetron (ZOFRAN) 4 mg tablet Take 4 mg by mouth. 07/02/20 25 Active prochlorperazine (COMPAZINE) 5 mg tablet Take 5 mg by mouth. Has not taken medication per spouse's recollection 07/02/20 25 Active triazolam (HALCION) 0.25 mg tablet Take 0.25 mg by mouth. 07/05/20 25 Active aspirin chewable 81 mg tabletIndications: ST elevation myocardial infarction involving left anterior descending (LAD) coronary artery (HC) Take 1 Tablet (81 mg) by mouth or nasogastric tube once daily. 100 Tablet 3 5 3:18 PM CDT 07/30/20 25 Active losartan (COZAAR) 25 mg tabletIndications: Ischemic cardiomyopathy Take 0.5 Tablets (12.5 mg) by mouth once daily. 45 Tablet 3 5 3:18 PM CDT 07/29/20 25 Active metoprolol succinate (TOPROL XL) 25 mg Sustained-Release tabletIndications: ST elevation myocardial infarction involving left anterior descending (LAD) coronary artery (HC),Ischemic cardiomyopathy Take 1 Tablet (25 mg) by mouth once daily. 90 Tablet 3 5 3:18 PM CDT 07/30/20 25 Active nitroglycerin 0.4 mg sublingual tabletIndications: Coronary artery disease involving [place] coronary artery of [place] heart with unstable angina pectoris (HC) Place 1 Tablet (0.4 mg) under the tongue every 5 minutes if needed for Chest pain 1st choice (Hold if SBP less than 90 mmHg). Up to 3 tablets in 15 minutes. 25 Tablet 3 5 3:18 PM CDT 07/29/20 25 Active rosuvastatin (CRESTOR) 20 mg tabletIndications: ST elevation myocardial infarction involving left anterior descending (LAD) coronary artery (HC) Take 1 Tablet (20 mg) by mouth at bedtime. 90 Tablet 3 5 3:18 PM CDT 07/29/20 25 Active ticagrelor (BRILINTA) 90 mg tabletIndications: S/P drug eluting coronary stent placement Take 1 Tablet (90 mg) by mouth two times daily. 60 Tablet 11 5 3:18 PM CDT 07/29/20 25 Active isosorbide mononitrate (IMDUR) 30 mg extended release tablet 24 HourIndications:Co ronary artery disease involving [place] coronary artery of [place] heart with unstable angina pectoris (HC) Take 1 Tablet (30 mg) by mouth once daily. 90 Tablet 3 08/01/20 25 Active folic acid 1 mg tabletIndications: Psoriasis Take 1 Tablet (1 mg) by mouth once daily. 90 Tablet 08/28/20 24 025 Discontin ued(*Neisha ent states no longer taking) methotrexate (RHEUMATREX) 2.5 mg tabletIndications: Psoriasis,High risk medication use Take 4 Tablets (10 mg) by mouth once weekly. 64 Tablet 1 12/18/19 25 025 Discontin ued(Reord er (E-cancel not sent)) methotrexate (RHEUMATREX) 2.5 mg tabletIndications: Psoriasis,High risk medication use Take 4 Tablets (10 mg) by mouth once weekly. 32 Tablet 07/15/20 25 025 Discontin ued(*Neisha ent states no longer taking) ibuprofen (ADVIL; MOTRIN) 200 mg tablet Take 200 mg by mouth one time if needed for Pain. 07/02/20 25 025 Discontin ued(*IP Discontin ued) potassium chloride (KLOR-CON M20) 20 mEq extended-release tablet (part/cryst) Take 20 mEq by mouth once daily with a meal. 025 Discontin ued(*IP Discontin ued) isosorbide mononitrate (IMDUR) 30 mg extended release tablet 24 HourIndications:Co ronary artery disease involving blue [place] coronary artery of [place] heart with unstable angina pectoris (HC) Take 0.5 Tablets (15 mg) by mouth once daily. 90 Tablet 3 5 3:18 PM CDT 07/29/20 25 025 Discontin ued(*Medi cation adjustmen t) spironolactone 25 mg tabletIndications: Ischemic cardiomyopathy Take 0.5 Tablets (12.5 mg) by mouth once daily in the morning. 45 Tablet 3 5 3:18 PM CDT 07/30/20 25 025 Discontin ued(*Med complete/ Regimen complete/ Level of care change) Active Problems Problem Noted Date Diagnosed Date Ischemic cardiomyopathy 07/29/2025 Overview (07/29/2025): LVEF 29% per CMR 07/29/25 ST elevation myocardial infa rction involving left anterior descending (LAD) coronary artery 07/27/2025 Overview (08/01/2025): Mid and distal left anterior descending stents were placed. Post AR echocardiogram showed ejection fraction 35-40% with wall motion abnormalities of anterior wall and septum Needs contrast for echocardiograms in the future as he is high risk of thrombus. Consider adding SGLT2i in outpatient setting. Repeat echocardiogram after 3 months of optimal medical therapy and consider an ICD then. Dual antiplatelet therapy for 12 months Repeat lipids in September 2025. 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 Residual CAD: 60% stenosis in the 2nd Marginal, 50% stenosis in the RPDA 07/27/25 S/P drug eluting coronary stent placement 2024 Overview (07/29/2025): Late Presentation Anterior STEMI s/p drug eluting stents to mid and distal LAD 07/27/25 Malignant neoplasm of tongue 07/15/2025 Raynaud's phenomenon 04/11/2011 GERD (gastroesophageal reflux disease) 1 Overview (04/11/2011): Presumptive diagnosis after negative stress echocardiogram. 04/11/2011 Elevated blood pressure read ing without diagnosis of hypertension 03/28/2011 Encounters Date Type Department Care Team Description 08/01/2025 10:55 AM CDT Office Visit [facility] [address] [place] [address] Max Ramires MD Hospital F/U (Recent heart attack) 08/01/2025 Travel 07/30/2025 Telephone [facility] [address] [place] [address] Kallie Rosales MD Questions 07/30/2025 Telephone [facility] [address] [place] [address] Kallie Rosales MD Return Call (Return Call) 07/30/2025 Patient Outreach [facility] [address] [place] [address] Minda Ko, RN Primary RN Care Management; Hospital F/U (LACE 59) 07/27/2025 12:53 PM CDT - 07/29/2025 3:30 PM CDT Hospital Encounter 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 [address] [place] [address] Cameron Guerrero MD 07/15/2025 7:50 AM CDT Office Visit [facility] [address] [place] [address] Kallie Rosales MD Blood Pressure (Elevated blood pressure ) 07/15/2025 Telephone [facility] [address] [address] Ijeoma Renteria MD Medication Management (methotrexate (RHEUMATREX) 2.5 mg tablet) 07/15/2025 Travel 07/13/2025 Refill [facility] [address] [address] Ijeoma Renteria MD Refill Request (Methotrexate) 06/30/2025 Telephone [facility] [address] [facility] [address] [place] [address] Myrna Forrest PA Results 06/27/2025 2:52 PM CDT - 06/27/2025 11:59 PM CDT Hospital Encounter [facility] [address] [place] [address] Avery Holland MD 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 Travel 06/18/2025 Orders Only [facility] [address] [place], [place] [id number] Avery Holland MD <No scans attached> 06/17/2025 Telephone [facility] [address] [place] [address] Avery Holland MD Questions (Lump) 06/13/2025 8:31 AM CDT - 06/13/2025 11:59 PM CDT Hospital Encounter [facility] [address] [place] [address] Avery Holland MD Neck mass 06/13/2025 Travel 06/09/2025 Telephone [facility] [address] [place] [address] Avery Holland MD Follow Up 06/05/2025 11:40 AM CDT Office Visit [facility] [address] [place] [address] Avery Holland MD Consult (neck mass) 06/04/2025 Travel 06/03/2025 Telephone [facility] [address] [place] [address] Kallie Rosales MD Appointment (EVARISTO REFERRAL ) 05/29/2025 Telephone [facility] [address] [place] [address] Kallie Rosales MD Results 05/28/2025 3:30 PM CDT Ancillary Procedure [facility] [address] [place] [address] 05/27/2025 8:15 AM CDT Ancillary Procedure [facility] [address] [place] [address] 05/27/2025 Telephone [facility] [address] [place] [address] Kallie Rosales MD Results 05/27/2025 Travel 05/22/2025 Travel 05/14/2025 12:50 PM CDT Office Visit [facility] [address] [place] [address] Kallie Rosales MD Lump (Left side of neck) 05/13/2025 Travel 05/12/2025 Telephone [facility] [address] [place] [address] Kallie Rosales MD Appointment Request from Last 3 Months Immunizations Immunization Administration Dates Next Due COVID-19 vaccine ([employer] 30mcg/0.3mL) 12YO+ BIVALENT PF, MDV 08/15/2022 HepA-HepB [...] or isolated from those around you? 0 07/27/2025 Financial Resource Strain Answer Date R ecorded Difficulty of Paying Living Expenses 3 05/13/2025 Difficulty of Paying Living Expenses Not on file 05/13/2025 Food Insecurity Answer Date Recorded Do you worry your food will run out before you are able to buy more? 1 07/27/2025 Transportation Needs Answer Date Record ed Does lack of transportation keep you from medica l appointments? 1 07/27/2025 Does lack of transportation keep you from work, meetings or getting things that you need? 1 07/27/2025 Housing Stability Answer Date Recorded What is your housing situation today? 1 07/27/2025 Interpersonal Safety Answer Date Record ed Are you being hit, kicked, p ushed or yelled at (see row info)? No 07/27/2025 Interpersonal Safety Abuse 12 - 18 Not on file 07/27/2025 Interpersonal Safety Ambulatory Vulnerability No t on file 07/27/2025 Utilities Answer Date Recorded Do you have trouble paying f or utilities (for example, heat, electricity, water, phone)? 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 Not on file Not on file Not o n file Obstetrics History Last Filed Vital Signs Vital Sign Reading Time Taken Comments Blood Pressure 102/66 08/01/2025 11:10 AM CDT Pulse 73 08/01/2025 11:10 AM CDT Temperature 36.1 C (97 F) 08/01/2025 11:10 AM CDT Respiratory Rate 18 07/29/2025 8:33 AM CDT Oxygen Saturation 100% 08/01/2025 11:10 AM CDT Inhaled Oxygen Concentration - - Weight 68.7 kg (151 lb 8 oz) 08/01/2025 11:10 AM CDT Height 170.2 cm (5' 7) 05/14/2025 1:04 PM CDT Body Mass Index 23.73 05/14/2025 1:04 PM CDT Plan of Treatment Upcoming Encounters Date Type Department Care Team (Late st Contact Info) Description 08/06/2025 10:05 AM CDT Office Visit [facility] [address] [place] [address] Max Ramires MD [address] [place] [address] 08/20/2025 2:00 PM CDT Ancillary Procedure [facility] [address] [place] [address] 08/26/2025 1:00 PM CDT Office Visit [facility] [address] [facility] [address] [place] [address] Luzmaria Michaels PA [address] [facility] [address] [place] [address] 10/01/2025 8:00 AM LITERACY EDUCATION PROFESSOR Orders Only [facility] [address] [place] [address] Lab, [facility] Maintenance Due Date Last Done Comments RSV vaccine for adults or (1 - 1-dose 75+ series) 2016 Hepatitis B series for 19+ ( 3 of 3 - 19+ 3-dose series) 03/19/2020 11/26/2019, 09/18/2019 COVID-19 vaccine series (7 - Pfizer risk 2023- season) 2025 08/09/2024, 09/22/2023, 08/15/2022, Additional history [...] Procedure Name Priority Date/Time Associated Diagnosis Comments HI READING EKG - NO CHARGE, COMP ONLY Routine 08/01/2025 12:[address] elevation myocardial infarction involving left anterior descending (LAD) coronary artery (HC) EKG 12 LEAD Routine 08/01/2025 11:[address] elevation myocardial infarction involving left anterior descending (LAD) coronary artery (HC) MR CARDIAC WWO Routine 07/29/2025 9:56 AM CDT LIPID PANEL Early AM 07/29/2025 7:40 AM CDT HEPATIC FUNCTION PANEL Early AM 07/29/2025 7:40 AM CDT HEMOGLOBIN Early AM 07/29/2025 7:40 AM CDT CREATININE Early AM 07/29/2025 7:40 AM CDT POTASSIUM Early AM 07/29/2025 7:40 AM CDT SODIUM Early AM 07/29/2025 7:40 AM CDT SCAN-CARDIAC STRIP 07/29/2025 6: 57 AM CDT SCAN-CARDIAC STRIP 07/29/2025 4: 25 AM CDT SCAN-CARDIAC STRIP 07/28/2025 8: 54 PM CDT CVL CORONARY ANGIOGRAM POSS PCI Routine 07/28/2025 6:31 PM CDT EKG 12 LEAD STAT 07/28/2025 5:07 PM CDT EKG 12 LEAD Routine 07/28/2025 10:49 AM CDT ECHO TTE COMPLETE W CONTRAST Routine 07/28/2025 10:04 AM CDT SCAN-CARDIAC STRIP 07/28/2025 7: 30 AM CDT EKG 12 LEAD Early AM 07/28/2025 7:12 AM CDT LIPID PANEL Early AM 07/28/2025 6:53 AM CDT HEMOGLOBIN A1C Early AM 07/28/2025 6:53 AM CDT HEPATIC FUNCTION PANEL Early AM 07/28/2025 6:53 AM CDT MAGNESIUM Early AM 07/28/2025 6:53 AM CDT BASIC METABOLIC PANEL Early AM 07/28/2025 6:53 AM CDT SCAN-CARDIAC STRIP 07/28/2025 5: 00 AM CDT EKG 12 LEAD STAT 07/28/2025 12:41 AM CDT SCAN-CARDIAC STRIP 07/27/2025 11 :29 PM CDT SCAN-CARDIAC STRIP 07/27/2025 10 :37 PM CDT OSMOLALITY,URINE Today 07/27/2025 6:21 PM CDT SODIUM,RANDOM URINE Today 07/27/2025 6 :21 PM CDT OSMOLALITY EVARISTO 07/27/2025 3:56 PM CDT BASIC METABOLIC PANEL Today 07/27/2025 3:56 PM CDT CBC W PLT NO DIFF Today 07/27/2025 3:5 6 PM CDT EKG 12 LEAD STAT 07/27/2025 2:13 PM CDT HCHG ACTIVATED CLOTTING TM CV Timed 07/27/2025 1:58 PM CDT HCHG ACTIVATED CLOTTING TM CV Timed 07/27/2025 1:14 PM CDT HCHG ACTIVATED CLOTTING TM CV Timed 07/27/2025 1:00 PM CDT CVL CORONARY ANGIOGRAM POSS PCI Routine 07/27/2025 12:54 PM CDT SCAN-RADIOLOGY REPORT 07/27/2025 12:[address] SKULL BASE TO MID THIGH [...] neck from Last 3 Months Results * HI READING EKG - NO CHARGE, COMP ONLY (08/01/2025 12:01 PM CDT) Max Ramires MD PB - PROVIDER READINGS Fin al Result * EKG 12 LEAD (08/01/2025 11:58 AM CDT) Only the most recent of6 resultswithin the time period is included. us Max Ramires MD EKG ORD Final Resu lt * MR CARDIAC WWO (07/29/2025 9:56 AM CDT) Anatomical Region Laterality Modality HEART, THORAX Magnetic Resonan ce 07/29/2025 9:07 AM CDT Narrative 07/29/2025 12:33 PM CDT [facility] CMR Report Name: SIENA ORR : Scan Date: Accession Number: [id number] Status: Final Electronically signed by Jaguar Bishop 12:33:18 VITALS ===== HEIGHT: 67 in (170 cm) WEIGHT: 148 lbs (67 kgs) BSA: 1.78 m^2 FINAL IMPRESSION ===== 1. The left ventricle global systolic function is severely reduced with an LV ejection fraction calculated at 29%. A. Upper limit of normal cavity size with mild LVH. B. Akinesis in the mid to distal LAD territory. 2. The right ventricle is normal in cavity size, wall thickness, and systolic function. 3. Delayed enhancement imaging demonstrates: A. Significant microvascular obstruction in the mid to distal LAD territory, noted on early silvano and persistent on late silvano. B. There is significant elevation in T2 map values in the mid to apical septal and anterior segments including true apex compatible with myocardial edema. C. Transmural LGE in the mid to apical anterior including true apex and apical inferior segments. These findings are compatible with an acute myocardial infarction in the LAD territory (LAD type IV wrap around). 4. Viability: A. LAD: basal segments are viable, minimal viability in the mid and distal LAD territory. B. LCX: viable. C. RCA: viable. 5. No intracardiac thrombus visualized but patient at increased risk of apical thrombus due to apical/true apex complete infarction. Conclusion: Acute myocardial infarction in the mid to distal LAD (type IV wrap around) with evidence of persistent microvascular obstruction and significant myocardial edema. Akinesis of these segments with severely reduced LV function, LVEF 29%. SUMMARY ===== LEFT VENTRICLE: There is concentric LVH. There is mild LV hypertrophy. Quantitative LVEF 29 %. LV cavity size is upper limits of normal. LV systolic function is regionally impaired. There is no LV mass/thrombus. VIABILITY: LV scar size is 35 %. RIGHT VENTRICLE: RV wall thickness is normal. RV cavity size is normal. RV systolic function is normal. There is no RV mass/thrombus. Quantitative RVEF 55 %. LV/RV SEPTUM: The LV/RV septum is normal. LA/RA SEPTUM: The LA/RA septum is normal. LEFT ATRIUM: LA cavity size is normal. There is no LA mass/thrombus. RIGHT ATRIUM: RA is mildly enlarged. There is no RA mass/thrombus. PERICARDIUM: Status post pericardiectomy. There is no pericardial effusion. PLEURAL EFFUSION: There is no pleural effusion. AORTIC VALVE: Aortic valve is mildly thickened. There is mild aortic regurgitation. MITRAL VALVE: Mitral valve leaflets are normal. There is mild mitral regurgitation. TRICUSPID VALVE: Tricuspid valve leaflets are normal. There is mild tricuspid regurgitation. PULMONIC VALVE: Pulmonic valve leaflets are normal. There is trivial pulmonic regurgitation. AORTIC ROOT: The aortic root is normal. OTHER FINDINGS: Ascending aorta 42 x 41 mm (axial). CORE EXAM ===== MEASUREMENTS ----- --- VOLUMETRIC ANALYSIS . . LV Reference RV Reference +------+--------+-----+ +----+ + EDV ml 171 98 ml/m^2 96 55 ESV ml 121 44 ml/m^2 68 25 CO MASS g 144 g/m^2 81 SV ml 50 54 ml/m^2 28 30 EF % 29 55 '------+--------+-----+ +----+ ' LV DIMENSIONS WALL THICKNESS - ANTEROSEPTAL: 1.3 cm WALL THICKNESS - MAXIMUM: 1.3 cm LA DIMENSIONS (LV SYSTOLE) VOLUME: 43 ml VOLUME NORMALIZED: 24.2 ml/m^2 RA DIMENSIONS (RV SYSTOLE) VOLUME: 68 ml VOLUME NORMALIZED: 38.2 ml/m^2 17 SEGMENT ----- --- . ----- ------. Segments Wall Motion Hyperenhancement Stress Perfusion Interpretation + + + + +----- ----- ------+ Base Anterior Normal/Hyper 1-25% Base Anteroseptal Normal/Hyper None Base Inferoseptal Normal/Hyper None Base Inferior Normal/Hyper None Base Inferolateral Normal/Hyper None Base Anterolateral Normal/Hyper None Mid Anterior Akinetic 51-75% Mid Anteroseptal Severe Hypo 76-100% Mid Inferoseptal Severe Hypo 51-75% Mid Inferior Normal/Hyper None Mid Inferolateral Normal/Hyper None Mid Anterolateral Normal/Hyper None Apical Anterior Akinetic 76-100% Apical Septal Akinetic 76-100% Apical Inferior Normal/Hyper 51-75% Apical Lateral Normal/Hyper 26-50% [place] Akinetic 76-100% + + + + +----- ----- ------+ RV Segments Wall Motion Hyperenhancement Interpretation + + + + +----- ----- ------+ RV Basal Anterior Normal/Hyper None RV Basal Inferior Normal/Hyper None RV Mid Normal/Hyper None RV Apical Normal/Hyper None ' + + + +----- ----- ------' FINDINGS LV SCAR SIZE (17 SEGMENT): 35 % SCAN INFO ===== GENERAL ----- --- SCANNER PHOTOFLASH POWDER MIXER: SIEMENS MODEL: Aera CONTRAST AGENT TYPE: Gadavist GD CONCENTRATION: 1.0 M SETUP REFERRING PHYSICIAN: PROVIDER REFERRING ATTENDING PHYSICIAN: GILA LARIOS BILLING ===== Patient Account [id number] Report generated by [employer], a product of [employer] Procedure Note Fitz Gao MD - 07/29/2025 [facility] CMR Report Name: SIENA ORR : Scan Date: Accession Number: [id number] Status: Final Electronically signed by Jaguar Bishop 12:33:18 VITALS ===== HEIGHT: 67 in (170 cm) WEIGHT: 148 lbs (67 kgs) BSA: 1.78 m^2 FINAL IMPRESSION ===== 1. The left ventricle global systolic function is severely reduced with anLV ejection fraction calculated at 29%. A. Upper limit of normal cavity size with mild LVH. B. Akinesis in the mid to distal LAD territory. 2. The right ventricle is normal in cavity size, wall thickness, andsystolic function. 3. Delayed enhancement imaging demonstrates: A. Significant microvascular obstruction in the mid to distal LADterritory, noted on early silvano and persistent on late silvano. B. There is significant elevation in T2 map values in the mid toapical septal and anterior segments including true apex compatible with myocardial edema. C. Transmural LGE in the mid to apical anterior including true apexand apical inferior segments. These findings are compatible with an acute myocardial infarction in theLAD territory (LAD type IV wrap around). 4. Viability: A. LAD: basal segments are viable, minimal viability in the mid anddistal LAD territory. B. LCX: viable. C. RCA: viable. 5. No intracardiac thrombus visualized but patient at increased risk ofapical thrombus due to apical/true apex complete infarction. Conclusion: Acute myocardial infarction in the mid to distal LAD (type IVwrap around) with evidence of persistent microvascular obstruction and significant myocardial edema.Akinesis of these segments with severely reduced LV function, LVEF 29%. SUMMARY ===== LEFT VENTRICLE: There is concentric LVH. There is mild LV hypertrophy.Quantitative LVEF 29 %. LV cavity size is upper limits of normal. LV systolic function is regionally impaired. There is noLV mass/thrombus. VIABILITY: LV scar size is 35 %. RIGHT VENTRICLE: RV wall thickness is normal. RV cavity size is normal. RVsystolic function is normal. There is no RV mass/thrombus. Quantitative RVEF 55 %. LV/RV SEPTUM: The LV/RV septum is normal. LA/RA SEPTUM: The LA/RA septum is normal. LEFT ATRIUM: LA cavity size is normal. There is no LA mass/thrombus. RIGHT ATRIUM: RA is mildly enlarged. There is no RA mass/thrombus. PERICARDIUM: Status post pericardiectomy. There is no pericardialeffusion. PLEURAL EFFUSION: There is no pleural effusion. AORTIC VALVE: Aortic valve is mildly thickened. There is mild aorticregurgitation. MITRAL VALVE: Mitral valve leaflets are normal. There is mild mitralregurgitation. TRICUSPID VALVE: Tricuspid valve leaflets are normal. There is mildtricuspid regurgitation. PULMONIC VALVE: Pulmonic valve leaflets are normal. There is trivialpulmonic regurgitation. AORTIC ROOT: The aortic root is normal. OTHER FINDINGS: Ascending aorta 42 x 41 mm (axial). CORE EXAM ===== MEASUREMENTS ----- --- VOLUMETRIC ANALYSIS . . LV Reference RV Reference +------+--------+-----+ +----+ + EDV ml 171 98 ml/m^2 96 55 ESV ml 121 44 ml/m^2 68 25 CO MASS g 144 g/m^2 81 SV ml 50 54 ml/m^2 28 30 EF % 29 55 '------+--------+-----+ +----+ ' LV DIMENSIONS WALL THICKNESS - ANTEROSEPTAL: 1.3 cm WALL THICKNESS - MAXIMUM: 1.3 cm LA DIMENSIONS (LV SYSTOLE) VOLUME: 43 ml VOLUME NORMALIZED: 24.2 ml/m^2 RA DIMENSIONS (RV SYSTOLE) VOLUME: 68 ml VOLUME NORMALIZED: 38.2 ml/m^2 17 SEGMENT ----- --- . ----- ------. Segments Wall Motion Hyperenhancement Stress Perfusion Interpretation + + + + +----- ----- ------+ Base Anterior Normal/Hyper 1-25% Base Anteroseptal Normal/Hyper None Base Inferoseptal Normal/Hyper None Base Inferior Normal/Hyper None Base Inferolateral Normal/Hyper None Base Anterolateral Normal/Hyper None Mid Anterior Akinetic 51-75% Mid Anteroseptal Severe Hypo 76-100% Mid Inferoseptal Severe Hypo 51-75% Mid Inferior Normal/Hyper None Mid Inferolateral Normal/Hyper None Mid Anterolateral Normal/Hyper None Apical Anterior Akinetic 76-100% Apical Septal Akinetic 76-100% Apical Inferior Normal/Hyper 51-75% Apical Lateral Normal/Hyper 26-50% [place] Akinetic 76-100% + + + + +----- ----- ------+ RV Segments Wall Motion Hyperenhancement Interpretation + + + + +----- ----- ------+ RV Basal Anterior Normal/Hyper None RV Basal Inferior Normal/Hyper None RV Mid Normal/Hyper None RV Apical Normal/Hyper None ' + + + +----- ----- ------' FINDINGS LV SCAR SIZE (17 SEGMENT): 35 % SCAN INFO ===== GENERAL ----- --- SCANNER PHOTOFLASH POWDER MIXER: SIEMENS MODEL: Aera CONTRAST AGENT TYPE: Gadavist GD CONCENTRATION: 1.0 M SETUP REFERRING PHYSICIAN: PROVIDER REFERRING ATTENDING PHYSICIAN: GILA LARIOS BILLING ===== Patient Account [id number] Report generated by Precession, a product of [employer] us April Kaur BAG SEALER MR Final R esult * (ABNORMAL) HEMOGLOBIN (07/29/2025 7:40 AM CDT) [facility] HEMOGLOBIN 11.7(L) 13.5 - 17.5 g/dL 07/29/2025 8:05 AM CDT [facility] MCV 94 80 - 100 fL 07/29/2025 8:05 AM CDT [facility] Blood BLOOD SPECIMEN / Unknown Venipuncture / Unknown 07/29/2025 7:40 AM CDT 07/29/2025 7:55 AM CDT Elpidio Meneses DO HEMATOLOGY Dalila l Result Performing Organization Address [facility] Co de Phone Number [facility] [address] [address], [place] * (ABNORMAL) SODIUM (07/29/2025 7:40 AM CDT) SODIUM 133(L) 136 - 145 mmol/L 07/29/2025 8:25 AM CDT [facility] Blood BLOOD SPECIMEN / Unknown Venipuncture / Unknown 07/29/2025 7:40 AM CDT 07/29/2025 7:55 AM CDT Elpidio Meneses CHEMISTRY Dalila l Result Performing Organization Address [facility] de Phone Number [facility] [address] [place] [address], [place] * POTASSIUM (07/29/2025 7:40 AM CDT) POTASSIUM 4.0 3.5 - 5.1 mmol/L 07/29/2025 8:25 AM CDT [facility] Blood BLOOD SPECIMEN / Unknown Venipuncture / Unknown 07/29/2025 7:40 AM CDT 07/29/2025 7:55 AM CDT Elpidio Meneses CHEMISTRY Dalila l Result Performing Organization Address City/[facility] Co de Phone Number [facility] [address] [place] [address], [place] * (ABNORMAL) CREATININE (07/29/2025 7:40 AM CDT) eGFR 74(L) >90 mL/min/1.7 3m2 07/29/2025 8:25 AM CDT [facility] Comment:As of 2022, eG FR is calculated by the CKD-EPI creatinine equation without race adjustment. eGFR can be influenced by muscle mass, exercise, and diet. The reported eGFR is an estimation only and is only applicable if the renal function is stable. CREATININE 1.01 0.70 - 1.20 mg/dL 07/29/2025 8:25 AM CDT [facility] Blood BLOOD SPECIMEN / Unknown Venipuncture / Unknown 07/29/2025 7:40 AM CDT 07/29/2025 7:55 AM CDT Elpidio Meneses DO CHEMISTRY Dalila l Result [facility] [address] [place] [address], [place] * (ABNORMAL) HEPATIC FUNCTION PANEL (07/29/2025 7:40 AM CDT) Only the most recent of2 resultswithin the time period is included. ALBUMIN 3.4(L) 4.0 - 4.9 g/dL 07/29/2025 8:25 AM CDT [facility] PROTEIN,TOTAL 7.2 6.0 - 8.0 g/dL 07/29/2025 8:25 AM CDT [facility] BILIRUBIN,TOTAL 0.4 0.0 - 1.2 mg/dL 07/29/2025 8:25 AM CDT [facility] BILIRUBIN,DIRECT 0.1 0.0 - 0.2 mg/dL 07/29/2025 8:25 AM CDT [facility] BILIRUBIN,INDIRE CT 0.3 0.2 - 0.8 mg/dL 07/29/2025 8:25 AM CDT [facility] ALK PHOSPHATASE 72 40 - 129 IU/L 07/29/2025 8:25 AM CDT [facility] ALT (SGPT) 35 10 - 50 IU/L 07/29/2025 8:25 AM CDT [facility] AST (SGOT) 151(H) 10 - 50 IU/L 07/29/2025 8:25 AM CDT [facility] Blood BLOOD SPECIMEN / Unknown Venipuncture / Unknown 07/29/2025 7:40 AM CDT 07/29/2025 7:55 AM CDT Elpidio Varela Gideon DO CHEMISTRY Dalila l Result [facility] [address] [place] [address], * (ABNORMAL) Lipid Panel (07/29/2025 7:40 AM CDT) Only the most recent of2 resultswithin the time period is included. [facility] CHOLESTEROL,TOTAL 125 100 - 199 mg/dL 07/29/2025 8:25 AM CDT [facility] Comment: Cholesterol, Total Reference Ranges Desirable <200 mg/dL Borderline 200-239 mg/dL High >=240 mg/dL TRIGLYCERIDES 117 <150 mg/dL 07/29/2025 8:25 AM CDT [facility] HDL CHOLESTEROL 38(L) >40 mg/dL 8:25 AM CDT [facility] NON-HDL CHOLESTEROL 87 <145 mg/dl 07/29/2025 8:25 AM CDT [facility] CHOL/HDL RATIO 3.29 <4.50 07/29/2025 8:25 AM CDT [facility] LDL CHOLESTEROL 64 <=130 mg/dL 07/29/2025 8:25 AM CDT [facility] VLDL CHOLESTEROL 23 <=30 mg/dL 07/29/2025 8:25 AM CDT [facility] PROVIDER ORDERED STATUS RANDOM 07/29/2025 8:25 AM CDT [facility] Blood BLOOD SPECIMEN / Unknown Venipuncture / Unknown 07/29/2025 7:40 AM CDT 07/29/2025 7:55 AM CDT us Drew Villa MD CHEMISTRY Final Result [facility] [address] [place] [address], [place] * SCAN-CARDIAC STRIP (07/29/2025 6:57 AM CDT) us Scanner OTHER Final Result * SCAN-CARDIAC STRIP (07/29/2025 4:25 AM CDT) us Scanner OTHER Final Result * SCAN-CARDIAC STRIP (07/28/2025 8:54 PM CDT) us Scanner OTHER Final Result * CVL CORONARY ANGIOGRAM POSS PCI (07/28/2025 6:31 PM CDT) Anatomical Region Laterality Modality X-Ray Angiograph y, X-Ray Angiography 07/28/2025 6:31 PM CDT Narrative Transcriptions Drew Villa MD - 07/28/2025 7:13 PM CDT [facility] Cardiac Catheterization Report Name: SIENA ORR Event Date: 07/28/2025 18:31 Excellian ID #: [id number] MALDONADO #: [id number] Diagnostic Physician: DREW VILLA [facility] Interventional Physician: DREW VILLA [facility] Referring Physician: Kallie Rosales Date: 1940 Gender: Male Age: 84 Summary/Conclusions PRESENTATION / INDICATIONS * Recurrent chest pain after PCI for STEMI VASCULAR ACCESS * Using ultrasound guidance and a percutaneous technique, the right commonfemoral artery was accessed. Ultrasound was used to confirm vesselpatency, localizing needle into the lumen of the vessel. An image wassaved for the medical record. DIAGNOSTIC - CORONARY * Multivessel coronary disease (80% right PDA, 70% mid LAD, 70% OM1, 70%OM2) - no significant change compared with angiogram done yesterday SPECIAL PROCEDURES * Right femoral arteriotomy was successfully closed utilizing a closuredevice RECOMMENDATIONS & PLAN * Medical Rx Consent & Chapman Protocol The risks, benefits, and alternatives of the procedure were discussed withthe patient and written informed consent was obtained. Chapman protocol was followed. TIME OUT conducted just prior tostarting procedure confirmed patient identity, site/side, procedure,patient position, and availability of correct equipment and implants (ifapplicable). Staff Name Title DREW VILLA Diagnostic [employer] Tr[employer] Workers Gem Lan RN Nurse Mana Richter RN Nurse Indigo Patel CVT Monitor Blair Choi CVT Value Stream Coach Guillaume Ricardo CVT Scrub DREW VILLA Vice President Of Procurement Procedures ? Ultrasound Guided Vascular Access ? Femoral Angio for Possible Closure Device ? Coronary Angiogram ? Femoral Closure Device Diagnostic Findings * Left Main Coronary Artery ? The LMCA is free of significant disease. * Left Anterior Descending ? 70% stenosis in the Mid LAD. * Circumflex ? 70% stenosis in the 1st Marginal. ? 70% stenosis in the 2nd Marginal. * Right Coronary Artery ? 40% stenosis in the Proximal RCA. ? 30% stenosis in the Distal RCA. ? 80% stenosis in the RPDA. Lesion Information Lesion # Vessel Segment Lesion Length Lesion Details Proximal RCA 1st Marginal 2nd Marginal Mid LAD RPDA Distal RCA Hemodynamics State: Baseline Pressures (mmHg) Site Systolic Diastolic End Diastolic A Wave V Wave Mean AO 94 48 97 Procedure Details Estimated Blood Loss: < 30 ml Specimen Collected: None Level of Sedation Achieved: Moderate Procedure Start: 18:31 Procedure End: 18:58 Procedure Time: 27 min Fluoroscopy Time: 2.6 min Cumulative Air Kerma: 412 mGy DAP: 2489 uGy/M2 Contrast: Omnipaque (low-osmolar), 80 ml Physiologic Data Weight: 66.0 kg BSA: 1.77 m2 Vascular Access Time Access Sheath Size 18:33 Right Femoral Artery, sheath inserted Complications ? No Complications Medications Ordered and Administered Start Time Stop Time Medication Dose Units Route Ordered By Given By 18:29 Fentanyl 50 mcg IV Drew Villa Heather RN 18:29 Versed 1 mg IV Drew Villa Heather RN 18:33 1% Lidocaine 5 ml Subcut Drew Villa S Kenny Villa I personally monitored the patient?s conscious sedation during theprocedure. Conscious sedation starts with the first sedation medication dose ofFentanyl or Versed and ends when the procedure is completed, the patientis stable for recovery status, and the physician or other qualified healthcare professional providing the sedation ends personal [id number] time with the patient. The medications listed above were verbally ordered by me and read back tome as documented above. Refer to the procedure log report for additional case details. electronically signed on 07/28/2025 7:13:28 PM with status of Final Drew Villa MD [facility] [address] [place] [address] (p) [phone]) us Provider Referring CV IMAGING Edited Result - Final * ECHO TTE COMPLETE W CONTRAST (07/28/2025 10:04 AM CDT) AORTIC VALVE MEAN PG 11 mmHg EJECTION FRACTION 40 % LVEDD 4.1 cm EJECTION FRACTION 35 - 40% Anatomical Region Laterality Modality Ultrasound 07/28/2025 9:06 AM CDT Narrative 07/28/2025 1:42 PM CDT ECHOCARDIOGRAM SIENA ORR : 1940 84 years Study Date: 07/28/2025 9:06:28 AM Gender: M BP: 120/72 mmHg Height: 170.00 cm BSA: 1.77 m Weight: 66.00 kg Tech: Referring MD: YOLIS DOTY Site: [facility] Reading Location: [facility] Patient Location: Inpatient. Procedure: Color Doppler, Spectral Doppler and 2D w/ Contrast. Indication for study: Acute AR Cardiac Rhythm: Tachycardic.Study quality: Fair. Final Impressions: 1. Normal LV size, normal wall thickness, moderately reduced global systolic function with an estimated EF of 35 - 40%. 2. Mid and distal anterior wall, mid and distal anterior septum, and mid septum segment are abnormal. 3. The aortic valve is calcified and trileaflet, mild to moderate stenosis and mild regurgitation. The aortic valve peak velocity is 2.2 m/s, the peak gradient is 20 mmHg, and the mean gradient is 11 mmHg. The aortic valve area is 1.68 cm with a dimensionless index of 0.44. The stroke volume index is 33.4 ml/m . 4. Echo contrast was administered to enhance visualization of all left ventricular segments. Chamber Sizes and Function Normal left ventricular size, normal wall thickness, moderately reduced global systolic function with an estimated EF of 35 - 40%. Left atrial size is normal. Right ventricular cavity size is normal, global systolic RV function is normal. The right atrium is normal. Right atrial volume index is 20 ml/m . The pulmonary artery is of normal size and origin. The sinus of Valsalva is normal sized. The ascending aorta is borderline. The mid and distal anterior wall, mid and distal anterior septum, and mid septum segment are akinetic. Valves, RV Pressures and Diastolic Function The aortic valve is calcified and trileaflet, mild to moderate stenosis and mild regurgitation. The mitral valve is sclerotic, mild mitral regurgitation. Indeterminate pattern of LV diastolic filling. The tricuspid valve is normal in structure, mild tricuspid regurgitation. The pulmonic valve is normal. Mild pulmonary regurgitation. Masses, Effusion, Shunts There is no pericardial effusion. The inferior vena cava is normal sized, respiratory size variation greater than 50%. No left to right shunting was detected by limited color flow Doppler interrogation of the interatrial septum. MEASUREMENTS AND CALCULATIONS 2-D Measurements and LV Function: LVID (d) 4.1 cm LV FS% (2D) 17 % LVID (s) 3.4 cm LVOT diameter 2.2 cm IVS (d) 0.8 cm HR 115 bpm LVPW (d) 1.0 cm LA Vol index 29 ml/m2 Ao Sinus 3.9 cm RA Vol index 20 ml/m2 Ao Sinus ULN 4.1 cm * RV Basal Diam 3.7 cm Asc Ao 4.1 cm Asc Ao ULN 4.2 cm * * Input age outside of range, reported values correspond to Age = 81 Diastology: Mitral Tissue Doppler E Peak 0.5 m/s e', Lateral 0.06 m/s A Peak 1.0 m/s E/A 0.5 DT 168 msec Aortic Valve: Vmax 2.2 m/s JENNIFER (V) 1.58 cm VTI 0.35 m JENNIFER (I) 1.68 cm LVOT V max 0.9 m/s Max PG 20 mmHg LVOT VTI 0.16 m Mean PG 11 mmHg SV 59 ml Dim Index 0.44 SV index 33 ml/m CO 6.8 l/min CI 3.8 l/min/m Mitral Valve: MVA 4.5 cm MV P 1/2 49 msec Tricuspid Valve and estimated PA pressures: TAPSE 1.1 cm Contrast documentation: 2 ml diluted Definity, lot #[id number], [facility]# [id number] was administered peripherally to enhance visualization of all left ventricular segments. . This study was interpreted by an [facility] accredited facility. Final Procedure Note Amrit Conley MD - 07/28/2025 ECHOCARDIOGRAM SIENA ORR : 1940 84 years Study Date: 07/28/2025 9:06:28 AM Gender: M BP: 120/72 mmHg Height: 170.00 cm BSA: 1.77 m Weight: 66.00 kg Tech: Referring MD: YOLIS DOTY Site: [facility] Reading Location: [facility] Patient Location: Inpatient. Procedure: Color Doppler, Spectral Doppler and 2D w/ Contrast. Indication for study: Acute AR Cardiac Rhythm: Tachycardic.Study quality: Fair. Final Impressions: 1. Normal LV size, normal wall thickness, moderately reduced globalsystolic function with an estimated EF of 35 - 40%. 2. Mid and distal anterior wall, mid and distal anterior septum, and midseptum segment are abnormal. 3. The aortic valve is calcified and trileaflet, mild to moderatestenosis and mild regurgitation. The aortic valve peak velocity is 2.2m/s, the peak gradient is 20 mmHg, and the mean gradient is 11 mmHg. Theaortic valve area is 1.68 cm with a dimensionless index of 0.44. Thestroke volume index is 33.4 ml/m . 4. Echo contrast was administered to enhance visualization of all leftventricular segments. Chamber Sizes and Function Normal left ventricular size, normal wall thickness, moderately reducedglobal systolic function with an estimated EF of 35 - 40%. Left atrialsize is normal. Right ventricular cavity size is normal, global systolicRV function is normal. The right atrium is normal. Right atrial volumeindex is 20 ml/m . The pulmonary artery is of normal size and origin. Thesinus of Valsalva is normal sized. The ascending aorta is borderline. Themid and distal anterior wall, mid and distal anterior septum, and midseptum segment are akinetic. Valves, RV Pressures and Diastolic Function The aortic valve is calcified and trileaflet, mild to moderate stenosisand mild regurgitation. The mitral valve is sclerotic, mild mitralregurgitation. Indeterminate pattern of LV diastolic filling. Thetricuspid valve is normal in structure, mild tricuspid regurgitation. Thepulmonic valve is normal. Mild pulmonary regurgitation. Masses, Effusion, Shunts There is no pericardial effusion. The inferior vena cava is normal sized,respiratory size variation greater than 50%. No left to right shunting wasdetected by limited color flow Doppler interrogation of the interatrialseptum. MEASUREMENTS AND CALCULATIONS 2-D Measurements and LV Function: LVID (d) 4.1 cm LV FS% (2D) 17% LVID (s) 3.4 cm LVOT diameter2.2 cm IVS (d) 0.8 cm HR115 bpm LVPW (d) 1.0 cm LA Vol index 29ml/m2 Ao Sinus 3.9 cm RA Vol index 20ml/m2 Ao Sinus ULN 4.1 cm * RV Basal Diam3.7 cm Asc Ao 4.1 cm Asc Ao ULN 4.2 cm * * Input age outside of range, reported values correspond to Age = 81 Diastology: Mitral Tissue Doppler E Peak 0.5 m/s e', Lateral 0.06 m/s A Peak 1.0 m/s E/A 0.5 DT 168 msec Aortic Valve: Vmax 2.2 m/s JENNIFER (V) 1.58 cm VTI 0.35 m JENNIFER (I) 1.68 cm LVOT V max 0.9 m/s Max PG 20 mmHg LVOT VTI 0.16 m Mean PG 11 mmHg SV 59 ml Dim Index 0.44 SV index 33 ml/m CO 6.8 l/min CI 3.8 l/min/m Mitral Valve: MVA 4.5 cm MV P 1/2 49 msec Tricuspid Valve and estimated PA pressures: TAPSE 1.1 cm Contrast documentation: 2 ml diluted Definity, lot #[id number], [facility]#[id number] was administered peripherally to enhance visualization of allleft ventricular segments. . This study was interpreted by an [facility] accredited facility. Final Yolis Doty MD ECHO ORD Final R esult * SCAN-CARDIAC STRIP (07/28/2025 7:30 AM CDT) Scanner OTHER Final Result * Hemoglobin A1C Screening - in AM (07/28/2025 6:53 AM CDT) HEMOGLOBIN A1C SCREENING 6.3 <=6.4 % 07/29/2025 3:43 PM CDT [facility] Blood BLOOD SPECIMEN / Unknown Butterfly / Unknown 07/28/2025 6:53 AM CDT 07/28/2025 7:33 AM CDT Narrative [facility] - 07/29/2025 3:43 PM CDT (<5.7%) Normal (5.7% to 6.4%) Indicates prediabetes (>=6.5%) Confirms diabetes Falsely low levels may be seen with: Recent Transfusion, Recent Significant Blood Loss, Hemolytic Diseases, or Falsely elevated levels may be seen with: Untreated Anemias, Splenectomy Yolis Doty MD CHEMISTRY Final R esult [facility] [address] [place] [address], * Magnesium - In AM (07/28/2025 6:53 AM CDT) MAGNESIUM 2.0 1.6 - 2.4 mg/dL 07/28/2025 8:04 AM CDT [facility] Blood BLOOD SPECIMEN / Unknown Butterfly / Unknown 07/28/2025 6:53 AM CDT 07/28/2025 7:33 AM CDT us Yolis Doty MD CHEMISTRY Final R esult [facility] [address] [place] [address], * (ABNORMAL) Basic Metabolic Panel - In AM (07/28/2025 6:53 AM CDT) Only the most recent of2 resultswithin the time period is included. SODIUM 131(L) 136 - 145 mmol/L 07/28/2025 8:04 AM CDT [facility] POTASSIUM 4.9 3.5 - 5.1 mmol/L 07/28/2025 8:04 AM T [facility] CHLORIDE 99 98 - 107 mmol/L 07/28/2025 8:04 AM T [facility] CO2,TOTAL 21(L) 22 - 29 mmol/L 07/28/2025 8:04 AM T [facility] ANION GAP 11 5 - 18 07/28/2025 8:04 AM [facility] GLUCOSE 112(H) 70 - 99 mg/dL 07/28/2025 8:04 AM T [facility] CALCIUM 9.4 8.8 - 10.4 mg/dL 07/28/2025 8:04 AM T [facility] Comment: Reference ranges for this test were updated on 10/01/2024 to reflect our healthy population more accurately. Reference range changes are not retroactively applied to results, but previous results using the same methodology can be interpreted in the context of the new reference range. BUN 22 8 - 23 mg/dL 07/28/2025 8:04 AM T [facility] CREATININE 0.81 0.70 - 1.20 mg/dL 07/28/2025 8:04 AM CDT [facility] BUN/CREAT RATIO 27(H) 10 - 20 8:04 AM CDT [facility] eGFR 87(L) >90 mL/min/1. 73m2 07/28/2025 8:04 AM CDT [facility] Comment:As of 2022, eG FR is calculated by the CKD-EPI creatinine equation without race adjustment. eGFR can be influenced by muscle mass, exercise, and diet. The reported eGFR is an estimation only and is only applicable if the renal function is stable. Blood BLOOD SPECIMEN / Unknown Butterfly / Unknown 07/28/2025 6:53 AM CDT 07/28/2025 7:33 AM CDT us Yolis Doty MD CHEMISTRY Final R esult [facility] [address] [place] [address], * SCAN-CARDIAC STRIP (07/28/2025 5:00 AM CDT) us Scanner OTHER Final Result * SCAN-CARDIAC STRIP (07/27/2025 11:29 PM CDT) us Scanner OTHER Final Result * SCAN-CARDIAC STRIP (07/27/2025 10:37 PM CDT) us Scanner OTHER Final Result * Sodium, urine TODAY (07/27/2025 6:21 PM CDT) SODIUM,RANDOM URINE 25 mmol/L 07/27/2025 7:03 PM CDT [facility] Comment:No Reference Range D efined. Urine URINE SPECIMEN / Unknown Non-Blood / Unknown 07/27/2025 6:21 PM CDT 07/27/2025 6:28 PM CDT us Julio Cesar Rivas MD URINE Final Res ult [facility] [address] [place] [address], [place] * Osmolality, urine TODAY (07/27/2025 6:21 PM CDT) OSMOLALITY,URI NE 236 50 - 1,400 mOsmol/kg 07/27/2025 7:00 PM CDT [facility] Urine URINE SPECIMEN / Unknown Non-Blood / Unknown 07/27/2025 6:21 PM CDT 07/27/2025 6:28 PM CDT Julio Cesar Rivas MD URINE Final Res ult Performing Organization Address [facility]/ZIP Co de Phone Number [facility] [address] [place] [address], [place] * (ABNORMAL) CBC W PLT NO DIFF (07/27/2025 3:56 PM CDT) WHITE BLOOD COUNT 8.9 4.5 - 11.0 thou/cu mm 07/27/2025 4:20 PM CDT [facility] RED BLOOD COUNT 4.21(L) 4.30 - 5.90 mil/cu mm 07/27/2025 4:20 PM CDT [facility] HEMOGLOBIN 13.0(L) 13.5 - 17.5 g/dL 07/27/2025 4:20 PM CDT [facility] HEMATOCRIT 39.5 37.0 - 53.0 % 07/27/2025 4:20 PM CDT [facility] MCV 94 80 - 100 fL 07/27/2025 4:20 PM CDT [facility] MCH 30.9 26.0 - 34.0 pg 07/27/2025 4:20 PM CDT [facility] MCHC 32.9 32.0 - 36.0 g/dL 07/27/2025 4:20 PM CDT [facility] RDW 14.3 11.5 - 15.5 % 07/27/2025 4:20 PM CDT [facility] PLATELET COUNT 266 140 - 440 thou/cu mm 07/27/2025 4:20 PM CDT [facility] MPV 10.3 6.5 - 11.0 fL 07/27/2025 4:20 PM CDT [facility] NRBC 0.0 % 07/27/2025 4:20 PM CDT [facility] ABS NRBC 0.0 thou /cu mm 07/27/2025 4:20 PM CDT [facility] Blood BLOOD SPECIMEN / Unknown Venipuncture / Unknown 07/27/2025 3:56 PM CDT 07/27/2025 4:16 PM CDT us Yolis Doty MD HEMATOLOGY Final R esult Performing Organization Address City/[facility]/ZIP Co de Phone Number [facility] [address] [place] [phone], [place] * Osmolality, serum TODAY (07/27/2025 3:56 PM CDT) Pathologist [facility] OSMOLALITY 283 275 - 300 mOsmol/kg 07/27/2025 5:22 PM CDT [facility] Blood BLOOD SPECIMEN / Unknown Venipuncture / Unknown 07/27/2025 3:56 PM CDT 07/27/2025 4:16 PM CDT us Julio Cesar Rivas MD CHEMISTRY Final Res ult [facility] [address] [address], [place] * (ABNORMAL) ACTIVATED CLOTTING TIME [id number] ACT (07/27/2025 1:58 PM CDT) Only the most recent of3 resultswithin the time period is included. ACTIVATED CLOTTING TIME, POCT 853(H) 74 - 125 sec 07/27/2025 2:07 PM CDT [facility] Blood BLOOD SPECIMEN / Unknown 07/27/2025 1:58 PM CDT 07/27/2025 2:07 PM CDT us Provider Referring HEMATOLOGY Final Result [facility] [address] [place] [address], [place] * CVL CORONARY ANGIOGRAM POSS PCI (07/27/2025 12:54 PM CDT) Anatomical Region Laterality Modality X-Ray Angiograph y, X-Ray Angiography 07/27/2025 12:5 4 PM CDT Narrative Transcriptions Sami Kaur MD, PhD - 07/27/2025 2:05 PM CDT [facility] Cardiac Catheterization Report Name: SIENA ORR Event Date: 07/27/2025 12:54 Excellian ID #: [id number] MALDONADO #: [id number] Diagnostic Physician: SAMI KAUR [facility] Interventional Physician: SAMI KAUR [facility] Referring Physician: Kallie Rosales Date: 1940 Gender: Male Age: 84 Summary/Conclusions PRESENTATION / INDICATIONS * STEMI VASCULAR ACCESS * Using ultrasound guidance and a percutaneous technique, the right radialartery was accessed. Ultrasound was used to confirm vessel patency,localizing needle into the lumen of the vessel. An image was saved for themedical record. DIAGNOSTIC - CORONARY * Two vessel coronary disease (LAD and OM1) in a right dominant system * Acute thrombotic occlusion of the mid LAD (culprit for AMI) INTERVENTION * Successful IVUS guided stenting (drug eluting) of the proximal LAD witha 2.1mrj26ef Ruben stent. Following pre-stent balloon angioplasty there wasembolization of thrombotic material to the distal LAD for which a Penumbraaspiration catheter was used with religious of KENY III coronary flow.Post dilation of the proximal LAD was performed using a 2.1vvc78ou NCballoon. Post intervention IVUS revealed good stent expansion andapposition. * Successful IVUS guided stenting of the distal LAD with a [id number] Onyxstent. HEMODYNAMICS * The LVEDP is within normal limits DIAGNOSTIC SUMMARY ? The LMCA is free of significant disease. ? 100% stenosis in the Mid LAD ? 95% stenosis in the Distal LAD (KENY II flow) ? The Circumflex has mild luminal irregularities. ? 60% stenosis in the 2nd Marginal ? 50% stenosis in the RPDA LEFT VENTRICULAR FUNCTION ? LV Pressure = 122/5. INTERVENTION ? 2mm x 12mm Balloon, 2.5mm x 12mm Balloon, Thrombectomy, 2.5mm x 15mmDrug Eluting Stent, and IVUS to Mid LAD, post stenosis 0% ? 2.25mm x 18mm Drug Eluting Stent to Distal LAD, post stenosis 0% RECOMMENDATIONS & PLAN * Medical Rx - Aspirin: 81 mg daily * Ticagrelor 90 mg bid for one year * Optimize risk factors and medications: HDL > 45 ; LDL < 70 ;Triglycerides < 100 * Consider stage intervention of OM2 vs medical therapy depending onsymptoms and chemotherapy plan. * Follow up with primary physician * Follow up with bar hostess Consent & Chapman Protocol The risks, benefits, and alternatives of the procedure were discussed withthe patient and written informed consent was obtained. Chapman protocol was followed. TIME OUT conducted just prior tostarting procedure confirmed patient identity, site/side, procedure,patient position, and availability of correct equipment and implants (ifapplicable). Staff Name Title Sami Kaur Diagnostic Clothing Trades Workers Fausto Jones RN, Rosette RN Nurse Mitchell, Jordan CVT Monitor Guillaume Ricardo CVT Value Stream Coach Indigo Patel CVT Scrub Sami Kaur Vice President Of Procurement Procedures ? Ultrasound Guided Vascular Access ? Left Heart Cath No Ventriculogram ? Coronary Angiogram ? Thrombectomy Coronary [PCI] ? Stent Placement, Drug Eluting [PCI] ? Coronary Ultrasound Diagnostic Findings * Left Main Coronary Artery ? The LMCA is free of significant disease. * Left Anterior Descending ? 100% stenosis in the Mid LAD. The lesion has a KENY flow of 0. ? 95% stenosis in the Distal LAD. The lesion has a KENY flow of 0. * Circumflex ? The Circumflex has mild luminal irregularities. ? 60% stenosis in the 2nd Marginal. * Right Coronary Artery ? 50% stenosis in the RPDA. Lesion Information Lesion # Vessel Segment Lesion Length Lesion Details 1 Mid LAD 2 Distal LAD 2nd Marginal RPDA Hemodynamics State: Baseline Pressures (mmHg) Site Systolic Diastolic End Diastolic A Wave V Wave Mean LV 122 -2 5 LV 118 -2 6 AO 118 72 91 Interventional Results * Left Anterior Descending ? Intervention to the Mid LAD 100% lesion with a final stenosis of 0%using a 2mm x 12mm Balloon, 2.5mm x 12mm Balloon, Thrombectomy, 2.5mmx 15mm Drug Eluting Stent, and a IVUS. The final KENY flow was 3. ? Intervention to the Distal LAD 95% lesion with a final stenosis of 0%using a 2.25mm x 18mm Drug Eluting Stent. The final KENY flow was 3. Interventional Devices Lesion # Vessel Segment Type Name Max Pressure 1 Mid LAD Balloon BLLN EUPHORA NC RX 2MM X 12MM 1 Mid LAD Balloon BLLN EUPHORA NC RX 2.5MM X 12MM 1 Mid LAD Drug Eluting Stent MC RUBEN Craig RX 2.2hzJ62ur 1 Mid LAD IVUS CATH IVUS [place] Eye Squaxin 1 Mid LAD Thrombectomy CATH CAT RX Aspiration + Tubing 2 Distal LAD Drug Eluting Stent MC RUBEN Craig RX 2.32diB75gd Procedure Details Estimated Blood Loss: < 30 ml Specimen Collected: None Level of Sedation Achieved: Moderate Procedure Start: 12:54 Procedure End: 13:51 Procedure Time: 57 min Fluoroscopy Time: 13.8 min Cumulative Air Kerma: 1512 mGy DAP: 8242 uGy/M2 Contrast: Omnipaque (low-osmolar), 195 ml Physiologic Data Actual VO2: 323.2 Weight: 72.1 kg BSA: 1.83 m2 Vascular Access Time Access Sheath Size 12:55 Right Radial Artery, sheath inserted Medications Ordered and Administered Start Time Stop Time Medication Dose Units Route Ordered By Given By 12:50 Versed 1 mg IV Sami Kaur Shawn RN 12:50 Fentanyl 50 mcg IV Sami Kaur Shawn RN 12:51 O2 2 l per min Nasal cannula Sami Kaur Shawn RN 12:54 1% Lidocaine 0.5 ml Subcut Sami Kaur Konstantinos 12:56 Verapamil 3 mg IA Sami Kaur Konstantinos 13:04 Heparin 6000 units IV Sami Kaur Shawn RN 13:15 Heparin 2000 units IV Sami Kaur Shawn RN 13:20 Versed 0.5 mg IV Sami Kaur Shawn RN 13:20 Fentanyl 25 mcg IV Sami Kaur Shawn RN 13:47 Nitroglycerin 200 mcg IC Sami Kaur MelanieCVAustin I personally monitored the patient?s conscious sedation during theprocedure. Conscious sedation starts with the first sedation medication dose ofFentanyl or Versed and ends when the procedure is completed, the patientis stable for recovery status, and the physician or other qualified healthcare professional providing the sedation ends personal macidbfzbkcapo-fs-iylf time with the patient. The medications listed above were verbally ordered by me and read back tome as documented above. Refer to the procedure log report for additional case details. electronically signed on 07/27/2025 2:05:16 PM with status of Final Sami Kaur MD [facility] [address] [place] [address] (p) [phone](f) us Provider Referring CV IMAGING Edited Result - Final * SCAN-RADIOLOGY REPORT (07/27/2025 12:00 AM CDT) Anatomical Region Laterality Modality Other us Scanner OTHER Final Result * PET CT SKULL BASE TO MID [...] TO MID THIGH INITIAL TREAT LOCATION: [facility] DATE: 06/27/2025 INDICATION: Initial treatment planning and [...] BASE TO MID THIGH INITIAL TREAT LOCATION: [facility] DATE: 06/27/2025 INDICATION: Initial treatment [...] left neck lymph node. Reference CPT Code: 64563, 28740 Narrative 06/13/2025 10:34 AM CDT For Patients: [...] Patient reevaluated immediately before beginning the procedure. Chapman protocol was followed. Time out performed. The [...] band. Patient reevaluated immediatelybefore beginning the procedure. Chapman protocol was followed. Time outperformed. The site [...] cm left necklymph node. Reference CPT Code: 92529, 58019 us Avery Holland MD Dalila luna Result * FNA Cytology POLICY CANCELLATION CLERK (06/13/2025 9:15 AM CDT) Case Report Medical Cytology Report Case: [id number] Authorizing Provider: Avery Holland, Collected: 06/13/2025 0915 Ordering Location: [facility] Received: 06/13/2025 1044 Imaging Pathologist: Helen Taveras MD Specimen: Left Neck Lymph Node 5 5:18 PM CDT [facility] Final Diagnosis A) LYMPH NODE, LEFT NECK, RADIOGRAPHIC GUIDED CORE BIOPSY: 1. Positive for metastatic minimally keratinizing, HPV positive squamous cell carcinoma 2. Focal lymphoid tissue consistent with sampling of a lymph node 5 5:18 PM CDT [facility] at 1718 CDT Comment [...] Testing performed on block A4 Reference: [email or web address] Case seen in consultation with Dr. Mcclelland. 5 5:18 PM [facility] Clinical Information Mr. Orr is a [...] left level III nodes. 5 5:18 PM [facility] Gross Description A) Received identified as [...] more than 72 hours. 5 5:18 PM [facility] Adequacy Assessment A) [facility] assessed adequacy from the air-dried smears at the time of the procedure with an impression of Adequate. 5 5:18 PM [facility] Microscopic Description Specimen adequacy: Adequate for interpretation. All slides were reviewed. The microscopic appearance substantiates the diagnosis. To confirm the squamous nature p40 immunoperoxidase stain is performed on A4 and is positive. 5 5:18 PM CDT [facility] Additional Information Cytology is screened at [facility] - [address], [place] [address] and [facility] - [address] [place] [address] and [facility] - [address] [place] [id number] Interpreted at [facility] - [address], [place] [address] Immunohistochemistry controls were reviewed and approved as appropriate by the pathologist during this examination. 5 5:18 PM CDT [facility] Aspirate (Left Neck Lymph Node) 06/13/2025 9:15 AM CDT 06/13/2025 10:44 AM CDT Avery Holland MD PATHOLOGY/CYTOLOGY F inal Result Performing Organization Address City/State/[facility] [place] Phone Number [facility] [address] [place] [address], [facility] SENDOUT INTERNAL ZIP [phone] [place] [address] * CT NECK SOFT TISSUE W (05/28/2025 [...] as low as reasonably achievable. Dictated by Gila Kennedy MD @ 05/28/2025 10:18:08 PM (Electronically [...] subcentimeter left level III nodes (series 10, [id number] and 77). Normal parotid and submandibular glands. [...] as low as reasonably achievable. Dictated by Gila Knenedy MD @ 05/28/2025 10:18:08 PM (Electronically Signed) Kallie Rosales MD CT Fi nal Result * CREATININE,ISTAT (05/28/2025 3:39 PM CDT) POCT,CREATININ E, ISTAT 1.1 0.6 - 1.3 mg/dL [facility] Blood BLOOD SPECIMEN / Unknown 05/28/2025 3:39 PM CDT 05/28/2025 3:39 PM CDT Kallie Rosales MD CHEMISTRY Fi nal Result [facility] [address] [place] [address], [facility] [address] [place] [address] * US NECK OR HEAD SOFT TISSUE [...] MD @ 05/27/2025 12:47:33 PM (Electronically Signed) us Kallie Rosales MD Fi nal Result from Last 3 Months Insurance [facility] MEDICARE ADVANTAGE MR MEDICARE PART A HB ONLY Advance Directives Documents on File Type Date Recorded Patient Monorail Helper Expl anation Healthcare Directive 07/27/2021 2:44 PM HE ALTHCARE DIRECTIVE/[id number]/23/2 008 * Full Code (Latest Code Status on File) Date Activated Date Inactivated Comments 07/27/2025 1:04 PM 07/29/2025 5:45 PM Question Answer Comments Code Status Discussion: Reviewed Preferences Care Teams Gum Puller Relationship Specialty Start Date End Date Kallie Rosales MD [address] [place] [address] PCP - General Family Practice 07/27/15 Katie Nevarez, BAG SEALER [address] [place] [address] Nurse Practitioner Hematology and Oncology 07/02/24 Annika Gray MD [address] [place] [address] Medical Oncologist Hematology and Oncology 07/02/24
[2025-08-01] MEDS: NITROGLYCERIN 0.4 MG TAB.SUBL SUBLINGUAL (22:51)
[2025-08-01 23:01] LABS: Troponin, Point-of-Care* 12.66 ng/ml (0.01-0.04)
--- NOTE | 2025-08-01 23:04 | CRLHL7_ITS ---
For Patients: As a result of the Century Cures Act, medical imaging exams and procedure reports are released immediately into your electronic medical record. You may view this report before your referring provider. If you have questions, please contact your health care provider. INDICATION: Chest pain. TECHNIQUE: Chest 1 view. COMPARISON: 07/27/2025. FINDINGS: Cardiovascular and mediastinum: Prior median sternotomy. Normal heart size. Uncoiled and atherosclerotic thoracic aorta. Lungs and pleural spaces: Lungs are clear. No pleural effusion, or pneumothorax. Bones and soft tissues: Unremarkable for age. IMPRESSION: No evidence of an acute pulmonary process. Dictated by Drew Wilson MD @ 08/01/2025 11:45:28 PM (Electronically Signed)
[2025-08-01] MEDS: NITROGLYCERIN/DEXTROSE 25,000 MCG/250 ML BOTTLE 3 MCG IVPB ×2 (23:10→23:26)
[2025-08-01 23:13] LABS: Hematocrit 34.8 % (37.0-53.0); Hemoglobin* 11.5 gm/dL (13.5-17.5); Immature Granulocytes Pct Auto 0.2 %; Mean Corpuscular HGB Conc 33 gm/dL (32-36); Mean Corpuscular Hemoglobin 31 pg (26-34); Mean Corpuscular Volume 93 fL (80-100); RDW Coefficient of Variation % 14.6 % (11.5-15.5); Red Blood Count 3.73 m/uL (4.30-5.90); White Blood Count* 4.30 K/uL (4.50-11.00)
--- NOTE | 2025-08-01 23:14 | ED.CHESTPAIN ---
HPI - Chest Pain General Date Seen: 08/01/25 Chief Complaint: Chest Pain Stated Complaint: Chest Pain Time Seen by Provider: 08/01/25 22:32 Source: patient Mode of arrival: ambulatory Limitations: no limitations History of Present Illness HPI narrative: Patient is an 84-year-old male presenting to the emergency department for chest pain. 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 At that time he was seen in this emergency department transferred to [place]. He states today he was doing well and has follow-up this morning with his primary care provider. He then went to bed tonight feeling well but then about 30 minutes prior to arrival he had chest pain in his lower sternum that woke him up from sleep. States this chest pain felt similar to his recent STEMI but not as intense. Described as a stabbing sensation just like his STEMI but states his STEMI felt like a 14/10 in intensity and this 1 feels like a 6/10. Took his nitro improved his chest pain to a 3 or 4/10. Denies any shortness of breath. Denies lightheadedness, dizziness, weakness, numbness, abdominal pain, fevers, chills, headache. No other concerns noted at this time. Does have a remote history of a previous pericardiectomy for pericarditis. Related Data Home Medications ?Medication ?Instructions ?Recorded ?Confirmed folic acid 1 mg tablet 1 mg PO DAILY 04/25/24 07/30/25 ibuprofen 200 mg tablet 200 mg PO Q6H PRN 07/02/25 07/30/25 methotrexate sodium 2.5 mg tablet 20 mg PO QWEEK 07/02/25 07/30/25 aspirin 81 mg chewable tablet 81 mg PO QDAY 07/30/25 07/30/25 isosorbide mononitrate 30 mg 15 mg PO QAM 07/30/25 07/30/25 tablet,extended release 24 hr losartan 25 mg tablet 12.5 mg PO QDAY 07/30/25 07/30/25 metoprolol succinate 25 mg 25 mg PO QDAY 07/30/25 07/30/25 tablet,extended release 24 hr nitroglycerin 0.4 mg sublingual 0.4 mg sublingual Q5-15M PRN 07/30/25 07/30/25 tablet ondansetron HCl 4 mg tablet 4 mg PO Q8H PRN 07/30/25 rosuvastatin 20 mg tablet 20 mg PO QDAY 07/30/25 07/30/25 spironolactone 25 mg tablet 12.5 mg PO QDAY 07/30/25 07/30/25 ticagrelor 90 mg tablet 90 mg PO BID 07/30/25 07/30/25 Previous Rx's ?Medication ?Instructions ?Recorded prochlorperazine maleate 5 mg 5 mg PO BID PRN nausea and 07/02/25 tablet (Compazine) vomiting #60 tabs Allergies Allergy/AdvReac Type Severity Reaction Status Date / Time acetaminophen (From Percocet) Allergy Verified 07/30/25 10:20 oxycodone (From Percocet) Allergy Verified 07/30/25 10:20 Review of Systems Status of ROS Reports: 10 or more systems reviewed and unremarkable except as noted in History and below [facility] Social History Smoking Status: Former smoker Non-prescribed substance use: denies use Exam Narrative Exam Narrative: Const: Well-nourished, Well-developed, in mild distress Eyes: PERRL, no conjunctival injection, and symmetrical lids HENT: Atraumatic external nose and ears. Moist mucous membranes. Neck: Symmetric, trachea midline, No thyromegaly. CVS: RRR, No murmurs or gallops. Peripheral pulses 2+ and equal in all extremities RESP: Unlabored respiratory effort. Clear to auscultation bilaterally. GI: Nontender/Nondistended, No rebound or guarding. MSK:Extremities w/o deformity, Normal Active ROM, chest nontender to palpation Skin: Warm, Dry. No rashes or lesions. Neuro: Normal Muscle tone, No focal neurological deficits. Psych: Awake, Alert, & Oriented x3. Appropriate mood and affect. Const Vital Signs, click to edit/add: Vital Signs - 24 hr 08/01/25 22:34 08/01/25 22:39 08/01/25 22:39 Temperature 97.1 F L Pulse Rate 81 Pulse Rate [Pulse Oximeter] 84 85 Respiratory Rate 18 18 16 Blood Pressure 117/77 Blood Pressure [Right Upper Arm] 117/77 122/85 Pulse Oximetry 98 98 98 Oxygen Delivery Method Room Air Room Air 08/01/25 22:40 08/01/25 22:41 08/01/25 22:45 Temperature Pulse Rate 89 83 81 Pulse Rate [Pulse Oximeter] Respiratory Rate 12 19 16 Blood Pressure 122/85 125/78 Blood Pressure [Right Upper Arm] Pulse Oximetry 98 97 98 Oxygen Delivery Method 08/01/25 22:50 08/01/25 22:51 08/01/25 23:00 Temperature Pulse Rate 80 82 66 Pulse Rate [Pulse Oximeter] Respiratory Rate 13 22 15 Blood Pressure 106/75 Blood Pressure [Right Upper Arm] Pulse Oximetry 98 98 97 Oxygen Delivery Method 08/01/25 23:01 08/01/25 23:10 08/01/25 23:12 Temperature Pulse Rate 85 77 84 Pulse Rate [Pulse Oximeter] Respiratory Rate 14 16 14 Blood Pressure 94/65 93/61 Blood Pressure [Right Upper Arm] Pulse Oximetry 97 98 97 Oxygen Delivery Method 08/01/25 23:17 08/01/25 23:20 08/01/25 23:22 Temperature Pulse Rate 83 82 Pulse Rate [Pulse Oximeter] Respiratory Rate 13 12 Blood Pressure 88/64 L Blood Pressure [Right Upper Arm] Pulse Oximetry 98 96 91 Oxygen Delivery Method Room Air 08/01/25 23:23 08/01/25 23:30 08/01/25 23:31 Temperature Pulse Rate 83 80 Pulse Rate [Pulse Oximeter] 77 Respiratory Rate 16 20 18 Blood Pressure Blood Pressure [Right Upper Arm] 106/75 Pulse Oximetry 95 97 100 Oxygen Delivery Method Room Air 08/01/25 23:32 08/01/25 23:40 08/01/25 23:41 Temperature Pulse Rate 81 74 81 Pulse Rate [Pulse Oximeter] Respiratory Rate 16 12 13 Blood Pressure 106/75 104/68 Blood Pressure [Right Upper Arm] Pulse Oximetry 98 94 97 Oxygen Delivery Method Course Vital Signs Vital signs: Initial Vital Signs Temperature 97.1 F L 08/01/25 22:34 Temperature Source Temporal Artery Scan 08/01/25 22:34 Pulse Rate 84 08/01/25 22:34 Respiratory Rate 18 08/01/25 22:34 Blood Pressure 117/77 08/01/25 22:34 Blood Pressure Mean 90 08/01/25 22:34 Blood Pressure Position Semi-Fowlers 08/01/25 22:34 Pulse Oximetry 98 08/01/25 22:34 Oxygen Delivery Method Room Air 08/01/25 22:34 Vital Signs Temperature 97.1 F L 08/01/25 22:34 Pulse Rate 84 08/01/25 22:34 Respiratory Rate 18 08/01/25 22:34 Blood Pressure 117/77 08/01/25 22:34 Pulse Oximetry 98 08/01/25 22:34 Oxygen Delivery Method Room Air 08/01/25 22:34 Temperature 97.1 F L 08/01/25 22:34 Pulse Rate 81 08/01/25 23:41 Respiratory Rate 13 08/01/25 23:41 Blood Pressure 104/68 08/01/25 23:41 Pulse Oximetry 97 08/01/25 23:41 Oxygen Delivery Method Room Air 08/01/25 23:31 Medications Administered Medications: Generic Name Dose Route Start Last Admin Trade Name Freq PRN Reason Stop Dose Admin Nitroglycerin/Dextrose 25,000 mcg in 250 mls @ 3 mls/hr 08/01/25 22:51 08/01/25 23:26 Nitroglycerin/Dextrose IVPB 5 mcg/min .TITRATE PRN 3 mls/hr Protocol Administration 5 MCG/MIN Sodium Chloride 1,000 mls @ 1,000 mls/hr 08/01/25 23:15 08/01/25 23:25 0.9 % Sodium Chloride 1000 Ml IV 08/02/25 00:14 1,000 mls/hr .Q1H FIDELIA Administration Discontinued Medications Generic Name Dose Route Start Last Admin Trade Name Freq PRN Reason Stop Dose Admin Aspirin 243 mg 08/01/25 23:04 08/01/25 23:29 Aspirin 81 Mg Tab.Chew PO 08/01/25 23:05 243 mg ONCE ONE Administration Nitroglycerin 0.4 mg 08/01/25 22:46 08/01/25 22:51 Nitroglycerin 0.4 Mg Tab.Subl SUBLINGUAL 08/01/25 22:47 0.4 mg ONCE ONE Administration MDM - Chest Pain MDM Narrative Medical decision making narrative: Patient is an 84-year-old male presenting to the emergency department for chest pain. The differential diagnosis of chest pain is broad and includes common etiologies such as musculoskeletal strain, GERD, pneumonia, etc. More serious etiologies considered include PE, coronary artery disease, pneumothorax, aortic dissection, aortic aneurysm. My 1st concern when he arrived was for a possible occlusion of his stents. EKG was done showing persistent ST elevations in the anterior leads. With the new chest pain that improved with nitro and these ST elevations I did speak to Dr. Conley of [facility]. He was able to tell me that the patient had persistent ST elevations and had a repeat heart catheterization on 07/28 showing no occlusion. Patient was pain free at this time. Also there is an EKG from this morning showing persistent ST elevation. Based on patient's history though he did not have pain at that time. I was able to get a view of the EKG from this morning and ST elevations now do not seem as prominent. Due to all this he does not believe is likely the patient has occluded stent but does recommend transferring for the chest pain. This does appear unlikely to be a STEMI. Does recommend doing a nitro drip as long as the patient's blood pressure can handle it. I was informed to call back if pain cannot be controlled with the nitro for more immediate transfer. Does seem unlikely to be normal thorax or pneumonia but will do a chest x-ray to help evaluate this. He looks otherwise stable in RO dissection and oropharynx some seem unlikely. I also believe a PE is unlikely. Patient is taking aspirin and Plavix. Also order troponin, magnesium, portable chest x-ray, CBC, BMP. Was given another 3 chewable aspirin since he took 1 today already His troponin point of care came back at 12.66 but this is likely persistently elevated as it was 17.1 on 07/27/2025. Will repeat the troponin. I did speak to Dr. Sanders of the [place] hospitalist service who accepted him for transfer. Once nitro drip was started he states his pain improved will bit more. With this though he has blood pressure did drop into the 80s and 90s systolic. He is appearing otherwise well and nontoxic. We cut the nitro drip in half and gave him some fluids to try and bring his blood pressure back up. Chest x-ray reviewed by myself and the radiologist showed no acute concerning abnormality. Lab Data Labs: Lab Results 08/01/25 Range/Units 22:45 WBC 4.30 L (4.50-11.00) K/uL RBC 3.73 L (4.30-5.90) m/uL Hgb 11.5 L (13.5-17.5) gm/dL Hct 34.8 L (37.0-53.0) % MCV 93 (80-100) fL MCH 31 (26-34) pg MCHC 33 (32-36) gm/dL RDW Coeff of Dennis 14.6 (11.5-15.5) % Plt Count 269 (140-440) K/uL Neut % (Auto) 78.2 H (42.0-72.0) % Lymph % (Auto) 10.9 L (20-44) % Gila % (Auto) 8.6 (0.0-11.0) % Eos % (Auto) 1.6 (0.0-7.0) % Baso % (Auto) 0.5 (0.0-3.0) % Neut # (Auto) 3.40 (1.7-7.0) K/uL Lymph # (Auto) 0.50 L (0.90-2.90) K/uL Gila # (Auto) 0.40 (0.00-0.90) K/UL Eos # (Auto) 0.10 (0.00-0.50) K/uL Baso # (Auto) 0.00 (0.00-0.30) K/uL Abs Immat Gran (auto) 0.00 (0.00-0.30) K/uL Imm/Tot Granulo (auto) 0.2 % Sodium 133 L (135-149) mmol/L Potassium 3.9 (3.6-5.1) mmol/L Chloride 101 (96-114) mmol/L Carbon Dioxide 25 (20-32) mmol/L Anion Gap 7 (7-15) mEq/L BUN 29 (7-30) mg/dL Creatinine 1.0 (0.5-1.5) mg/dL Estimated Creat Clear 53.86 Estimated GFR 75 ml/min Glucose 160 H (60-115) mg/dL Calcium 9.2 (8.4-10.6) mg/dL Magnesium 2.1 (1.5-2.6) mg/dL POC Troponin I 12.66 H (0.01-0.04) ng/ml Imaging Data Chest x-ray: Attestation: I have reviewed the pertinent imaging results. Radiologist's impression: No evidence of an acute pulmonary process. Dictated by Drew Wilson MD @ 08/01/2025 11:45:28 PM ECG Data Attestation: I personally reviewed and interpreted this ECG as follows: Prior ECG tracings: available for review Interpretation: Sinus rhythm with a rate of 84 beats per minute, normal intervals, normal axis, persistent ST elevations in leads V2 through V4. There are not as pronounced as previous EKG on file. Discharge Plan Discharge Clinical Impression: ST elevation Chest pain Qualifiers: Chest pain type: unspecified Qualified Code(s): R07.9 - Chest pain, unspecified Patient Disposition: [facility] Condition: Stable Prescriptions: No Action folic acid 1 mg tablet 1 mg PO DAILY methotrexate sodium 2.5 mg tablet 20 mg PO QWEEK ibuprofen 200 mg tablet 200 mg PO Q6H PRN prochlorperazine maleate [Compazine] 5 mg tablet 5 mg PO BID PRN (Reason: nausea and vomiting) Qty: 60 0RF isosorbide mononitrate 30 mg tablet extended release 24 hr 15 mg PO QAM spironolactone 25 mg tablet 12.5 mg PO QDAY losartan 25 mg tablet 12.5 mg PO QDAY nitroglycerin 0.4 mg tablet, sublingual 0.4 mg sublingual Q5-15M PRN Rx Instructions: do not exceed 3 doses per episode aspirin 81 mg tablet,chewable 81 mg PO QDAY metoprolol succinate 25 mg tablet extended release 24 hr 25 mg PO QDAY rosuvastatin 20 mg tablet 20 mg PO QDAY ticagrelor 90 mg tablet 90 mg PO BID ondansetron HCl 4 mg tablet 4 mg PO Q8H PRN Stand Alone Forms: [facility] Info Instructions
[2025-08-01 23:23] LABS: Immature Granulocytes Abs Auto 0.00 K/uL (0.00-0.30); Lymphocytes Absolute Auto 0.50 K/uL (0.90-2.90); Slide Review Reflex No
[2025-08-01 23:26] LABS: Chloride* 101 mmol/L (96-114)
[2025-08-01 23:27] LABS: Potassium* 3.9 mmol/L (3.6-5.1); Sodium* 133 mmol/L (135-149)
[2025-08-01] MEDS: ASPIRIN 81 MG TAB.CHEW 243 MG PO (23:29)
[2025-08-01 23:30] LABS: Anion Gap 7 mEq/L (7-15); Blood Urea Nitrogen* 29 mg/dL (7-30); Calcium* 9.2 mg/dL (8.4-10.6); Carbon Dioxide* 25 mmol/L (20-32); Creatinine* 1.0 mg/dL (0.5-1.5); Est. Creatinine Clearance* 53.86; Estimated Glomerular Filt Rate 75 ml/min; Glucose* 160 mg/dL (60-115)
[2025-08-02] VITALS: PULSE 79; RESP 18; O2SAT 98
[2025-08-02 00:03] VITALS: BP 110/71; PULSE 74; RESP 18; O2SAT 99
[2025-08-02 00:11] VITALS: RESP 16
[2025-08-02 00:15] VITALS: RESP 16
[2025-08-02 00:20] VITALS: BP 114/76; PULSE 66; RESP 16; O2SAT 99
[2025-08-02 00:26] LABS: Troponin, Point-of-Care* 13.13 ng/ml (0.01-0.04)
== END 2025-08-02 00:30 | disposition short-term general hospital (02) ==
PROVIDERS: Student in an Organized Health Care Education/Training Program; Emergency Provider Family Medicine; PCP Family Medicine
DX: I21.3 ST elevation (STEMI) myocardial infarction of unspecified site (principal); R07.9 Chest pain, unspecified; Z87.891 Personal history of nicotine dependence
CPT/HCPCS: 36415; 71045; 80048; 83735; 84484; 85025; 93005; 96365; 99285; 99291; A9270; J7030

== ENCOUNTER 2025-08-02 00:25 | Outpatient (CLI) | payer MEDICARE, SELFPAY | END 2025-08-02 00:26 | disposition home or self-care (01) | LOC: AMB 08-08 09:55 | PROVIDERS: PCP Family Medicine; Visit Provider Family Medicine | DX: I21.3 ST elevation (STEMI) myocardial infarction of unspecified site (principal) | CPT/HCPCS: A0425; A0434 ==

== ENCOUNTER 2025-09-11 05:41 | Emergency (ER) | payer MEDICARE, SELFPAY ==
--- OUTSIDE RECORDS SUMMARY | 2025-07-24 08:10 | XMS_ITS | Encounter Summary ---
Author Organization [facility] Address [address] [place] [address] Care Team Providers Care Abattoir Supervisor Name Role Phone Unavailable Primary Care Provider Unavailabl e Reason for Referral * Radiation Therapy (Routine) - Authorized Specialty Diagnoses / Procedures Referred By Norma choi Referred To Contact Diagnoses Malignant Neoplasm Of Tongue Base (HCC) Procedures Management Visit Julio Cesar Rebolledo M.D. [address] [place] [address] Phone: tel: fax: [facility] Region Referral ID Status Reason Start Date Expiration Date V isits Requested Visits Authorized [id number] Authorized 06/30/2025 09/30/2026 10 10 Reason for Visit * Radiation Therapy (Routine) - Authorized Specialty Diagnoses / Procedures Referred By Norma choi Referred To Contact Diagnoses Malignant Neoplasm Of Tongue Base (HCC) Procedures Management Visit Julio Cesar Rebolledo M.D. [address] [place] [address] Phone: tel: fax: [facility] Region Referral ID Status Reason Start Date Expiration Date V isits Requested Visits Authorized [id number] Authorized 06/30/2025 09/30/2026 10 10 Encounter Details Date Type Department Care Team (Latest Contact Info) Description 07/24/2025 8:10 AM CDT - 07/31/2025 8:40 AM CDT Hospital Encounter Department of Radiation Oncology in [place], [place] [address] [place] [address] Julio Cesar Rebolledo M.D. [address] [place] [address] Malignant Neoplasm Of Tongue Base (HCC) Social [...] things needed for daily living? No 07/22/2025 [facility] Utilities Answer Date Recorded In the past 12 months has [facility] electric, gas, oil, or water yeppt threatened to shut off services in your home? No 07/22/2025 Housing Stability Answer Date Recorded What is your living situation today? I have a [facility] place to live 07/22/2025 Sex and Gender Information Value Date Recorded Sex Assigned at Male 08/07/2025 1:13 PM CDT Legal Sex Male 12:18 PM CDT Gender Identity Male 08/07/2025 1:13 PM CDT Sexual Orientation Straight 08/07/2025 1: 13 PM CDT documented as of this encounter Last Filed Vital Signs Vital Sign Reading Time Taken Comments Blood Pressure 132/81 07/24/2025 8:50 AM CDT Pulse 101 07/24/2025 8:50 AM CDT Temperature 35.8 C (96.4 F) 07/24/2025 8:50 AM CDT Respiratory Rate - - Oxygen Saturation - - Inhaled Oxygen Concentration - - Weight 70.2 kg (154 lb 12.2 oz) 07/24/2025 8:50 AM CDT Height - - Body Mass Index - - documented in this encounter Medications at Time of Discharge aspirin 81 mg chewable tablet 81 mg by Nasogastric route. 07/30/2025 chlorhexidine (Peridex) 0.12 % mouthwash Take 15 mL by mouth. 07/05/2025 folic acid 1 mg tablet Take 1 mg by mouth daily. 08/28/2024 ibuprofen 200 mg tablet Take 200 mg by mouth. 07/02/2025 isosorbide mononitrate (Imdur) 30 mg 24 hr tablet Take 15 mg by mouth. 07/29/2025 losartan (Cozaar) 25 mg tablet Take 12.5 mg by mouth daily. 07/29/2025 methotrexate (TrexalL) 2.5 mg tablet Take 10 mg by mouth over 168 hr. 12/18/2024 methylPREDNISolon e (MedroL DosePak) 4 mg tablet USE DIRECTED ON PACK. 07/08/2025 metoprolol succinate (Toprol XL) 25 mg 24 hr tablet Take 25 mg by mouth daily. 07/30/2025 nitroglycerin (Nitrostat) 0.[address] 0.4 mg under the tongue every 5 (five) minutes as needed. 07/29/2025 ondansetron (Zofran) 4 mg tablet Take 4 mg by mouth. 07/02/2025 potassium chloride (K-Tab) 20 mEq ER tablet Take 1 tablet by mouth daily. 07/02/2025 prochlorperazine (Compazine) 5 mg tablet Take 5 mg by mouth. 07/02/2025 rosuvastatin (Crestor) 20 mg tablet Take 20 mg by mouth at bedtime. 07/29/2025 spironolactone (Aldactone) 25 mg tablet Take 12.5 mg by mouth. 07/30/2025 ticagrelor (Brilinta) 90 mg tablet Take 90 mg by mouth. 07/29/2025 triazolam (Halcion) 0.25 mg tablet Take 0.25 mg by mouth. 07/05/2025 naloxone (Narcan) 4 mg/actuation nasal spray Administer 1 spray (4 mg total) into nostril(s) as needed for reversal. Use 1 spray in 1 nostril. Repeat with second device in other nostril after 2-3 minutes if no or minimal response. 2 each 07/30/2025 5 oxyCODONE (Roxicodone) 5 mg immediate release tabletIndications :Prolonged Acute Pain/Traumatic Injury Take 1 tablet (5 mg total) by mouth every 8 (eight) hours as needed for pain or severe pain or score 7-10 of 10 Indication: Prolonged Acute Pain/Traumatic Injury. 30 tablet 07/30/2025 5 documented as of this encounter Progress Notes * Julio Cesar Rebolledo M.D. - 07/24/2025 9:00 AM CDT SUBJECTIVE REASON FOR VISIT Evaluation for side effects while receiving radiation treatment for 1. Malignant Neoplasm Of Tongue Base (HCC) SUPERVISED BY: Julio Cesar Rebolledo M.D. HISTORY OF PRESENT ILLNESS Torsten Orr is a 84 y.o. 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 Treatment Course: 1xOpx Plan ID Fractions Dose / Fraction (cGy) Dose Treated (cGy) Dose Planned (cGy) First Treatment Last Treatment Elapsed Days F1Opx [phone] 07/21/2025 07/24/2025 3 Course Summary 07/21/2025 07/24/2025 3 The patient was seen and examined today with Dr. Rebolledo. The patient reports feeling well overall. He is experiencing some fatigue from chemotherapy. He is also experiencing some loss of appetite and constipation. He is currently taking a stool softener. He has laxatives on hand if needed. His last bowel movement was on Monday. He reports some pain in his arms after chemo on Monday, which he treated with ibuprofen. He is not currently experiencing any radiation related side effects. CONCURRENT THERAPY Weekly dose reduced Cisplatin - with fluids, potassium, and magnesium. PATIENT REPORTED SYMPTOM SCREEN FATIGUE (Scale: 0 = no fatigue; 10 = worst fatigue you can imagine): not reported PAIN (Scale: 0 = no pain; 10 = worst pain you can imagine): not reported OVERALL QUALITY OF LIFE (Scale: 0 = as bad as can be; 10 = as good as can be): not reported OBJECTIVE BP 132/81 (BP Location: Right arm, Patient Position: Sitting, Cuff Size: Regular) Pulse 101 Temp (!) 35.8 ??C (Temporal) Wt 70.2 kg WEIGHT TRACKER: 07/24: 70.2 kg 10% loss at 63.2 kg PHYSICAL EXAM General: Alert and oriented in no apparent distress. He is here today with his , Antionette, and his daughter, Jamia. 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 He met with our semiconductor package symbol stamper today. Dr. Rebolledo was in for any questions or concerns. He will contact us with any questions or concerns. We will continue with radiation treatment as planned. Signed by: Keerthi Leach R.N. 07/24/2025 9:18 AM CDT ATTESTATION FOR MANAGEMENT VISIT I saw and evaluated the patient and participated in the bean portions of the service including medical decision making as noted above. I reviewed the documentation of Ms.Alexis Haylee RN and agreewith the findings and plan. The patient appears well on exam. We will continue with radiation as planned and monitor weekly. Julio Cesar Rebolledo M.D., 07/31/2025 documented in this encounter Plan of Treatment Upcoming Encounters Date Type Department Care Team (Late st Contact Info) Description 09/17/2025 10:30 AM CDT Appointment Department of Radiation Oncology in [address] [address] Julio Cesar Rebolledo M.D. [address] [place] [phone] Britt Ayala R.N. [address] [place] [phone] 09/24/2025 10:30 AM CDT Appointment Department of Radiation Oncology in [address] [address] Julio Cesar Rebolledo M.D. [address] [place] [phone] Britt Ayala R.N. [address] [place] [phone] 10/01/2025 10:30 AM KITCHEN MANAGER Appointment Department of Radiation Oncology in [address] [address] Julio Cesar Rebolledo M.D. [address] [place] [phone] Michel Leach R.N. 10/08/2025 10:30 AM KITCHEN MANAGER Appointment Department of Radiation Oncology in [place], [place] [address] [place] [address] Julio Cesar Rebolledo M.D. [address] [place] [address] Britt Ayala R.N. [address] [place] [phone] 10/15/2025 10:30 AM KITCHEN MANAGER Appointment Department of Radiation Oncology in [place], [place] [address] [place] [phone] Julio Cesar Rebolledo M.D. [facility] [place] [address] Britt Ayala R.N. [address] [place] [phone] 10/22/2025 2:30 PM KITCHEN MANAGER Appointment Department of Radiation Oncology in [place], [place] [address] [place] [address] Julio Cesar Rebolledo M.D. [address] [place] [address] Scheduled Orders Name Type Priority Associated Diagnoses Orde r Schedule Management Visit Radiation Oncology Routine Malignant Neoplasm Of Tongue Base (HCC) Once for 1 Occurrences starting 07/24/2025 until 07/24/2025 documented as of this encounter Visit Diagnoses Diagnosis Malignant Neoplasm Of Tongue Base (HCC) documented in this encounter Additional Health Concerns Infection Onset Date Last Indicated Resolved Time Protective Environment 06/30/2025 06/30/2025 documented as of this encounter
--- OUTSIDE RECORDS SUMMARY | 2025-07-30 13:31 | XMS_ITS | Encounter Summary ---
Author Organization [facility] Address [address] [place] [address] Care Team Providers Care Finishing Room Operator Name Role Phone Unavailable Primary Care Provider Unavailabl e Reason for Referral * Outpatient (Routine) - Authorized Specialty Diagnoses / Procedures Referred By Norma choi Referred To Contact Radiation Oncology Diagnoses Malignant Neoplasm Of Tongue Base (HCC) Julio Cesar Rebolledo M.D. [address] [place] [address] Phone: tel: fax: [facility] Region Referral ID Status Reason Start Date Expiration Date V isits Requested Visits Authorized [id number] Authorized 07/30/2025 01/29/2027 3 3 Reason for Visit * Outpatient (Routine) - Authorized Specialty Diagnoses / Procedures Referred By Norma choi Referred To Contact Radiation Oncology Diagnoses Malignant Neoplasm Of Tongue Base (HCC) Julio Cesar Rebolledo M.D. [address] [place] [address] Phone: tel: fax: [facility] Region Referral ID Status Reason Start Date Expiration Date V isits Requested Visits Authorized [id number] Authorized 07/30/2025 01/29/2027 3 3 Encounter Details Date Type Department Care Team (Latest Contact Info) Description 07/30/2025 1:31 PM CDT - 07/30/2025 11:59 PM CDT Hospital Encounter Department of Radiation Oncology in [place], [place] [address] [place] [id number] Julio Cesar Rebolledo M.D. [address] [place] [address] Michel Leach R.N. Malignant Neoplasm Of Tongue Base (HCC) (Primary [...] the money to buy more. Never true 08/07/20 25 Within the past 12 months, t he food you bought just didn't last and you didn't have money to get more. Never true 08/07/2025 PRAPARE - Transportation Answer Date Re corded In the past 12 months, has l ack of transportation kept you from medical appointments or from getting medications? No 07/28 In the past 12 months, has l ack of transportation kept you from meetings, work, or from getting things needed for daily living? No 08/07/2025 [facility] Utilities Answer Date Recorded In the past 12 months has [facility] electric, gas, oil, or water company threatened to shut off services in your home? No 08/07/2025 Housing Stability Answer Date Recorded What is your living situation today? I have a [facility] place to live 08/07/2025 Sex and Gender Information Value Date Recorded Sex Assigned at Male 08/07/2025 1:13 PM CDT Legal Sex Male 12:18 PM CDT Gender Identity Male 08/07/2025 1:13 PM CDT Sexual Orientation Straight 08/07/2025 1: 13 PM CDT documented as of this encounter Medications at [...] Progress Notes * Michel Leach R.N. - 07/30/2025 2:00 PM CDT SUBJECTIVE Radiation Oncology Nurse Visit REASON FOR VISIT Evaluation for side effects while receiving radiation treatment for 1. Malignant Neoplasm Of Tongue Base (HCC) HISTORY OF PRESENT ILLNESS Torsten Orr is a 84 y.o. 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 He is currently undergoing radiation therapy. Treatment Course: 1xOpx Plan ID Fractions Dose / Fraction (cGy) Dose Treated (cGy) Dose Planned (cGy) First Treatment Last Treatment Elapsed Days F1Opx 200 1000 7000 07/21/2025 07/25/2025 4 Course Summary 07/21/2025 07/25/2025 4 The patient was questioning if his new medications would have any negative reactions with his radiation therapy. He is also inquiring about pain management for his increased throat pain. The patient was recently admitted at an outside facility for a heart attack. 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 We discussed that none of his medications are contraindicated with his radiation treatment. A prescription was sent for oxycodone 5 mg every 8 hours to help manage his pain. The patient was educated on the use of stool softeners with opioids. A Narcan prescription was also sent in. Dr. Rebolledo was available for consult during this visit. He will contact us with any questions or concerns. We will continue with radiation treatment asplanned. Signed by: Keerthi Leach R.N. 07/30/2025 1:34 PM CDT documented in this encounter Plan of Treatment Upcoming Encounters Date Type Department Care Team (Late st Contact Info) Description 09/17/2025 10:30 AM CDT Appointment Department of Radiation Oncology in [address] [phone] Julio Cesar Rebolledo M.D. [address] [place] [phone] Britt Ayala R.N. [address] [place] [phone] 09/24/2025 10:30 AM CDT Appointment Department of Radiation Oncology in [address] [address] Julio Cesar Rebolledo M.D. [facility] [place] [address] Britt Ayala R.N. [address] [place] [address] 10/01/2025 10:30 AM TIP CUTTER Appointment Department of Radiation Oncology in [address] [address] Julio Cesar Rebolledo M.D. [facility] [place] [address] Michel Leach R.N. 10/08/2025 10:30 AM TIP CUTTER Appointment Department of Radiation Oncology in [address] [address] Julio Cesar Rebolledo M.D. [facility] [place] [address] Britt Ayala R.N. [address] [place] [address] 10/15/2025 10:30 AM TIP CUTTER Appointment Department of Radiation Oncology in [place], [place] [address] [place] [address] Julio Cesar Rebolledo M.D. [address] [place] [address] Britt Ayala R.N. [address] [place] [address] 10/22/2025 2:30 PM TIP CUTTER Appointment Department of Radiation Oncology in [place], [place] [address] [place] [address] Julio Cesar Rebolledo M.D. [address] [place] [address] Scheduled Referrals Name Type Priority Associated Diagnoses Order Schedule Radiation Oncology nurse visit (clinic) Outpatient Referral Routine Once for 1 Occurrences starting 07/30/2025 until 07/30/2025 documented as of this encounter Visit Diagnoses Diagnosis Malignant Neoplasm Of Tongue Base (HCC)- Primary documented in this encounter Additional Health Concerns Infection Onset Date Last Indicated Resolved Time Protective Environment 06/30/2025 06/30/2025 documented as of this encounter
--- OUTSIDE RECORDS SUMMARY | 2025-07-30 13:31 | XMS_ITS | Encounter Summary ---
Author Organization [facility] Address [address] [place] [address] Care Team Providers Care Veteran Appeals Reviewer Name Role Phone Unavailable Primary Care Provider Unavailabl e Reason for Visit * Radiation Therapy (Routine) - Authorized Specialty Diagnoses / Procedures Referred By Norma t Referred To Contact Diagnoses Malignant Neoplasm Of Tongue Base (HCC) Procedures Prior Auth Rad Tx MA IMRT COMPLEX MA GUIDANCE FOR LOC RAD TX MA IMRT RADIOTHERAPY PLAN IMRT Julio Cesar Rebolledo M.D. [address] [place] [address] Phone: tel: fax: [facility] Referral ID Status Reason Start Date Expiration Date V isits Requested Visits Authorized [id number] Authorized 07/14/2025 09/30/2026 35 35 Encounter Details Date Type Department Care Team (Latest Contact Info) Description 07/30/2025 1:31 PM CDT - 07/30/2025 11:59 PM CDT Hospital Encounter Department of Radiation Oncology in [address] [phone] Julio Cesar Rebolledo M.D. [address] [place] [phone] Discharge Disposition: Home or Self Care Social [...] things needed for daily living? No 08/07/2025 [facility] Utilities Answer Date Recorded In the past 12 months has [employer], gas, oil, or water [employer] threatened to shut off services in your home? No 08/07/2025 Housing Stability Answer Date Recorded What is your living situation today? I have a [facility] place to live 08/07/2025 Sex and [...] 07/30/2025 5 documented as of this encounter Plan of Treatment Upcoming Encounters Date Type Department Care Team (Late st Contact Info) Description 09/17/2025 10:30 AM CDT Appointment Department of Radiation Oncology in [place] [address] [place] [address] Julio Cesar Rebolledo M.D. [address] [place] [address] Britt Ayala R.N. [address] [place] [address] 09/24/2025 10:30 AM CDT Appointment Department of Radiation Oncology in [place], [place] [address] [place] [address] Julio Cesar Rebolledo M.D. [address] [place] [address] Britt Ayala R.N. [address] [place] [phone] 10/01/2025 10:30 AM MATTRESS RENOVATOR Appointment Department of Radiation Oncology in [address] [address] Julio Cesar Rebolledo M.D. [address] [place] [address] Michel Leach R.N. 10/08/2025 10:30 AM MATTRESS RENOVATOR Appointment Department of Radiation Oncology in [place], [place] [address] [place] [address] Julio Cesar Rebolledo M.D. [place] [address] Britt Ayala R.N. [address] [place] [phone] 10/15/2025 10:30 AM MATTRESS RENOVATOR Appointment Department of Radiation Oncology in [address] [address] Julio Cesar Rebolledo M.D. [address] [place] [address] Britt Ayala R.N. [address] [place] [address] 10/22/2025 2:30 PM MATTRESS RENOVATOR Appointment Department of Radiation Oncology in [place], [place] [address] [place] [phone] Julio Cesar Rebolledo M.D. [address] [place] [address] documented as of this encounter Visit Diagnoses Not on filedocumented in this encounter Additional Health Concerns Infection Onset Date Last Indicated Resolved Time Protective Environment 06/30/2025 06/30/2025 documented as of this encounter
--- OUTSIDE RECORDS SUMMARY | 2025-07-31 10:00 | XMS_ITS | Encounter Summary ---
Author Organization [facility] Address [address] [place] [address] Care Team Providers Care Fur Feeder Name Role Phone Unavailable Primary Care Provider Unavailabl e Reason for Referral * Radiation Therapy (Routine) - Authorized Specialty Diagnoses / Procedures Referred By Norma choi Referred To Contact Diagnoses Malignant Neoplasm Of Tongue Base (HCC) Procedures Management Visit Julio Cesar Rebolledo M.D. [address] [place] [address] Phone: tel: fax: [facility] Region Referral ID Status Reason Start Date Expiration Date V isits Requested Visits Authorized [id number] Authorized 06/30/2025 09/30/2026 10 10 Reason for Visit * Radiation Therapy (Routine) - Authorized Specialty Diagnoses / Procedures Referred By Norma choi Referred To Contact Diagnoses Malignant Neoplasm Of Tongue Base (HCC) Procedures Management Visit Julio Cesar Rebolledo M.D. [address] [place] [address] Phone: tel: fax: [facility] Region Referral ID Status Reason Start Date Expiration Date V isits Requested Visits Authorized [id number] Authorized 06/30/2025 09/30/2026 10 10 Encounter Details Date Type Department Care Team (Latest Contact Info) Description 07/31/2025 10:00 AM CDT - 07/31/2025 10:59 AM CDT Hospital Encounter Department of Radiation Oncology in [place], [place] [address] [place] [address] Julio Cesar Rebolledo M.D. [address] [place] [address] Malignant Neoplasm Of Tongue Base (HCC) (Primary [...] things needed for daily living? No 07/22/2025 [facility] Utilities Answer Date Recorded In the past 12 months has [facility] electric, gas, oil, or water [employer] threatened to shut off services in your home? No 07/22/2025 Housing Stability Answer Date Recorded What is your living situation today? I have a [facility] place to live 07/22/2025 Sex and Gender Information Value Date Recorded Sex Assigned at Male 08/07/2025 1:13 PM CDT Legal Sex Male 12:18 PM CDT Gender Identity Male 08/07/2025 1:13 PM CDT Sexual Orientation Straight 08/07/2025 1: 13 PM CDT documented as of this encounter Last Filed Vital Signs Vital Sign Reading Time Taken Comments Blood Pressure 104/68 07/31/2025 10:38 AM CDT Pulse 65 07/31/2025 10:38 AM CDT Temperature 36.3 C (97.3 F) 07/31/2025 10:38 AM CDT Respiratory Rate - - Oxygen Saturation - - Inhaled Oxygen Concentration - - Weight 68.9 kg (151 lb 14.4 oz) 025 10:38 AM CDT Height - - Body Mass [...] Notes * Julio Cesar Rebolledo M.D. - 07/31/2025 10:00 AM CDT SUBJECTIVE REASON FOR VISIT Evaluation [...] Treatment Last Treatment Elapsed Days F1Opx 200 1200 7000 07/21/2025 07/30/2025 9 Course Summary 07/21/2025 07/30/2025 9 The patient was seen and examined today with Dr. Rebolledo. The patient reports feeling well overall. He is currently taking a stool softener. He has laxativeson hand if needed. His last bowel movement was during his hospital admission. He is not currently experiencing any radiation related side effects. 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 He remained admitted until 07/29/2025. He was started on new cardiac medications; chewable aspirin, metoprolol, and spironolactone; in addition to his already established cardiac management regimen. CONCURRENT THERAPY *On hold for two weeks d/t heart attack* Weekly dose reduced Cisplatin - with fluids, potassium, and magnesium. PATIENT REPORTED SYMPTOM SCREEN FATIGUE (Scale: 0 = no fatigue; 10 = worst fatigue you can imagine): 2 PAIN (Scale: 0 = no pain; 10 = worst pain you can imagine): 4 OVERALL QUALITY OF LIFE (Scale: 0 = as bad as can be; 10 = as good as can be): 9 OBJECTIVE BP 104/68 (BP Location: Right arm, Patient Position: Sitting, Cuff Size: Regular) Pulse 65 Temp36.3 ??C (Temporal) Wt 68.9 kg WEIGHT TRACKER: 07/24: 70.2 kg 07/31: 68.9 kg 10% loss at 63.2 kg PHYSICAL EXAM General: Alert and oriented in no apparent distress. He is here today with his , Antionette, and his daughter, Jamia. 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 Treatment Resumed on July 30, 2025; anticipated date of completionSeptember 08, 2023 The patient is tolerating radiation treatment well overall. The patient was provided with prescriptions for narcan and oxycodone 5 mg every 8 hours as needed to manage his pain. He is unable to take magic mouthwash due to the cardiac implications linked to lidocaine. Patient was re-educated on the use of stool softeners with opioid medications. Both the patient and his family express understanding of the above teachings. Dr. Rebolledo was in for any questions or concerns. He will contact us with any questions or concerns. We will continue with radiation treatment as planned. Signed by: Keerthi Leach R.N. 07/31/2025 11:11 AM CDT ATTESTATION FOR MANAGEMENT VISIT I saw and evaluated the patient and participated in the bean portions of the service including medical decision making as noted above. I reviewed the documentation of Neil Leach RN and agreewith the findings and plan. The patient appears well on exam. I encouraged him to stay well hydrated and well nourished. I discussed with them the appropriate pain control. I discussed that ideally we would have a few days of b.i.d. fractionation to make up for the last days due to the holiday and due to his hospitalization. However, that does slightly intensify the treatment regimen and I want to ensure that he is able to safely finish the treatment course given his age and comorbidities therefore we will watch and see how he is tolerating treatment before deciding if we should hypofractionated for a couple of days to reduce the ???treatment package time. ?? We will continue with radiation as planned and monitor weekly. Julio Cesar Rebolledo M.D., 07/31/2025 documented in this encounter Plan of Treatment Upcoming Encounters Date Type Department Care Team (Late st Contact Info) Description 09/17/2025 10:30 AM CDT Appointment Department of Radiation Oncology in [place], [place] [address] [place] [phone] Julio Cesar Rebolledo M.D. [address] [place] [phone] Britt Ayala R.N. [address] [place] [phone] 09/24/2025 10:30 AM CDT Appointment Department of Radiation Oncology in [place], [place] [address] [place] [address] Julio Cesar Rebolledo M.D. [address] [place] [address] Britt Ayala R.N. [address] [place] [phone] 10/01/2025 10:30 AM COMMERCIAL PORTFOLIO MANAGER Appointment Department of Radiation Oncology in [place], [place] [address] [place] [address] Julio Cesar Rebolledo M.D. [facility] [place] [address] Michel Leach R.NElba 10/08/2025 10:30 AM COMMERCIAL PORTFOLIO MANAGER Appointment Department of Radiation Oncology in [place], [place] [address] [place] [address] Julio Cesar Rebolledo M.D. [address] [place] [address] Britt Ayala R.N. [address] [place] [phone] 10/15/2025 10:30 AM COMMERCIAL PORTFOLIO MANAGER Appointment Department of Radiation Oncology in [place], [place] [address] [place] [address] Julio Cesar Rebolledo M.D. [facility] [place] [address] Britt Ayala R.N. [address] [place] [address] 10/22/2025 2:30 PM COMMERCIAL PORTFOLIO MANAGER Appointment Department of Radiation Oncology in [place], [place] [address] [place] [phone] Julio Cesar Rebolledo M.D. [address] [place] [address] Scheduled Orders Name Type Priority Associated Diagnoses Orde r Schedule Management Visit Radiation Oncology Routine Malignant Neoplasm Of Tongue Base (HCC) Once for 1 Occurrences starting 07/31/2025 until 07/31/2025 documented as of this encounter Visit Diagnoses Diagnosis Malignant Neoplasm Of Tongue Base (HCC)- Primary documented in this encounter Additional Health Concerns Infection Onset Date Last Indicated Resolved Time Protective Environment 06/30/2025 06/30/2025 documented as of this encounter
--- OUTSIDE RECORDS SUMMARY | 2025-07-31 11:00 | XMS_ITS | Encounter Summary ---
Author Organization [facility] Address [address] [place] [address] Care Team Providers Care Transportation Sales Consultant Name Role Phone Unavailable Primary Care Provider Unavailabl e Reason for Visit * Radiation Therapy (Routine) - Authorized Specialty Diagnoses / Procedures Referred By Norma choi Referred To Contact Diagnoses Malignant Neoplasm Of Tongue Base (HCC) Procedures Prior Auth Rad Tx CT IMRT COMPLEX CT GUIDANCE FOR LOC RAD TX CT IMRT RADIOTHERAPY PLAN IMRT Julio Cesar Rebolledo M.D. [address] [place] [phone] Phone: tel: fax: [facility] Referral ID Status Reason Start Date Expiration Date V isits Requested Visits Authorized [id number] Authorized 07/14/2025 09/30/2026 35 35 Encounter Details Date Type Department Care Team (Latest Contact Info) Description 07/31/2025 11:00 AM CDT - 07/31/2025 11:59 PM CDT Hospital Encounter Department of Radiation Oncology in [address] [phone] Julio Cesar Rebolledo M.D. [address] [place] [phone] Discharge Disposition: Home or Self Care Social [...] things needed for daily living? No 08/07/2025 [facility] Utilities Answer Date Recorded In the past 12 months has [employer], gas, oil, or water [employer] threatened to shut off services in your home? No 08/07/2025 Housing Stability Answer Date Recorded What is your living situation today? I have a [facility] place to live 08/07/2025 Sex and [...] CDT Appointment Department of Radiation Oncology in [place] [address] [place] [address] Julio Cesar Rebolledo M.D. [address] [place] [address] Britt Ayala R.N. [address] [place] [address] 09/24/2025 10:30 AM CDT Appointment Department of Radiation Oncology in [place], [place] [address] [place] [phone] Julio Cesar Rebolledo M.D. [address] [place] [address] Britt Ayala R.N. [address] [place] [address] 10/01/2025 10:30 AM RELIGIOUS EDUCATOR Appointment Department of Radiation Oncology in [address] [address] Julio Cesar Rebolledo M.D. [address] [place] [address] Michel Leach R.N. 10/08/2025 10:30 AM RELIGIOUS EDUCATOR Appointment Department of Radiation Oncology in [place], [place] [address] [place] [address] Julio Cesar Rebolledo M.D. [facility] [place] [address] Britt Ayala R.N. [address] [place] [address] 10/15/2025 10:30 AM RELIGIOUS EDUCATOR Appointment Department of Radiation Oncology in [address] [address] Julio Cesar Rebolledo M.D. [address] [place] [address] Britt Ayala R.N. [address] [place] [address] 10/22/2025 2:30 PM RELIGIOUS EDUCATOR Appointment Department of Radiation Oncology in [place], [place] [address] [place] [phone] Julio Cesar Rebolledo M.D. [address] [place] [address] documented as of this encounter Visit Diagnoses Not on filedocumented in this encounter Additional Health Concerns Infection Onset Date Last Indicated Resolved Time Protective Environment 06/30/2025 06/30/2025 documented as of this encounter
--- OUTSIDE RECORDS SUMMARY | 2025-08-01 08:13 | XMS_ITS | Encounter Summary ---
Author Organization [facility] Address [address] [place] [address] Care Team Providers Care Hand Tapper Name Role Phone Unavailable Primary Care Provider Unavailabl e Reason for Visit * Radiation Therapy (Routine) - Authorized Specialty Diagnoses / Procedures Referred By Norma t Referred To Contact Diagnoses Malignant Neoplasm Of Tongue Base (HCC) Procedures Prior Auth Rad Tx [place] IMRT COMPLEX [place] GUIDANCE FOR LOC RAD TX NC IMRT RADIOTHERAPY PLAN IMRT Julio Cesar Rebolledo M.D. [address] [place] [phone] Phone: tel: fax: [facility] Referral ID Status Reason Start Date Expiration Date V isits Requested Visits Authorized [id number] Authorized 07/14/2025 09/30/2026 35 35 Encounter Details Date Type Department Care Team (Latest Contact Info) Description 08/01/2025 8:13 AM CDT - 08/01/2025 11:59 PM CDT Hospital Encounter Department of Radiation Oncology in [address] [phone] Julio Cesar Rebolledo M.D. [address] [place] [phone] Discharge Disposition: Home or Self Care Social [...] things needed for daily living? No 08/07/2025 [facility] Utilities Answer Date Recorded In the past 12 months has [email or web address], gas, oil, or water [employer] threatened to shut off services in your [...] CDT Appointment Department of Radiation Oncology in [place] [place] [address] Julio Cesar Rebolledo M.D. [address] [place] [address] Britt Ayala R.N. [address] [place] [address] 09/24/2025 10:30 AM CDT Appointment Department of Radiation Oncology in [place], [place] [address] [place] [phone] Julio Cesar Rebolledo M.D. [address] [place] [address] Britt Ayala R.N. [address] [place] [address] 10/01/2025 10:30 AM HYDROELECTRIC SYSTEMS TECHNICIAN Appointment Department of Radiation Oncology in [address] [address] Julio Cesar Rebolledo M.D. [address] [place] [address] Michel Leach R.N. 10/08/2025 10:30 AM HYDROELECTRIC SYSTEMS TECHNICIAN Appointment Department of Radiation Oncology in [place], [place] [address] [place] [address] Julio Cesar Rebolledo M.D. [facility] [place] [address] Britt Ayala R.N. [address] [place] [address] 10/15/2025 10:30 AM HYDROELECTRIC SYSTEMS TECHNICIAN Appointment Department of Radiation Oncology in [address] [address] Julio Cesar Rebolledo M.D. [address] [place] [address] Britt Ayala R.N. [address] [place] [address] 10/22/2025 2:30 PM HYDROELECTRIC SYSTEMS TECHNICIAN Appointment Department of Radiation Oncology in [place], [place] [address] [place] [address] Julio Cesar Rebolledo M.D. [address] [place] [address] documented as of this encounter Visit Diagnoses Not on filedocumented in this encounter Additional Health Concerns Infection Onset Date Last Indicated Resolved Time Protective Environment 06/30/2025 06/30/2025 documented as of this encounter
--- OUTSIDE RECORDS SUMMARY | 2025-08-04 08:13 | XMS_ITS | Encounter Summary ---
Author Organization [facility] Address [address] [place] [address] Care Team Providers Care Training And Quality Manager Name Role Phone Unavailable Primary Care Provider Unavailabl e Reason for Visit * Radiation Therapy (Routine) - Authorized Specialty Diagnoses / Procedures Referred By Norma t Referred To Contact Diagnoses Malignant Neoplasm Of Tongue Base (HCC) Procedures Prior Auth Rad Tx [place] IMRT COMPLEX [place] GUIDANCE FOR LOC RAD TX [place] IMRT RADIOTHERAPY PLAN IMRT Julio Cesar Rebolledo M.D. [address] [place] [phone] Phone: tel: fax: [facility] Referral ID Status Reason Start Date Expiration Date V isits Requested Visits Authorized [id number] Authorized 07/14/2025 09/30/2026 35 35 Encounter Details Date Type Department Care Team (Latest Contact Info) Description 08/04/2025 8:13 AM CDT - 08/04/2025 8:30 AM CDT Hospital Encounter Department of Radiation Oncology in [address] [phone] Julio Cesar Rebolledo M.D. [address] [place] [phone] Discharge Disposition: Home or Self Care Social [...] for daily living? No 08/07/[address] [facility] Utilities Answer Date Recorded In the past 12 months has [employer], gas, oil, or water [employer] threatened to shut off services in your home? No 08/07/2025 Housing Stability Answer Date Recorded What is your living situation today? I have a [facility] place to live 08/07/2025 Sex and [...] CDT Appointment Department of Radiation Oncology in [place] [address] [place] [address] Julio Cesar Rebolledo M.D. [address] [place] [address] Britt Ayala R.N. [address] [place] [phone] 09/24/2025 10:30 AM CDT Appointment Department of Radiation Oncology in [place], [place] [address] [place] [phone] Julio Cesar Rebolledo M.D. [address] [place] [address] Britt Ayala R.N. [address] [place] [phone] 10/01/2025 10:30 AM COMMISSARY HELPER Appointment Department of Radiation Oncology in [address] [address] Julio Cesar Rebolledo M.D. [address] [place] [address] Michel Leach R.N. 10/08/2025 10:30 AM COMMISSARY HELPER Appointment Department of Radiation Oncology in [place], [place] [address] [place] [address] Julio Cesar Rebolledo M.D. [place] [address] Britt Ayala R.N. [address] [place] [phone] 10/15/2025 10:30 AM COMMISSARY HELPER Appointment Department of Radiation Oncology in [address] [phone] Julio Cesar Rebolledo M.D. [address] [place] [address] Britt Ayala R.N. [address] [place] [address] 10/22/2025 2:30 PM COMMISSARY HELPER Appointment Department of Radiation Oncology in [place], [place] [address] [place] [phone] Julio Cesar Rebolledo M.D. [address] [place] [address] documented as of this encounter Visit Diagnoses Not on filedocumented in this encounter Additional Health Concerns Infection Onset Date Last Indicated Resolved Time Protective Environment 06/30/2025 06/30/2025 documented as of this encounter
--- OUTSIDE RECORDS SUMMARY | 2025-08-04 08:31 | XMS_ITS | Encounter Summary ---
Author Organization [facility] Address [address] [place] [address] Care Team Providers Care Pickle Maker Name Role Phone Unavailable Primary Care Provider Unavailabl e Reason for Referral * Radiation Therapy (Routine) - Closed Specialty Diagnoses / Procedures Referred By Norma choi Referred To Contact Diagnoses Malignant Neoplasm Of Tongue Base (HCC) Procedures Verification/Re-Sim Jamie Maria M.D. [address] [place] [address] Phone: tel: fax: [facility] Region Referral ID Status Reason Start Date Expiration Date Visits Re quested Visits Authorized [id number] Closed 08/01/2025 11/01/2026 1 1 Reason for Visit * Radiation Therapy (Routine) - Closed Specialty Diagnoses / Procedures Referred By Norma choi Referred To Contact Diagnoses Malignant Neoplasm Of Tongue Base (HCC) Procedures Verification/Re-Sim Jamie Maria M.D. [address] [place] [address] Phone: tel: fax: [facility] Region Referral ID Status Reason Start Date Expiration Date Visits Re quested Visits Authorized [id number] Closed 08/01/2025 11/01/2026 1 1 Encounter Details Date Type Department Care Team (Latest Contact Info) Description 08/04/2025 8:31 AM CDT - 08/04/2025 11:59 PM CDT Hospital Encounter Department of Radiation Oncology in [place], [place] [address] [place] [phone] Jamie Maria M.D. [address] [place] [address] Malignant Neoplasm Of Tongue Base (HCC) Discharge Disposition: Home or Self Care Social [...] things needed for daily living? No 08/07/2025 [facility] Utilities Answer Date Recorded In the past 12 months has e electric, gas, oil, or water company threatened to shut off services in your home? No 08/07/2025 Housing Stability Answer Date Recorded What is your living situation today? I have a [facility] place to live 08/07/2025 Sex and [...] 07/30/2025 5 documented as of this encounter Procedure Notes * Kellee Culp RTT - 08/04/2025 8:45 AM CDTAssociated Order(s): Aria Daily Treatment Information Aria Daily Treatment Information Performed by: Kathe Mccurdy M.D. Authorized by: System, Provider Not In Simulation was performed under physician supervision based on physician order. Physician was immediately available to provide assistance and direction throughout the procedure. The patient was appropriately identified and placed in the treatment position using the necessary immobilization. Area scanned:Neck Contrast used for the simulation procedure: None Motion management: None Reason for Re-Sim:Anatomy change Immobilization:No changes made CT guidance: Following positioning of the patient, a series of slices was obtained to be utilized in treatment planning. CT images were transferred to the [employer] treatment planning system. Verification treatment planning will take place prior to treatment delivery as directed by physician. Patient set up and imaging was appropriate and completed without incident. Outreach Educator use:No Cosigned by Kathe Mccurdy M.D. at 08/04/2025 2:17 PM CDT Associated attestation - Kathe Mccurdy M.D. - 08/04/2025 2:17 PM CDT I was present during all critical and bean portions of the procedure(s) and/or immediately availableto furnish services the entire duration. See note for details. documented in this encounter Plan of Treatment Upcoming Encounters Date Type Department Care Team (Late st Contact Info) Description 09/17/2025 10:30 AM CDT Appointment Department of Radiation Oncology in [place], [place] [address] [place] [address] Julio Cesar Rebolledo M.D. [address] [place] [address] Britt Ayala R.N. [address] [place] [phone] 09/24/2025 10:30 AM CDT Appointment Department of Radiation Oncology in [place], [place] [address] [place] [address] Julio Cesar Rebolledo M.D. [address] [place] [address] Britt Ayala R.N. [address] [place] [phone] 10/01/2025 10:30 AM LICENSED OCCUPATIONAL THERAPIST Appointment Department of Radiation Oncology in [place], [place] [address] [place] [address] Julio Cesar Rebolledo M.D. [address] [place] [address] Michel Leach R.N. 10/08/2025 10:30 AM LICENSED OCCUPATIONAL THERAPIST Appointment Department of Radiation Oncology in [place], [place] [address] [place] [address] Julio Cesar Rebolledo M.D. [facility] [place] [address] Britt Ayala R.N. [address] [place] [phone] 10/15/2025 10:30 AM LICENSED OCCUPATIONAL THERAPIST Appointment Department of Radiation Oncology in [place], [place] [address] [place] [address] Julio Cesar Rebolledo M.D. [address] [place] [address] Britt Ayala R.N. [address] [place] [phone] 10/22/2025 2:30 PM LICENSED OCCUPATIONAL THERAPIST Appointment Department of Radiation Oncology in [place], [place] [address] [place] [address] Julio Cesar Rebolledo M.D. [address] [place] [address] documented as of this encounter Procedures Procedure Name Priority Date/Time Associated Diagnosis Natalio VARGAS DAILY TREATMENT INFORMATION Routine 08/04/2025 8:32 AM CDT VERIFICATION/RE-SIM Routine 08/04/2025 8 :31 AM CDT Malignant Neoplasm Of Tongue Base (HCC) documented in this encounter Results * Verification/Re-Sim (08/04/2025 8:31 AM CDT) Narrative CARY VARGAS - 08/04/2025 8:31 AM CDT This exam does not require a oncologist review or interpretation. Please refer to the patient s medical record on this date for clinical details. us Jamie Maria M.D. RADIATION ONCOLOGY ORDERAB LES Final Result CARY VARGAS na documented in this encounter Visit Diagnoses Diagnosis Malignant Neoplasm Of Tongue Base (HCC) documented in this encounter Additional Health Concerns Infection Onset Date Last Indicated Resolved Time Protective Environment 06/30/2025 06/30/2025 documented as of this encounter
--- OUTSIDE RECORDS SUMMARY | 2025-08-05 08:14 | XMS_ITS | Encounter Summary ---
Author Organization [facility] Address [address] [place] [address] Care Team Providers Care Optometric Tech Name Role Phone Unavailable Primary Care Provider Unavailabl e Reason for Visit * Radiation Therapy (Routine) - Authorized Specialty Diagnoses / Procedures Referred By Norma t Referred To Contact Diagnoses Malignant Neoplasm Of Tongue Base (HCC) Procedures Prior Auth Rad Tx MD IMRT COMPLEX MD GUIDANCE FOR LOC RAD TX MD IMRT RADIOTHERAPY PLAN IMRT Julio Cesar Rebolledo M.D. [address] [place] [phone] Phone: tel: fax: [facility] Referral ID Status Reason Start Date Expiration Date V isits Requested Visits Authorized [id number] Authorized 07/14/2025 09/30/2026 35 35 Encounter Details Date Type Department Care Team (Latest Contact Info) Description 08/05/2025 8:14 AM CDT - 08/05/2025 11:59 PM CDT Hospital Encounter Department of Radiation Oncology in [address] [phone] Julio Cesar Rebolledo M.D. [address] [place] [phone] Discharge Disposition: Home or Self Care Social [...] for daily living? No 08/07/2025 [facility] Utilities Answer Date Recorded In the past 12 months has [employer], gas, oil, or water [employer] threatened to shut off services in your home? No 08/07/2025 Housing Stability Answer Date Recorded What is your living situation today? I have a [facility] place to live 08/07/2025 Sex and [...] CDT Appointment Department of Radiation Oncology in [place] [address] [place] [address] Julio Cesar Rebolledo M.D. [address] [place] [address] Britt Ayala R.N. [address] [place] [phone] 09/24/2025 10:30 AM CDT Appointment Department of Radiation Oncology in [place], [place] [address] [place] [phone] Julio Cesar Rebolledo M.D. [address] [place] [address] Britt Ayala R.N. [address] [place] [phone] 10/01/2025 10:30 AM ROBOTIC TECHNICIAN Appointment Department of Radiation Oncology in [address] [address] Julio Cesar Rebolledo M.D. [address] [place] [address] Michel Leach R.N. 10/08/2025 10:30 AM ROBOTIC TECHNICIAN Appointment Department of Radiation Oncology in [place], [place] [address] [place] [address] Julio Cesar Rebolledo M.D. [facility] [place] [address] Britt Ayala R.N. [address] [place] [phone] 10/15/2025 10:30 AM ROBOTIC TECHNICIAN Appointment Department of Radiation Oncology in [address] [phone] Julio Cesar Rebolledo M.D. [address] [place] [address] Britt Ayala R.N. [address] [place] [address] 10/22/2025 2:30 PM ROBOTIC TECHNICIAN Appointment Department of Radiation Oncology in [place], [place] [address] [place] [address] Julio Cesar Rebolledo M.D. [address] [place] [address] documented as of this encounter Visit Diagnoses Not on filedocumented in this encounter Additional Health Concerns Infection Onset Date Last Indicated Resolved Time Protective Environment 06/30/2025 06/30/2025 documented as of this encounter
--- OUTSIDE RECORDS SUMMARY | 2025-08-06 08:12 | XMS_ITS | Encounter Summary ---
Author Organization [facility] Address [address] [place] [address] Care Team Providers Care Votator Machine Operator Name Role Phone Unavailable Primary Care Provider Unavailabl e Reason for Visit * Radiation Therapy (Routine) - Authorized Specialty Diagnoses / Procedures Referred By Norma t Referred To Contact Diagnoses Malignant Neoplasm Of Tongue Base (HCC) Procedures Prior Auth Rad Tx OR IMRT COMPLEX OR GUIDANCE FOR LOC RAD TX OR IMRT RADIOTHERAPY PLAN IMRT Julio Cesar Rebolledo M.D. [address] [place] [phone] Phone: tel: fax: [facility] Referral ID Status Reason Start Date Expiration Date V isits Requested Visits Authorized [id number] Authorized 07/14/2025 09/30/2026 35 35 Encounter Details Date Type Department Care Team (Latest Contact Info) Description 08/06/2025 8:12 AM CDT - 08/06/2025 11:59 PM CDT Hospital Encounter Department of Radiation Oncology in [address] [phone] Julio Cesar Rebolledo M.D. [address] [place] [phone] Discharge Disposition: Home or Self Care Social [...] for daily living? No 08/07/2025 [facility] Utilities Answer Date Recorded In the past 12 months has [employer], gas, oil, or water [employer] threatened to shut off services in your home? No 08/07/2025 Housing Stability Answer Date Recorded What is your living situation today? I have a [facility] place to live 08/07/2025 Sex and Gender [...] CDT Appointment Department of Radiation Oncology in [place] [address] [place] [address] Julio Cesar Rebolledo M.D. [address] [place] [address] Britt Ayala R.N. [address] [place] [phone] 09/24/2025 10:30 AM CDT Appointment Department of Radiation Oncology in [place], [place] [address] [place] [phone] Julio Cesar Rebolledo M.D. [address] [place] [address] Britt Ayala R.N. [address] [place] [phone] 10/01/2025 10:30 AM HAND CLERICAL VERIFIER Appointment Department of Radiation Oncology in [address] [phone] Julio Cesar Rebolledo M.D. [address] [place] [address] Michel Leach R.N. 10/08/2025 10:30 AM HAND CLERICAL VERIFIER Appointment Department of Radiation Oncology in [place], [place] [address] [place] [address] Julio Cesar Rebolledo M.D. [place] [address] Britt Ayala R.N. [address] [place] [phone] 10/15/2025 10:30 AM HAND CLERICAL VERIFIER Appointment Department of Radiation Oncology in [address] [address] Julio Cesar Rebolledo M.D. [address] [place] [address] Britt Ayala R.N. [address] [place] [address] 10/22/2025 2:30 PM HAND CLERICAL VERIFIER Appointment Department of Radiation Oncology in [place], [place] [address] [place] [phone] Julio Cesar Rebolledo M.D. [address] [place] [address] documented as of this encounter Visit Diagnoses Not on filedocumented in this encounter Additional Health Concerns Infection Onset Date Last Indicated Resolved Time Protective Environment 06/30/2025 06/30/2025 documented as of this encounter
--- OUTSIDE RECORDS SUMMARY | 2025-08-07 08:16 | XMS_ITS | Encounter Summary ---
Author Organization [facility] Address [address] [place] [address] Care Team Providers Care Donor Specialist Name Role Phone Unavailable Primary Care Provider Unavailabl e Reason for Referral * Outpatient (Routine) - Authorized Specialty Diagnoses / Procedures Referred By Norma choi Referred To Contact Radiation Oncology Diagnoses Malignant Neoplasm Of Tongue Base (HCC) Julio Cesar Rebolledo M.D. [address] [place] [address] Phone: tel: fax: [facility] Region Referral ID Status Reason Start Date Expiration Date V isits Requested Visits Authorized [id number] Authorized 07/24/2025 01/23/2027 3 3 Reason for Visit * Outpatient (Routine) - Authorized Specialty Diagnoses / Procedures Referred By Norma choi Referred To Contact Radiation Oncology Diagnoses Malignant Neoplasm Of Tongue Base (HCC) Julio Cesar Rebolledo M.D. [address] [place] [address] Phone: tel: fax: [facility] Region Referral ID Status Reason Start Date Expiration Date V isits Requested Visits Authorized [id number] Authorized 07/24/2025 01/23/2027 3 3 Encounter Details Date Type Department Care Team (Latest Contact Info) Description 08/07/2025 8:16 AM CDT - 08/07/2025 10:18 AM CDT Hospital Encounter Department of Radiation Oncology in [place], [place] [address] [place] [phone] Julio Cesar Rebolledo M.D. [address] [place] [phone] Gabriella Pascual, BORISN, LD [address] [place] [address] Malignant Neoplasm Of Tongue Base [...] things needed for daily living? No 08/07/2025 [facility] Utilities Answer Date Recorded In the past 12 months has [facility] electric, gas, oil, or water company threatened to shut off services in your home? No 08/07/2025 Housing Stability Answer Date Recorded What is your living situation today? 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 This has been on hold following cardiac events and hospitalization 2 times in the past 2 weeks. Stents placed. ASSESSMENT Nutrition Focused Physical Findings Mouth/Esophagus/Throat: mouth is sore, taste is still pretty good and swallow is good, currently nopain medication, using cough drops to sooth and moisture Bowels: no issues since not having chemo in a couple of weeks Nausea/Vomiting: none Food/Nutrition Related History Patient 84 y/o male. Attended appointment with his daughter. He continues with eating shortly afterwaking. He has been having 2 eggs or hot cereal with protein powder and a cup of black coffee for breakfast. Lunch yesterday was homemade squash soup with protein powder and soup with crackers and a peach and water with electrolytes. Last night he had 3 ounces of salmon, zucchini with cream sauce and a zucchini muffin made with protein powder and chocolate chips. He continues with 1 nutrition supplement 170 calories and 20 grams of protein. Patient reports awareness of not getting enough fluid and is being strongly encouraged related to this. They are tracking his calories, protein and fluid. They are adding peanut butter, avocado, cottage cheese, and Bermudian yogurt and protein powder, including making smoothies and shakes. Weight History Height: 172.7 cm Weight: 70.2 kg BMI: 23.5 Weight History (chart): 08/07/25 68.2 kg 07/31/25 68.9 kg 07/24/25 70.2 kg 06/30/25 74.6 kg 05/14/25 74.0 kg 09/04/24 70.8 kg 07/01/24 68.0 kg Usual Weight: 07/24/25 chart weight history shows a decrease of 4.4 kg/9.7 lbs or 5.9% weight loss in 3 weeks which is a significant loss of weight. Patient reports a usual weight between 150 and 160 lbs, he reports a weight of 164 lbs would be a high weight for him. However, he and his and daughter report that they had been working on gaining weight prior to treatment. He had teeth removed about 3 weeks prior to treatment and intake decreased due to eating pureed to currently ???toddler foods?? and less of them. Estimation of Daily Nutrition Needs using weight [...] meet estimated nutrition needs during treatment. Unintentional weight loss prior to treatment related to teeth extraction and related decreased intake as evidenced by a significant weight loss of 5.9% weight loss in 3 weeks and need for education to meet estimated nutrition needs. Nutrition Prescription/Recommendation At least 1700 calories, 82 grams of protein and 8 cups of fluid a day. INTERVENTION Today we reviewed the role of nutrition during radiation treatment. Reviewed weight and weight lossand the goal of maintaining weight. Reviewed calorie, protein and fluid goals, including options for protein sources and fluids in meeting his nutrition needs. Reinforced looking at adequate nutrition like a job or medicine. Handouts: Nutrition Supplement/Protein Drinks and Smoothie and Shake Recipes ([employer]). Provided samples of Boost Very High Calorie supplements. MONITORING AND EVALUATION: Nutrition parameter to monitor: weight Desired Outcome: Maintain weight 70.2 kg/154.4 lbs without a loss of 5% 66.7 lg146.7 lbs. Patient Goal(s): 1. A minimum of 1700 calories, 82 grams of protein and 8 cups of fluid. 2. Addition of high calorie, high protein foods and supplements to meet estimated nutrition needs. 3.Track intake related to needs recommendations. FOLLOW UP PLAN: Schedule for 2 weeks, encouraged patient to contact sooner if needed. Time spent with patient (minutes): 15 documented in this encounter Plan of Treatment Upcoming Encounters Date Type Department Care Team (Late st Contact Info) Description 09/17/2025 10:30 AM CDT Appointment Department of Radiation Oncology in [address] [address] Julio Cesar Rebolledo M.D. [address] [place] [phone] Britt Ayala R.N. [address] [place] [phone] 09/24/2025 10:30 AM CDT Appointment Department of Radiation Oncology in [address] [address] Julio Cesar Rebolledo M.D. [address] [place] [phone] Britt Ayala R.N. [address] [place] [phone] 10/01/2025 10:30 AM HANG GLIDING INSTRUCTOR Appointment Department of Radiation Oncology in [address] [address] Julio Cesar Rebolledo M.D. [address] [place] [phone] Michel Leach R.N. 10/08/2025 10:30 AM HANG GLIDING INSTRUCTOR Appointment Department of Radiation Oncology in [place], [place] [address] [place] [address] Julio Cesar Rebolledo M.D. [address] [place] [address] Britt Ayala R.N. [address] [place] [phone] 10/15/2025 10:30 AM HANG GLIDING INSTRUCTOR Appointment Department of Radiation Oncology in [place], [place] [address] [place] [phone] Julio Cesar Rebolledo [place] [address] Britt Ayala R.N. [address] [place] [phone] 10/22/2025 2:30 PM HANG GLIDING INSTRUCTOR Appointment Department of Radiation Oncology in [place] [address] [place] [address] Julio Cesar Rebolledo M.D. [address] [place] [address] Scheduled Referrals Name Type Priority Associated Diagnoses Order Schedule Radiation Oncology - Medical nutrition therapy consult (clinic) Outpatient Referral Routine Once for 1 Occurrences starting 08/07/2025 until 08/07/2025 documented as of this encounter Visit Diagnoses Diagnosis Malignant Neoplasm Of Tongue Base (HCC)- Primary documented in this encounter Additional Health Concerns Infection Onset Date Last Indicated Resolved Time Protective Environment 06/30/2025 06/30/2025 documented as of this encounter
--- OUTSIDE RECORDS SUMMARY | 2025-08-07 08:16 | XMS_ITS | Encounter Summary ---
Author Organization [facility] Address [address] [place] [address] Care Team Providers Care Temperature Regulator Name Role Phone Unavailable Primary Care Provider Unavailabl e Reason for Referral * Radiation Therapy (Routine) - Authorized Specialty Diagnoses / Procedures Referred By Norma choi Referred To Contact Diagnoses Malignant Neoplasm Of Tongue Base (HCC) Procedures Management Visit Julio Cesar Rebolledo M.D. [address] [place] [address] Phone: tel: fax: [facility] Region Referral ID Status Reason Start Date Expiration Date V isits Requested Visits Authorized [id number] Authorized 06/30/2025 09/30/2026 10 10 Reason for Visit * Radiation Therapy (Routine) - Authorized Specialty Diagnoses / Procedures Referred By Norma choi Referred To Contact Diagnoses Malignant Neoplasm Of Tongue Base (HCC) Procedures Management Visit Julio Cesar Rebolledo M.D. [address] [place] [address] Phone: tel: fax: [facility] Region Referral ID Status Reason Start Date Expiration Date V isits Requested Visits Authorized [id number] Authorized 06/30/2025 09/30/2026 10 10 Encounter Details Date Type Department Care Team (Latest Contact Info) Description 08/07/2025 8:16 AM CDT - 08/13/2025 12:45 PM CDT Hospital Encounter Department of Radiation Oncology in [place], [place] [address] [place] [phone] Julio Cesar Rebolledo M.D. [address] [place] [address] Malignant Neoplasm Of Tongue Base (HCC) Social [...] things needed for daily living? No 08/07/2025 [facility] Utilities Answer Date Recorded In the past 12 months has [facility] electric, gas, oil, or water [employer] threatened to shut off services in your home? No 08/07/2025 Housing Stability Answer Date Recorded What is your living situation today? I have a [facility] place to live 08/07/2025 Sex and Gender Information Value Date Recorded Sex Assigned at Male 08/07/2025 1:13 PM CDT Legal Sex Male 12:18 PM CDT Gender Identity Male 08/07/2025 1:13 PM CDT Sexual Orientation Straight 08/07/2025 1: 13 PM CDT documented as of this encounter Last Filed Vital Signs Vital Sign Reading Time Taken Comments Blood Pressure 103/64 08/07/2025 8:48 AM CDT Pulse 69 08/07/2025 8:48 AM CDT Temperature 36.2 C (97.2 F) 08/07/2025 8:48 AM CDT Respiratory Rate - - Oxygen Saturation - - Inhaled Oxygen Concentration - - Weight 68.2 kg (150 lb 5.7 oz) 08/07/2025 8:48 A M CDT Height - - Body [...] Notes * Julio Cesar Rebolledo M.D. - 08/07/2025 9:00 AM CDT SUBJECTIVE REASON FOR VISIT [...] Treatment Last Treatment Elapsed Days F1Opx 200 2200 2200 07/21/2025 08/06/2025 16 F12Opx 922 527 8843 08/07/2025 08/07/2025 0 Treatment Site Summary 2400 7000 07/21/2025 08/07/2025 17 Course Summary 07/21/2025 08/07/2025 17 The patient was seen and examined today with Dr. Rebolledo. The patient reports feeling well overall. He is no longer taking a stool softener and had one episode of diarrhea yesterday. He notes a dry throat, increased mucous production, and some fatigue. He is utilizing lozenges and baking soda rinses for his symptoms. He denies any pain with swallowing or c hanges to his eating and drinking. He denies pain or sores in his mouth. 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 He remained admitted until 07/29/2025. He was started on new cardiac medications; chewable aspirin, metoprolol, and spironolactone; in addition to his already established cardiac management regimen. Additional stent placement occurred on 08/02/2025. CONCURRENT THERAPY Weekly dose reduced Cisplatin - [...] as can be): not reported OBJECTIVE BP 103/64 (BP Location: Right arm, Patient Position: Sitting, Cuff Size: Regular) Pulse 69 Temp36.2 ??C (Temporal) Wt 68.2 kg WEIGHT TRACKER: 07/24: 70.2 kg 07/31: 68.9 kg 08/07: 68.2 kg 10% loss at 63.2 kg PHYSICAL EXAM General: Alert and oriented in no apparent distress. He is here today with his , Antionette, and his daughter, Jamia. Oral: Mucosa intact, no signs of sores or mucositis. 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 Treatment Resumed on July 30, 2025; anticipated date of completionSeptember 08, 2023 The patient is tolerating radiation treatment well overall. The patient will meet with our interpretive program coordinator today to discuss nutrition and hydration. Dr. Rebolledo was in for any questions or concerns. Hewill contact us with any questions or concerns. We will continue with radiation treatment as planned. Signed by: Keerthi Leach R.N. 08/07/2025 9:22 AM CDT ATTESTATION FOR MANAGEMENT VISIT I saw and evaluated the patient and participated in the bean portions of the service including medical decision making as noted above. I reviewed the documentation of Ms.Alexis Haylee RN and agreewith the findings and plan. The patient appears well on exam. We will continue with radiation as planned and monitor weekly. Julio Cesar Rebolledo M.D., 08/13/2025 documented in this encounter Plan of Treatment Upcoming Encounters Date Type Department Care Team (Late st Contact Info) Description 09/17/2025 10:30 AM CDT Appointment Department of Radiation Oncology in [place], [place] [address] [place] [address] Julio Cesar Rebolledo M.D. [address] [place] [phone] Britt Ayala R.N. [address] [place] [address] 09/24/2025 10:30 AM CDT Appointment Department of Radiation Oncology in [place], [place] [address] [place] [address] Julio Cesar Rebolledo M.D. [address] [place] [address] Britt Ayala R.N. [address] [place] [phone] 10/01/2025 10:30 AM AUTO SERVICE ADVISOR Appointment Department of Radiation Oncology in [place], [place] [address] [place] [address] Julio Cesar Rebolledo M.D. [address] [place] [address] Michel Leach R.N. 10/08/2025 10:30 AM AUTO SERVICE ADVISOR Appointment Department of Radiation Oncology in [place], [place] [address] [place] [address] Julio Cesar Rebolledo M.D. [facility] [place] [address] Britt Ayala R.N. [address] [place] [phone] 10/15/2025 10:30 AM AUTO SERVICE ADVISOR Appointment Department of Radiation Oncology in [place], [place] [address] [place] [address] Julio Cesar Rebolledo M.D. [address] [place] [address] Britt yAala R.N. [address] [place] [phone] 10/22/2025 2:30 PM AUTO SERVICE ADVISOR Appointment Department of Radiation Oncology in [address] [address] Julio Cesar Rebolledo M.D. [facility] [place] [address] Scheduled Orders Name Type Priority Associated Diagnoses Orde r Schedule Management Visit Radiation Oncology Routine Malignant Neoplasm Of Tongue Base (HCC) Once for 1 Occurrences starting 08/07/2025 until 08/07/2025 documented as of this encounter Visit Diagnoses Diagnosis Malignant Neoplasm Of Tongue Base (HCC) documented in this encounter Additional Health Concerns Infection Onset Date Last Indicated Resolved Time Protective Environment 06/30/2025 06/30/2025 documented as of this encounter
--- OUTSIDE RECORDS SUMMARY | 2025-08-07 08:16 | XMS_ITS | Encounter Summary ---
Author Organization [facility] Address [address] [place] [address] Care Team Providers Care Financial Services Education Consultant Name Role Phone Unavailable Primary Care Provider Unavailabl e Reason for Visit * Radiation Therapy (Routine) - Authorized Specialty Diagnoses / Procedures Referred By Norma t Referred To Contact Diagnoses Malignant Neoplasm Of Tongue Base (HCC) Procedures Prior Auth Rad Tx [place] IMRT COMPLEX [place] GUIDANCE FOR LOC RAD TX [place] IMRT RADIOTHERAPY PLAN IMRT Julio Cesar Rebolledo M.D. [address] [place] [phone] Phone: tel: fax: [facility] Referral ID Status Reason Start Date Expiration Date V isits Requested Visits Authorized [id number] Authorized 07/14/2025 09/30/2026 35 35 Encounter Details Date Type Department Care Team (Latest Contact Info) Description 08/07/2025 8:16 AM CDT - 08/07/2025 11:59 PM CDT Hospital Encounter Department of Radiation Oncology in [address] [phone] Julio Cesar Rebolledo M.D. [address] [place] [phone] Discharge Disposition: Home or Self Care Social [...] things needed for daily living? No 08/07/2025 [facility] Utilities Answer Date Recorded In the past 12 months has [email or web address], gas, oil, or water [employer] threatened to shut off services in your home? No 08/07/2025 Housing Stability Answer Date Recorded What is your living situation today? I have a [facility] place to live 08/07/2025 Sex and Gender [...] Department of Radiation Oncology in [place] [address] [place] [address] Julio Cesar Rebolledo M.D. [address] [place] [address] Britt Ayala R.N. [address] [place] [phone] 09/24/2025 10:30 AM CDT Appointment Department of Radiation Oncology in [place], [place] [address] [place] [phone] Julio Cesar Rebolledo M.D. [address] [place] [address] Britt Ayala R.N. [address] [place] [phone] 10/01/2025 10:30 AM LYE MACHINE OPERATOR Appointment Department of Radiation Oncology in [address] [address] Julio Cesar Rebolledo M.D. [address] [place] [address] Michel Leach R.N. 10/08/2025 10:30 AM LYE MACHINE OPERATOR Appointment Department of Radiation Oncology in [place], [place] [address] [place] [address] Julio Cesar Rebolledo M.D. [facility] [address] Britt Ayala R.N. [address] [place] [phone] 10/15/2025 10:30 AM LYE MACHINE OPERATOR Appointment Department of Radiation Oncology in [address] [address] Julio Cesar Rebolledo M.D. [address] [place] [address] Britt Ayala R.N. [address] [place] [address] 10/22/2025 2:30 PM LYE MACHINE OPERATOR Appointment Department of Radiation Oncology in [place], [place] [address] [place] [address] Julio Cesar Rebolledo M.D. [address] [place] [address] documented as of this encounter Visit Diagnoses Not on filedocumented in this encounter Additional Health Concerns Infection Onset Date Last Indicated Resolved Time Protective Environment 06/30/2025 06/30/2025 documented as of this encounter
--- OUTSIDE RECORDS SUMMARY | 2025-08-08 08:08 | XMS_ITS | Encounter Summary ---
Author Organization [facility] Address [address] [place] [address] Care Team Providers Care Vessel Slag Worker Name Role Phone Unavailable Primary Care Provider Unavailabl e Reason for Visit * Radiation Therapy (Routine) - Authorized Specialty Diagnoses / Procedures Referred By Norma t Referred To Contact Diagnoses Malignant Neoplasm Of Tongue Base (HCC) Procedures Prior Auth Rad Tx [place] IMRT COMPLEX MO GUIDANCE FOR LOC RAD TX [place] IMRT RADIOTHERAPY PLAN IMRT Julio Cesar Rebolledo M.D. [address] [place] [phone] Phone: tel: fax: [facility] Referral ID Status Reason Start Date Expiration Date V isits Requested Visits Authorized [id number] Authorized 07/14/2025 09/30/2026 35 35 Encounter Details Date Type Department Care Team (Latest Contact Info) Description 08/08/2025 8:08 AM CDT - 08/08/2025 11:59 PM CDT Hospital Encounter Department of Radiation Oncology in [address] [phone] Julio Cesar Rebolledo M.D. [address] [place] [phone] Discharge Disposition: Home or Self Care Social [...] for daily living? No 08/07/2025 [facility] Utilities Answer Date Recorded In the past 12 months has [employer], gas, oil, or water [employer] threatened to shut off services in your home? No 08/07/2025 Housing Stability Answer Date Recorded What is your living situation today? I have a [facility] place to live 08/07/2025 Sex and [...] CDT Appointment Department of Radiation Oncology in [place] [address] [place] [address] Julio Cesar Rebolledo M.D. [address] [place] [address] Britt Ayala R.N. [address] [place] [phone] 09/24/2025 10:30 AM CDT Appointment Department of Radiation Oncology in [place], [place] [address] [place] [phone] Julio Cesar Rebolledo M.D. [address] [place] [address] Britt Ayala R.N. [address] [place] [phone] 10/01/2025 10:30 AM FISCAL ANALYST Appointment Department of Radiation Oncology in [address] [address] Julio Cesar Rebolledo M.D. [address] [place] [address] Michel Leach R.N. 10/08/2025 10:30 AM FISCAL ANALYST Appointment Department of Radiation Oncology in [place], [place] [address] [place] [address] Julio Cesar Rebolledo M.D. [place] [address] Britt Ayala R.N. [address] [place] [phone] 10/15/2025 10:30 AM FISCAL ANALYST Appointment Department of Radiation Oncology in [address] [phone] Julio Cesar Rebolledo M.D. [address] [place] [address] Britt Ayala R.N. [address] [place] [address] 10/22/2025 2:30 PM FISCAL ANALYST Appointment Department of Radiation Oncology in [place], [place] [address] [place] [address] Julio Cesar Rebolledo M.D. [address] [place] [address] documented as of this encounter Visit Diagnoses Not on filedocumented in this encounter Additional Health Concerns Infection Onset Date Last Indicated Resolved Time Protective Environment 06/30/2025 06/30/2025 documented as of this encounter
--- OUTSIDE RECORDS SUMMARY | 2025-08-11 08:13 | XMS_ITS | Encounter Summary ---
Author Organization [facility] Address [address] [place] [address] Care Team Providers Care Crown Ironer Name Role Phone Unavailable Primary Care Provider Unavailabl e Reason for Visit * Radiation Therapy (Routine) - Authorized Specialty Diagnoses / Procedures Referred By Norma t Referred To Contact Diagnoses Malignant Neoplasm Of Tongue Base (HCC) Procedures Prior Auth Rad Tx [place] IMRT COMPLEX [place] GUIDANCE FOR LOC RAD [place] IMRT RADIOTHERAPY PLAN IMRT Julio Cesar Rebolledo M.D. [address] [place] [phone] Phone: tel: fax: [facility] Referral ID Status Reason Start Date Expiration Date V isits Requested Visits Authorized [id number] Authorized 07/14/2025 09/30/2026 35 35 Encounter Details Date Type Department Care Team (Latest Contact Info) Description 08/11/2025 8:13 AM CDT - 08/11/2025 11:59 PM CDT Hospital Encounter Department of Radiation Oncology in [address] [phone] Julio Cesar Rebolledo M.D. [address] [place] [phone] Discharge Disposition: Home or Self Care Social [...] things needed for daily living? No 08/07/2025 [facility] Utilities Answer Date Recorded In the past 12 months has [employer], gas, oil, or water [employer] threatened to shut off services in your home? No 08/07/2025 Housing Stability Answer Date Recorded What is your living situation today? I have a [facility] place to live 08/07/2025 Sex and [...] Department of Radiation Oncology in [place] [address] [place] [address] Julio Cesar Rebolledo M.D. [address] [place] [address] Britt Ayala R.N. [address] [place] [phone] 09/24/2025 10:30 AM CDT Appointment Department of Radiation Oncology in [place], [place] [address] [place] [phone] Julio Cesar Rebolledo M.D. [address] [place] [address] Britt Ayala R.N. [address] [place] [phone] 10/01/2025 10:30 AM CHIEF MAINTENANCE SUPERVISOR Appointment Department of Radiation Oncology in [address] [address] Julio Cesar Rebolledo M.D. [address] [place] [address] Michel Leach R.N. 10/08/2025 10:30 AM CHIEF MAINTENANCE SUPERVISOR Appointment Department of Radiation Oncology in [place], [place] [address] [place] [address] Julio Cesar Rebolledo M.D. [facility] [place] [address] Britt Ayala R.N. [address] [place] [phone] 10/15/2025 10:30 AM CHIEF MAINTENANCE SUPERVISOR Appointment Department of Radiation Oncology in [address] [address] Julio Cesar Rebolledo M.D. [address] [place] [address] Britt Ayala R.N. [address] [place] [address] 10/22/2025 2:30 PM CHIEF MAINTENANCE SUPERVISOR Appointment Department of Radiation Oncology in [place], [place] [address] [place] [address] Julio Cesar Rebolledo M.D. [address] [place] [address] documented as of this encounter Visit Diagnoses Not on filedocumented in this encounter Additional Health Concerns Infection Onset Date Last Indicated Resolved Time Protective Environment 06/30/2025 06/30/2025 documented as of this encounter
--- OUTSIDE RECORDS SUMMARY | 2025-08-12 08:12 | XMS_ITS | Encounter Summary ---
Author Organization [facility] Address [address] [place] [address] Care Team Providers Care Invoice Clerk Name Role Phone Unavailable Primary Care Provider Unavailabl e Reason for Visit * Radiation Therapy (Routine) - Authorized Specialty Diagnoses / Procedures Referred By Norma t Referred To Contact Diagnoses Malignant Neoplasm Of Tongue Base (HCC) Procedures Prior Auth Rad Tx [place] IMRT COMPLEX [place] GUIDANCE FOR LOC RAD [place] IMRT RADIOTHERAPY PLAN IMRT Julio Cesar Rebolledo M.D. [address] [place] [phone] Phone: tel: fax: [facility] Referral ID Status Reason Start Date Expiration Date V isits Requested Visits Authorized [id number] Authorized 07/14/2025 09/30/2026 35 35 Encounter Details Date Type Department Care Team (Late st Contact Info) Description 08/12/2025 8:12 AM CDT Hospital Encounter Department of Radiation Oncology in [address] [phone] Julio Cesar Rebolledo M.D. [address] [place] [phone] Social History Tobacco Use Types Packs/Day [...] things needed for daily living? No 08/07/2025 [facility] Utilities Answer Date Recorded In the past 12 months has e electric, gas, oil, or water company threatened to shut off services in your home? No 08/07/2025 Housing Stability Answer Date Recorded What is your living situation today? I have a [facility] place to live 08/07/2025 Sex and Gender Information Value Date Recorded Sex Assigned at Male 08/07/2025 1:13 PM CDT Legal Sex Male 12:18 PM CDT Gender Identity Male 08/07/2025 1:13 PM CDT Sexual Orientation Straight 08/07/2025 1: 13 PM CDT documented as of this encounter Plan of Treatment Upcoming Encounters Date Type Department Care Team (Late st Contact Info) Description 09/17/2025 10:30 AM CDT Appointment Department of Radiation Oncology in [place], [place] [address] [place] [phone] Julio Cesar Rebolledo M.D. [address] [place] [phone] Britt Ayala R.N. [address] [place] [address] 09/24/2025 10:30 AM CDT Appointment Department of Radiation Oncology in [place], [place] [address] [place] [phone] Julio Cesar Rebolledo M.D. [address] [place] [address] Britt Ayala R.N. [address] [place] [phone] 10/01/2025 10:30 AM NURSE UNIT MANAGER Appointment Department of Radiation Oncology in [address] [address] Julio Cesar Rebolledo M.D. [facility] [place] [address] Michel Leach RElbaNElba 10/08/2025 10:30 AM NURSE UNIT MANAGER Appointment Department of Radiation Oncology in [address] [address] Julio Cesar Rebolledo M.D. [facility] [place] [address] Britt Ayala R.N. [address] [place] [phone] 10/15/2025 10:30 AM NURSE UNIT MANAGER Appointment Department of Radiation Oncology in [place], [place] [address] [place] [phone] Julio Cesar Rebolledo M.D. [facility] [place] [address] Britt Ayala R.N. [address] [place] [phone] 10/22/2025 2:30 PM NURSE UNIT MANAGER Appointment Department of Radiation Oncology in [address] [phone] Julio Cesar Rebolledo M.D. [address] [place] [phone] documented as of this encounter Visit Diagnoses Not on filedocumented in this encounter Additional Health Concerns Infection Onset Date Last Indicated Resolved Time Protective Environment 06/30/2025 06/30/2025 documented as of this encounter
--- OUTSIDE RECORDS SUMMARY | 2025-08-13 08:04 | XMS_ITS | Encounter Summary ---
Author Organization [facility] Address [address] [place] [address] Care Team Providers Care Television News Producer Name Role Phone Unavailable Primary Care Provider Unavailabl e Reason for Visit * Radiation Therapy (Routine) - Authorized Specialty Diagnoses / Procedures Referred By Norma t Referred To Contact Diagnoses Malignant Neoplasm Of Tongue Base (HCC) Procedures Prior Auth Rad Tx [place] IMRT COMPLEX [place] GUIDANCE FOR LOC RAD TX [place] IMRT RADIOTHERAPY PLAN IMRT Julio Cesar Rebolledo M.D. [address] [place] [phone] Phone: tel: fax: [facility] Referral ID Status Reason Start Date Expiration Date V isits Requested Visits Authorized [id number] Authorized 07/14/2025 09/30/2026 35 35 Encounter Details Date Type Department Care Team (Late st Contact Info) Description 08/13/2025 8:04 AM CDT Hospital Encounter Department of Radiation Oncology in [address] [phone] Julio Cesar Rebolledo M.D. [address] [place] [phone] Social History Tobacco Use Types Packs/Day [...] things needed for daily living? No 08/07/2025 [facility] Utilities Answer Date Recorded In the past 12 months has e electric, gas, oil, or water company threatened to shut off services in your home? No 08/07/2025 Housing Stability Answer Date Recorded What is your living situation today? I have a [facility] place to live 08/07/2025 Sex and [...] CDT Appointment Department of Radiation Oncology in [place], [place] [address] [place] [phone] Julio Cesar Rebolledo M.D. [address] [place] [phone] Britt Ayala R.N. [address] [place] [address] 09/24/2025 10:30 AM CDT Appointment Department of Radiation Oncology in [place], [place] [address] [place] [phone] Julio Cesar Rebolledo M.D. [address] [place] [address] Britt Ayala R.N. [address] [place] [phone] 10/01/2025 10:30 AM COST SPECIALIST Appointment Department of Radiation Oncology in [address] [address] Julio Cesar Rebolledo M.D. [facility] [place] [address] Michel Leach RElbaNElba 10/08/2025 10:30 AM COST SPECIALIST Appointment Department of Radiation Oncology in [address] [phone] Julio Cesar Rebolledo M.D. [facility] [place] [address] Britt Ayala R.N. [address] [place] [phone] 10/15/2025 10:30 AM COST SPECIALIST Appointment Department of Radiation Oncology in [place], [place] [address] [place] [phone] Julio Cesar Rebolledo M.D. [facility] [place] [address] Britt Ayala R.N. [address] [place] [phone] 10/22/2025 2:30 PM COST SPECIALIST Appointment Department of Radiation Oncology in [address] [phone] Julio Cesar Rebolledo M.D. [address] [place] [phone] documented as of this encounter Visit Diagnoses Not on filedocumented in this encounter Additional Health Concerns Infection Onset Date Last Indicated Resolved Time Protective Environment 06/30/2025 06/30/2025 documented as of this encounter
--- OUTSIDE RECORDS SUMMARY | 2025-08-14 08:06 | XMS_ITS | Encounter Summary ---
Author Organization [facility] Address [address] [place] [address] Care Team Providers Care Cane Pusher Name Role Phone Unavailable Primary Care Provider Unavailabl e Reason for Visit * Radiation Therapy (Routine) - Authorized Specialty Diagnoses / Procedures Referred By Norma t Referred To Contact Diagnoses Malignant Neoplasm Of Tongue Base (HCC) Procedures Prior Auth Rad Tx RI IMRT COMPLEX RI GUIDANCE FOR LOC RAD TX RI IMRT RADIOTHERAPY PLAN IMRT Julio Cesar Rebolledo M.D. [address] [place] [phone] Phone: tel: fax: [facility] Referral ID Status Reason Start Date Expiration Date V isits Requested Visits Authorized [id number] Authorized 07/14/2025 09/30/2026 35 35 Encounter Details Date Type Department Care Team (Late st Contact Info) Description 08/14/2025 8:06 AM CDT Hospital Encounter Department of Radiation Oncology in [address] [phone] Julio Cesar Rebolledo M.D. [address] [place] [phone] Social History Tobacco Use Types Packs/Day [...] for daily living? No 08/07/2025 [facility] Utilities Answer Date Recorded In the past 12 months has e electric, gas, oil, or water company threatened to shut off services in your home? No 08/07/2025 Housing Stability Answer Date Recorded What is your living situation today? I have a [facility] place to live 08/07/2025 Sex and [...] CDT Appointment Department of Radiation Oncology in [place], [place] [address] [place] [phone] Julio Cesar Rebolledo M.D. [address] [place] [phone] Britt Ayala R.N. [address] [place] [address] 09/24/2025 10:30 AM CDT Appointment Department of Radiation Oncology in [place], [place] [address] [place] [phone] Julio Cesar Rebolledo M.D. [address] [place] [address] Britt Ayala R.N. [address] [place] [phone] 10/01/2025 10:30 AM PHONE BANKER Appointment Department of Radiation Oncology in [address] [phone] Julio Cesar Rebolledo M.D. [facility] [place] [address] Michel Leach RElbaNElba 10/08/2025 10:30 AM PHONE BANKER Appointment Department of Radiation Oncology in [address] [phone] Julio Cesar Rebolledo M.D. [facility] [place] [address] Britt Ayala R.N. [address] [place] [phone] 10/15/2025 10:30 AM PHONE BANKER Appointment Department of Radiation Oncology in [place], [place] [address] [place] [phone] Julio Cesar Rebolledo M.D. [facility] [place] [address] Britt Ayala R.N. [address] [place] [phone] 10/22/2025 2:30 PM PHONE BANKER Appointment Department of Radiation Oncology in [address] [phone] Julio Cesar Rebolledo M.D. [address] [place] [phone] documented as of this encounter Visit Diagnoses Not on filedocumented in this encounter Additional Health Concerns Infection Onset Date Last Indicated Resolved Time Protective Environment 06/30/2025 06/30/2025 documented as of this encounter
--- OUTSIDE RECORDS SUMMARY | 2025-08-14 08:06 | XMS_ITS | Encounter Summary ---
Author Organization [facility] Address [address] [place] [address] Care Team Providers Care Flag Football Coach Name Role Phone Unavailable Primary Care Provider Unavailabl e Reason for Referral * Outpatient (Routine) - Closed Specialty Diagnoses / Procedures Referred By Norma choi Referred To Contact Social Work Diagnoses Malignant Neoplasm Of Tongue Base (HCC) Julio Cesar Rebolledo M.D. [address] [place] [address] Phone: tel: fax: [facility] Region Referral ID Status Reason Start Date Expiration Date Visits Re quested Visits Authorized [id number] Closed 08/15/2025 02/14/2027 1 1 * Radiation Therapy (Routine) - Authorized Specialty Diagnoses / Procedures Referred By Norma choi Referred To Contact Diagnoses Malignant Neoplasm Of Tongue Base (HCC) Procedures Management Visit Julio Cesar Rebolledo M.D. [address] [place] [address] Phone: tel: fax: [facility] Region Referral ID Status Reason Start Date Expiration Date V isits Requested Visits Authorized [id number] Authorized 06/30/2025 09/30/2026 10 10 Reason for Visit * Radiation Therapy (Routine) - Authorized Specialty Diagnoses / Procedures Referred By Norma choi Referred To Contact Diagnoses Malignant Neoplasm Of Tongue Base (HCC) Procedures Management Visit Julio Cesar Rebolledo M.D. [address] [place] [address] Phone: tel: fax: [facility] Region Referral ID Status Reason Start Date Expiration Date V isits Requested Visits Authorized [id number] Authorized 06/30/2025 09/30/2026 10 10 Encounter Details Date Type Department Care Team (Latest Contact Info) Description 08/14/2025 8:06 AM CDT - 08/19/2025 8:08 AM CDT Hospital Encounter Department of Radiation Oncology in [place], [place] [address] [place] [phone] Julio Cesar Rebolledo M.D. [address] [place] [phone] Malignant Neoplasm Of Tongue Base (HCC) Social [...] for daily living? No 08/07/2025 [facility] Utilities Answer Date Recorded In the past 12 months has th [employer] electric, gas, oil, or water company threatened to shut off services in your home? No 08/07/2025 Housing Stability Answer Date Recorded What is your living situation today? I have a [facility] place to live 08/07/2025 Sex and Gender Information Value Date Recorded Sex Assigned at Male 08/07/2025 1:13 PM CDT Legal Sex Male 12:18 PM CDT Gender Identity Male 08/07/2025 1:13 PM CDT Sexual Orientation Straight 08/07/2025 1: 13 PM CDT documented as of this encounter Last Filed Vital Signs Vital Sign Reading Time Taken Comments Blood Pressure 109/71 08/14/2025 8:47 AM CDT Pulse 77 08/14/2025 8:47 AM CDT Temperature 36.1 C (97 F) 08/14/2025 8:47 AM CDT Respiratory Rate - - Oxygen Saturation - - Inhaled Oxygen Concentration - - Weight 68.8 kg (151 lb 10.8 oz) 08/14/2025 8:47 AM CDT Height - - Body Mass [...] of this encounter Progress Notes * Michel Leach, RElbaN. - 08/14/2025 9:00 AM CDT SUBJECTIVE REASON FOR VISIT [...] 200 2200 2200 07/21/2025 08/06/2025 16 F12Opx 200 1200 4800 08/07/2025 08/14/2025 7 Treatment Site Summary 3400 7000 07/21/2025 08/14/2025 24 Course Summary 07/21/2025 08/14/2025 24 The patient was seen and examined today with Dr. Rebolledo. The patient reports feeling okay overall with some moderate to sever fatigue and low mood. He is having mostly regular bowel movements. He plans to restart his stool softener this prior to restarting his chemotherapy on Monday. He notes a dry throat and thick secretions. He is utilizing lozenges and tylenol for his symptoms. He has not taken any oxycodone yet. He will start using baking soda rinses again to thin secretions. He denies any pain with swallowing, but notes decreased appetite and taste changes making eating less enjoyable. His weight is stable. He denies pain or sores in his mouth. His family notes signs of depression and increased sleepiness. 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 *Patient admitted for a Late Presentation Anterior [...] 10 = worst fatigue you can imagine): 7 PAIN (Scale: 0 = no pain; 10 = worst pain you can imagine): 3 OVERALL QUALITY OF LIFE (Scale: 0 = as bad as can be; 10 = as good as can be): 7 OBJECTIVE BP 109/71 (BP Location: Right arm, Patient Position: Sitting, Cuff Size: Regular) Pulse 77 Temp36.1 ??C (Temporal) Wt 68.8 kg WEIGHT TRACKER: 07/24: 70.2 kg 07/31: 68.9 kg 08/07: 68.2 kg 08/14: 68.8 kg 10% loss at 63.2 kg PHYSICAL EXAM General: Alert and oriented in no apparent distress. He is here today with his , Antionette, and his daughter, Jamia. Oral: Mucosa intact, no signs of sores, some erythema present. 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 Treatment Resumed on July 30, 2025; anticipated date of completionOct2022 The patient is tolerating radiation treatment well overall. We discussed continued importance of nutrition carl hydration. The patient was encouraged to utilize baking soda rinses and tylenol as needed for his symptoms. We discussed reinitiating stool softeners prior to chemotherapy. All above assessment and patient intake were relayed to Dr. Rebolledo. We have placed a referral to social work to make contact with the patient and his family. Dr. Rebolledo was in for any questions or concerns. He will contact us with any questions or concerns. We will continue with radiation treatment as planned. Signed by: Keerthi Leach R.N. 08/14/2025 9:04 AM CDT Cosigned by Julio Cesar Rebolledo M.D. at 08/19/2025 1:30 PM CDT Associated attestation - Julio Cesar Rebolledo M.D. - 08/19/2025 1:30 PM CDT ATTESTATION FOR MANAGEMENT VISIT I saw and evaluated the patient and participated in the bean portions of the service including medical decision making as noted above. I reviewed the documentation of Ms.Alexis Leach, RN and agreewith the findings and plan. The patient appears well on exam. We will continue with radiation as planned and monitor weekly. Julio Cesar Rebolledo M.D., 08/19/2025 documented in this encounter Plan of Treatment Upcoming Encounters Date Type Department Care Team ([facility] st Contact Info) Description 09/17/2025 10:30 AM CDT Appointment Department of Radiation Oncology in [address] [phone] Julio Cesar Rebolledo M.D. [address] [place] [phone] Britt Ayala R.N. [address] [place] [phone] 09/24/2025 10:30 AM CDT Appointment Department of Radiation Oncology in [address] [address] Julio Cesar Rebolledo M.D. [address] [place] [phone] Britt Ayala R.N. [address] [place] [phone] 10/01/2025 10:30 AM PIG HANDLER Appointment Department of Radiation Oncology in [address] [address] Julio Cesar Rebolledo M.D. [address] [place] [phone] Michel Leach RElbaNElba 10/08/2025 10:30 AM PIG HANDLER Appointment Department of Radiation Oncology in [address] [place] [address] Julio Cesar Rebolledo M.D. [address] [place] [address] Britt Ayala R.N. [address] [place] [address] 10/15/2025 10:30 AM PIG HANDLER Appointment Department of Radiation Oncology in [address] [phone] Julio Cesar Rebolledo M.D. [place] [address] Britt Ayala R.N. [address] [place] [address] 10/22/2025 2:30 PM PIG HANDLER Appointment Department of Radiation Oncology in [address] [phone] Julio Cesar Rebolledo M.D. [place] [address] Scheduled Orders Name Type Priority Associated Diagnoses Orde r Schedule Management Visit Radiation Oncology Routine Malignant Neoplasm Of Tongue Base (HCC) Once for 1 Occurrences starting 08/14/2025 until 08/14/2025 Scheduled Referrals Name Type Priority Associated Diagnoses Orde r Schedule Social Work - General consult (clinic) [facility] Region; General Outpatient Referral Routine Malignant Neoplasm Of Tongue Base (HCC) Expected: 08/14/2025, Expires: 11/13/2026 documented as of this encounter Visit Diagnoses Diagnosis Malignant Neoplasm Of Tongue Base (HCC) documented in this encounter Additional Health Concerns Infection Onset Date Last Indicated Resolved Time Protective Environment 06/30/2025 06/30/2025 documented as of this encounter
--- OUTSIDE RECORDS SUMMARY | 2025-08-15 08:08 | XMS_ITS | Encounter Summary ---
Author Organization [facility] Address [address] [place] [address] Care Team Providers Care Cda Teacher Name Role Phone Unavailable Primary Care Provider Unavailabl e Reason for Visit * Radiation Therapy (Routine) - Authorized Specialty Diagnoses / Procedures Referred By Norma t Referred To Contact Diagnoses Malignant Neoplasm Of Tongue Base (HCC) Procedures Prior Auth Rad Tx [place] IMRT COMPLEX [place] GUIDANCE FOR LOC RAD TX [place] IMRT RADIOTHERAPY PLAN IMRT Julio Cesar Rebolledo M.D. [address] [place] [phone] Phone: tel: fax: [facility] Referral ID Status Reason Start Date Expiration Date V isits Requested Visits Authorized [id number] Authorized 07/14/2025 09/30/2026 35 35 Encounter Details Date Type Department Care Team (Late st Contact Info) Description 08/15/2025 8:08 AM CDT Hospital Encounter Department of Radiation Oncology in [address] [phone] Julio Cesar Rebolledo M.D. [address] [place] [phone] Social History Tobacco Use Types Packs/Day [...] things needed for daily living? No 08/07/2025 [facility] Utilities Answer Date Recorded In the [...] CDT Appointment Department of Radiation Oncology in [place], [place] [address] [place] [phone] Julio Cesar Rebolledo M.D. [address] [place] [phone] Britt Ayala R.N. [address] [place] [address] 09/24/2025 10:30 AM CDT Appointment Department of Radiation Oncology in [place], [place] [address] [place] [phone] Julio Cesar Rebolledo M.D. [address] [place] [address] Britt Ayala R.N. [address] [place] [phone] 10/01/2025 10:30 AM PRESCHOOL PROGRAM DIRECTOR Appointment Department of Radiation Oncology in [address] [address] Julio Cesar Rebolledo M.D. [facility] [place] [address] Michel Leach RElbaNElba 10/08/2025 10:30 AM PRESCHOOL PROGRAM DIRECTOR Appointment Department of Radiation Oncology in [address] [phone] Julio Cesar Rebolledo M.D. [facility] [place] [address] Britt Ayala R.N. [address] [place] [phone] 10/15/2025 10:30 AM PRESCHOOL PROGRAM DIRECTOR Appointment Department of Radiation Oncology in [place], [place] [address] [place] [phone] Julio Cesar Rebolledo M.D. [facility] [place] [address] Britt Ayala R.N. [address] [place] [phone] 10/22/2025 2:30 PM PRESCHOOL PROGRAM DIRECTOR Appointment Department of Radiation Oncology in [address] [phone] Julio Cesar Rebolledo M.D. [address] [place] [phone] documented as of this encounter Visit Diagnoses Not on filedocumented in this encounter Additional Health Concerns Infection Onset Date Last Indicated Resolved Time Protective Environment 06/30/2025 06/30/2025 documented as of this encounter
--- OUTSIDE RECORDS SUMMARY | 2025-08-18 08:11 | XMS_ITS | Encounter Summary ---
Author Organization [facility] Address [address] [place] [address] Care Team Providers Care Political Consultant Name Role Phone Unavailable Primary Care Provider Unavailabl e Reason for Visit * Radiation Therapy (Routine) - Authorized Specialty Diagnoses / Procedures Referred By Norma t Referred To Contact Diagnoses Malignant Neoplasm Of Tongue Base (HCC) Procedures Prior Auth Rad Tx MD IMRT COMPLEX MD GUIDANCE FOR LOC RAD TX MD IMRT RADIOTHERAPY PLAN IMRT Julio Cesar Rebolledo M.D. [address] [place] [phone] Phone: tel: fax: [facility] Referral ID Status Reason Start Date Expiration Date V isits Requested Visits Authorized [id number] Authorized 07/14/2025 09/30/2026 35 35 Encounter Details Date Type Department Care Team (Late st Contact Info) Description 08/18/2025 8:11 AM CDT Hospital Encounter Department of Radiation Oncology in [address] [phone] Julio Cesar Rebolledo M.D. [address] [place] [phone] Social History Tobacco Use Types Packs/Day [...] things needed for daily living? No 08/07/2025 [facility] Utilities Answer Date Recorded In the past 12 months has e electric, gas, oil, or water company threatened to shut off services in your home? No 08/07/2025 Housing Stability Answer Date Recorded What is your living situation today? I have a [facility] place to live 08/07/2025 Sex and Gender [...] CDT Appointment Department of Radiation Oncology in [place], [place] [address] [place] [phone] Julio Cesar Rebolledo M.D. [address] [place] [phone] Britt Ayala R.N. [address] [place] [address] 09/24/2025 10:30 AM CDT Appointment Department of Radiation Oncology in [place], [place] [address] [place] [phone] Julio Cesar Rebolledo M.D. [address] [place] [address] Britt Ayala R.N. [address] [place] [phone] 10/01/2025 10:30 AM BRAINER Appointment Department of Radiation Oncology in [address] [phone] Julio Cesar Rebolledo M.D. [facility] [place] [address] Michel Leach RElbaNElba 10/08/2025 10:30 AM BRAINER Appointment Department of Radiation Oncology in [address] [phone] Julio Cesar Rebolledo M.D. [facility] [place] [address] Britt Ayala R.N. [address] [place] [phone] 10/15/2025 10:30 AM BRAINER Appointment Department of Radiation Oncology in [place], [place] [address] [place] [phone] Julio Cesar Rebolledo M.D. [facility] [place] [address] Britt Ayala R.N. [address] [place] [phone] 10/22/2025 2:30 PM BRAINER Appointment Department of Radiation Oncology in [address] [phone] Julio Cesar Rebolledo M.D. [address] [place] [phone] documented as of this encounter Visit Diagnoses Not on filedocumented in this encounter Additional Health Concerns Infection Onset Date Last Indicated Resolved Time Protective Environment 06/30/2025 06/30/2025 documented as of this encounter
--- OUTSIDE RECORDS SUMMARY | 2025-08-19 08:09 | XMS_ITS | Encounter Summary ---
Author Organization [facility] Address [address] [place] [address] Care Team Providers Care Process Controller Name Role Phone Unavailable Primary Care Provider Unavailabl e Reason for Visit * Radiation Therapy (Routine) - Authorized Specialty Diagnoses / Procedures Referred By Norma t Referred To Contact Diagnoses Malignant Neoplasm Of Tongue Base (HCC) Procedures Prior Auth Rad Tx [place] IMRT COMPLEX MT GUIDANCE FOR LOC RAD TX MT IMRT RADIOTHERAPY PLAN IMRT Julio Cesar Rebolledo M.D. [address] [place] [phone] Phone: tel: fax: [facility] Referral ID Status Reason Start Date Expiration Date V isits Requested Visits Authorized [id number] Authorized 07/14/2025 09/30/2026 35 35 Encounter Details Date Type Department Care Team (Late st Contact Info) Description 08/19/2025 8:09 AM CDT Hospital Encounter Department of Radiation Oncology in [address] [phone] Julio Cesar Rebolledo M.D. [address] [place] [phone] Social History Tobacco Use Types Packs/Day [...] things needed for daily living? No 08/07/2025 [facility] Utilities Answer Date Recorded In the past 12 months has e electric, gas, oil, or water company threatened to shut off services in your home? No 08/07/2025 Housing Stability Answer Date Recorded What is your living situation today? I have a [facility] place to live 08/07/2025 Sex [...] CDT Appointment Department of Radiation Oncology in [place], [place] [address] [place] [phone] Julio Cesar Rebolledo M.D. [address] [place] [phone] Britt Ayala R.N. [address] [place] [address] 09/24/2025 10:30 AM CDT Appointment Department of Radiation Oncology in [place], [place] [address] [place] [phone] Julio Cesar Rebolledo M.D. [address] [place] [address] Britt Ayala R.N. [address] [place] [phone] 10/01/2025 10:30 AM RAILWAYS ASSISTANT Appointment Department of Radiation Oncology in [address] [phone] Julio Cesar Rebolledo M.D. [facility] [place] [address] Michel Leach RElbaNElba 10/08/2025 10:30 AM RAILWAYS ASSISTANT Appointment Department of Radiation Oncology in [address] [phone] Julio Cesar Rebolledo M.D. [facility] [place] [address] Britt Ayala R.N. [address] [place] [phone] 10/15/2025 10:30 AM RAILWAYS ASSISTANT Appointment Department of Radiation Oncology in [place], [place] [address] [place] [phone] Julio Cesar Rebolledo M.D. [facility] [place] [address] Britt Ayala R.N. [address] [place] [phone] 10/22/2025 2:30 PM RAILWAYS ASSISTANT Appointment Department of Radiation Oncology in [address] [phone] Julio Cesar Rebolledo M.D. [address] [place] [phone] documented as of this encounter Visit Diagnoses Not on filedocumented in this encounter Additional Health Concerns Infection Onset Date Last Indicated Resolved Time Protective Environment 06/30/2025 06/30/2025 documented as of this encounter
--- OUTSIDE RECORDS SUMMARY | 2025-08-20 07:55 | XMS_ITS | Encounter Summary ---
Author Organization [facility] Address [address] [place] [address] Care Team Providers Care Casing Operator Name Role Phone Unavailable Primary Care Provider Unavailabl e Reason for Visit * Radiation Therapy (Routine) - Authorized Specialty Diagnoses / Procedures Referred By Norma t Referred To Contact Diagnoses Malignant Neoplasm Of Tongue Base (HCC) Procedures Prior Auth Rad Tx TX IMRT COMPLEX TX GUIDANCE FOR LOC RAD TX TX IMRT RADIOTHERAPY PLAN IMRT Julio Cesar Rebolledo M.D. [address] [place] [phone] Phone: tel: fax: [facility] Referral ID Status Reason Start Date Expiration Date V isits Requested Visits Authorized [id number] Authorized 07/14/2025 09/30/2026 35 35 Encounter Details Date Type Department Care Team (Late st Contact Info) Description 08/20/2025 7:55 AM CDT Hospital Encounter Department of Radiation Oncology in [address] [phone] Julio Cesar Rebolledo M.D. [address] [place] [phone] Social History Tobacco Use Types Packs/Day [...] things needed for daily living? No 08/07/2025 [facility] Utilities Answer Date Recorded In the past 12 months has e electric, gas, oil, or water company threatened to shut off services in your home? No 08/07/2025 Housing Stability Answer Date Recorded What is your living situation today? I have a [facility] place to live 08/07/2025 Sex [...] CDT Appointment Department of Radiation Oncology in [place], [place] [address] [place] [phone] Julio Cesar Rebolledo M.D. [address] [place] [phone] Britt Ayala R.N. [address] [place] [address] 09/24/2025 10:30 AM CDT Appointment Department of Radiation Oncology in [place], [place] [address] [place] [phone] Julio Cesar Rebolledo M.D. [address] [place] [address] Britt Ayala R.N. [address] [place] [phone] 10/01/2025 10:30 AM MINE PATROL Appointment Department of Radiation Oncology in [address] [phone] Julio Cesar Rebolledo M.D. [facility] [place] [address] Michel Laech RElbaNElba 10/08/2025 10:30 AM MINE PATROL Appointment Department of Radiation Oncology in [address] [phone] Julio Cesar Rebolledo M.D. [facility] [place] [address] Britt Ayala R.N. [address] [place] [phone] 10/15/2025 10:30 AM MINE PATROL Appointment Department of Radiation Oncology in [place], [place] [address] [place] [phone] Julio Cesar Rebolledo M.D. [facility] [place] [address] Britt Ayala R.N. [address] [place] [phone] 10/22/2025 2:30 PM MINE PATROL Appointment Department of Radiation Oncology in [address] [phone] Julio Cesar Rebolledo M.D. [address] [place] [phone] documented as of this encounter Visit Diagnoses Not on filedocumented in this encounter Additional Health Concerns Infection Onset Date Last Indicated Resolved Time Protective Environment 06/30/2025 06/30/2025 documented as of this encounter
--- OUTSIDE RECORDS SUMMARY | 2025-08-21 08:06 | XMS_ITS | Encounter Summary ---
Author Organization [facility] Address [address] [place] [address] Care Team Providers Care Hospital Medical Biller Name Role Phone Unavailable Primary Care Provider Unavailabl e Reason for Referral * Outpatient (Routine) - Authorized Specialty Diagnoses / Procedures Referred By Norma choi Referred To Contact Radiation Oncology Diagnoses Malignant Neoplasm Of Tongue Base (HCC) Julio Cesar Rebolledo M.D. [address] [place] [address] Phone: tel: fax: [facility] Region Referral ID Status Reason Start Date Expiration Date V isits Requested Visits Authorized [id number] Authorized 07/24/2025 01/23/2027 3 3 Reason for Visit * Outpatient (Routine) - Authorized Specialty Diagnoses / Procedures Referred By Norma choi Referred To Contact Radiation Oncology Diagnoses Malignant Neoplasm Of Tongue Base (HCC) Julio Cesar Rebolledo M.D. [address] [place] [address] Phone: tel: fax: [facility] Region Referral ID Status Reason Start Date Expiration Date V isits Requested Visits Authorized [id number] Authorized 07/24/2025 01/23/2027 3 3 Encounter Details Date Type Department Care Team (Latest Contact Info) Description 08/21/2025 8:06 AM CDT - 08/21/2025 10:07 AM CDT Hospital Encounter Department of Radiation Oncology in [place], [place] [address] [place] [phone] Julio Cesar Rebolledo M.D. [address] [place] [phone] Gabriella Pascual, BORISN, LD [address] [place] [address] Malignant Neoplasm Of Tongue Base [...] things needed for daily living? No 08/07/2025 [facility] Utilities Answer Date Recorded In the past 12 months has [facility] electric, gas, oil, or water company threatened to shut off services in your home? No 08/07/2025 Housing Stability Answer Date Recorded What is your living situation today? 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 This has been on hold following cardiac events and hospitalization 07/27 to 08/03/25, stents placed, cardiac meds initiated. ASSESSMENT Nutrition Focused Physical Findings Mouth/Esophagus/Throat: taste greatly reduced, pain with swallow increased the past couple of days,currently taking tylenol. Bowels: no issues since not having chemo in a couple of weeks Nausea/Vomiting: none Food/Nutrition Related History Patient 84 y/o male. Attended appointment with his and daughter. He continues with eating shortly after waking. He has been having hot cereal with protein powder and a Boost Very High Calorie for breakfast. Lunch yesterday was a smoothie with Guyanese yogurt and protein powder. He is doing more soups and soft and liquid intake. He is drinking 2 Boost Very High Calorie supplements a day (1060 calories and 44 grams of protein).He is also getting in at least 20 grams of protein from protein powder. They are tracking protein related to goals. Patient reports awareness of fluid goals and has been working on this and is being strongly encouraged related to this. They continue tracking his calories, protein and fluid. They are adding peanut butter, avocado, cottage cheese, and Guyanese yogurt and protein powder, including making smoothies and shakes. Weight History Height: 172.7 cm Weight: 70.2 kg BMI: 23.5 Weight History (chart): 08/21/25 68.5 kg 08/14/25 68.8 kg 08/07/25 68.2 kg 07/31/25 68.9 kg 07/24/25 70.2 kg 06/30/25 74.6 kg 05/14/25 74.0 kg 09/04/24 70.8 kg 07/01/24 68.0 kg Usual Weight: Patient reports a usual weight between 150 [...] currently ???toddler foods?? and less of them. 08/21/25 weight has remained stable over the past month. Estimation of Daily Nutrition Needs using weight [...] Today we reviewed the role of nutrition with treatment. Reviewed weight and weight loss and the goal of maintaining weight. Provided encouragement related to current weight maintenance. Reviewed calorie, protein and fluid goals. Reinforced looking at adequate nutrition like a job or medicine. MONITORING AND EVALUATION: Nutrition parameter to monitor: weight Desired Outcome: Maintain weight 70.2 kg/154.4 lbs without a loss of 5% 66.7 lg146.7 lbs. Patient Goal(s): 1. A minimum of 1700 calories, 82 grams of protein and 8 cups of fluid. 2. High calorie, high protein foods and supplements to meet estimated nutrition needs. 3.Track intake related to needs recommendations. FOLLOW UP PLAN: Scheduled for 2 weeks, encouraged patient to contact sooner if needed. Time spent with patient (minutes): 15 documented in this encounter Plan of Treatment Upcoming Encounters Date Type Department Care Team (Late st Contact Info) Description 09/17/2025 10:30 AM CDT Appointment Department of Radiation Oncology in [address] [phone] Julio Cesar Rebolledo M.D. [address] [place] [phone] Britt Ayala RElbaNElba [address] [place] [phone] 09/24/2025 10:30 AM CDT Appointment Department of Radiation Oncology in [address] [phone] Julio Cesar Rebolledo M.D. [address] [place] [phone] Britt Ayala R.NElba [address] [place] [phone] 10/01/2025 10:30 AM CORPORATE TAX MANAGER Appointment Department of Radiation Oncology in [address] [phone] Julio Cesar Rebolledo M.D. [address] [place] [phone] Michel Leach R.N. 10/08/2025 10:30 AM CORPORATE TAX MANAGER Appointment Department of Radiation Oncology in [address] [phone] Julio Cesar Rebolledo M.D. [address] [place] [address] Britt Ayala R.N. [address] [place] [phone] 10/15/2025 10:30 AM CORPORATE TAX MANAGER Appointment Department of Radiation Oncology in [place], [place] [address] [place] [address] Julio Cesar Rebolledo M.D. [address] [place] [address] Britt Ayala R.N. [address] [place] [address] 10/22/2025 2:30 PM CORPORATE TAX MANAGER Appointment Department of Radiation Oncology in [place], [place] [address] [place] [phone] Julio Cesar Rebolledo M.D. [facility] [place] [address] Scheduled Referrals Name Type Priority Associated Diagnoses Order Schedule Radiation Oncology - Medical nutrition therapy consult (clinic) Outpatient Referral Routine Once for 1 Occurrences starting 08/21/2025 until 08/21/2025 documented as of this encounter Visit Diagnoses Diagnosis Malignant Neoplasm Of Tongue Base (HCC)- Primary documented in this encounter Additional Health Concerns Infection Onset Date Last Indicated Resolved Time Protective Environment 06/30/2025 06/30/2025 documented as of this encounter
--- OUTSIDE RECORDS SUMMARY | 2025-08-21 08:06 | XMS_ITS | Encounter Summary ---
Author Organization [facility] Address [address] [place] [address] Care Team Providers Care Cloth Weigher Name Role Phone Unavailable Primary Care Provider Unavailabl e Reason for Visit * Radiation Therapy (Routine) - Authorized Specialty Diagnoses / Procedures Referred By Norma t Referred To Contact Diagnoses Malignant Neoplasm Of Tongue Base (HCC) Procedures Prior Auth Rad Tx OR IMRT COMPLEX OR GUIDANCE FOR LOC RAD TX OR IMRT RADIOTHERAPY PLAN IMRT Julio Cesar Rebolledo M.D. [address] [place] [phone] Phone: tel: fax: [facility] Referral ID Status Reason Start Date Expiration Date V isits Requested Visits Authorized [id number] Authorized 07/14/2025 09/30/2026 35 35 Encounter Details Date Type Department Care Team (Late st Contact Info) Description 08/21/2025 8:06 AM CDT Hospital Encounter Department of Radiation Oncology in [address] [phone] Julio Cesar Rebolledo M.D. [address] [place] [phone] Social History Tobacco Use Types Packs/Day [...] things needed for daily living? No 08/07/2025 [facility] Utilities Answer Date Recorded In the [...] CDT Appointment Department of Radiation Oncology in [place], [place] [address] [place] [phone] Julio Cesar Rebolleod M.D. [address] [place] [phone] Britt Ayala R.N. [address] [place] [address] 09/24/2025 10:30 AM CDT Appointment Department of Radiation Oncology in [place], [place] [address] [place] [phone] Julio Cesar Rebolledo M.D. [address] [place] [address] Britt Ayala R.N. [address] [place] [phone] 10/01/2025 10:30 AM HYDRAULIC RUBBISH COMPACTOR MECHANIC Appointment Department of Radiation Oncology in [address] [phone] Julio Cesar Rebolledo M.D. [facility] [place] [address] Michel Leach RElbaNElba 10/08/2025 10:30 AM HYDRAULIC RUBBISH COMPACTOR MECHANIC Appointment Department of Radiation Oncology in [address] [address] Julio Cesar Rebolledo M.D. [facility] [place] [address] Britt Ayala R.N. [address] [place] [phone] 10/15/2025 10:30 AM HYDRAULIC RUBBISH COMPACTOR MECHANIC Appointment Department of Radiation Oncology in [place], [place] [address] [place] [phone] Julio Cesar Rebolledo M.D. [facility] [place] [address] Britt Ayala R.N. [address] [place] [phone] 10/22/2025 2:30 PM HYDRAULIC RUBBISH COMPACTOR MECHANIC Appointment Department of Radiation Oncology in [address] [phone] Julio Cesar Rebolledo M.D. [address] [place] [phone] documented as of this encounter Visit Diagnoses Not on filedocumented in this encounter Additional Health Concerns Infection Onset Date Last Indicated Resolved Time Protective Environment 06/30/2025 06/30/2025 documented as of this encounter
--- OUTSIDE RECORDS SUMMARY | 2025-08-21 08:06 | XMS_ITS | Encounter Summary ---
Author Organization [facility] Address [address] [place] [address] Care Team Providers Care Journal Clerk Name Role Phone Unavailable Primary Care Provider Unavailabl e Reason for Referral * Radiation Therapy (Routine) - Authorized Specialty Diagnoses / Procedures Referred By Norma choi Referred To Contact Diagnoses Malignant Neoplasm Of Tongue Base (HCC) Procedures Management Visit Julio Cesar Rebolledo M.D. [address] [place] [address] Phone: tel: fax: [facility] Region Referral ID Status Reason Start Date Expiration Date V isits Requested Visits Authorized [id number] Authorized 06/30/2025 09/30/2026 10 10 Reason for Visit * Radiation Therapy (Routine) - Authorized Specialty Diagnoses / Procedures Referred By Norma choi Referred To Contact Diagnoses Malignant Neoplasm Of Tongue Base (HCC) Procedures Management Visit Julio Cesar Rebolledo M.D. [address] [place] [address] Phone: tel: fax: [facility] Region Referral ID Status Reason Start Date Expiration Date V isits Requested Visits Authorized [id number] Authorized 06/30/2025 09/30/2026 10 10 Encounter Details Date Type Department Care Team (Latest Contact Info) Description 08/21/2025 8:06 AM CDT - 08/22/2025 8:07 AM CDT Hospital Encounter Department of Radiation Oncology in [place], [place] [address] [place] [address] Julio Cesar Rebolledo M.D. [address] [place] [address] Malignant Neoplasm Of Tongue Base (HCC) Social [...] things needed for daily living? No 08/07/2025 [facility] Utilities Answer Date Recorded In the past 12 months has health system electric, gas, oil, or water [employer] threatened to shut off services in your home? No 08/07/2025 Housing Stability Answer Date Recorded What is your living situation today? I have a [facility] place to live 08/07/2025 Sex and Gender Information Value Date Recorded Sex Assigned at Male 08/07/2025 1:13 PM CDT Legal Sex Male 12:18 PM CDT Gender Identity Male 08/07/2025 1:13 PM CDT Sexual Orientation Straight 08/07/2025 1: 13 PM CDT documented as of this encounter Last Filed Vital Signs Vital Sign Reading Time Taken Comments Blood Pressure 107/61 08/21/2025 8:55 AM CDT Pulse 80 08/21/2025 8:55 AM CDT Temperature 35.8 C (96.5 F) 08/21/2025 8:55 AM CDT Respiratory Rate - - Oxygen Saturation - - Inhaled Oxygen Concentration - - Weight 68.5 kg (151 lb 0.2 oz) 08/21/2025 8:55 A M CDT Height - - Body [...] Progress Notes * Michel Leach, RElbaN. - 08/21/2025 9:00 AM CDT SUBJECTIVE REASON FOR VISIT [...] 2200 2200 07/21/2025 08/06/2025 16 F12Opx 200 2200 4800 08/07/2025 08/21/2025 14 Treatment Site Summary 4400 7000 07/21/2025 08/21/2025 31 Course Summary 07/21/2025 08/21/2025 31 The patient was seen and examined today with Dr. Rebolledo. The patient reports feeling okay overall with some moderate to sever fatigue and low mood. He is having mostly regular bowel movements. He plans to restart his stool softener this weekend prior to restarting his chemotherapy on Monday. He notes a dry throat and thick secretions. He is utilizing baking soda rinses. He has not taken any oxycodone yet. He denies pain with swallowing but notes eating feels like swallowing gravel. He is experiencing decreased appetite and taste changes making eatingless enjoyable. His weight is stable. He denies [...] 10 = worst fatigue you can imagine): 3 PAIN (Scale: 0 = no pain; 10 = worst pain you can imagine): 1 OVERALL QUALITY OF LIFE (Scale: 0 = as bad as can be; 10 = as good as can be): 8 OBJECTIVE BP 107/61 (BP Location: Right arm, Patient Position: Sitting, Cuff Size: Regular) Pulse 80 Temp(!) 35.8 ??C (Temporal) Wt 68.5 kg WEIGHT TRACKER: 07/24: 70.2 kg 07/31: 68.9 kg 08/07: 68.2 kg 08/14: 68.8 kg 08/21: 68.5 kg 10% loss at 63.2 kg PHYSICAL [...] discussed continued importance of nutrition carl hydration. I encouraged the patient to schedule tylenol prior to meals to help ease thediscomfort. We discussed reinitiating stool softeners prior to chemotherapy. Joshua and his family met with our die attaching machine tender today. Dr. Rebolledo was in for any questions or concerns. He will contact us with any questions or concerns. We will continue with radiation treatment as planned. Signed by: Keerthi Leach R.N. 08/21/2025 10:04 AM CDT Cosigned by Julio Cesar Rebolledo M.D. at 08/22/2025 11:29 AM CDT Associated attestation - Julio Cesar Rebolldeo M.D. - 08/22/2025 11:29 AM CDT ATTESTATION FOR MANAGEMENT VISIT I saw and evaluated the patient and participated in the bean portions of the service including medical decision making as noted above. I reviewed the documentation of Ms.Alexis Haylee RN and agreewith the findings and plan. The patient appears well on exam. We will continue with radiation as planned and monitor weekly. Julio Cesar Rebolledo M.D., 08/22/2025 documented in this encounter Plan of Treatment Upcoming Encounters Date Type Department Care Team (Late st Contact Info) Description 09/17/2025 10:30 AM CDT Appointment Department of Radiation Oncology in [place], [place] [address] [place] [address] Julio Cesar Rebolledo M.D. [address] [place] [address] Britt Ayala R.N. [address] [place] [phone] 09/24/2025 10:30 AM CDT Appointment Department of Radiation Oncology in [place], [place] [address] [place] [phone] Julio Cesar Rebolledo M.D. [address] [place] [address] Britt Ayala R.N. [address] [place] [phone] 10/01/2025 10:30 AM DIRT BIKE MECHANIC Appointment Department of Radiation Oncology in [place], [place] [address] [place] [phone] Julio Cesar Rebolledo M.D. [address] [place] [address] Michel Leach R.N. 10/08/2025 10:30 AM DIRT BIKE MECHANIC Appointment Department of Radiation Oncology in [place], [place] [address] [place] [address] Julio Cesar Rebolledo M.D. [facility] [place] [address] Britt Ayala R.N. [address] [place] [phone] 10/15/2025 10:30 AM DIRT BIKE MECHANIC Appointment Department of Radiation Oncology in [address] [phone] Julio Cesar Rebolledo M.D. [address] [place] [address] Britt Ayala R.N. [address] [place] [address] 10/22/2025 2:30 PM DIRT BIKE MECHANIC Appointment Department of Radiation Oncology in [place], [place] [address] [place] [address] Julio Cesar Rebolledo M.D. [address] [place] [address] Scheduled Orders Name Type Priority Associated Diagnoses Orde r Schedule Management Visit Radiation Oncology Routine Malignant Neoplasm Of Tongue Base (HCC) Once for 1 Occurrences starting 08/21/2025 until 08/21/2025 documented as of this encounter Visit Diagnoses Diagnosis Malignant Neoplasm Of Tongue Base (HCC) documented in this encounter Additional Health Concerns Infection Onset Date Last Indicated Resolved Time Protective Environment 06/30/2025 06/30/2025 documented as of this encounter
--- OUTSIDE RECORDS SUMMARY | 2025-08-22 08:08 | XMS_ITS | Encounter Summary ---
Author Organization [facility] Address [address] [place] [address] Care Team Providers Care Commercial Lending Relationship Manager Name Role Phone Unavailable Primary Care Provider Unavailabl e Reason for Visit * Radiation Therapy (Routine) - Authorized Specialty Diagnoses / Procedures Referred By Norma t Referred To Contact Diagnoses Malignant Neoplasm Of Tongue Base (HCC) Procedures Prior Auth Rad Tx [place] IMRT COMPLEX [place] GUIDANCE FOR LOC RAD TX [place] IMRT RADIOTHERAPY PLAN IMRT Julio Cesar Rebolledo M.D. [address] [place] [phone] Phone: tel: fax: [facility] Referral ID Status Reason Start Date Expiration Date V isits Requested Visits Authorized [id number] Authorized 07/14/2025 09/30/2026 35 35 Encounter Details Date Type Department Care Team (Late st Contact Info) Description 08/22/2025 8:08 AM CDT Hospital Encounter Department of Radiation Oncology in [address] [phone] Julio Cesar Rebolledo M.D. [address] [place] [phone] Social History Tobacco Use Types Packs/Day [...] things needed for daily living? No 08/07/2025 [place] Utilities Answer Date Recorded In the past 12 months has e electric, gas, oil, or water company threatened to shut off services in your home? No 08/07/2025 Housing Stability Answer Date Recorded What is your living situation today? I have a [facility] place to live 08/07/2025 Sex and [...] CDT Appointment Department of Radiation Oncology in [place], [place] [address] [place] [phone] Julio Cesar Rebolledo M.D. [address] [place] [phone] Britt Ayala R.N. [address] [place] [address] 09/24/2025 10:30 AM CDT Appointment Department of Radiation Oncology in [place], [place] [address] [place] [phone] Julio Cesar Rebolledo M.D. [address] [place] [address] Britt Ayala R.N. [address] [place] [phone] 10/01/2025 10:30 AM TOOL LATHE OPERATOR Appointment Department of Radiation Oncology in [address] [phone] Julio Cesar Rebolledo M.D. [facility] [place] [address] Michel Leach RElbaNElba 10/08/2025 10:30 AM TOOL LATHE OPERATOR Appointment Department of Radiation Oncology in [address] [phone] Julio Cesar Rebolledo M.D. [facility] [place] [address] Britt Ayala R.N. [address] [place] [phone] 10/15/2025 10:30 AM TOOL LATHE OPERATOR Appointment Department of Radiation Oncology in [place], [place] [address] [place] [phone] Julio Cesar Rebolledo M.D. [facility] [place] [address] Britt Ayala R.N. [address] [place] [phone] 10/22/2025 2:30 PM TOOL LATHE OPERATOR Appointment Department of Radiation Oncology in [address] [phone] Julio Cesar Rebolledo M.D. [address] [place] [phone] documented as of this encounter Visit Diagnoses Not on filedocumented in this encounter Additional Health Concerns Infection Onset Date Last Indicated Resolved Time Protective Environment 06/30/2025 06/30/2025 documented as of this encounter
--- OUTSIDE RECORDS SUMMARY | 2025-08-22 13:00 | XMS_ITS | Encounter Summary ---
Author Organization [facility] Address [address] [place] [address] Care Team Providers Care Product Handler Name Role Phone Unavailable Primary Care Provider Unavailabl e Reason for Visit * Outpatient (Routine) - Closed Specialty Diagnoses / Procedures Referred By Norma t Referred To Contact Social Work Diagnoses Malignant Neoplasm Of Tongue Base (HCC) Julio Cesar Rebolledo M.D. [address] [place] [address] Phone: tel: fax: [facility] Region Referral ID Status Reason Start Date Expiration Date Visits Re quested Visits Authorized [id number] Closed 08/15/2025 02/14/2027 1 1 Encounter Details Date Type Department Care Team (Late st Contact Info) Description 08/22/2025 1:00 PM CDT Virtual Visit Department of Oncology in [place], [place] [address] [place] [phone] Julio Cesar Rebolledo M.D. [address] [place] [address] Myra Mead, M.S.W., L.I.C.S.W. [address] [place] [phone] Malignant Neoplasm Of Tongue Base (HCC) (Primary [...] things needed for daily living? No 08/07/2025 [facility] Utilities Answer Date Recorded In the past 12 months has [employer] electric, gas, oil, or water company threatened to shut off services in your home? No 08/07/2025 Housing Stability Answer Date Recorded What is your living situation today? I have a [facility] place to live 08/07/2025 Sex and Gender Information Value Date Recorded Sex Assigned at Male 08/07/2025 1:13 PM CDT Legal Sex Male 12:18 PM CDT Gender Identity Male 08/07/2025 1:13 PM CDT Sexual Orientation Straight 08/07/2025 1: 13 PM CDT documented as of this encounter Progress Notes * Myra Mead, M.S.W., L.I.C.S.W. - 08/22/2025 1:00 PM CDT SUBJECTIVE Social work had a follow up call with Joshua today to check in. Since our last call, Joshua had unfortunately suffered two heart attacks. He is doing better now and continues on with radiation. He noted the treatment itself is a piece of cake, what has him struggling the most is his intake. He doesn't have any teeth and nothing sounds good to him but he continues to force himself to eat and keep upwith protein. He noted sleep is good, other than getting up to use the restroom a few times a night. 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 He noted a good mood but id endorse some frustration after yesterday when the doctor told him he didn't think he was progressing as well as he should be. OBJECTIVE Joshua is a pleasant 84 year old male with history of head and neck cancer. ASSESSMENT / PLAN ASSESSMENT Patient was alert and oriented and engaged in appropriate conversation on the phone today. PLAN Social work will continue to be available for any needs or concerns in regards to his cancer treatments. Richie Salazar, OllieS.W. 08/22/25 documented in this encounter Plan of Treatment Upcoming Encounters Date Type Department Care Team (Late st Contact Info) Description 09/17/2025 10:30 AM CDT Appointment Department of Radiation Oncology in [place], [place] [address] [place] [address] Julio Cesar Rebolledo M.D. [address] [place] [address] Britt Ayala R.N. [address] [place] [phone] 09/24/2025 10:30 AM CDT Appointment Department of Radiation Oncology in [place], [place] [address] [place] [address] Julio Cesar Rebolledo M.D. [address] [place] [address] Britt Ayala R.N. [address] [place] [phone] 10/01/2025 10:30 AM CHAIN CARRIER Appointment Department of Radiation Oncology in [place], [place] [address] [place] [address] Julio Cesar Rebolledo M.D. [address] [place] [address] Michel Leach R.N. 10/08/2025 10:30 AM CHAIN CARRIER Appointment Department of Radiation Oncology in [address] [phone] Julio Cesar Rebolledo [place]D. [facility] [place] [address] Britt Ayala R.N. [address] [place] [phone] 10/15/2025 10:30 AM CHAIN CARRIER Appointment Department of Radiation Oncology in [place], [place] [address] [place] [phone] Julio Cesar Rebolledo [place].D. [facility] [place] [address] Britt Ayala R.N. [address] [place] [phone] 10/22/2025 2:30 PM CHAIN CARRIER Appointment Department of Radiation Oncology in [place], [place] [address] [place] [address] Julio Cesar Rebolledo [place]. [facility] [place] [address] documented as of this encounter Visit Diagnoses Diagnosis Malignant Neoplasm Of Tongue Base (HCC)- Primary documented in this encounter Additional Health Concerns Infection Onset Date Last Indicated Resolved Time Protective Environment 06/30/2025 06/30/2025 documented as of this encounter
--- OUTSIDE RECORDS SUMMARY | 2025-08-25 08:19 | XMS_ITS | Encounter Summary ---
Author Organization [facility] Address [address] [place] [address] Care Team Providers Care Literacy Consultant Name Role Phone Unavailable Primary Care Provider Unavailabl e Reason for Visit * Radiation Therapy (Routine) - Authorized Specialty Diagnoses / Procedures Referred By Norma t Referred To Contact Diagnoses Malignant Neoplasm Of Tongue Base (HCC) Procedures Prior Auth Rad Tx MD IMRT COMPLEX MD GUIDANCE FOR LOC RAD TX MD IMRT RADIOTHERAPY PLAN IMRT Julio Cesar Rebolledo M.D. [address] [place] [phone] Phone: tel: fax: [facility] Referral ID Status Reason Start Date Expiration Date V isits Requested Visits Authorized [id number] Authorized 07/14/2025 09/30/2026 35 35 Encounter Details Date Type Department Care Team (Late st Contact Info) Description 08/25/2025 8:19 AM CDT Hospital Encounter Department of Radiation Oncology in [address] [phone] Julio Cesar Rebolledo M.D. [address] [place] [phone] Social History Tobacco Use Types Packs/Day [...] No 08/07/2025 [facility] Utilities Answer Date Recorded In the past 12 months has e electric, gas, oil, or water company threatened to shut off services in your home? No 08/07/2025 Housing Stability Answer Date Recorded What is your living situation today? I have a [facility] place to live 08/07/2025 Sex and Gender [...] CDT Appointment Department of Radiation Oncology in [place], [place] [address] [place] [phone] Julio Cesar Rebolledo M.D. [address] [place] [phone] Britt Ayala R.N. [address] [place] [address] 09/24/2025 10:30 AM CDT Appointment Department of Radiation Oncology in [place], [place] [address] [place] [phone] Julio Cesar Rebolledo M.D. [address] [place] [address] Britt Ayala R.N. [address] [place] [phone] 10/01/2025 10:30 AM END TOUCHING MACHINE OPERATOR Appointment Department of Radiation Oncology in [address] [phone] Julio Cesar Rebolledo M.D. [facility] [place] [address] Michel Leach RElbaNElba 10/08/2025 10:30 AM END TOUCHING MACHINE OPERATOR Appointment Department of Radiation Oncology in [address] [address] Julio Cesar Rebolledo M.D. [facility] [place] [address] Britt Ayala R.N. [address] [place] [phone] 10/15/2025 10:30 AM END TOUCHING MACHINE OPERATOR Appointment Department of Radiation Oncology in [place], [place] [address] [place] [phone] Julio Cesar Rebolledo M.D. [facility] [place] [address] Britt Ayala R.N. [address] [place] [phone] 10/22/2025 2:30 PM END TOUCHING MACHINE OPERATOR Appointment Department of Radiation Oncology in [address] [phone] Julio Cesar Rebolledo M.D. [address] [place] [phone] documented as of this encounter Visit Diagnoses Not on filedocumented in this encounter Additional Health Concerns Infection Onset Date Last Indicated Resolved Time Protective Environment 06/30/2025 06/30/2025 documented as of this encounter
--- OUTSIDE RECORDS SUMMARY | 2025-08-26 08:06 | XMS_ITS | Encounter Summary ---
Author Organization [facility] Address [address] [place] [address] Care Team Providers Care Dietitian Helper Name Role Phone Unavailable Primary Care Provider Unavailabl e Reason for Visit * Radiation Therapy (Routine) - Authorized Specialty Diagnoses / Procedures Referred By Norma t Referred To Contact Diagnoses Malignant Neoplasm Of Tongue Base (HCC) Procedures Prior Auth Rad Tx [place] IMRT COMPLEX [place] GUIDANCE FOR LOC RAD TX [place] IMRT RADIOTHERAPY PLAN IMRT Julio Cesar Rebolledo M.D. [address] [place] [phone] Phone: tel: fax: [facility] Referral ID Status Reason Start Date Expiration Date V isits Requested Visits Authorized [id number] Authorized 07/14/2025 09/30/2026 35 35 Encounter Details Date Type Department Care Team (Late st Contact Info) Description 08/26/2025 8:06 AM CDT Hospital Encounter Department of Radiation Oncology in [address] [phone] Julio Cesar Rebolledo M.D. [address] [place] [phone] Social History Tobacco Use Types Packs/Day [...] things needed for daily living? No 08/07/2025 [facility] Utilities Answer Date Recorded In the past 12 months has e electric, gas, oil, or water company threatened to shut off services in your home? No 08/07/2025 Housing Stability Answer Date Recorded What is your living situation today? I have a [facility] place to live 08/07/2025 Sex and [...] CDT Appointment Department of Radiation Oncology in [place], [place] [address] [place] [phone] Julio Cesar Rebolledo M.D. [address] [place] [phone] Britt Ayala R.N. [address] [place] [address] 09/24/2025 10:30 AM CDT Appointment Department of Radiation Oncology in [place], [place] [address] [place] [phone] Julio Cesar Rebolledo M.D. [address] [place] [address] Britt Ayala R.N. [address] [place] [phone] 10/01/2025 10:30 AM TOWEL HEMMER Appointment Department of Radiation Oncology in [address] [address] Julio Cesar Rebolledo M.D. [facility] [place] [address] Michel Leach RElbaNElba 10/08/2025 10:30 AM TOWEL HEMMER Appointment Department of Radiation Oncology in [address] [address] Julio Cesar Rebolledo M.D. [facility] [place] [address] Britt Ayala R.N. [address] [place] [phone] 10/15/2025 10:30 AM TOWEL HEMMER Appointment Department of Radiation Oncology in [place], [place] [address] [place] [phone] Julio Cesar Rebolledo M.D. [facility] [place] [address] Britt Ayala R.N. [address] [place] [phone] 10/22/2025 2:30 PM TOWEL HEMMER Appointment Department of Radiation Oncology in [address] [phone] Julio Cesar Rebolledo M.D. [address] [place] [phone] documented as of this encounter Visit Diagnoses Not on filedocumented in this encounter Additional Health Concerns Infection Onset Date Last Indicated Resolved Time Protective Environment 06/30/2025 06/30/2025 documented as of this encounter
--- OUTSIDE RECORDS SUMMARY | 2025-08-27 07:44 | XMS_ITS | Encounter Summary ---
Author Organization [facility] Address [address] [place] [address] Care Team Providers Care Video Intern Name Role Phone Unavailable Primary Care Provider Unavailabl e Reason for Visit * Radiation Therapy (Routine) - Authorized Specialty Diagnoses / Procedures Referred By Norma t Referred To Contact Diagnoses Malignant Neoplasm Of Tongue Base (HCC) Procedures Prior Auth Rad Tx LA IMRT COMPLEX LA GUIDANCE FOR LOC RAD TX LA IMRT RADIOTHERAPY PLAN IMRT Julio Cesar Rebolledo M.D. [address] [place] [phone] Phone: tel: fax: [facility] Referral ID Status Reason Start Date Expiration Date V isits Requested Visits Authorized [id number] Authorized 07/14/2025 09/30/2026 35 35 Encounter Details Date Type Department Care Team (Late st Contact Info) Description 08/27/2025 7:44 AM CDT Hospital Encounter Department of Radiation Oncology in [address] [phone] Julio Cesar Rebolledo M.D. [address] [place] [phone] Social History Tobacco Use Types Packs/Day [...] living? No 08/07/[address] [facility] Utilities Answer Date Recorded In the past 12 months has e electric, gas, oil, or water company threatened to shut off services in your home? No 08/07/2025 Housing Stability Answer Date Recorded What is your living situation today? I have a [facility] place to live 08/07/2025 Sex [...] CDT Appointment Department of Radiation Oncology in [place], [place] [address] [place] [phone] Julio Cesar Rebolledo M.D. [address] [place] [phone] Britt Ayala R.N. [address] [place] [address] 09/24/2025 10:30 AM CDT Appointment Department of Radiation Oncology in [place], [place] [address] [place] [phone] Julio Cesar Rebolledo M.D. [address] [place] [address] Britt Ayala R.N. [address] [place] [phone] 10/01/2025 10:30 AM WELL PULLER HEAD Appointment Department of Radiation Oncology in [address] [address] Julio Cesar Rebolledo M.D. [facility] [place] [address] Michel Leach RElbaNElba 10/08/2025 10:30 AM WELL PULLER HEAD Appointment Department of Radiation Oncology in [address] [phone] Julio Cesar Rebolledo M.D. [facility] [place] [address] Britt Ayala R.N. [address] [place] [phone] 10/15/2025 10:30 AM WELL PULLER HEAD Appointment Department of Radiation Oncology in [place], [place] [address] [place] [phone] Julio Cesar Rebolledo M.D. [facility] [place] [address] Britt Ayala R.N. [address] [place] [phone] 10/22/2025 2:30 PM WELL PULLER HEAD Appointment Department of Radiation Oncology in [address] [phone] Julio Cesar Rebolledo M.D. [address] [place] [phone] documented as of this encounter Visit Diagnoses Not on filedocumented in this encounter Additional Health Concerns Infection Onset Date Last Indicated Resolved Time Protective Environment 06/30/2025 06/30/2025 documented as of this encounter
--- OUTSIDE RECORDS SUMMARY | 2025-08-28 08:09 | XMS_ITS | Encounter Summary ---
Author Organization [facility] Address [address] [place] [address] Care Team Providers Care Grain Wafer Machine Operator Name Role Phone Unavailable Primary Care Provider Unavailabl e Reason for Referral * Radiation Therapy (Routine) - Authorized Specialty Diagnoses / Procedures Referred By Norma choi Referred To Contact Diagnoses Malignant Neoplasm Of Tongue Base (HCC) Procedures Management Visit Julio Cesar Rebolledo M.D. [address] [place] [address] Phone: tel: fax: [facility] Region Referral ID Status Reason Start Date Expiration Date V isits Requested Visits Authorized [id number] Authorized 06/30/2025 09/30/2026 10 10 Reason for Visit * Radiation Therapy (Routine) - Authorized Specialty Diagnoses / Procedures Referred By Norma choi Referred To Contact Diagnoses Malignant Neoplasm Of Tongue Base (HCC) Procedures Management Visit Julio Cesar Rebolledo M.D. [address] [place] [address] Phone: tel: fax: [facility] Region Referral ID Status Reason Start Date Expiration Date V isits Requested Visits Authorized [id number] Authorized 06/30/2025 09/30/2026 10 10 Encounter Details Date Type Department Care Team (Latest Contact Info) Description 08/28/2025 8:09 AM CDT - 09/03/2025 8:10 AM CDT Hospital Encounter Department of Radiation Oncology in [place], [place] [address] [place] [phone] Julio Cesar Rebolledo M.D. [address] [place] [address] Malignant Neoplasm Of Tongue Base (HCC) Social [...] things needed for daily living? No 08/07/2025 [facility] Utilities Answer Date Recorded In the past 12 months has [facility] electric, gas, oil, or water [employer] threatened to shut off services in your home? No 08/07/2025 Housing Stability Answer Date Recorded What is your living situation today? I have a [facility] place to live 08/07/2025 Sex and Gender Information Value Date Recorded Sex Assigned at Male 08/07/2025 1:13 PM CDT Legal Sex Male 12:18 PM CDT Gender Identity Male 08/07/2025 1:13 PM CDT Sexual Orientation Straight 08/07/2025 1: 13 PM CDT documented as of this encounter Last Filed Vital Signs Vital Sign Reading Time Taken Comments Blood Pressure 113/64 08/28/2025 9:11 AM CDT Pulse 72 08/28/2025 9:11 AM CDT Temperature 36.2 C (97.2 F) 08/28/2025 9:11 AM CDT Respiratory Rate - - Oxygen Saturation - - Inhaled Oxygen Concentration - - Weight 70.9 kg (156 lb 4.9 oz) 08/28/2025 9:11 A M CDT Height - - Body [...] no or minimal response. 2 each 07/30/2025 documented as of this encounter Progress Notes * Michel Leach R.N. - 08/28/2025 9:00 AM CDT SUBJECTIVE REASON FOR VISIT [...] 2200 2200 07/21/2025 08/06/2025 16 F12Opx 200 3200 4800 08/07/2025 08/28/2025 21 Treatment Site Summary 5400 7000 07/21/2025 08/28/2025 38 Course Summary 07/21/2025 08/28/2025 38 The patient was seen and examined today with Dr. Rebolledo. The patient reports feeling okay overall with some improvement in fatigue due to steroids with chemotherapy. He is utilizing stool softeners and laxatives to help regulate his bowel movements. He notes a dry throat and thick secretions. He is utilizing baking soda rinses. He has not taken any oxycodone yet. He notes constant soreness/pain that is worse with swallowing and notes eating feels like swallowing gravel. He is experiencing decreased appetite and taste changes making eating less enjoyable. His weight is stable. He now has pain and sores in his mouth. He restarted chemotherapy yesterday. His family inquired about starting a new cardiac medicine and antacid per his urogynaecologist. *Patient admitted for a Late Presentation Anterior [...] 10 = worst fatigue you can imagine): 1 PAIN (Scale: 0 = no pain; 10 = worst pain you can imagine): 3 OVERALL QUALITY OF LIFE (Scale: 0 = as bad as can be; 10 = as good as can be): 9 OBJECTIVE BP 113/64 (BP Location: Right arm, Patient Position: Sitting, Cuff Size: Regular) Pulse 72 Temp36.2 ??C (Temporal) Wt 70.9 kg WEIGHT TRACKER: 07/24: 70.2 kg 07/31: 68.9 kg 08/07: 68.2 kg 08/14: 68.8 kg 08/21: 68.5 kg 08/28: 70.9 kg 10% loss at 63.2 kg PHYSICAL EXAM General: Alert and oriented in no apparent distress. He is here today with his daughter, Jamia. Oral: sores inside mouth and under tongue, erythema present. ASSESSMENT / PLAN #1 HPV [...] carl hydration. I encouraged the patient to continue with schedules tylenol and to trial oxycodone for discomfort. He can continue to use stool softeners and laxatives to manage his bowel movements. Our team sees no contraindications with Joshua starting a long acting antacid or new cardiac medication. Dr. Rebolledo was in for any questions or concerns. He will contact us with any questions or concerns. We will continue with radiation treatment as planned. Signed by: Keerthi Leach R.N. 08/28/2025 9:45 AM CDT Cosigned by Julio Cesar Rebolledo M.D. at 08/28/2025 2:33 PM CDT Associated attestation - Julio Cesar Rebloledo M.D. - 08/28/2025 2:33 PM CDT ATTESTATION FOR MANAGEMENT VISIT I saw and evaluated the patient and participated in the bean portions of the service including medical decision making as noted above. I reviewed the documentation of Ms.Alexis Haylee RN and agreewith the findings and plan. The patient appears well on exam. We will continue with radiation as planned and monitor weekly. He has resumed his chemotherapy and we will get another infusion next week. His tumor on the left side of his neck is softer and slightly less prominent today. He has not yetstarted taking oxycodone but his mouth is increasingly sore and so we encouraged him to consider itwith all of the warnings about constipation and fall risk and overdose etcetera. He will do so as needed to control his pain. I will see him back next week. Julio Cesar Rebolledo M.D., 08/28/2025 documented in this encounter Plan of Treatment Upcoming Encounters Date Type Department Care Team (Late st Contact Info) Description 09/17/2025 10:30 AM CDT Appointment Department of Radiation Oncology in [place], [place] [address] [place] [phone] Julio Cesar Rebolledo M.D. [address] [place] [phone] Britt Ayala R.N. [address] [place] [address] 09/24/2025 10:30 AM CDT Appointment Department of Radiation Oncology in [place], [place] [address] [place] [phone] Julio Cesar Rebolledo M.D. [address] [place] [address] Britt Ayala R.N. [address] [place] [phone] 10/01/2025 10:30 AM MOTOR ADJUSTER Appointment Department of Radiation Oncology in [address] [address] Julio Cesar Rebolledo M.D. [facility] [place] [address] Michel Leach RElbaNElba 10/08/2025 10:30 AM MOTOR ADJUSTER Appointment Department of Radiation Oncology in [address] [address] Julio Cesar Rebolledo M.D. [facility] [place] [address] Britt Ayala R.N. [address] [place] [phone] 10/15/2025 10:30 AM MOTOR ADJUSTER Appointment Department of Radiation Oncology in [place], [place] [address] [place] [phone] Julio Cesar Rebolledo M.D. [facility] [place] [address] Britt Ayala R.N. [address] [place] [phone] 10/22/2025 2:30 PM MOTOR ADJUSTER Appointment Department of Radiation Oncology in [address] [phone] Julio Cesar Rebolledo M.D. [address] [place] [address] Scheduled Orders Name Type Priority Associated Diagnoses Orde r Schedule Management Visit Radiation Oncology Routine Malignant Neoplasm Of Tongue Base (HCC) Once for 1 Occurrences starting 08/28/2025 until 08/28/2025 documented as of this encounter Visit Diagnoses Diagnosis Malignant Neoplasm Of Tongue Base (HCC) documented in this encounter Additional Health Concerns Infection Onset Date Last Indicated Resolved Time Protective Environment 06/30/2025 06/30/2025 documented as of this encounter
--- OUTSIDE RECORDS SUMMARY | 2025-08-28 08:09 | XMS_ITS | Encounter Summary ---
Author Organization [facility] Address [address] [place] [address] Care Team Providers Care Senior Technical Architect Name Role Phone Unavailable Primary Care Provider Unavailabl e Reason for Visit * Radiation Therapy (Routine) - Authorized Specialty Diagnoses / Procedures Referred By Norma t Referred To Contact Diagnoses Malignant Neoplasm Of Tongue Base (HCC) Procedures Prior Auth Rad Tx NV IMRT COMPLEX NV GUIDANCE FOR LOC RAD TX NV IMRT RADIOTHERAPY PLAN IMRT Julio Cesar Rebolledo M.D. [address] [place] [phone] Phone: tel: fax: [facility] Referral ID Status Reason Start Date Expiration Date V isits Requested Visits Authorized [id number] Authorized 07/14/2025 09/30/2026 35 35 Encounter Details Date Type Department Care Team (Late st Contact Info) Description 08/28/2025 8:09 AM CDT Hospital Encounter Department of Radiation Oncology in [address] [phone] Julio Cesar Rebolledo M.D. [address] [place] [phone] Social History Tobacco Use Types Packs/Day [...] living situation today? I have a [facility] place to live 08/07/2025 Sex and [...] Appointment Department of Radiation Oncology in [place], [place] [address] [place] [phone] Julio Cesar Rebolledo M.D. [address] [place] [phone] Britt Ayala R.N. [address] [place] [address] 09/24/2025 10:30 AM CDT Appointment Department of Radiation Oncology in [place], [place] [address] [place] [phone] Julio Cesar Rebolledo M.D. [address] [place] [address] Britt Ayala R.N. [address] [place] [phone] 10/01/2025 10:30 AM COREMAKER HELPER Appointment Department of Radiation Oncology in [address] [address] Julio Cesar Rebolledo M.D. [facility] [place] [address] Michel Leach RElbaNElba 10/08/2025 10:30 AM COREMAKER HELPER Appointment Department of Radiation Oncology in [address] [phone] Julio Cesar Rebolledo M.D. [facility] [place] [address] Britt Ayala R.N. [address] [place] [phone] 10/15/2025 10:30 AM COREMAKER HELPER Appointment Department of Radiation Oncology in [place], [place] [address] [place] [phone] Julio Cesar Rebolledo M.D. [facility] [place] [address] Britt Ayala R.N. [address] [place] [phone] 10/22/2025 2:30 PM COREMAKER HELPER Appointment Department of Radiation Oncology in [address] [phone] Julio Cesar Rebolledo M.D. [address] [place] [phone] documented as of this encounter Visit Diagnoses Not on filedocumented in this encounter Additional Health Concerns Infection Onset Date Last Indicated Resolved Time Protective Environment 06/30/2025 06/30/2025 documented as of this encounter
--- OUTSIDE RECORDS SUMMARY | 2025-08-29 08:07 | XMS_ITS | Encounter Summary ---
Author Organization [facility] Address [address] [place] [address] Care Team Providers Care Redipper Name Role Phone Unavailable Primary Care Provider Unavailabl e Reason for Visit * Radiation Therapy (Routine) - Authorized Specialty Diagnoses / Procedures Referred By Norma t Referred To Contact Diagnoses Malignant Neoplasm Of Tongue Base (HCC) Procedures Prior Auth Rad Tx [place] IMRT COMPLEX [place] GUIDANCE FOR LOC RAD TX [place] IMRT RADIOTHERAPY PLAN IMRT Julio Cesar Rebolledo M.D. [address] [place] [phone] Phone: tel: fax: [facility] Referral ID Status Reason Start Date Expiration Date V isits Requested Visits Authorized [id number] Authorized 07/14/2025 09/30/2026 35 35 Encounter Details Date Type Department Care Team (Late st Contact Info) Description 08/29/2025 8:07 AM CDT Hospital Encounter Department of Radiation Oncology in [address] [phone] Julio Cesar Rebolledo M.D. [address] [place] [phone] Social History Tobacco Use Types Packs/Day [...] things needed for daily living? No 08/07/2025 [facility] Utilities Answer Date Recorded In the past 12 months has e electric, gas, oil, or water company threatened to shut off services in your home? No 08/07/2025 Housing Stability Answer Date Recorded What is your living situation today? I have a [facility] place to live 08/07/2025 Sex and [...] CDT Appointment Department of Radiation Oncology in [place], [place] [address] [place] [phone] Julio Cesar Rebolledo M.D. [address] [place] [phone] Britt Ayala R.N. [address] [place] [address] 09/24/2025 10:30 AM CDT Appointment Department of Radiation Oncology in [place], [place] [address] [place] [phone] Julio Cesar Rebolledo M.D. [address] [place] [address] Britt Ayala R.N. [address] [place] [phone] 10/01/2025 10:30 AM TRUCK HOPPER Appointment Department of Radiation Oncology in [address] [phone] Julio Cesar Rebolledo M.D. [facility] [place] [address] Michel Leach RElbaNElba 10/08/2025 10:30 AM TRUCK HOPPER Appointment Department of Radiation Oncology in [address] [phone] Julio Cesar Rebolledo M.D. [facility] [place] [address] Britt Ayala R.N. [address] [place] [phone] 10/15/2025 10:30 AM TRUCK HOPPER Appointment Department of Radiation Oncology in [place], [place] [address] [place] [phone] Julio Cesar Rebolledo M.D. [facility] [place] [address] Britt Ayala R.N. [address] [place] [phone] 10/22/2025 2:30 PM TRUCK HOPPER Appointment Department of Radiation Oncology in [address] [phone] Julio Cesar Rebolledo M.D. [address] [place] [phone] documented as of this encounter Visit Diagnoses Not on filedocumented in this encounter Additional Health Concerns Infection Onset Date Last Indicated Resolved Time Protective Environment 06/30/2025 06/30/2025 documented as of this encounter
--- OUTSIDE RECORDS SUMMARY | 2025-09-01 08:09 | XMS_ITS | Encounter Summary ---
Author Organization [facility] Address [address] [place] [address] Care Team Providers Care Dough Braker Name Role Phone Unavailable Primary Care Provider Unavailabl e Reason for Visit * Radiation Therapy (Routine) - Authorized Specialty Diagnoses / Procedures Referred By Norma t Referred To Contact Diagnoses Malignant Neoplasm Of Tongue Base (HCC) Procedures Prior Auth Rad Tx [place] IMRT COMPLEX [place] GUIDANCE FOR LOC RAD TX [place] IMRT RADIOTHERAPY PLAN IMRT Julio Cesar Rebolledo M.D. [address] [place] [phone] Phone: tel: fax: [facility] Referral ID Status Reason Start Date Expiration Date V isits Requested Visits Authorized [id number] Authorized 07/14/2025 09/30/2026 35 35 Encounter Details Date Type Department Care Team (Late st Contact Info) Description 09/01/2025 8:09 AM CDT Hospital Encounter Department of Radiation Oncology in [address] [phone] Julio Cesar Rebolledo M.D. [address] [place] [phone] Social History Tobacco Use Types Packs/Day [...] things needed for daily living? No 08/07/2025 [facility] Utilities Answer Date Recorded In the past 12 months has e electric, gas, oil, or water company threatened to shut off services in your home? No 08/07/2025 Housing Stability Answer Date Recorded What is your living situation today? I have a [facility] place to live 08/07/2025 Sex [...] CDT Appointment Department of Radiation Oncology in [place], [place] [address] [place] [phone] Julio Cesar Rebolledo M.D. [address] [place] [phone] Britt Ayala R.N. [address] [place] [address] 09/24/2025 10:30 AM CDT Appointment Department of Radiation Oncology in [place], [place] [address] [place] [phone] Julio Cesar Rebolledo M.D. [address] [place] [address] Britt Ayala R.N. [address] [place] [phone] 10/01/2025 10:30 AM MORTGAGE BROKER Appointment Department of Radiation Oncology in [address] [phone] Julio Cesar Rebolledo M.D. [facility] [place] [address] Michel Leach RElbaNElba 10/08/2025 10:30 AM MORTGAGE BROKER Appointment Department of Radiation Oncology in [address] [phone] Julio Cesar Rebolledo M.D. [facility] [place] [address] Britt Ayala R.N. [address] [place] [phone] 10/15/2025 10:30 AM MORTGAGE BROKER Appointment Department of Radiation Oncology in [place], [place] [address] [place] [phone] Julio Cesar Rebolledo M.D. [facility] [place] [address] Britt Ayala R.N. [address] [place] [phone] 10/22/2025 2:30 PM MORTGAGE BROKER Appointment Department of Radiation Oncology in [address] [phone] Julio Cesar Rebolledo M.D. [address] [place] [phone] documented as of this encounter Visit Diagnoses Not on filedocumented in this encounter Additional Health Concerns Infection Onset Date Last Indicated Resolved Time Protective Environment 06/30/2025 06/30/2025 documented as of this encounter
--- OUTSIDE RECORDS SUMMARY | 2025-09-02 08:09 | XMS_ITS | Encounter Summary ---
Author Organization [facility] Address [address] [place] [address] Care Team Providers Care Health And Wellness Instructor Name Role Phone Unavailable Primary Care Provider Unavailabl e Reason for Visit * Radiation Therapy (Routine) - Authorized Specialty Diagnoses / Procedures Referred By Norma t Referred To Contact Diagnoses Malignant Neoplasm Of Tongue Base (HCC) Procedures Prior Auth Rad Tx SD IMRT COMPLEX SD GUIDANCE FOR LOC RAD TX SD IMRT RADIOTHERAPY PLAN IMRT Julio Cesar Rebolledo M.D. [address] [place] [phone] Phone: tel: fax: [facility] Referral ID Status Reason Start Date Expiration Date V isits Requested Visits Authorized [id number] Authorized 07/14/2025 09/30/2026 35 35 Encounter Details Date Type Department Care Team (Late st Contact Info) Description 09/02/2025 8:09 AM CDT Hospital Encounter Department of Radiation Oncology in [address] [phone] Julio Cesar Rebolledo M.D. [address] [place] [phone] Social History Tobacco Use Types Packs/Day [...] things needed for daily living? No 08/07/2025 [facility] Utilities Answer Date Recorded In the past 12 months has e electric, gas, oil, or water company threatened to shut off services in your home? No 08/07/2025 Housing Stability Answer Date Recorded What is your living situation today? I have a [facility] place to live 08/07/2025 Sex [...] CDT Appointment Department of Radiation Oncology in [place], [place] [address] [place] [phone] Julio Cesar Rebolledo M.D. [address] [place] [phone] Britt Ayala R.N. [address] [place] [address] 09/24/2025 10:30 AM CDT Appointment Department of Radiation Oncology in [place], [place] [address] [place] [phone] Julio Cesar Rebolledo M.D. [address] [place] [address] Britt Ayala R.N. [address] [place] [phone] 10/01/2025 10:30 AM PULP PILER Appointment Department of Radiation Oncology in [address] [phone] Julio Cesar Rebolledo M.D. [facility] [place] [address] Michel Leach RElbaNElba 10/08/2025 10:30 AM PULP PILER Appointment Department of Radiation Oncology in [address] [phone] Julio Cesar Rebolledo M.D. [facility] [place] [address] Britt Ayala R.N. [address] [place] [phone] 10/15/2025 10:30 AM PULP PILER Appointment Department of Radiation Oncology in [place], [place] [address] [place] [phone] Julio Cesar Rebolledo M.D. [facility] [place] [address] Britt Ayala R.N. [address] [place] [phone] 10/22/2025 2:30 PM PULP PILER Appointment Department of Radiation Oncology in [address] [phone] Julio Cesar Rebolledo M.D. [address] [place] [phone] documented as of this encounter Visit Diagnoses Not on filedocumented in this encounter Additional Health Concerns Infection Onset Date Last Indicated Resolved Time Protective Environment 06/30/2025 06/30/2025 documented as of this encounter
--- OUTSIDE RECORDS SUMMARY | 2025-09-03 08:11 | XMS_ITS | Encounter Summary ---
Author Organization [facility] Address [address] [place] [address] Care Team Providers Care Peoplesoft Hr Developer Name Role Phone Unavailable Primary Care Provider Unavailabl e Reason for Visit * Radiation Therapy (Routine) - Authorized Specialty Diagnoses / Procedures Referred By Norma t Referred To Contact Diagnoses Malignant Neoplasm Of Tongue Base (HCC) Procedures Prior Auth Rad Tx [place] IMRT COMPLEX [place] GUIDANCE FOR LOC RAD TX [place] IMRT RADIOTHERAPY PLAN IMRT Julio Cesar Rebolledo M.D. [address] [place] [phone] Phone: tel: fax: [facility] Referral ID Status Reason Start Date Expiration Date V isits Requested Visits Authorized [id number] Authorized 07/14/2025 09/30/2026 35 35 Encounter Details Date Type Department Care Team (Late st Contact Info) Description 09/03/2025 8:11 AM CDT Hospital Encounter Department of Radiation Oncology in [address] [phone] Julio Cesar Rebolledo M.D. [address] [place] [phone] Social History Tobacco Use Types Packs/Day [...] your living situation today? I have a [facility] place to live 08/07/2025 Sex and [...] CDT Appointment Department of Radiation Oncology in [place], [place] [address] [place] [phone] Julio Cesar Rebolledo M.D. [address] [place] [phone] Britt Ayala R.N. [address] [place] [address] 09/24/2025 10:30 AM CDT Appointment Department of Radiation Oncology in [place], [place] [address] [place] [phone] Julio Cesar Rebolledo M.D. [address] [place] [address] Britt Ayala R.N. [address] [place] [phone] 10/01/2025 10:30 AM SAP TECHNICAL ARCHITECT Appointment Department of Radiation Oncology in [address] [phone] Julio Cesar Rebolledo [place] [address] Michel Leach RElbaNElba 10/08/2025 10:30 AM SAP TECHNICAL ARCHITECT Appointment Department of Radiation Oncology in [address] [phone] Julio Cesar Rebolledo [place] [address] Britt Ayala R.N. [address] [place] [phone] 10/15/2025 10:30 AM SAP TECHNICAL ARCHITECT Appointment Department of Radiation Oncology in [place], [place] [address] [place] [phone] Julio Cesar Rebolledo [place] [address] Britt Ayala R.N. [address] [place] [phone] 10/22/2025 2:30 PM SAP TECHNICAL ARCHITECT Appointment Department of Radiation Oncology in [address] [phone] Julio Cesar Rebolledo M.D. [address] [place] [phone] documented as of this encounter Visit Diagnoses Not on filedocumented in this encounter Additional Health Concerns Infection Onset Date Last Indicated Resolved Time Protective Environment 06/30/2025 06/30/2025 documented as of this encounter
--- OUTSIDE RECORDS SUMMARY | 2025-09-03 08:11 | XMS_ITS | Encounter Summary ---
Author Organization [facility] Address [address] [place] [address] Care Team Providers Care Aircraft Inspector Name Role Phone Unavailable Primary Care Provider Unavailabl e Reason for Referral * Outpatient (Routine) - Authorized Specialty Diagnoses / Procedures Referred By Norma t Referred To Contact Radiation Oncology Julio Cesar Rebolledo M.D. [address] [place] [address] Phone: tel: fax: [facility] Region Referral ID Status Reason Start Date Expiration Date V isits Requested Visits Authorized [id number] Authorized 09/03/2025 03/05/2027 1 1 * MRI/CAT/PET Scan (Routine) - Authorized Specialty Diagnoses / Procedures Referred By Norma t Referred To Contact Radiology Diagnoses Malignant Neoplasm Of Tongue Base (HCC) Procedures CT Neck Soft Tissue without IV Contrast Julio Cesar Rebolledo M.D. [address] [place] [address] Phone: tel: fax: [facility] Region Referral ID Status Reason Start Date Expiration Date V isits Requested Visits Authorized [id number] Authorized 09/03/2025 12/04/2026 1 1 * Radiation Therapy (Routine) - Authorized Specialty Diagnoses / Procedures Referred By Contac t Referred To Contact Diagnoses Malignant Neoplasm Of Tongue Base (HCC) Procedures Management Visit Julio Cesar Rebolledo M.D. [address] [place] [address] Phone: tel: fax: [facility] Region Referral ID Status Reason Start Date Expiration Date V isits Requested Visits Authorized [id number] Authorized 06/30/2025 09/30/2026 10 10 Reason for Visit * Radiation Therapy (Routine) - Authorized Specialty Diagnoses / Procedures Referred By Contac t Referred To Contact Diagnoses Malignant Neoplasm Of Tongue Base (HCC) Procedures Management Visit Julio Cesar Rebolledo M.D. [address] [place] [address] Phone: tel: fax: [facility] Region Referral ID Status Reason Start Date Expiration Date V isits Requested Visits Authorized [id number] Authorized 06/30/2025 09/30/2026 10 10 Encounter Details Date Type Department Care Team (Latest Contact Info) Description 09/03/2025 8:11 AM CDT - 09/03/2025 1:08 PM CDT Hospital Encounter Department of Radiation Oncology in [place], [place] [address] [place] [phone] Julio Cesar Rebolledo M.D. [address] [place] [address] Malignant Neoplasm Of Tongue Base (HCC) Social [...] things needed for daily living? No 08/07/2025 [facility] Utilities Answer Date Recorded In the [...] Sign Reading Time Taken Comments Blood Pressure 106/61 09/03/2025 8:40 AM CDT Pulse 70 09/03/2025 8:40 AM CDT Temperature 35.6 C (96.1 F) 09/03/2025 8:40 AM CDT Respiratory Rate - - Oxygen Saturation - - Inhaled Oxygen Concentration - - Weight 67.8 kg (149 lb 7.6 oz) 09/03/2025 8:40 A M CDT Height - - Body [...] tablet Take 4 mg by mouth. 07/02/2025 oxyCODONE (Roxicodone) 10 mg IR tabletIndications :Prolonged Acute Pain/Traumatic Injury Take 1 tablet (10 mg total) by mouth every 6 (six) hours as needed for pain or severe pain or score 7-10 of 10 Indication: Prolonged Acute Pain/Traumatic Injury. 40 tablet 09/03/2025 potassium chloride (K-Tab) 20 mEq ER tablet [...] Progress Notes * Michel Leach R.N. - 09/03/2025 8:45 AM CDT SUBJECTIVE REASON FOR VISIT Evaluation [...] 2200 2200 07/21/2025 08/06/2025 16 F12Opx 200 4000 4800 08/07/2025 09/03/2025 27 Treatment Site Summary 6200 7000 07/21/2025 09/03/2025 44 Course Summary 07/21/2025 09/03/2025 44 The patient was seen and examined today with Dr. Rebolledo. The patient reports feeling okay overall. He is utilizing stool softeners and laxatives to help regulate his bowel movements as needed. He notes a dry throat and thick secretions. He is utilizing baking soda rinses. He is taking 5 mg of oxycodone every 8 hours and tylenol 1000 mg every 8 hours for pain management. He notes constant soreness/pain that is worse with swallowing and notes eating feels like swallowing gravel. He is experiencing decreased appetite and taste changes making eating lessenjoyable. His weight is stable. He continues to have sores in his mouth. *Patient admitted for [...] 10 = worst fatigue you can imagine): 6 PAIN (Scale: 0 = no pain; 10 = worst pain you can imagine): 6 OVERALL QUALITY OF LIFE (Scale: 0 = as bad as can be; 10 = as good as can be): 2 OBJECTIVE BP 106/61 (BP Location: Right arm, Patient Position: Sitting, Cuff Size: Regular) Pulse 70 Temp(!) 35.6 ??C (Temporal) Wt 67.8 kg WEIGHT TRACKER: 07/24: 70.2 kg 07/31: 68.9 kg 08/07: 68.2 kg 08/14: 68.8 kg 08/21: 68.5 kg 08/28: 70.9 kg 09/03: 67.8 kg 10% loss at 63.2 kg PHYSICAL EXAM General: Alert and oriented in no apparent distress. He is here today with his daughter Jamia, and his Antionette. Oral: sores inside mouth and under tongue, erythema and dry desquamation noted on left neck. 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 Treatment Resumed on July 30, 2025; anticipated date of completionSeptember 09, 2023 The patient is tolerating radiation treatment well overall with anticipated side effects. We discussed increasing oxycodone to 10 mg every 6 hours to help better manage his pain. He can continue to take tylenol in between oxycodone doses. He can continue to use stool softeners and laxatives to manage his bowel movements. The patient and his family were educated on moist skin reaction and how to mange open skin. We discussed follow-up plans and the timeline for symptoms and healing post radiation therapy. Dr. Rebolledo was in for any questions or concerns. He will contact us with any questions or concerns. We will continue with radiation treatment as planned. Toxicities reviewed with Dr. Rebolledo. Acute side effects experienced during radiation therapy include grade 2 dehydration, radiation dermatitis, oral mucositis, and pharyngolaryngeal pain; grade 1 dry mouth, dysgeusia, dysphagia, fatigue, trismus. FOLLOW-UP Patient will be seen by Dr. Rebolledo in [address] neck. Nurse phone calls weekly until return visit. Signed by: Keerthi Leach R.N. 09/03/2025 8:42 AM CDT Cosigned by Julio Cesar Rebolledo M.D. at 09/03/2025 1:07 PM CDT Associated attestation - Julio Cesar Rebolledo M.D. - 09/03/2025 1:07 PM CDT ATTESTATION FOR MANAGEMENT VISIT I saw and evaluated the patient and participated in the bean portions of the service including medical decision making as noted above. I reviewed the documentation of Ms.Alexis Haylee RN and agreewith the findings and plan. The patient appears well on exam. We will continue with radiation as planned. He does appear to have regression of his primary tumor and partial regression of the neck metastasis. Because of concern of slow response of the neck lesion we will repeat imaging at 6 weeks rather than 3 months. As his pain has increased since last week we will increase his prescription to oxycodone 10 mg. I discussed with the patient and the family members that accompanied him today that he should use this only as needed for serious pain and no more than 4 times a day. They will also look for signs of somnolence and sedation but so far he has not had any issues with his recent 5 mg prescription. Julio Cesar Rebolledo M.D., 09/03/2025 documented in this encounter Plan of Treatment Upcoming Encounters Date Type Department Care Team (Late st Contact Info) Description 09/17/2025 10:30 AM CDT Appointment Department of Radiation Oncology in [place], [place] [address] [place] [phone] Julio Cesar Rebolledo M.D. [address] [place] [address] Britt Ayala R.N. [address] [place] [address] 09/24/2025 10:30 AM CDT Appointment Department of Radiation Oncology in [place], [place] [address] [place] [address] Julio Cesar Rebolledo M.D. [address] [place] [address] Britt Ayala R.N. [address] [place] [phone] 10/01/2025 10:30 AM AIR CONDITIONING SERVICE TECHNICIAN Appointment Department of Radiation Oncology in [place], [place] [address] [place] [address] Julio Cesar Rebolledo M.D. [address] [place] [address] Michel Leach RElbaNElba 10/08/2025 10:30 AM AIR CONDITIONING SERVICE TECHNICIAN Appointment Department of Radiation Oncology in [place], [place] [address] [place] [address] Julio Cesar Rebolledo M.D. [facility] [place] [address] Britt Ayala R.N. [address] [place] [phone] 10/15/2025 10:30 AM AIR CONDITIONING SERVICE TECHNICIAN Appointment Department of Radiation Oncology in [place], [place] [address] [place] [address] Julio Cesar Rebolledo M.D. [facility] [place] [address] Britt Ayala R.N. [address] [place] [phone] 10/22/2025 2:30 PM AIR CONDITIONING SERVICE TECHNICIAN Appointment Department of Radiation Oncology in [address] [address] Julio Cesar Rebolledo M.D. [address] [place] [address] Scheduled Orders Name Type Priority Associated Diagnoses Order Schedule Management Visit Radiation Oncology Routine Malignant Neoplasm Of Tongue Base (HCC) Once for 1 Occurrences starting 09/03/2025 until 09/03/2025 CT Neck Soft Tissue without IV Contrast Imaging RAD - Routine (most inpatients and all outpatients) Malignant Neoplasm Of Tongue Base (HCC) Expected: 10/21/2025, Expires: 12/04/2026 Scheduled Referrals Name Type Priority Associated Diagnoses Orde r Schedule Radiation Oncology office visit (clinic) Outpatient Referral Routine Expected: 10/21/2025, Expires: 12/04/2026 documented as of this encounter Visit Diagnoses Diagnosis Malignant Neoplasm Of Tongue Base (HCC) documented in this encounter Additional Health Concerns Infection Onset Date Last Indicated Resolved Time Protective Environment 06/30/2025 06/30/2025 documented as of this encounter
--- OUTSIDE RECORDS SUMMARY | 2025-09-04 08:10 | XMS_ITS | Encounter Summary ---
Author Organization [facility] Address [address] [place] [address] Care Team Providers Care Varnish Melter Name Role Phone Unavailable Primary Care Provider Unavailabl e Reason for Visit * Radiation Therapy (Routine) - Authorized Specialty Diagnoses / Procedures Referred By Norma t Referred To Contact Diagnoses Malignant Neoplasm Of Tongue Base (HCC) Procedures Prior Auth Rad Tx [place] IMRT COMPLEX [place] GUIDANCE FOR LOC RAD [place] IMRT RADIOTHERAPY PLAN IMRT Julio Cesar Rebolledo M.D. [address] [place] [address] Phone: tel: fax: [facility] Referral ID Status Reason Start Date Expiration Date V isits Requested Visits Authorized [id number] Authorized 07/14/2025 09/30/2026 35 35 Encounter Details Date Type Department Care Team (Late st Contact Info) Description 09/04/2025 8:10 AM CDT Hospital Encounter Department of Radiation Oncology in [address] [phone] Julio Cesar Rebolledo M.D. [address] [place] [address] Social History Tobacco Use Types Packs/Day [...] things needed for daily living? No 08/07/2025 [facility] Utilities Answer Date Recorded In the past 12 months has e electric, gas, oil, or water company threatened to shut off services in your home? No 08/07/2025 Housing Stability Answer Date Recorded What is your living situation today? I have a [facility] place to live 08/07/2025 Sex and [...] CDT Appointment Department of Radiation Oncology in [place], [place] [address] [place] [phone] Julio Cesar Rebolledo M.D. [address] [place] [phone] Britt Ayala R.N. [address] [place] [address] 09/24/2025 10:30 AM CDT Appointment Department of Radiation Oncology in [place], [place] [address] [place] [address] Julio Cesar Rebolledo M.D. [address] [place] [address] Britt Ayala R.N. [address] [place] [phone] 10/01/2025 10:30 AM CLAIMS ADJUSTER Appointment Department of Radiation Oncology in [address] [address] Julio Cesar Rebolledo M.D. [facility] [place] [address] Michel Leach RElbaNElba 10/08/2025 10:30 AM CLAIMS ADJUSTER Appointment Department of Radiation Oncology in [address] [address] Julio Cesar Rebolledo M.D. [facility] [place] [address] Britt Ayala R.N. [address] [place] [phone] 10/15/2025 10:30 AM CLAIMS ADJUSTER Appointment Department of Radiation Oncology in [place], [place] [address] [place] [phone] Julio Cesar Rebolledo M.D. [facility] [place] [address] Britt Ayala R.N. [address] [place] [phone] 10/22/2025 2:30 PM CLAIMS ADJUSTER Appointment Department of Radiation Oncology in [address] [phone] Julio Cesar Rebolledo M.D. [address] [place] [phone] documented as of this encounter Visit Diagnoses Not on filedocumented in this encounter Additional Health Concerns Infection Onset Date Last Indicated Resolved Time Protective Environment 06/30/2025 06/30/2025 documented as of this encounter
--- OUTSIDE RECORDS SUMMARY | 2025-09-05 08:07 | XMS_ITS | Encounter Summary ---
Author Organization [facility] Address [address] [place] [address] Care Team Providers Care Associate Loan Officer Name Role Phone Unavailable Primary Care Provider Unavailabl e Reason for Visit * Radiation Therapy (Routine) - Authorized Specialty Diagnoses / Procedures Referred By Norma t Referred To Contact Diagnoses Malignant Neoplasm Of Tongue Base (HCC) Procedures Prior Auth Rad Tx [place] IMRT COM[place]X [place] GUIDANCE FOR LOC RAD TX [place] IMRT RADIOTHERAPY PLAN IMRT Julio Cesar Rebolledo M.D. [address] [place] [phone] Phone: tel: fax: [facility] Referral ID Status Reason Start Date Expiration Date V isits Requested Visits Authorized [id number] Authorized 07/14/2025 09/30/2026 35 35 Encounter Details Date Type Department Care Team (Late st Contact Info) Description 09/05/2025 8:07 AM CDT Hospital Encounter Department of Radiation Oncology in [address] [phone] Julio Cesar Rebolledo M.D. [address] [place] [phone] Social History Tobacco Use Types Packs/Day [...] things needed for daily living? No 08/07/2025 [facility] Utilities Answer Date Recorded In the past 12 months has e electric, gas, oil, or water company threatened to shut off services in your home? No 08/07/2025 Housing Stability Answer Date Recorded What is your living situation today? I have a [facility] place to live 08/07/2025 Sex and Gender [...] CDT Appointment Department of Radiation Oncology in [place], [place] [address] [place] [phone] Julio Cesar Rebolledo M.D. [address] [place] [phone] Britt Ayala R.N. [address] [place] [address] 09/24/2025 10:30 AM CDT Appointment Department of Radiation Oncology in [place], [place] [address] [place] [phone] Julio Cesar Rebolledo M.D. [address] [place] [address] Britt Ayala R.N. [address] [place] [phone] 10/01/2025 10:30 AM CARDING MACHINE OPERATOR Appointment Department of Radiation Oncology in [address] [address] Julio Cesar Rebolledo M.D. [place] [address] Michel Leach RElbaNElba 10/08/2025 10:30 AM CARDING MACHINE OPERATOR Appointment Department of Radiation Oncology in [address] [address] Julio Cesar Rebolledo M.D. [place] [address] Britt Ayala R.N. [address] [place] [phone] 10/15/2025 10:30 AM CARDING MACHINE OPERATOR Appointment Department of Radiation Oncology in [place], [place] [address] [place] [phone] Julio Cesar Rebolledo M.D. [place] [address] Britt Ayala R.N. [address] [place] [phone] 10/22/2025 2:30 PM CARDING MACHINE OPERATOR Appointment Department of Radiation Oncology in [address] [phone] Julio Cesar Rebolledo M.D. [address] [place] [phone] documented as of this encounter Visit Diagnoses Not on filedocumented in this encounter Additional Health Concerns Infection Onset Date Last Indicated Resolved Time Protective Environment 06/30/2025 06/30/2025 documented as of this encounter
--- OUTSIDE RECORDS SUMMARY | 2025-09-08 09:15 | XMS_ITS | Encounter Summary ---
Author Organization [facility] Address [address] [place] [address] Care Team Providers Care Robotype Operator Name Role Phone Unavailable Primary Care Provider Unavailabl e Reason for Visit * Radiation Therapy (Routine) - Authorized Specialty Diagnoses / Procedures Referred By Norma t Referred To Contact Diagnoses Malignant Neoplasm Of Tongue Base (HCC) Procedures Prior Auth Rad Tx [place] IMRT COMPLEX [place] GUIDANCE FOR LOC RAD [place] IMRT RADIOTHERAPY PLAN IMRT Julio Cesar Rebolledo M.D. [address] [place] [phone] Phone: tel: fax: [facility] Referral ID Status Reason Start Date Expiration Date V isits Requested Visits Authorized [id number] Authorized 07/14/2025 09/30/2026 35 35 Encounter Details Date Type Department Care Team (Late st Contact Info) Description 09/08/2025 9:15 AM CDT Hospital Encounter Department of Radiation Oncology in [address] [phone] Julio Cesar Rebolledo M.D. [address] [place] [phone] Social History Tobacco Use Types Packs/Day [...] [facility] 08/07/2025 Sex and [...] CDT Appointment Department of Radiation Oncology in [place], [place] [address] [place] [phone] Julio Cesar Rebolledo M.D. [address] [place] [phone] Britt Ayala R.N. [address] [place] [address] 09/24/2025 10:30 AM CDT Appointment Department of Radiation Oncology in [place], [place] [address] [place] [phone] Julio Cesar Rebolledo M.D. [address] [place] [address] Britt Ayala R.N. [address] [place] [phone] 10/01/2025 10:30 AM HUMAN SERVICES PROGRAM SPECIALIST Appointment Department of Radiation Oncology in [address] [address] Julio Cesar Rebolledo M.D. [facility] [place] [address] Michel Leach RElbaNElba 10/08/2025 10:30 AM HUMAN SERVICES PROGRAM SPECIALIST Appointment Department of Radiation Oncology in [address] [phone] Julio Cesar Rebolledo M.D. [facility] [place] [address] Britt Ayala R.N. [address] [place] [phone] 10/15/2025 10:30 AM HUMAN SERVICES PROGRAM SPECIALIST Appointment Department of Radiation Oncology in [place], [place] [address] [place] [phone] Julio Cesar Rebolledo M.D. [facility] [place] [address] Britt Ayala R.N. [address] [place] [phone] 10/22/2025 2:30 PM HUMAN SERVICES PROGRAM SPECIALIST Appointment Department of Radiation Oncology in [address] [phone] Julio Cesar Rebolledo M.D. [address] [place] [phone] documented as of this encounter Visit Diagnoses Not on filedocumented in this encounter Additional Health Concerns Infection Onset Date Last Indicated Resolved Time Protective Environment 06/30/2025 06/30/2025 documented as of this encounter
--- OUTSIDE RECORDS SUMMARY | 2025-09-09 08:09 | XMS_ITS | Encounter Summary ---
Author Organization [facility] Address [address] [place] [address] Care Team Providers Care Form Press Operator Name Role Phone Unavailable Primary Care Provider Unavailabl e Encounter Details Date Type Department Care Team (Late st Contact Info) Description 09/09/2025 8:09 AM CDT Hospital Encounter Department of Radiation Oncology in [place], [place] [address] [place] [phone] Julio Cesar Rebolledo M.D. [address] [place] [phone] Social History Tobacco Use Types Packs/Day Years [...] things needed for daily living? No 08/07/2025 [facility] Utilities Answer Date Recorded In the past 12 months has th e electric, gas, oil, or water company threatened to shut off services in your home? No 08/07/2025 Housing Stability Answer Date Recorded What is your living situation today? I have a [facility] place to live 08/07/2025 Sex and Gender [...] CDT Appointment Department of Radiation Oncology in [address] [address] Julio Cesar Rebolledo M.D. [facility] [place] [address] Britt Ayala RElbaNElba [address] [place] [phone] 09/24/2025 10:30 AM CDT Appointment Department of Radiation Oncology in [place] [address] [place] [address] Julio Cesar Rebolledo M.D. [facility] [place] [address] Britt Ayala R.NElba [address] [place] [phone] 10/01/2025 10:30 AM MOVE COORDINATOR Appointment Department of Radiation Oncology in [address] [address] Julio Cesar Rebolledo M.D. [address] [place] [address] Michel Leach R.N. 10/08/2025 10:30 AM MOVE COORDINATOR Appointment Department of Radiation Oncology in [place], [place] [address] [place] [address] Julio Cesar Rebolledo M.D. [address] [place] [address] Britt Ayala R.N. [address] [place] [address] 10/15/2025 10:30 AM MOVE COORDINATOR Appointment Department of Radiation Oncology in [place], [place] [address] [place] [phone] Julio Cesar Rebolledo M.D. [facility] [place] [address] Britt Ayala R.N. [address] [place] [address] 10/22/2025 2:30 PM MOVE COORDINATOR Appointment Department of Radiation Oncology in [place], [place] [address] [place] [address] Julio Cesar Rebolledo M.D. [address] [place] [address] documented as of this encounter Visit Diagnoses Not on filedocumented in this encounter Additional Health Concerns Infection Onset Date Last Indicated Resolved Time Protective Environment 06/30/2025 06/30/2025 documented as of this encounter
--- OUTSIDE RECORDS SUMMARY | 2025-09-10 10:30 | XMS_ITS | Encounter Summary ---
Author Organization [facility] Address [address] [place] [address] Care Team Providers Care Cement Sack Breaker Name Role Phone Unavailable Primary Care Provider Unavailabl e Reason for Referral * Outpatient (Routine) - Authorized Specialty Diagnoses / Procedures Referred By Norma choi Referred To Contact Julio Cesar Rebolledo M.D. [address] [place] [phone] Phone: tel: fax: [facility] Referral ID Status Reason Start Date Expiration Date V isits Requested Visits Authorized [id number] Authorized 09/03/2025 03/05/2027 6 6 Reason for Visit * Outpatient (Routine) - Authorized Specialty Diagnoses / Procedures Referred By Norma choi Referred To Contact Julio Cesar Rebolledo M.D. [facility] [address] Phone: tel: fax: [facility] Referral ID Status Reason Start Date Expiration Date V isits Requested Visits Authorized [id number] Authorized 09/03/2025 03/05/2027 6 6 Encounter Details Date Type Department Care Team (Latest Contact Info) Description 09/10/2025 10:30 AM CDT - 09/10/2025 12:39 PM CDT Hospital Encounter Department of Radiation Oncology in [place] [address] [place] [phone] Julio Cesar Rebolledo M.D. [facility] [phone] Michel Leach Sunil, R.N. Malignant Neoplasm Of Tongue Base (HCC) [...] things needed for daily living? No 08/07/2025 [facility] Utilities Answer Date Recorded In the past 12 months has [facility] [employer], gas, oil, or water [employer] threatened to shut off services in your home? No 08/07/2025 Housing Stability Answer Date Recorded What is your living situation today? I have a [employer] [facility] [employer] [facility] [employer] place to live 08/07/2025 Sex and Gender [...] mouthwash Take 15 mL by mouth. 07/05/2025 fentaNYL (Duragesic) 12 mcg/hr patchIndications: Prolonged Acute Pain/Traumatic Injury Place 1 patch on the skin every third day Indication: Prolonged Acute Pain/Traumatic Injury. 5 patch 09/10/2025 folic acid 1 mg tablet Take 1 [...] 4 mg/actuation nasal spray Administer 1 spray into 1 nostril right away if opioid overdose is suspected. Call 911. If no response in 2 to 3 minutes, administer another spray in the other nostril using a new device. Repeat every 2 to 3 minutes as needed in alternating nostrils until help arrives. Use 1 spray in 1 nostril. Repeat with second device in other nostril after 2-3 minutes if no or minimal response. 2 each 09/10/2025 nitroglycerin (Nitrostat) 0.[address] [...] Progress Notes * Michel Leach R.N. - 09/10/2025 10:30 AM CDT SUBJECTIVE Radiation Oncology Nurse Visit REASON FOR VISIT Evaluation for side effects while receiving radiation treatment for 1. Malignant Neoplasm Of Tongue Base (HCC) HISTORY OF PRESENT ILLNESS Torsten Orr is a 84 y.o. 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 Treatment Course: 1xOpx Plan ID Fractions Dose / Fraction (cGy) Dose Treated (cGy) Dose Planned (cGy) First Treatment Last Treatment Elapsed Days F1Opx 200 2200 2200 07/21/2025 08/06/2025 16 F12Opx 24 / 200 4800 4800 08/07/2025 09/09/2025 33 Treatment Site Summary 35 / 35 7000 7000 07/21/2025 09/09/2025 50 Course Summary 07/21/2025 09/09/2025 50 The patient reports feeling poorly overall. He is having an extremely difficult time eating and drinking. He has a hard time swallowing due to pain and feeling like things get stuck. He has been receiving IV fluids for hydration. Currently scheduled for three times a week, but he is able to go every day if he wants to. He is taking oxycodone 10 mg every 8 hours. He has started taking tylenol 1000mg every 8 hours as well. He notes little relief with these interventions. He experienced a fall today and has started utilizing a walker to get around. He is utilizing stool softeners and laxatives to help regulate his bowel movements as needed. He notes a dry throat and thick secretions. He is utilizing baking soda rinses. He is experiencing decreased appetite and taste changes making eating less enjoyable. He continues to have sores in his mouth. 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 Treatment Resumed on July 30, 2025; anticipated date of completionOct2022 Patient was prescribed fentanyl patches 12.5 mcg strength as well as a narcan prescription. Education was provided to the patient and his family on use of both products. All parties were agreeable tothis plan He will contact us with any questions or concerns. Dr. Mccurdy was consulted during this visit to discuss medications and prescribing. FOLLOW-UP Nurse phone call in 1 week. Signed by: Keerthi Leach R.N. 09/10/2025 10:47 AM CDT * Catalina Mccann P.A.-C., M.S. - 09/10/2025 10:30 AM CDT Keerthi Leach R.N. talked to the patient today and he reported increased pain causing difficulty with eating and drinking. She discussed the patient's case with Dr. Mccurdy who recommended prescribing fentanyl 12.5 mcg patches for the patient for pain management. Dr. Mccurdy was not able to sign the prescription for fentanyl patches due to an error in [employer] and requested for me to order the fentanyl patches for the patient. I was able to successfully place the order for fentanyl 12.5 mg patches #5. A prescription for Narcan is also being sent to the patient's pharmacy today. The patient was educated on appropriate use of fentanyl, Narcan, and his other pain medications today as well as possible side effects of these medications by Francisco Pendleton, please see her documented note for additional details. Catalina Mccann P.A.-C., M.S. documented in this encounter Plan of Treatment Upcoming Encounters Date Type Department Care Team (Late st Contact Info) Description 09/17/2025 10:30 AM CDT Appointment Department of Radiation Oncology in [address] [phone] Julio Cesar Rebolledo M.D. [address] [place] [phone] Britt Ayala R.N. [address] [place] [phone] 09/24/2025 10:30 AM CDT Appointment Department of Radiation Oncology in [address] [address] Julio Cesar Rebolledo M.D. [address] [place] [phone] Britt Ayala R.N. [address] [place] [phone] 10/01/2025 10:30 AM MARINE ELECTRICIAN HELPER Appointment Department of Radiation Oncology in [address] [address] Julio Cesar Rebolledo M.D. [facility] [address] Michel Leach R.NElba 10/08/2025 10:30 AM MARINE ELECTRICIAN HELPER Appointment Department of Radiation Oncology in [address] [address] Julio Cesar Rebolledo M.D. [facility] [address] Britt Ayala R.N. [address] [place] [address] 10/15/2025 10:30 AM MARINE ELECTRICIAN HELPER Appointment Department of Radiation Oncology in [place], [place] [address] [place] [address] Julio Cesar Rebolledo M.D. [address] [place] [address] Britt Ayala R.N. [address] [place] [address] 10/22/2025 2:30 PM MARINE ELECTRICIAN HELPER Appointment Department of Radiation Oncology in [place], [place] [address] [place] [address] Julio Cesar Rebolledo M.D. [address] [place] [address] Scheduled Referrals Name Type Priority Associated Diagnoses Orde r Schedule NonF2F phone visit Outpatient Referral Routine Once for 1 Occurrences starting 09/10/2025 until 09/10/2025 documented as of this encounter Visit Diagnoses Diagnosis Malignant Neoplasm Of Tongue Base (HCC)- Primary documented in this encounter Additional Health Concerns Infection Onset Date Last Indicated Resolved Time Protective Environment 06/30/2025 06/30/2025 documented as of this encounter
[2025-09-11] VITALS (9 sets, daily range): BP systolic 99–128; BP diastolic 67–74; PULSE 68–74; RESP 18; TEMP 36.9; O2SAT 94–99; BMI 21.7
--- OUTSIDE RECORDS SUMMARY | 2025-09-11 05:45 | XMS_ITS | Encounter Summary ---
Author Organization [facility] Address [address] [place] [address] Care Team Providers Care Intelligence Specialist Name Role Phone Unavailable Primary Care Provider Unavailabl e Encounter Details Date Type Department Care Team (Late st Contact Info) Description 09/09/2025 Documentation Department of Radiation Oncology in [place], [place] [address] [place] [phone] Julio Cesar Rebolledo M.D. [address] [place] [phone] Social History Tobacco Use Types Packs/Day Years [...] for daily living? No 08/07/2025 [facility] Utilities Answer Date Recorded In the past [...] CDT Appointment Department of Radiation Oncology in [place] [address] [place] [address] Julio Cesar Rebolledo M.D. [address] [place] [address] Britt Ayala R.N. [address] [place] [phone] 09/24/2025 10:30 AM CDT Appointment Department of Radiation Oncology in [place] [address] [place] [address] Julio Cesar Rebolledo M.D. [facility] [place] [address] Britt Ayala R.N. [address] [place] [phone] 10/01/2025 10:30 AM AMUSEMENT PARK WORKER Appointment Department of Radiation Oncology in [place] [address] [place] [address] Julio Cesar Rebolledo M.D. [address] [place] [address] Michel Leach R.N. 10/08/2025 10:30 AM AMUSEMENT PARK WORKER Appointment Department of Radiation Oncology in [place], [place] [address] [place] [address] Julio Cesar Rebolledo M.D. [address] [place] [address] Britt Ayala R.N. [address] [place] [address] 10/15/2025 10:30 AM AMUSEMENT PARK WORKER Appointment Department of Radiation Oncology in [place], [place] [address] [place] [address] Julio Cesar Rebolledo M.D. [facility] [place] [address] Britt Ayala R.N. [address] [place] [phone] 10/22/2025 2:30 PM AMUSEMENT PARK WORKER Appointment Department of Radiation Oncology in [place], [place] [address] [place] [address] Julio Cesar Rebolledo M.D. [facility] [place] [address] documented as of this encounter Visit Diagnoses Not on filedocumented in this encounter Additional Health Concerns Infection Onset Date Last Indicated Resolved Time Protective Environment 06/30/2025 06/30/2025 documented as of this encounter
--- OUTSIDE RECORDS SUMMARY | 2025-09-11 05:45 | XMS_ITS | Encounter Summary ---
Author Organization [facility] Address [address] [place] [address] Care Team Providers Care Jacquard Twine Polisher Operator Name Role Phone Unavailable Primary Care Provider Unavailabl e Encounter Details Date Type Department Care Team (Late st Contact Info) Description 09/10/2025 Orders Only Department of Radiation Oncology in [place], [place] [address] [place] [address] Kathe Mccurdy M.D. [address] [place] [phone] Social History Tobacco Use Types Packs/Day Years [...] needed for daily living? No 08/07/2025 [facility] Utilities Answer Date Recorded In the [...] Department of Radiation Oncology in [place] [address] [place] [address] Julio Cesar Rebolledo M.D. [address] [place] [address] Britt Ayala R.N. [address] [place] [phone] 09/24/2025 10:30 AM CDT Appointment Department of Radiation Oncology in [place] [address] [place] [address] Julio Cesar Rebolledo M.D. [facility] [place] [address] Britt Ayala R.N. [address] [place] [phone] 10/01/2025 10:30 AM DICTAPHONE TYPIST Appointment Department of Radiation Oncology in [address] [address] Julio Cesar Rebolledo M.D. [address] [place] [address] Michel Leach R.N. 10/08/2025 10:30 AM DICTAPHONE TYPIST Appointment Department of Radiation Oncology in [place], [place] [address] [place] [address] Julio Cesar Rebolledo M.D. [address] [place] [address] Britt Ayala R.N. [address] [place] [address] 10/15/2025 10:30 AM DICTAPHONE TYPIST Appointment Department of Radiation Oncology in [place], [place] [address] [place] [address] Julio Cesar Rebolledo M.D. [facility] [place] [address] Britt Ayala R.N. [address] [place] [phone] 10/22/2025 2:30 PM DICTAPHONE TYPIST Appointment Department of Radiation Oncology in [place], [place] [address] [place] [address] Julio Cesar Rebolledo M.D. [facility] [place] [address] documented as of this encounter Visit Diagnoses Not on filedocumented in this encounter Additional Health Concerns Infection Onset Date Last Indicated Resolved Time Protective Environment 06/30/2025 06/30/2025 documented as of this encounter
--- OUTSIDE RECORDS SUMMARY | 2025-09-11 05:46 | XMS_ITS | Encounter Summary ---
Author Organization [facility] Address [address] [place] [address] Care Team Providers Care Upholstery Repairer Name Role Phone Unavailable Primary Care Provider Unavailabl e Encounter Details Date Type Department Care Team (Late st Contact Info) Description 07/30/2025 Clinical Communication Department of Radiation Oncology in [place], [place] [address] [place] [address] Michel Leach, R.N. Social History [...] things needed for daily living? No 08/07/2025 [facility] Utilities Answer Date Recorded In the past 12 months has th e electric, gas, oil, or water company threatened to shut off services in your home? No 08/07/2025 Housing Stability Answer Date Recorded What is your living situation today? I have a [facility] place to live 08/07/2025 Sex and [...] CDT Appointment Department of Radiation Oncology in [place] [address] [place] [address] Julio Cesar Rebolledo M.D. [address] [place] [address] Britt Ayala R.N. [address] [place] [address] 09/24/2025 10:30 AM CDT Appointment Department of Radiation Oncology in [place], [place] [address] [place] [address] Julio Cesar Rebolledo M.D. [address] [place] [address] Britt Ayala R.N. [address] [place] [phone] 10/01/2025 10:30 AM GENERAL FORECASTER Appointment Department of Radiation Oncology in [place] [address] [place] [address] Julio Cesar Rebolledo M.D. [address] [place] [address] Michel Leach R.N. 10/08/2025 10:30 AM GENERAL FORECASTER Appointment Department of Radiation Oncology in [place], [place] [address] [place] [address] Julio Cesar Rebolledo M.D. [address] [place] [address] Britt Ayala R.N. [address] [place] [address] 10/15/2025 10:30 AM GENERAL FORECASTER Appointment Department of Radiation Oncology in [place], [place] [address] [place] [address] Julio Cesar Rebolledo M.D. [address] [place] [address] Britt Ayala R.N. [address] [place] [phone] 10/22/2025 2:30 PM GENERAL FORECASTER Appointment Department of Radiation Oncology in [place], [place] [address] [place] [address] Julio Cesar Rebolledo M.D. [address] [place] [address] documented as of this encounter Visit Diagnoses Not on filedocumented in this encounter Additional Health Concerns Infection Onset Date Last Indicated Resolved Time Protective Environment 06/30/2025 06/30/2025 documented as of this encounter
--- OUTSIDE RECORDS SUMMARY | 2025-09-11 05:47 | XMS_ITS | Clinical Summary ---
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 For routine questions regarding patient records, call [phone] during business hours, M-F 8:00 AM - 5:00 PM Central Time. Record requests for emergency care only can be directed to [phone] at any time.[facility] Allergies Active Allergy Reactions Criticality Noted Date Comments Acetaminophen Other (see comments) 07/30/2025 Oxycodone Other (see comments) 07/30/2025 Oxycodone-Acetaminophen Nausea And Vomiting Low Medications folic acid 1 mg tablet Take 1 mg by mouth daily. 4 Active methotrexate (TrexalL) 2.5 mg tablet Take 10 mg by mouth over 168 hr. 5 Active aspirin 81 mg chewable tablet 81 mg by Nasogastric route. 5 Active isosorbide mononitrate (Imdur) 30 mg 24 hr tablet Take 15 mg by mouth. 5 Active losartan (Cozaar) 25 mg tablet Take 12.5 mg by mouth daily. 5 Active metoprolol succinate (Toprol XL) 25 mg 24 hr tablet Take 25 mg by mouth daily. 5 Active nitroglycerin (Nitrostat) 0.[address] 0.4 mg under the tongue every 5 (five) minutes as needed. 5 Active rosuvastatin (Crestor) 20 mg tablet Take 20 mg by mouth at bedtime. 5 Active spironolactone (Aldactone) 25 mg tablet Take 12.5 mg by mouth. 5 Active ticagrelor (Brilinta) 90 mg tablet Take 90 mg by mouth. 5 Active triazolam (Halcion) 0.25 mg tablet Take 0.25 mg by mouth. 5 Active chlorhexidine (Peridex) 0.12 % mouthwash Take 15 mL by mouth. 5 Active prochlorperazin e (Compazine) 5 mg tablet Take 5 mg by mouth. 5 Active potassium chloride (K-Tab) 20 mEq ER tablet Take 1 tablet by mouth daily. 5 Active ondansetron (Zofran) 4 mg tablet Take 4 mg by mouth. 5 Active methylPREDNISol one (MedroL DosePak) 4 mg tablet USE DIRECTED ON PACK. 5 Active ibuprofen 200 mg tablet Take 200 mg by mouth. 5 Active oxyCODONE (Roxicodone) 10 mg IR tabletIndicatio ns:Prolonged Acute Pain/Traumatic Injury Take 1 tablet (10 mg total) by mouth every 6 (six) hours as needed for pain or severe pain or score 7-10 of 10 Indication: Prolonged Acute Pain/Traumatic Injury. 40 tablet 5 Active naloxone (Narcan) 4 mg/actuation nasal [...] or minimal response. 2 each 5 Active fentaNYL (Duragesic) 12 mcg/hr patchIndication s:Prolonged Acute Pain/Traumatic Injury Place 1 patch on the skin every third day Indication: Prolonged Acute Pain/Traumatic Injury. 5 patch 5 Active naloxone (Narcan) 4 mg/actuation nasal spray Administer 1 spray (4 mg total) into nostril(s) as needed for reversal. Use 1 spray in 1 nostril. Repeat with second device in other nostril after 2-3 minutes if no or minimal response. 2 each 5 025 Discontin ued(Dupli shankar order) oxyCODONE (Roxicodone) 5 mg immediate release tabletIndicatio ns:Prolonged Acute Pain/Traumatic Injury Take 1 tablet (5 mg total) by mouth every 8 (eight) hours as needed for pain or severe pain or score 7-10 of 10 Indication: Prolonged Acute Pain/Traumatic Injury. 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 04/11/2011 Encounters Date Type Department Care Team Description 09/10/2025 10:30 AM CDT - 09/10/2025 12:39 PM CDT Hospital Encounter Department of Radiation Oncology in [address] [address] Julio Cesar Rebolledo M.D. Moorhouse, Alexis E, RElbaN. Malignant Neoplasm Of Tongue Base (HCC) (Primary Dx) 09/10/2025 Orders Only Department of Radiation Oncology in [address] [address] Kathe Mccurdy M.D. 09/09/2025 8:09 AM CDT Hospital Encounter Department of Radiation Oncology in [address] [address] Julio Cesar Rebolledo M.D. 09/09/2025 Documentation Department of Radiation Oncology in [address] [address] Julio Cesar Rebolledo M.D. 09/08/2025 9:15 AM CDT Hospital Encounter Department of Radiation Oncology in [address] [address] Julio Cesar Rebolledo M.D. 09/05/2025 8:07 AM CDT Hospital Encounter Department of Radiation Oncology in [address] [address] Julio Cesar Rebolledo M.D. 09/04/2025 8:10 AM CDT Hospital Encounter Department of Radiation Oncology in [address] [address] Julio Cesar Rebolledo M.D. 09/03/2025 8:11 AM CDT - 09/03/2025 1:08 PM CDT Hospital Encounter Department of Radiation Oncology in [address] [address] Julio Cesar Rebolledo M.D. Malignant Neoplasm Of Tongue Base (HCC) 09/03/2025 8:11 AM CDT Hospital Encounter Department of Radiation Oncology in [address] [address] Julio Cesar Rebolledo M.D. 09/02/2025 8:09 AM CDT Hospital Encounter Department of Radiation Oncology in [address] [address] Julio Cesar Rebolledo M.D. 09/01/2025 8:09 AM CDT Hospital Encounter Department of Radiation Oncology in [address] [address] Julio Cesar Rebolledo M.D. 08/29/2025 8:07 AM CDT Hospital Encounter Department of Radiation Oncology in [address] [address] Julio Cesar Rebolledo M.D. 08/28/2025 8:09 AM CDT - 09/03/2025 8:10 AM CDT Hospital Encounter Department of Radiation Oncology in [address] [address] Julio Cesar Reboleldo M.D. Malignant Neoplasm Of Tongue Base (HCC) 08/28/2025 8:09 AM CDT Hospital Encounter Department of Radiation Oncology in [address] [address] Julio Cesar Rebolledo M.D. 08/27/2025 7:44 AM CDT Hospital Encounter Department of Radiation Oncology in [address] [address] Julio Cesar Rebolledo M.D. 08/26/2025 8:06 AM CDT Hospital Encounter Department of Radiation Oncology in [address] [address] Julio Cesar Rebolledo M.D. 08/25/2025 8:19 AM CDT Hospital Encounter Department of Radiation Oncology in [address] [address] Julio Cesar Rebolledo M.D. 08/22/2025 1:00 PM CDT Virtual Visit Department of Oncology in [place] [address] [place] [address] Julio Cesar Rebolledo M.D. Myra Mead, M.S.W., L.I.C.S.W. Malignant Neoplasm Of Tongue Base (HCC) (Primary Dx) 08/22/2025 8:08 AM CDT Hospital Encounter Department of Radiation Oncology in [address] [address] Julio Cesar Rebolledo M.D. 08/21/2025 8:06 AM CDT - 08/21/2025 10:07 AM CDT Hospital Encounter Department of Radiation Oncology in [address] [address] Julio Cesar Rebolledo M.D. von Ruden, Kristi A, BORISN, LD Malignant Neoplasm Of Tongue Base (HCC) (Primary Dx) 08/21/2025 8:06 AM CDT - 08/22/2025 8:07 AM CDT Hospital Encounter Department of Radiation Oncology in [address] [address] Julio Cesar Rebolledo M.D. Malignant Neoplasm Of Tongue Base (HCC) 08/21/2025 8:06 AM CDT Hospital Encounter Department of Radiation Oncology in [address] [address] Julio Cesar Rebolledo M.D. 08/20/2025 7:55 AM CDT Hospital Encounter Department of Radiation Oncology in [address] [address] Julio Cesar Rebolledo M.D. 08/19/2025 8:09 AM CDT Hospital Encounter Department of Radiation Oncology in [address] [address] Julio Cesar Reoblledo M.D. 08/18/2025 8:11 AM CDT Hospital Encounter Department of Radiation Oncology in [address] [address] Julio Cesar Rebolledo M.D. 08/15/2025 8:08 AM CDT Hospital Encounter Department of Radiation Oncology in [address] [address] Julio Cesar Rebolledo M.D. 08/14/2025 8:06 AM CDT - 08/19/2025 8:08 AM CDT Hospital Encounter Department of Radiation Oncology in [address] [address] Julio Cesar Rebolledo M.D. Malignant Neoplasm Of Tongue Base (HCC) 08/14/2025 8:06 AM CDT Hospital Encounter Department of Radiation Oncology in [address] [address] Julio Cesar Rebolledo M.D. 08/13/2025 8:04 AM CDT Hospital Encounter Department of Radiation Oncology in [address] [address] Julio Cesar Rebolledo M.D. 08/12/2025 8:12 AM CDT Hospital Encounter Department of Radiation Oncology in [address] [address] Julio Cesar Rebolledo M.D. 08/11/2025 8:13 AM CDT - 08/11/2025 11:59 PM CDT Hospital Encounter Department of Radiation Oncology in [address] [address] Julio Cesar Rebolledo M.D. Discharge Disposition: Home or Self Care 08/08/2025 8:08 AM CDT - 08/08/2025 11:59 PM CDT Hospital Encounter Department of Radiation Oncology in [address] [address] Julio Cesar Rebolledo M.D. Discharge Disposition: Home or Self Care 08/07/2025 8:16 AM CDT - 08/07/2025 10:18 AM CDT Hospital Encounter Department of Radiation Oncology in [address] [address] Julio Cesar Rebolledo M.D. von Ruden, Kristi A, RDN, LD Malignant Neoplasm Of Tongue Base (HCC) (Primary Dx) 08/07/2025 8:16 AM CDT - 08/13/2025 12:45 PM CDT Hospital Encounter Department of Radiation Oncology in [address] [address] Julio Cesar Rebolledo M.D. Malignant Neoplasm Of Tongue Base (HCC) 08/07/2025 8:16 AM CDT - 08/07/2025 11:59 PM CDT Hospital Encounter Department of Radiation Oncology in [address] [address] Julio Cesar Rebolledo M.D. Discharge Disposition: Home or Self Care 08/06/2025 8:12 AM CDT - 08/06/2025 11:59 PM CDT Hospital Encounter Department of Radiation Oncology in [address] [address] Julio Cesar Rebolledo M.D. Discharge Disposition: Home or Self Care 08/05/2025 8:14 AM CDT - 08/05/2025 11:59 PM CDT Hospital Encounter Department of Radiation Oncology in [address] [address] Julio Cesar Rebolledo M.D. Discharge Disposition: Home or Self Care 08/04/2025 8:31 AM CDT - 08/04/2025 11:59 PM CDT Hospital Encounter Department of Radiation Oncology in [address] [address] Jamie Maria M.D. Malignant Neoplasm Of Tongue Base (HCC) Discharge Disposition: Home or Self Care 08/04/2025 8:13 AM CDT - 08/04/2025 8:30 AM CDT Hospital Encounter Department of Radiation Oncology in [address] [address] Julio Cesar Rebolledo M.D. Discharge Disposition: Home or Self Care 08/01/2025 8:13 AM CDT - 08/01/2025 11:59 PM CDT Hospital Encounter Department of Radiation Oncology in [address] [address] Julio Cesar Rebolledo M.D. Discharge Disposition: Home or Self Care 08/01/2025 Orders Only Department of Radiation Oncology in [address] [address] Jamie Maria M.D. Malignant Neoplasm Of Tongue Base (HCC) (Primary Dx) 07/31/2025 11:00 AM CDT - 07/31/2025 11:59 PM CDT Hospital Encounter Department of Radiation Oncology in [address] [address] Julio Cesar Rebolledo M.D. Discharge Disposition: Home or Self Care 07/31/2025 10:00 AM CDT - 07/31/2025 10:59 AM CDT Hospital Encounter Department of Radiation Oncology in [address] [address] Julio Cesar Rebolledo M.D. Malignant Neoplasm Of Tongue Base (HCC) (Primary Dx) 07/30/2025 1:31 PM CDT - 07/30/2025 11:59 PM CDT Hospital Encounter Department of Radiation Oncology in [address] [address] Julio Cesar Rebolledo M.D. Moorhouse, Alexis E R.NElba Malignant Neoplasm Of Tongue Base (HCC) (Primary Dx) Discharge Disposition: Home or Self Care 07/30/2025 1:31 PM CDT - 07/30/2025 11:59 PM CDT Hospital Encounter Department of Radiation Oncology in [address] [address] Julio Cesar Rebolledo M.D. Discharge Disposition: Home or Self Care 07/30/2025 Clinical Communication Department of Radiation Oncology in [address] [address] Michel Leach R.NElba 07/25/2025 8:10 AM CDT - 07/25/2025 11:59 PM CDT Hospital Encounter Department of Radiation Oncology in [address] [address] Julio Cesar Rebolledo M.D. Discharge Disposition: Home or Self Care 07/24/2025 8:10 AM CDT - 07/24/2025 9:28 AM CDT Hospital Encounter Department of Radiation Oncology in [address] [address] Julio Cesar Rebolledo M.D. Retterath, Chelsey A, R.N. Malignant Neoplasm Of Tongue Base (HCC) (Primary Dx) 07/24/2025 8:10 AM CDT - 07/24/2025 11:00 AM CDT Hospital Encounter Department of Radiation Oncology in [address] [address] Julio Cesar Rebolledo M.D. von Ruden, Kristi A, RDN, LD Malignant Neoplasm Of Tongue Base (HCC) (Primary Dx) 07/24/2025 8:10 AM CDT - 07/31/2025 8:40 AM CDT Hospital Encounter Department of Radiation Oncology in [address] [address] Julio Cesar Rebolledo M.D. Malignant Neoplasm Of Tongue Base (HCC) 07/24/2025 8:09 AM CDT Hospital Encounter Department of Radiation Oncology in [address] [address] Julio Cesar Rebolledo M.D. Discharge Disposition: Home or Self Care 07/23/2025 8:12 AM CDT - 07/23/2025 11:59 PM CDT Hospital Encounter Department of Radiation Oncology in [address] [address] Julio Cesar Rebolledo M.D. Discharge Disposition: Home or Self Care 07/22/2025 8:41 AM CDT - 07/22/2025 9:33 AM CDT Hospital Encounter Department of Radiation Oncology in [address] [address] Julio Cesar Rebolledo M.D. Wacholz, Abigail M, M.S.W., L.I.C.S.W. Malignant Neoplasm Of Tongue Base (HCC) (Primary Dx) Discharge Disposition: Home or Self Care 07/22/2025 7:57 AM CDT - 07/22/2025 8:40 AM CDT Hospital Encounter Department of Radiation Oncology in [address] [address] Julio Cesar Rebolledo M.D. Discharge Disposition: Home or Self Care 07/21/2025 8:08 AM CDT - 07/21/2025 11:59 PM CDT Hospital Encounter Department of Radiation Oncology in [address] [address] Julio Cesar Rebolledo M.D. Discharge Disposition: Home or Self Care 07/15/2025 8:46 AM CDT - 07/15/2025 9:18 AM CDT Hospital Encounter Department of Radiation Oncology in [address] [address] Julio Cesar Rebolledo M.D. Malignant Neoplasm Of Tongue Base (HCC) 07/03/2025 Clinical Communication Department of Radiation Oncology in [address] [address] Julio Cesar Rebolledo M.D. 07/02/2025 12:30 PM CDT - 07/02/2025 2:34 PM CDT Hospital Encounter Department of Radiation Oncology in [address] [address] Julio Cesar Rebolledo M.D. Malignant Neoplasm Of Tongue Base (HCC) 06/30/2025 8:46 AM CDT - 07/14/2025 5:41 PM CDT Hospital Encounter Department of Radiation Oncology in [address] [address] Julio Cesar Rebolledo M.D. Malignant Neoplasm Of [...] things needed for daily living? No 08/07/2025 [facility] Utilities Answer Date Recorded In the past 12 months has [employer], gas, oil, or water company threatened to shut off services in your home? No 08/07/2025 Housing Stability Answer Date Recorded What is your living situation today? I have a [facility] place to live 08/07/2025 Sex and Gender Information Value Date Recorded Sex Assigned at Male 08/07/2025 1:13 PM CDT Legal Sex Male 12:18 PM CDT Gender Identity Male 08/07/2025 1:13 PM CDT Sexual Orientation Straight 08/07/2025 1: 13 PM CDT Last Filed Vital Signs Vital Sign Reading [...] CDT Appointment Department of Radiation Oncology in [place], [place] [address] [place] [id number] Julio Cesar Rebolledo M.D. [address] [place] [address] Britt Ayala R.N. [address] [place] [phone] 09/24/2025 10:30 AM CDT Appointment Department of Radiation Oncology in [place], [place] [address] [place] [address] Julio Cesar Rebolledo M.D. [address] [place] [address] Britt Ayala R.N. 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 [address] [place] [address] Michel Leach R.N. 10/08/2025 10:30 AM BLEND PLANT OPERATOR Appointment Department of Radiation Oncology in [place], [place] [address] [place] [address] Julio Cesar Rebolledo M.D. [address] [place] [address] Britt Ayala R.N. [address] [place] [address] 10/15/2025 10:30 AM BLEND PLANT OPERATOR Appointment Department of Radiation Oncology in [place], [place] [address] [place] [address] Julio Cesar Rebolledo M.D. [address] [place] [address] Britt Ayala R.N. [address] [place] [address] 10/22/2025 2:30 PM BLEND PLANT OPERATOR Appointment Department of Radiation Oncology in [place], [place] [address] [place] [address] Julio Cesar Rebolledo M.D. [address] [place] [address] Health Maintenance Due Date Last Done Comments Generalized Anxiety (ALDO-7) 1941 RSV vaccine - (32-36 weeks) or 50+ years (1 - 1-dose 75+ series) 2016 Depression Screening (Annual PHQ-2) 11/27/2024 Fall Risk Screen (Annual) 11/27/2024 COVID-19 Vaccine ( season) 2025 08/09/2024, 09/22/2023, 08/15/2022, Additional history exists Influenza Vaccine (#1) 2025 , 08/30/2023, 08/15/2022, Additional history exists Controlled Substance Agreement 09/10/2025 Controlled Substance Monitoring (PHQ-9) 09/10/2025 Controlled Substance Monitoring (UDS) 09/10/2025 Opioid Risk Tool (ORT) 09/10/2025 PEG assessment for Opioid therapy 09/10/2025 Creatinine Level (Kidney Function Test) 08/02/2026 08/02/2025, 07/29/2025, 07/28/2025, Additional history exists Potassium Level 08/02/2026 08/02/2025, 12/2024, 07/28/2025, Additional history exists Sodium Level 08/02/2026 08/02/2025, 12/2024, 07/28/2025, Additional history exists DTaP,Tdap,and Td Vaccines (2 [...] Name Priority Date/Time Associated Diagnosis Comments ARIA COURSE COMPLETE TREATMENT INFORMATION Routine 09/09/2025 8:40 AM CDT ARIA DAILY TREATMENT INFORMATION Routine 09/09/2025 8:40 AM CDT ARIA DAILY TREATMENT INFORMATION Routine 09/08/2025 12:00 PM CDT ARIA DAILY TREATMENT INFORMATION Routine 09/05/2025 8:29 AM CDT ARIA DAILY TREATMENT INFORMATION Routine 09/04/2025 8:26 AM CDT ARIA DAILY TREATMENT INFORMATION Routine 09/03/2025 8:24 AM CDT ARIA DAILY TREATMENT INFORMATION Routine 09/02/2025 8:35 AM CDT ARIA DAILY TREATMENT INFORMATION Routine 09/01/2025 8:30 AM CDT ARIA DAILY TREATMENT INFORMATION Routine 08/29/2025 8:41 AM CDT ARIA DAILY TREATMENT INFORMATION Routine 08/28/2025 8:44 AM CDT ARIA DAILY TREATMENT INFORMATION Routine 08/27/2025 8:29 AM CDT ARIA DAILY TREATMENT INFORMATION Routine 08/26/2025 8:44 AM CDT ARIA DAILY TREATMENT INFORMATION Routine 08/25/2025 8:30 AM CDT ARIA DAILY TREATMENT INFORMATION Routine 08/22/2025 8:32 AM CDT ARIA DAILY TREATMENT INFORMATION Routine 08/21/2025 8:26 AM CDT ARIA DAILY TREATMENT INFORMATION Routine 08/20/2025 8:29 AM CDT ARIA DAILY TREATMENT INFORMATION Routine 08/19/2025 8:35 AM CDT ARIA DAILY TREATMENT INFORMATION Routine 08/18/2025 8:33 AM CDT ARIA DAILY TREATMENT INFORMATION Routine 08/15/2025 8:41 AM CDT ARIA DAILY TREATMENT INFORMATION Routine 08/14/2025 8:30 AM CDT ARIA DAILY TREATMENT INFORMATION Routine 08/13/2025 8:26 AM CDT ARIA DAILY TREATMENT INFORMATION Routine 08/12/2025 8:33 AM CDT ARIA DAILY TREATMENT INFORMATION Routine 08/11/2025 8:37 AM CDT ARIA DAILY TREATMENT INFORMATION Routine 08/08/2025 8:40 AM CDT ARIA DAILY TREATMENT INFORMATION Routine 08/07/2025 8:33 AM CDT ARIA DAILY TREATMENT INFORMATION Routine 08/06/2025 8:38 AM CDT ARIA DAILY TREATMENT INFORMATION Routine 08/05/2025 8:47 AM CDT ARIA DAILY TREATMENT INFORMATION Routine 08/04/2025 8:32 AM CDT VERIFICATION/RE-SIM Routine 08/04/2025 8 :31 AM CDT Malignant Neoplasm Of Tongue Base (HCC) ARIA DAILY TREATMENT INFORMATION Routine 08/01/2025 8:41 [...] US NEURO Routine 06/13/2025 9:10 AM CDT from Last 3 Months Results * Aria Course Complete Treatment Information (09/09/2025 8:40 AM CDT) Course ID [id number] [facility] Course Start Date 5 08:42 CDT [facility] Course End Date 5 14:15 CDT [facility] First Treatment Date 5 08:35 CDT [facility] Last Treatment Date 5 08:40 CDT [facility] Treatment Elapsed Days 50 [facility] Reference Point [id number] [facility] Dosage Given to Date cGy 7000 [facility] Plan ID [id number] [facility] Fractions [facility] Date [facility] Total [facility] Prescribed Dose Per Fraction 200 [facility] Prescription Dose in cGy 4800 [facility] Plan Primary Reference Point [id number] [facility] Plan ID [id number] [facility] Fractions Treated to Date 11 [facility] Planned Total Fractions 35 [facility] Prescribed Dose Per Fraction 200 [facility] Prescription Dose in cGy 7000 [facility] Plan Primary Reference Point [id number] [facility] 09/09/2025 8:40 AM CDT us Provider Not In System RADIATION ONCOLOGY ORDERA BLES Final Result CARY VARGAS na * Aria Daily Treatment Information (09/09/2025 8:40 AM CDT) Only the most recent of35 resultswithin the time period is included. Course ID [id number] [facility] Course Start Date 5 08:42 CDT [facility] First Treatment Date 5 08:35 CDT [facility] Last Treatment Date 5 08:40 CDT [facility] Treatment Elapsed Days 50 [facility] Reference Point [id number] [facility] Dosage Given to Date cGy 7000 [facility] Session Dosage Given 200 [facility] Plan ID [id number] [facility] Fractions Treated to Date 24 [facility] Planned Total Fractions 24 [facility] Prescribed Dose Per Fraction 200 [facility] Prescription Dose in cGy 4800 [facility] Plan Primary Reference Point [id number] [facility] 09/09/2025 8:40 AM CDT us Provider Not In System RADIATION ONCOLOGY ORDERA BLES Final Result CARY VARGAS na * Verification/Re-Sim (08/04/2025 8:31 AM CDT) Only the most recent of2 resultswithin the time period is included. Narrative [facility]A - 08/04/2025 8:31 AM CDT This exam does not require a oncologist review or interpretation. Please refer to the patient s medical record on this date for clinical details. Jamie Maria M.D. RADIATION ONCOLOGY ORDERAB LES Final Result Performing Organization Address [facility] de Phone Number CARY bishop * Initial [...] planning. CT images were transferred to the [employer] treatment planning system, after a reference isocenter was determined and marked. Segmentation and treatment planning will take place prior to treatment delivery. Patient set up and imaging was appropriate and completed without incident. 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 RADIATION ONCOLOGY ORDER NAGI Final Result Performing Organization Address [facility] Co de Phone Number CARY bishop * Outside NM Pet (06/27/2025 4:30 PM CDT) 06/30/2025 7:26 AM CDT Addenda Addendum by [employer], Outside on 06/30/2025 7:24 AM CDT BELOW REPORT RECEIVED BY [facility] ON 06/30/2025 09:08:50 [id number] For Patients: As a result of the [...] level IIA lymph node metastasis READ BY Wliian Braswell RELEASED BY ROWANARO Addendum by [employer], Outside on 06/30/2025 7:24 AM CDT BELOW REPORT RECEIVED BY [facility] ON 06/30/2025 09:07:51 [id number] For Patients: As a result of the Cures Act, medical imaging exams and procedure reports are released immediately into your electronic medical record. You may view this report before your referring provider. If you have questions, please contact your health care provider. EXAM: PET CT SKULL BASE TO MID THIGH INITIAL TREAT LOCATION: [facility] DATE: 06/27/2025 INDICATION: Initial treatment planning [...] Wilian Braswell RELEASED BY MANGANARO Addendum by [employer], Outside on 06/30/2025 7:24 AM CDT BELOW REPORT RECEIVED BY [facility] ON 06/30/2025 09:06:25 [phone] For Patients: As a result of the 21st Century Cures Act, medical imaging exams and procedure reports are released immediately into your electronic medical record. You may view this report before your referring provider. If you have questions, please contact your health care provider. EXAM: PET CT SKULL BASE TO MID THIGH INITIAL TREAT [facility] DATE: 06/27/2025 INDICATION: Initial treatment planning and [...] metastasis READ BY Wilian Braswell [facility] Narrative IMAGING - 06/30/2025 9:25 AM CDT This order has been created and auto-finalized to support the import of outside images. If available, original interpretation can be found on the Media Tab in Chart Review, in Document Viewer, as an image in InfinityView or as an Addendum. If a re-interpretation or overread is required please follow defined workflow. Procedure Note [employer], Outside - 06/30/2025 This order has been [...] Outside [facility] Neuro (06/13/2025 9:10 AM CDT) 06/13/2025 10:3 6 AM CDT Addenda Addendum by [employer], Outside on 06/13/2025 10:34 AM CDT BELOW REPORT RECEIVED BY [facility] ON 06/19/2025 15:16:26 [id number] For Patients: As a result of the 21st Century Cures Act, medical imaging exams and procedure reports are released immediately into your electronic medical record. You may view this report before your referring provider. If you have questions, please contact your health care provider. EXAM: 1. PERCUTANEOUS CORE NEEDLE BIOPSY LEFT NECK LYMPH NODE 2. ULTRASOUND GUIDANCE LOCATION: [facility] MED[facility]AG[facility] DATE: 06/13/2025 INDICATION: Neck Mass PROCEDURE: Informed written and verbal consent obtained. Site marked. Prior images reviewed. Required items made available. Patient identity confirmed verbally and with arm band. Patient reevaluated immediately before beginning the procedure. [place] protocol was followed. Time out performed. The [...] left neck lymph node. Reference CPT Code: 83247, 16451 READ BY J Luis Pascual So RELEASED BY SO Addendum by [employer], Outside on 06/13/2025 10:34 AM CDT BELOW REPORT RECEIVED BY [facility] ON 06/19/2025 15:15:52 [id number] For Patients: As a result of the Century Cures Act, medical imaging exams and procedure reports are released immediately into your electronic medical record. You may view this report before your referring provider. If you have questions, please contact your health care provider. EXAM: 1. PERCUTANEOUS CORE NEEDLE BIOPSY LEFT NECK LYMPH NODE 2. ULTRASOUND GUIDANCE LOCATION: [facility] MEDICAL IMAGING DATE: 06/13/2025 INDICATION: Neck Mass PROCEDURE: Informed written and verbal consent obtained. Site marked. Prior images reviewed. Required items made available. Patient identity confirmed verbally and with arm band. Patient reevaluated immediately before beginning the procedure. [place] protocol was followed. Time out performed. The [...] left neck lymph node. Reference CPT Code: 74694, 65687 READ BY J Luis Pascual So RELEASED [...] Onset Date Last Indicated Protective Environment 06/30/2025 Insurance [facility]
--- OUTSIDE RECORDS SUMMARY | 2025-09-11 05:47 | XMS_ITS | Encounter Summary ---
Author Organization [facility] Address [address] [place] [address] Care Team Providers Care Irrigation District Manager Name Role Phone Unavailable Primary Care Provider Unavailabl e Encounter Details Date Type Department Care Team (Late st Contact Info) Description 07/03/2025 Clinical Communication Department of Radiation Oncology in [place], [place] [address] [place] [phone] Julio Cesar Rebolledo M.D. [address] [place] [phone] Social History Tobacco Use Types Packs/Day Years [...] things needed for daily living? No 07/22/2025 [facility] Utilities Answer Date Recorded In the past 12 months has th e electric, gas, oil, or water company threatened to shut off services in your home? No 07/22/2025 Housing Stability Answer Date Recorded What is your living situation today? I have a [facility] place to live 07/22/2025 Sex and Gender Information Value Date Recorded Sex Assigned at Male 08/07/2025 1:13 PM CDT Legal Sex Male 12:18 PM CDT Gender Identity Male 08/07/2025 1:13 PM CDT Sexual Orientation Straight 08/07/2025 1: 13 PM CDT documented as of this encounter Miscellaneous Notes * Telephone Encounter - Helena Marcus - 07/03/2025 9:31 AM CDT Other Reason for Call Caller: Dr. Hanh Dixon Relationships to patient: Dentist Reason for call: Dr. Dixon called asking if Dr. Rebolledo or someone from his team could please give her a call back regarding Mr. Orr. She can be reached at [phone]. documented in this encounter Plan of Treatment Upcoming Encounters Date Type Department Care Team (Late st Contact Info) Description 09/17/2025 10:30 AM CDT Appointment Department of Radiation Oncology in [place], [place] [address] [place] [phone] Julio Cesar Rebolledo M.D. [address] [place] [phone] Britt Ayala R.N. [address] [place] [address] 09/24/2025 10:30 AM CDT Appointment Department of Radiation Oncology in [place], [place] [address] [place] [phone] Julio Cesar Rebolledo M.D. [address] [place] [address] Britt Ayala R.N. [address] [place] [phone] 10/01/2025 10:30 AM CONTRACT POST OFFICE CLERK Appointment Department of Radiation Oncology in [address] [phone] JulioC esar Rebolledo M.D. [facility] [place] [address] Michel Leach R.NElba 10/08/2025 10:30 AM CONTRACT POST OFFICE CLERK Appointment Department of Radiation Oncology in [place], [place] [address] [place] [address] Julio Cesar Rebolledo M.D. [facility] [place] [address] Britt Ayala R.N. [address] [place] [phone] 10/15/2025 10:30 AM CONTRACT POST OFFICE CLERK Appointment Department of Radiation Oncology in [place], [place] [address] [place] [address] Julio Cesar Rebolledo M.D. [facility] [place] [address] Britt Ayala R.N. [address] [place] [phone] 10/22/2025 2:30 PM CONTRACT POST OFFICE CLERK Appointment Department of Radiation Oncology in [place] [address] [place] [address] Julio Cesar Rebolledo M.D. [address] [place] [phone] documented as of this encounter Visit Diagnoses Not on filedocumented in this encounter Additional Health Concerns Infection Onset Date Last Indicated Resolved Time Protective Environment 06/30/2025 06/30/2025 documented as of this encounter
--- OUTSIDE RECORDS SUMMARY | 2025-09-11 05:47 | XMS_ITS | Clinical Summary ---
Author Organization [facility] Address [address] [place] [address] Care Team Providers Care Wall Cleaner Name Role Phone Shila Parmar MD Primary Care Prov ider Katie Nevarez NP Unavailable Annika Gray MD Unavailable [phone] Allergies Active Allergy Reactions Criticality Noted Date Comments Oxycodone-Acetaminophen Nausea And Vomiting Low Medications ondansetron (ZOFRAN) 4 mg tablet Take 4 [...] (COZAAR) 25 mg tabletIndications: Ischemic cardiomyopathy Take one-half Tablets (12.5 mg) by mouth once daily. 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 20 Tablet 08/03/20 25 Active folic acid 1 mg tabletIndications: Psoriasis Take 1 Tablet (1 mg) by mouth once daily. 90 Tablet 3 08/27/20 25 Active chlorhexidine (PERIDEX) 0.12 % solution Swish and spit 15 mL by mouth two times daily. recent oral extractions 07/05/20 25 025 Discontin ued(*Neisha ent states no longer taking) Active Problems Problem Noted Date Diagnosed Date Ischemic cardiomyopathy 07/29/2025 Overview (07/29/2025): LVEF 29% per CMR 07/29/25 ST elevation myocardial infa rction involving left anterior descending (LAD) coronary artery 07/27/2025 Overview (08/06/2025): Mid and distal left anterior descending stents were placed. Post CO echocardiogram showed ejection fraction 35-40% with wall motion abnormalities of anterior wall and septum Needs contrast for echocardiograms in the future as he is high risk of thrombus. Consider adding SGLT2i in outpatient setting. Repeat echocardiogram after 3 months of optimal medical therapy and consider an ICD then. Dual antiplatelet therapy for 12 months Repeat lipids in September 2025. Coronary artery disease with unstable angina - angiogram was done on 08/02/2025 and the mid PDA was severely diseased and a drug eluting stent was placed. This improved his symptoms. Coronary artery disease invo lving choctaw coronary artery of choctaw heart with unstable angina pectoris 07/27/2025 Overview [...] Encounters Date Type Department Care Team Description 08/28/2025 1:00 PM CDT Ancillary Procedure [facility] [place] [address] [facility] [address] [place] [address] 08/27/2025 Travel 08/27/2025 Telephone [facility] [address] [address] Ijeoma Renteria MD Refill Request (folic acid 1 mg tablet) 08/26/2025 1:00 PM CDT Office Visit [facility] [address] [facility] [address] [place] [address] Luzmaria Michaels PA Follow Up (POST HOSPITAL FOLLOW UP./Pt would like to discuss restarting chemo, discuss medications, low home BP readings. ) 08/26/2025 Telephone [facility] [address] [facility] [address] [place] [address] Luzmaria Michaels PA SGL2I artis check 08/26/2025 Travel 08/21/2025 Travel 08/08/2025 Patient Outreach [facility] Care Management - Advanced Care Team [address] [place] [address] Susan Blake Complex Care Management (CCM Engagement Outreach ) 08/08/2025 Telephone [facility] [address] [facility] [address] [place] [address] Luzmaria Michaels PA Dential Clearance 08/06/2025 10:05 AM CDT Office Visit [facility] [address] [place] [address] Max Ramires MD Hospital F/U (Heart problem - doing much better and NO pain) 08/05/2025 Travel 08/04/2025 Telephone [facility] [address] [place] [address] Perla Fisher, RN schedule patient for cardiac rehab 08/04/2025 Patient Outreach [facility] [address] [place] [address] Ofelia Dao, YOLANDA Primary RN Care Management; Hospital F/U (Lace=58) 08/02/2025 2:05 AM CDT - 08/03/2025 11:20 AM CDT Hospital Encounter [facility] [address] [place] [address] [facility] Hospitalists Of Hernan Sequeira MD Lefebvre, Huber Orta MD 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 (HC) (Primary Dx) Discharge Disposition: Home Self Care 08/01/2025 10:55 AM CDT Office Visit [facility] [address] [place] [address] Max Ramires MD Hospital F/U (Recent heart attack) 08/01/2025 Orders Only [facility] Scanner 1 scan: (1-Ord) [place], CHEST 1V PORTABLE , 08/01/2025 08/01/2025 Travel 07/30/2025 Telephone [facility] [address] [place] [address] Shila Parmar MD Questions 07/30/2025 Telephone [facility] [address] [place] [address] Shila Parmar MD Return Call (Return Call) 07/30/2025 Patient Outreach [facility] [address] [place] [address] Minda Cortes, RN Primary RN Care Management; Hospital F/U (LACE 59) 07/27/2025 12:53 PM CDT - 07/29/2025 3:30 PM CDT Hospital Encounter [facility] [address] [place] [address] Referring, Provider Cameron Guerrero MD Strauss, MD Emily Bender, MD Natasha Malik Konstantinos, MD, PhD [place] [place] Elevated blood pressure reading without diagnosis of hypertension (Primary Dx); ST elevation myocardial infarction involving left anterior descending (LAD) coronary artery (HC); 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 (HC); Ischemic cardiomyopathy; S/P drug eluting coronary stent placement Discharge Disposition: Home Self Care 07/27/2025 Orders Only [facility] Scanner 1 scan: (1-Ord) [facility], XR CHEST 1V PORTABLE, 07/27/2025 07/27/2025 Travel 07/27/2025 Telephone [facility] [address] [place] [address] Cameron Guerrero MD 07/15/2025 7:50 AM CDT Office Visit [facility] [address] [place] [address] Shila Parmar MD Blood Pressure (Elevated blood pressure ) 07/15/2025 Telephone [facility] [address] [place] [address] Ijeoma Renteria MD Medication Management (methotrexate (RHEUMATREX) 2.5 mg tablet) 07/15/2025 Travel 07/13/2025 Refill [facility] [address] [address] Ijeoma Renteria MD Refill Request (Methotrexate) 06/30/2025 Telephone [facility] [address] [facility] [address] [place] [address] Myrna Forrest PA Results 06/27/2025 2:52 PM CDT - 06/27/2025 11:59 PM CDT Hospital Encounter [facility] [address] [place] [address] Avery Holland MD 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 Travel 06/18/2025 Orders Only [facility] [address] [place] [address] Avery Holland MD <No scans attached> 06/17/2025 Telephone [facility] [address] [place], [place] [id number] Avery Holland MD Questions (Lump) 06/13/2025 8:31 AM CDT - 06/13/2025 11:59 PM CDT Hospital Encounter [facility] [address] [place] [address] Avery Holland MD Neck mass 06/13/2025 Travel from Last 3 Months Immunizations Immunization Administration Dates Next Due COVID-19 vaccine ([employer] 30mcg/0.3mL) 12YO+ BIVALENT PF, MDV 08/15/2022 [...] isolated from those around you? 0 07/27/2025 Alcohol Use Answer Date Recorded How often do you have a drink containing alcohol ? 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 Height 170.2 cm (5' 7) 08/26/2025 1:01 PM CDT Body Mass Index 23.85 08/26/2025 1:01 PM CDT Plan of Treatment Upcoming Encounters Date Type Department Care Team (Late st Contact Info) Description 09/18/2025 9:50 AM CDT Office Visit [facility] [address] [place] [address] Shila Parmar MD [address] [place] [address] 10/01/2025 8:00 AM FRANCHISE DEVELOPMENT MANAGER Orders Only [facility] [address] [place] [address] [place], [place] 10/27/2025 10:00 AM FRANCHISE DEVELOPMENT MANAGER Ancillary Procedure [facility] [address] [place] [id number] 10/29/2025 9:30 AM FRANCHISE DEVELOPMENT MANAGER Office Visit [facility] [address] [facility] [address] [place] [address] Elder English MD [address] [facility] [address] [place], [place] [id number] Health Maintenance Due Date Last Done Comments [...] wt on same day) for age 18+ 08/26/2026 08/26/2025, 05/14/2025, 09/04/2024, Additional history exists Tetanus booster 09/18/2029 09/18/2019, 09/13/1995 Pneumococcal series for age 50+ Completed 08/17/2015, 08/30/2012, 09/27/2010, Additional history exists Zoster (shingles) series for age 50+ Completed 05/18/2020, 11/26/2019 Procedures Procedure Name Priority Date/Time Associated Diagnosis Comments ECHO TTE LIMITED W CONTRAST W COLOR W DOPPLER Routine 08/28/2025 1:[address] elevation myocardial infarction involving left anterior descending (LAD) coronary artery (HC) 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 (HC) Ischemic cardiomyopathy URIC ACID Routine 08/06/2025 11:54 AM CDT History of gout BASIC METABOLIC PANEL Routine 08/06/2025 11:[address] elevation myocardial infarction involving left anterior descending (LAD) coronary artery (HC) SCAN CORRESP-EKG RESULTS 08/05/2025 3:09 PM CDT TROPONIN T (HS) ONE TIME Timed 08/03/2025 10:17 AM CDT TROPONIN T (HS) ACUTE W/2HR REFLEX EVARISTO 08/03/2025 7:53 AM CDT LIPID PANEL Early AM 08/03/2025 7:53 AM CDT HEMOGLOBIN Early AM 08/03/2025 7:53 AM CDT PLATELET COUNT Early AM 08/03/2025 7:53 AM CDT EKG 12 LEAD Early AM 08/03/2025 5:57 AM CDT SCAN-CARDIAC STRIP 08/03/2025 12 :02 AM CDT SCAN-CARDIAC STRIP 08/02/2025 4: 04 PM CDT APTT Timed 08/02/2025 12:55 PM CDT HCHG ACTIVATED CLOTTING TM CV Timed 08/02/2025 11:00 AM CDT HCHG ACTIVATED CLOTTING TM CV Timed 08/02/2025 10:44 AM CDT CVL CORONARY ANGIOGRAM POSS PCI Routine 08/02/2025 10:15 AM CDT APTT EVARISTO 08/02/2025 4:52 AM CDT PROTIME-INR EVARISTO 08/02/2025 4:52 AM CDT TROPONIN T (HS) ONE TIME Timed 08/02/2025 4:52 AM CDT CBC W PLT NO DIFF EVARISTO 08/02/2025 4:5 2 AM CDT SODIUM Early AM 08/02/2025 4:52 AM CDT POTASSIUM Early AM 08/02/2025 4:52 AM CDT CREATININE Early AM 08/02/2025 4:52 AM CDT SCAN-CARDIAC STRIP 08/02/2025 4: 04 AM CDT TROPONIN T (HS) ACUTE W/2HR REFLEX STAT 08/02/2025 3:00 AM CDT EKG 12 LEAD STAT 08/02/2025 2:19 AM CDT BASIC METABOLIC PANEL Routine 08/01/2025 12:34 PM CDT 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 (HC) S/P drug eluting coronary stent placement CA READING EKG - NO CHARGE, COMP ONLY Routine 08/01/2025 12:[address] elevation myocardial infarction involving left anterior descending (LAD) coronary artery (HC) EKG 12 LEAD Routine 08/01/2025 11:[address] elevation myocardial infarction involving left anterior descending (LAD) coronary artery (HC) SCAN-RADIOLOGY REPORT 08/01/2025 12:00 AM CDT MR CARDIAC WWO Routine 07/29/2025 9:56 AM [...] 10 :37 PM CDT OSMOLALITY,URINE Today 07/27/2025 6:2 1 PM CDT SODIUM,RANDOM URINE Today 07/27/2025 6 [...] SKULL BASE TO MID THIGH INITIAL TREAT [facility] 06/27/2025 4:45 PM CDT 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) US BIOPSY NECK SOFT TISSUE [facility] 06/13/2025 10:07 AM CDT Neck mass PATH [facility]NA CYTOLOGY ASP CYTOLOGY Today 06/13/2025 9:15 AM CDT from Last 3 Months Results * ECHO TTE LIMITED W CONTRAST W COLOR W DOPPLER (08/28/2025 1:33 PM CDT) AORTIC VALVE MEAN PG 15 mmHg EJECTION FRACTION 44 % PEAK TR VELOCITY 2.7 m/s LVEDD 4.4 cm EJECTION FRACTION 35 - 40% Anatomical Region Laterality Modality Ultrasound 08/28/2025 1:01 PM CDT Narrative 08/28/2025 1:53 PM CDT ECHOCARDIOGRAM SIENA ORR : 1940 84 years Study Date: 08/28/2025 1:01:31 PM Gender: M BP: 96/54 mmHg Height: 170.18 cm BSA: 1.80 m Weight: 68.95 kg Tech: MSR Referring MD: NATALYA CALLEJAS Site: [facility] Reading Location: MOBILE - OP Patient Location: Outpatient. Procedure: Limited Echo w/ Contrast, Limited Spectral Doppler and Color Doppler. 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 Final Impressions: Limited Echocardiogram performed 1. Normal left ventricular size, normal wall thickness, mildly reduced global systolic function, calculated EF of 44 %. 2. Multiple segmental abnormalities exist. See findings. 3. Echo contrast was administered to enhance visualization of all left ventricular segments. 4. The aortic valve is calcified, moderate stenosis and trivial regurgitation.The aortic valve peak velocity is 2.4 m/s, the peak gradient is 24 mmHg, and the mean gradient is 15 mmHg. The aortic valve area is 1.37 cm with a dimensionless index of 0.36. The stroke volume index is 41.4 ml/m . 5. The mitral valve is sclerotic, mild mitral regurgitation. 6. The tricuspid valve is myxomatous, moderate tricuspid regurgitation. 7. No pericardial effusion. Chamber Sizes and Function Normal left ventricular size, normal wall thickness, mildly reduced global systolic function, calculated EF of 44 %. The apical septum segment is akinetic. The apical lateral segment, mid septum segment, apical anterior segment, and apical inferior segment are hypokinetic. Valves, RV Pressures and Diastolic Function The aortic valve is calcified, moderate stenosis and trivial regurgitation. The mitral valve is sclerotic, mild mitral regurgitation. The mitral valve peak velocity is 1.10 m/s and the mean gradient is 2.0 mmHg. The tricuspid valve is myxomatous, moderate tricuspid regurgitation. The tricuspid regurgitant velocity is 2.7 m/s, the estimated right ventricular systolic pressure is 29 mmHg plus right atrial pressure. There is mildly increased estimated pulmonary pressure by tricuspid regurgitation velocity and right atrial pressure. Masses, Effusion, Shunts There is no pericardial effusion. MEASUREMENTS AND CALCULATIONS 2-D Measurements and LV Function: LVID (d) 4.4 cm Planimetered EF 44 % LVID (s) 2.7 cm LV FS% (2D) 39 % IVS (d) 1.0 cm LVOT diameter 2.2 cm LVPW (d) 1.0 cm HR 67 bpm Ao Sinus ULN 4.1 cm * Asc Ao 3.8 cm Asc Ao ULN 4.3 cm * * Input age outside of range, reported values correspond to Age = 81 Diastology: Mitral Tissue Doppler E Peak 1.04 m/s e', Septum 0.05 m/s A Peak 0.92 m/s e', Lateral 0.08 m/s E/A 1.1 E/e' Average 15.59 DT 238 msec Aortic Valve: Vmax 2.4 m/s JENNIFER (V) 1.33 cm AI P 1/2 344 msec VTI 0.54 m JENNIFER (I) 1.37 cm LVOT V max 0.9 m/s Max PG 24 mmHg LVOT VTI 0.20 m Mean PG 15 mmHg SV 75 ml Dim Index 0.36 SV index 41 ml/m CO 5.0 l/min CI 2.8 l/min/m Mitral Valve: MVA 3.2 cm MV P 1/2 69 msec MV Mean G 2 mmHg Tricuspid Valve and estimated PA pressures: TR Vmax 2.7 m/s TR maxG 29 mmHg Contrast documentation: 2ML ml [employer], lot #[id number], [facility]# [id number] was administered peripherally to enhance visualization of all left ventricular segments. . This study was interpreted by an [facility] accredited facility. Final Procedure Note Cheryl Buck, [facility] - 08/28/2025 ECHOCARDIOGRAM SIENA ORR : 1940 84 years Study Date: 08/28/2025 1:01:31 PM Gender: M BP: 96/54 mmHg Height: 170.18 cm BSA: 1.80 m Weight: 68.95 kg Tech: MSR Referring MD: NATALYA CALLEJAS Site: [facility] Reading Location: MOBILE - OP Patient Location: Outpatient. Procedure: Limited Echo w/ Contrast, Limited Spectral Doppler and ColorDoppler. Indication for study: ST elevation myocardial infarction involving leftanterior descending (LAD) coronary artery (HC); Coronary artery diseaseinvolving choctaw coronary artery of choctaw heart with unstable anginapectoris (HC); Ischemic cardiomyopathy Cardiac Rhythm: Regular.Study quality: Fair. Final Impressions: Limited Echocardiogram performed 1. Normal left ventricular size, normal wall thickness, mildly reducedglobal systolic function, calculated EF of 44 %. 2. Multiple segmental abnormalities exist. See findings. 3. Echo contrast was administered to enhance visualization of all leftventricular segments. 4. The aortic valve is calcified, moderate stenosis and trivialregurgitation.The aortic valve peak velocity is 2.4 m/s, the peak gradientis 24 mmHg, and the mean gradient is 15 mmHg. The aortic valve area is1.37 cm with a dimensionless index of 0.36. The stroke volume index is41.4 ml/m . 5. The mitral valve is sclerotic, mild mitral regurgitation. 6. The tricuspid valve is myxomatous, moderate tricuspid regurgitation. 7. No pericardial effusion. Chamber Sizes and Function Normal left ventricular size, normal wall thickness, mildly reduced globalsystolic function, calculated EF of 44 %. The apical septum segment isakinetic. The apical lateral segment, mid septum segment, apical anteriorsegment, and apical inferior segment are hypokinetic. Valves, RV Pressures and Diastolic Function The aortic valve is calcified, moderate stenosis and trivialregurgitation. The mitral valve is sclerotic, mild mitral regurgitation.The mitral valve peak velocity is 1.10 m/s and the mean gradient is 2.0mmHg. The tricuspid valve is myxomatous, moderate tricuspid regurgitation.The tricuspid regurgitant velocity is 2.7 m/s, the estimated rightventricular systolic pressure is 29 mmHg plus right atrial pressure. Thereis mildly increased estimated pulmonary pressure by tricuspidregurgitation velocity and right atrial pressure. Masses, Effusion, Shunts There is no pericardial effusion. MEASUREMENTS AND CALCULATIONS 2-D Measurements and LV Function: LVID (d) 4.4 cm Planimetered EF44 % LVID (s) 2.7 cm LV FS% (2D)39 % IVS (d) 1.0 cm LVOT diameter2.2 cm LVPW (d) 1.0 cm HR67 bpm Ao Sinus ULN 4.1 cm * Asc Ao 3.8 cm Asc Ao ULN 4.3 cm * * Input age outside of range, reported values correspond to Age = 81 Diastology: Mitral Tissue Doppler E Peak 1.04 m/s e', Septum 0.05 m/s A Peak 0.92 m/s e', Lateral 0.08 m/s E/A 1.1 E/e' Average 15.59 DT 238 msec Aortic Valve: Vmax 2.4 m/s JENNIFER (V) 1.33 cm AI P 1/2 344 msec VTI 0.54 m JENNIFER (I) 1.37 cm LVOT V max 0.9 m/s Max PG 24 mmHg LVOT VTI 0.20 m Mean PG 15 mmHg SV 75 ml Dim Index 0.36 SV index 41 ml/m CO 5.0 l/min CI 2.8 l/min/m Mitral Valve: MVA 3.2 cm MV P 1/2 69 msec MV Mean G 2 mmHg Tricuspid Valve and estimated PA pressures: TR Vmax 2.7 m/s TR maxG 29 mmHg Contrast documentation: 2ML ml [employer], lot #[id number], [facility]# [id number] wasadministered peripherally to enhance visualization of all left ventricularsegments. . This study was interpreted by an [facility] accredited facility. Final Natalya Callejas BALLISTICIAN ECHO ORD Final Resul t * URIC ACID (08/06/2025 11:54 AM CDT) URIC ACID 7.0 4.0 - 8.0 mg/dL 08/07/2025 5:01 AM CDT [facility] Comment:Therapeutic target f or gout patients: <6.0 mg/dL Blood BLOOD SPECIMEN / Unknown [facility] / Unknown 08/06/2025 11:54 AM CDT 08/06/2025 11:54 AM CDT Max Ramires MD CHEMISTRY Final Resu lt [facility] [address] [address], [place] [phone] * (ABNORMAL) BASIC METABOLIC PANEL (08/06/2025 11:54 AM CDT) Only the most recent of4 resultswithin the time period is included. SODIUM 134(L) 135 - 146 mmol/L 08/07/2025 5:01 AM CDT [facility] POTASSIUM 5.2 3.5 - 5.3 mmol/L 08/07/2025 5:01 AM CDT [facility] CARBON DIOXIDE 23 20 - 32 mmol/L 08/07/2025 5:01 AM CDT [facility] GLUCOSE 87 65 - 99 mg/dL 08/07/2025 5:01 AM CDT [facility] Comment: Fasting reference interval CALCIUM 9.1 8.6 - 10.3 mg/dL 08/07/2025 5:01 AM CDT [facility] CREATININE 1.04 0.70 - 1.22 mg/dL 08/07/2025 5:01 AM CDT [facility] BUN/CREATININE RATIO SEE NOTE: 6 - 22 (calc) 08/07/2025 5:01 AM CDT [facility] Comment: Not Reported: BUN and Creatinine are within reference range. EGFR 71 > OR = 60 mL/min/1. 73m2 08/07/2025 5:01 AM CDT [facility] UREA NITROGEN (BUN) 24 7 - 25 mg/dL 08/07/2025 5:01 AM CDT [facility] ELECTROLYTE BALANCE 10 7 - 17 mmol/L (calc) 08/07/2025 5:01 AM CDT [facility] CHLORIDE 101 98 - 110 mmol/L 08/07/2025 5:01 AM CDT [facility] Blood BLOOD SPECIMEN / Unknown [facility] / Unknown 08/06/2025 11:54 AM CDT 08/06/2025 11:54 AM CDT us Max Ramires MD CHEMISTRY Final Resu lt Performing Organization Address City/[facility]/ZIP Co de Phone Number [facility] [address] [address], [place] [phone] * SCAN CORRESP-EKG RESULTS (08/05/2025 3:09 PM CDT) Narrative 08/05/2025 3:09 PM CDT Ordered by an unspecified provider. us Other Clinical Staff OTHER Final Resul t * (ABNORMAL) TROPONIN T (HS) ONE TIME (08/03/2025 10:17 AM CDT) Only the most recent of2 resultswithin the time period is included. TROPONIN T HS 1,677(H) 6-15 ng/L ng/L 08/03/2025 10:56 AM CDT [facility] Blood BLOOD SPECIMEN / Unknown Venipuncture / Unknown 08/03/2025 10:17 AM CDT 08/03/2025 10:22 AM CDT Lio Campbell MD CHEMISTRY Final R esult [facility] [address] [place] [address], [place] * (ABNORMAL) TROPONIN T (HS) ACUTE W/2HR REFLEX (08/03/2025 7:53 AM CDT) Only the most recent of2 resultswithin the time period is included. TROPONIN T HS 1,880(H) 6-15 ng/L ng/L 08/03/2025 8:24 AM CDT [facility] Blood BLOOD SPECIMEN / Unknown Butterfly / Unknown 08/03/2025 7:53 AM CDT 08/03/2025 7:58 AM CDT [facility] - 08/03/2025 8:24 AM CDT hs-cTnT (Elecsys Troponin T Gen 5) concentration (s) above the sex-specific 99th percentile (16 ng/L or greater for males or 11 ng/L or greater for females) are indicative of myocardial injury. If initial hs-cTnT <=100 ng/L at presentation, a 0h/2h ABSOLUTE (ng/L) delta change (rising or falling) of >=10 ng/L suggests a significant change, whereas a 0h/2h delta change <=3 ng/L suggests no significant change. If initial hs-cTnT >100 ng/L at presentation, a 0h/2h/ RELATIVE (percent, %) delta change of 20% is suggested to distinguish patients with acute vs. chronic myocardial injury. There are multiple etiologies that can cause hs-cTnT increases above the 99th percentile (myocardial injury) other than acute myocardial infarction. Clinical context and careful clinical evaluation are critical for diagnosis and risk-stratification. The diagnosis of acute myocardial infarction requires a rising and/or falling pattern in hs-cTnT concentrations with at least one value above the sex-specific 99th percentile PLUS at least one of the following clinical criteria: ischemic symptoms, new or presumed new significant ST-T wave changes or new LBBB, development of pathological Q waves, imaging evidence of new loss of viable myocardium or new regional wall motion abnormality, or identification of intracoronary atherothrombosis or an acute angiographic culprit on coronary angiography. In appropriate low-risk patients with a non-ischemic electrocardiogram without active chest pain with a symptom onset >3-hours without recurrence, a single initial hs-cTnT<6 ng/L identifies patient with a very low risk in emergency department patient population. Lio Campbell MD CHEMISTRY Final R esult Performing Organization Address [facility]/ZIP Co de Phone Number [facility] [address] [place] [address], * PLATELET COUNT (08/03/2025 7:53 AM CDT) PLATELET COUNT 232 140 - 440 thou/cu mm 08/03/2025 8:08 AM CDT [facility] MPV 9.6 6.5 - 11.0 fL 08/03/2025 8:08 AM CDT [facility] Blood BLOOD SPECIMEN / Unknown Butterfly / Unknown 08/03/2025 7:53 AM CDT 08/03/2025 7:58 AM CDT [facility] - 08/03/2025 8:08 AM CDT Every morning while on IV heparin. Necessary every morning while on IV heparin. Savanah NIÑO HEMATOLOGY Final Res ult Performing Organization Address [facility] de Phone Number [facility] [address] [place] [address], * (ABNORMAL) HEMOGLOBIN (08/03/2025 7:53 AM CDT) Only the most recent of2 resultswithin the time period is included. HEMOGLOBIN 10.8(L) 13.5 - 17.5 g/dL 08/03/2025 8:08 AM CDT [facility] MCV 92 80 - 100 fL 08/03/2025 8:08 AM CDT [facility] Blood BLOOD SPECIMEN / Unknown Butterfly / Unknown 08/03/2025 7:53 AM CDT 08/03/2025 7:58 AM CDT [facility] - 08/03/2025 8:08 AM CDT Every morning while on IV heparin. Necessary every morning while on IV heparin. Savanah NIÑO HEMATOLOGY Final Res ult [facility] [address] [place] [id number], [place] * (ABNORMAL) Lipid Panel (08/03/2025 7:53 AM CDT) Only the most recent of3 resultswithin the time period is included. CHOLESTEROL,TOTAL 93(L) 100 - 199 mg/dL 08/03/2025 8:24 AM CDT [facility] Comment: Cholesterol, Total Reference Ranges Desirable <200 mg/dL Borderline 200-239 mg/dL High >=240 mg/dL TRIGLYCERIDES 97 <150 mg/dL 08/03/2025 8:24 AM CDT [facility] HDL CHOLESTEROL 34(L) >40 mg/dL 8:24 AM CDT [facility] NON-HDL CHOLESTEROL 59 <145 mg/dl 08/03/2025 8:24 AM CDT [facility] CHOL/HDL RATIO 2.74 <4.50 08/03/2025 8:24 AM CDT [facility] LDL CHOLESTEROL 40 <=130 mg/dL 08/03/2025 8:24 AM CDT [facility] VLDL CHOLESTEROL 19 <=30 mg/dL 08/03/2025 8:24 AM CDT [facility] PROVIDER ORDERED STATUS RANDOM 08/03/2025 8:24 AM CDT [facility] Blood BLOOD SPECIMEN / Unknown Butterfly / Unknown 08/03/2025 7:53 AM CDT 08/03/2025 7:58 AM CDT Kamini Light MD CHEMISTRY Final Result [facility] [address] [place] [address], [place] * EKG - In AM (08/03/2025 5:57 AM CDT) Only the most recent of8 resultswithin the time period is included. Interpretation Sinus rhythm with marked sinus arrhythmia Anteroseptal infarct (cited on or before 27-Jul-2025) T wave abnormality, consider lateral ischemia Abnormal ECG When compared with ECG of 02-Aug-2025 02:19, (Unconfirmed) Inverted T waves have replaced nonspecific T wave abnormality in Lateral leads BEYOND NOW Ventricular Rate 73 BPM BEYOND NOW Atrial Rate 73 BPM BEYOND NOW P-R Interval 194 ms BEYOND NOW QRS Duration 104 ms BEYOND NOW QT 416 ms BEYOND NOW QTc 458 ms BEYOND NOW P Clinton 15 degrees BEYOND NOW R Clinton 7 degrees BEYOND NOW T Clinton 68 degrees BEYOND NOW 08/03/2025 5:57 AM CDT 08/03/2025 2:22 PM CDT us Kamini Light MD EKG ORD Final Result Performing Organization Address [facility] Co de Phone Number BEYOND NOW [place], [place] * SCAN-CARDIAC STRIP (08/03/2025 12:02 AM CDT) us Scanner OTHER Final Result * SCAN-CARDIAC STRIP (08/02/2025 4:04 PM CDT) us Scanner OTHER Final Result * (ABNORMAL) APTT (08/02/2025 12:55 PM CDT) Only the most recent of2 resultswithin the time period is included. APTT 122(H) 25 - 36 sec 08/02/2025 1:41 PM CDT [facility] [employer] [facility] Blood BLOOD SPECIMEN / Unknown Butterfly / Unknown 08/02/2025 12:55 PM CDT 08/02/2025 1:01 PM CDT Narrative [facility] - 08/02/2025 1:41 PM CDT Therapeutic Range: 59-89 seconds us Savanah NIÑO HEMATOLOGY Final Res ult Performing Organization Address City/[facility]/ZIP Co de Phone Number [facility] [address] [place] [address], [place] * (ABNORMAL) ACTIVATED CLOTTING TIME [id number] ACT (08/02/2025 11:00 AM CDT) Only the most recent of5 resultswithin the time period is included. ACTIVATED CLOTTING TIME, POCT 251(H) 74 - 125 sec 08/02/2025 11:13 AM CDT [facility] Blood BLOOD SPECIMEN / Unknown 08/02/2025 11:00 AM CDT 08/02/2025 11:13 AM CDT us [facility] HEMATOLOGY Final Re sult [facility] [address] [place] [address], * CVL CORONARY ANGIOGRAM POSS PCI (08/02/2025 10:15 AM CDT) Anatomical Region Laterality Modality Other 08/02/2025 10:1 5 AM CDT Narrative Transcriptions Kamini Light MD - 08/02/2025 11:23 AM CDT [facility] [place] [facility] Cardiac Catheterization Report Name: SIENA ORR Event Date: 08/02/2025 10:15 Shona ID #: [id number] MALDONADO #: [id number] Patient Class: Inpatient Interventional Physician: KAMINI LIGHT [facility] Primary Care Physician: SHILA PARMAR Date:1940 Gender: Male Age: 84 Summary/Conclusions PRESENTATION / INDICATIONS * Recurrent chest pain with markedly elevated troponins (no comparisons),recent delayed presentation after anterior STEMI with PCI of the mid anddistal LAD on 07/27/25, relook 07/28/25 without PCI, large anteriorinfarction by 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 DIAGNOSTIC - CORONARY * The left main artery is short with mild disease. * The LAD has moderate residual disease with patent stents, unchanged. * The OM1 branch of the circumflex artery has moderate disease. The [id number] is diffusely diseased and ectatic with moderate disease and KENY 3flow, unchanged. * The RCA is dominant with diffuse mild disease. The mid RPDB is severelydisease, unchanged. VASCULAR ACCESS * Using ultrasound guidance and a percutaneous technique, the right radialartery was accessed. Ultrasound was used to confirm vessel patency,localizing needle into the lumen of the vessel. An image was saved for themedical record. * Using ultrasound guidance and a percutaneous technique, the right commonfemoral artery was accessed. Ultrasound was used to confirm vesselpatency, localizing needle into the lumen of the vessel. An image wassaved for the medical record. SPECIAL PROCEDURES * Right femoral arteriotomy was successfully closed utilizing a closuredevice DIAGNOSTIC - VASCULAR * Very tortuous right subclavian and innominate arteries requiringconversion to femoral approach for PCI. Tortuous right external andcommon iliac artery requiring use of long sheath. INTERVENTION ? Reviewed diagnostic results with Dr. Butcher. ? Successful 2mm x 12mm Balloon and 2mm x 12mm Drug Eluting Stent to RPDA,post stenosis 0% RECOMMENDATIONS & PLAN * Optimize risk factors and medications * Continue DAPT for one year Consent & [place] Protocol The risks, benefits, and alternatives of the procedure were discussed withthe patient and written informed consent was obtained. Staff Name Title KAMINI LIGHT Diagnostic Regional Psychiatric Director Mana Richter RN Nurse Gem Lan RN Nurse Jennifer Hutchins CVT Monitor Roz Carmichael CVT Scrub Lexus Patton CVT Television Agent MICHAELA LIVERPOOL Servando Personal Consultant Procedures ? Ultrasound Guided Vascular Access ? Coronary Angiogram ? Femoral Angio for Possible Closure Device ? Stent Placement, Drug Eluting [PCI] ? Femoral Closure Device Diagnostic Findings * Left Anterior Descending ? 30% stenosis in the Proximal LAD. ? 50% stenosis in the Mid LAD. * Circumflex ? 50% stenosis in the 1st Marginal. ? 60% stenosis in the 2nd Marginal. ? 30% stenosis in the 2nd Marginal. * Right Coronary Artery ? 30% stenosis in the Proximal RCA. ? 20% stenosis in the Mid RCA. ? 30% stenosis in the Distal RCA. ? 80% (denovo) stenosis in the RPDA. The lesion has a KENY flow of 3. Lesion Information Lesion # Vessel Segment Lesion Length Lesion Details Distal RCA 2nd Marginal Mid RCA 1 RPDA 8 1st Marginal Proximal LAD Proximal RCA 2nd Marginal Mid LAD Hemodynamics State: Baseline Pressures (mmHg) Site Systolic Diastolic End Diastolic A Wave V Wave Mean AO 94 62 71 Interventional Results * Right Coronary Artery ? Successful intervention to the RPDA 80% lesion with a final stenosisof 0% using a 2mm x 12mm Balloon and a 2mm x 12mm Drug Eluting Stent.The final KENY flow was 3. Interventional Devices Lesion # Vessel Segment Type Name Max Pressure 1 RPDA Balloon BLLN Emerge MR 2.0mm x 12mm 1 RPDA Drug Eluting Stent MC RUBEN [place] RX 2.5ccO63ag Procedure Details Estimated Blood Loss: < 30 ml Specimen Collected: None Level of Sedation Achieved: Moderate Procedure Start: 10:15 Procedure End: 10:59 Procedure Time: 44 min Fluoroscopy Time: 12.6 min Cumulative Air Kerma: 597 mGy DAP: 3322 uGy/M2 Contrast: Omnipaque (low-osmolar), 70 ml Physiologic Data Weight: 69.6 kg BSA: 1.80 m2 Vascular Access Time Access Sheath Size 10:15 Right Radial Artery, sheath inserted 10:44 Right Femoral Artery, sheath inserted Complications ? No Complications Medications Ordered and Administered Start Time Stop Time Medication Dose Units Route Ordered By Given By 10:11 Versed 1 mg IV Kamini Light Heather RN 10:12 Fentanyl 25 mcg IV Kamini Light Heather RN 10:15 1% Lidocaine 0.5 ml Subcut Kamini Light Yale L 10:16 Verapamil 3 mg IA Kamini Light Yale L 10:17 Heparin 3000 units IV Kamini Light Heather RN 10:32 Heparin 2000 units IV Kamini Light Heather RN 10:33 Fentanyl 25 mcg IV Kamini Light Heather RN 10:33 Versed 0.5 mg IV Kamini Light Heather RN 10:42 1% Lidocaine 4 ml Subcut Kamini Light Yale L 10:44 Heparin 2000 units IV Kamini Light Heather RN 10:49 Versed 0.5 mg IV Kamini Light Heather RN I personally monitored the patient?s conscious sedation during theprocedure. Conscious sedation starts with the first sedation medication dose ofFentanyl or Versed and ends when the procedure is completed, the patientis stable for recovery status, and the physician or other qualified healthcare professional providing the sedation ends personal yvuzlkpkbxhjus-ou-zhoc time with the patient. The medications listed above were verbally ordered by me and read back tome as documented above. Refer to the procedure log report for additional case details. electronically signed on 08/02/2025 11:23:45 AM with status of Final Kamini Light MD [facility] [address] [place] [address] (p) [phone](f) us Provider Referring CV IMAGING Edited Result - Final * (ABNORMAL) CBC W PLT NO DIFF (08/02/2025 4:52 AM CDT) Only the most recent of2 resultswithin the time period is included. WHITE BLOOD COUNT 3.3(L) 4.5 - 11.0 thou/cu mm 08/02/2025 5:13 AM CDT [facility] RED BLOOD COUNT 3.55(L) 4.30 - 5.90 mil/cu mm 08/02/2025 5:13 AM CDT [facility] HEMOGLOBIN 10.9(L) 13.5 - 17.5 g/dL 08/02/2025 5:13 AM CDT [facility] HEMATOCRIT 32.6(L) 37.0 - 53.0 % 08/02/2025 5:13 AM CDT [facility] MCV 92 80 - 100 fL 08/02/2025 5:13 AM CDT [facility] MCH 30.7 26.0 - 34.0 pg 08/02/2025 5:13 AM CDT [facility] MCHC 33.4 32.0 - 36.0 g/dL 08/02/2025 5:13 AM CDT [facility] RDW 14.7 11.5 - 15.5 % 08/02/2025 5:13 AM CDT [facility] PLATELET COUNT 234 140 - 440 thou/cu mm 08/02/2025 5:13 AM CDT [facility] MPV 9.9 6.5 - 11.0 fL 08/02/2025 5:13 AM CDT [facility] NRBC 0.0 % 08/02/2025 5:13 AM CDT [facility] ABS NRBC 0.0 thou /cu mm 08/02/2025 5:13 AM CDT [facility] Blood BLOOD SPECIMEN / Unknown Venipuncture / Unknown 08/02/2025 4:52 AM CDT 08/02/2025 5:03 AM CDT us Hernan Sequeira MD HEMATOLOGY Final Resul t Performing Organization Address City/[facility] Co de Phone Number [facility] [address] [address], [place] * SODIUM (08/02/2025 4:52 AM CDT) Only the most recent of2 resultswithin the time period is included. SODIUM 136 136 - 145 mmol/L 08/02/2025 5:42 AM CDT [facility] Blood BLOOD SPECIMEN / Unknown Venipuncture / Unknown 08/02/2025 4:52 AM CDT 08/02/2025 5:03 AM CDT us Hernan Sequeira MD CHEMISTRY Final Resul t Performing Organization Address [facility] Phone Number [facility] [address] [address], [place] * POTASSIUM (08/02/2025 4:52 AM CDT) Only the most recent of2 resultswithin the time period is included. POTASSIUM 4.2 3.5 - 5.1 mmol/L 08/02/2025 5:42 AM CDT [facility] Blood BLOOD SPECIMEN / Unknown Venipuncture / Unknown 08/02/2025 4:52 AM CDT 08/02/2025 5:03 AM CDT us Hernan Sequeira MD CHEMISTRY Final Resul t Performing Organization Address City/[facility] Co de Phone Number [facility] [address] [place] [address], * (ABNORMAL) CREATININE (08/02/2025 4:52 AM CDT) Only the most recent of2 resultswithin the time period is included. eGFR 85(L) >90 mL/min/1.7 3m2 08/02/2025 5:42 AM CDT [facility] Comment:As of 2022, eG FR is calculated by the CKD-EPI creatinine equation without race adjustment. eGFR can be influenced by muscle mass, exercise, and diet. The reported eGFR is an estimation only and is only applicable if the renal function is stable. CREATININE 0.88 0.70 - 1.20 mg/dL 08/02/2025 5:42 AM CDT [facility] Blood BLOOD SPECIMEN / Unknown Venipuncture / Unknown 08/02/2025 4:52 AM CDT 08/02/2025 5:03 AM CDT us Hernan Sequeira MD CHEMISTRY Final Resul t [facility] [address] [address], [place] * PROTIME-INR (08/02/2025 4:52 AM CDT) Pathologist [facility] INR 1.1 <1.3 08/02/2025 5:20 AM CDT [facility] PROTIME 12.3 10.6 - 12.4 sec 08/02/2025 5:20 AM CDT [facility] Blood BLOOD SPECIMEN / Unknown Venipuncture / Unknown 08/02/2025 4:52 AM CDT 08/02/2025 5:03 AM CDT Narrative [facility] - 08/02/2025 5:20 AM CDT Therapeutic Range 2.0-3.0 for most anticoagulated patients 2.5-3.5 or 4.0 for high risk patients The INR is only used for patients on stable oral anticoagulant therapy. It makes no significant contribution to the diagnosis or treatment of patients whose Protime is prolonged for other reasons. INR results are increased when heparin levels exceed 1.0 U/mL, which corresponds to an aPTT >125 seconds if the patient is on UFH. us Savanah NIÑO HEMATOLOGY Final Res ult [facility] [address] [place] [address], [place] * SCAN-CARDIAC STRIP (08/02/2025 4:04 AM CDT) us Scanner OTHER Final Result * CA READING EKG - NO CHARGE, COMP ONLY (08/01/2025 12:01 PM CDT) us Max Ramires MD PB - PROVIDER READINGS Fin al Result * SCAN-RADIOLOGY REPORT (08/01/2025 12:00 AM CDT) Only the most recent of2 resultswithin the time period is included. Anatomical Region Laterality Modality Other us Scanner OTHER Final Result * MR CARDIAC WWO (07/29/2025 9:56 AM CDT) Anatomical Region Laterality Modality HEART, THORAX Magnetic Resonan ce 07/29/2025 9:07 AM CDT Narrative 07/29/2025 12:33 PM CDT [facility] [place] [facility] CMR Report Name: EMYPATAndriaSIENA Servando : Scan Date: Accession Number: [id number] Status: Final Electronically signed by Jaguar Bishop [...] Inferior Normal/Hyper 51-75% Apical Lateral Normal/Hyper 26-50% [place] Akinetic 76-100% + + + + +----- ----- ------+ RV Segments Wall Motion Hyperenhancement Interpretation + + + + +----- ----- ------+ RV Basal Anterior Normal/Hyper None RV Basal Inferior Normal/Hyper None RV Mid Normal/Hyper None RV Apical Normal/Hyper None ' + + + +----- ----- ------' FINDINGS LV SCAR SIZE (17 SEGMENT): 35 % SCAN INFO ===== GENERAL ----- --- SCANNER POLICE INSPECTOR: SIEMENS MODEL: Aera CONTRAST AGENT TYPE: Gadavist GD CONCENTRATION: 1.0 M SETUP REFERRING PHYSICIAN: PROVIDER REFERRING ATTENDING PHYSICIAN: GILA LARIOS BILLING ===== Patient Account [id number] Report generated by [employer], a product of [employer] Procedure Note Fitz Gao MD - 07/29/2025 [facility] [place] [facility] CMR Report Name: SIENA ORR : Scan Date: Accession Number: [id number] Status: Final Electronically signed by Jaguar Bishop [...] Inferior Normal/Hyper 51-75% Apical Lateral Normal/Hyper 26-50% [place] Akinetic 76-100% + + + + +----- ----- ------+ RV Segments Wall Motion Hyperenhancement Interpretation + + + + +----- ----- ------+ RV Basal Anterior Normal/Hyper None RV Basal Inferior Normal/Hyper None RV Mid Normal/Hyper None RV Apical Normal/Hyper None ' + + + +----- ----- ------' FINDINGS LV SCAR SIZE (17 SEGMENT): 35 % SCAN INFO ===== GENERAL ----- --- SCANNER POLICE INSPECTOR: SIEMENS MODEL: Aera CONTRAST AGENT TYPE: Gadavist GD CONCENTRATION: 1.0 M SETUP REFERRING PHYSICIAN: PROVIDER REFERRING ATTENDING PHYSICIAN: GILA LARIOS BILLING ===== Patient Account [id number] Report generated by [employer], a product of [employer] us April Kaur NP MR Final R esult * (ABNORMAL) HEPATIC FUNCTION PANEL (07/29/2025 7:40 AM CDT) Only the most recent of2 resultswithin the time period is included. ALBUMIN 3.4(L) 4.0 - 4.9 g/dL 07/29/2025 8:25 AM CDT [facility] PROTEIN,TOTAL 7.2 6.0 - 8.0 g/dL 07/29/2025 8:25 AM CDT [facility] BILIRUBIN,TOTAL 0.4 0.0 - 1.2 mg/dL 07/29/2025 8:25 AM CDT [facility] BILIRUBIN,DIRECT 0.1 0.0 - 0.2 mg/dL 07/29/2025 8:25 AM CDT [facility] BILIRUBIN,INDIRE CT 0.3 0.2 - 0.8 mg/dL 07/29/2025 8:25 AM CDT [facility] ALK PHOSPHATASE 72 40 - 129 IU/L 07/29/2025 8:25 AM CDT [facility] ALT (SGPT) 35 10 - 50 IU/L 07/29/2025 8:25 AM CDT [facility] AST (SGOT) 151(H) 10 - 50 IU/L 07/29/2025 8:25 AM CDT [facility] Blood BLOOD SPECIMEN / Unknown Venipuncture / Unknown 07/29/2025 7:40 AM CDT 07/29/2025 7:55 AM CDT us Elpidio Avery Meneses DO CHEMISTRY Dalila l Result [facility] [address] [place] [address], [place] * SCAN-CARDIAC STRIP (07/29/2025 6:57 AM CDT) us Scanner OTHER Final Result * SCAN-CARDIAC STRIP (07/29/2025 4:25 AM CDT) us Scanner OTHER Final Result * SCAN-CARDIAC STRIP (07/28/2025 8:54 PM CDT) us Scanner OTHER Final Result * CVL CORONARY ANGIOGRAM POSS PCI (07/28/2025 6:31 PM CDT) Anatomical Region Laterality Modality X-Ray Angiograph y, X-Ray Angiography 07/28/2025 6:31 PM CDT Narrative Transcriptions Drew Mendieta MD - 07/28/2025 7:13 PM CDT [facility] [place] [facility] Cardiac Catheterization Report Name: SIENA ORR Event Date: 07/28/2025 18:31 Excellian ID #: [id number] MALDONADO #: [id number] Diagnostic Physician: DREW MENDIETA [place] [place] Interventional Physician: DREW MENDIETA [facility] [place] Referring Physician: Shila Parmar Date: 1940 Gender: Male Age: 84 Summary/Conclusions [...] & PLAN * Medical Rx Consent & [place] Protocol The risks, benefits, and alternatives of the procedure were discussed withthe patient and written informed consent was obtained. [place] protocol was followed. TIME OUT conducted just prior tostarting procedure confirmed patient identity, site/side, procedure,patient position, and availability of correct equipment and implants (ifapplicable). Staff Name Title DREW MENDIETA Diagnostic Regional Psychiatric Director Gem Lan RN Nurse Mana Richter RN Nurse Indigo Patel CVT Monitor Blair Choi CVT Television Agent Davion, Guillaume CVT Scrub DREW MENDIETA Personal Consultant Procedures ? Ultrasound Guided Vascular Access ? [...] By 18:29 Fentanyl 50 mcg IV Drew Mendieta Heather RN 18:29 Versed 1 mg IV Drew Mendieta Heather RN 18:33 1% Lidocaine 5 ml Subcut Drew Mendieta EmmanouilS I personally monitored the patient?s conscious sedation during theprocedure. Conscious sedation starts with the first sedation medication dose ofFentanyl or Versed and ends when the procedure is completed, the patientis stable for recovery status, and the physician or other qualified healthcare professional providing the sedation ends personal rfmsvxyckgrxso-fj-utoh time with the patient. The medications listed above were verbally ordered by me and read back tome as documented above. Refer to the procedure log report for additional case details. electronically signed on 07/28/2025 7:13:28 PM with status of Final Drew Mendieta MD [facility] [address] [place] [address] (p) [phone](f) us Provider Referring CV IMAGING Edited Result [...] kg Tech: Referring MD: YOLIS DOTY Site: [facility] Reading Location: [facility] Patient Location: Inpatient. Procedure: Color Doppler, Spectral Doppler and 2D w/ Contrast. Indication for study: Acute CO Cardiac Rhythm: Tachycardic.Study quality: Fair. Final Impressions: [...] documentation: 2 ml diluted Definity, lot #[id number], [facility]# [id number] was administered peripherally to enhance visualization of all left ventricular segments. . This study was interpreted by an [facility] accredited facility. Final Procedure Note Amrit Conley MD - 07/28/2025 ECHOCARDIOGRAM SIENA ORR : 1940 84 years Study Date: 07/28/2025 9:06:28 AM Gender: M BP: 120/72 mmHg Height: 170.00 cm BSA: 1.77 m Weight: 66.00 kg Tech: Referring MD: YOLIS DOTY Site: [facility] Reading Location: [facility] Patient Location: Inpatient. Procedure: Color Doppler, Spectral Doppler and 2D w/ Contrast. Indication for study: Acute CO Cardiac Rhythm: Tachycardic.Study quality: Fair. Final Impressions: [...] documentation: 2 ml diluted Definity, lot #[id number], [facility]#[id number] was administered peripherally to enhance visualization of allleft ventricular segments. . This study was interpreted by an [facility] accredited facility. Final Yolis Doty MD ECHO ORD Final R esult * SCAN-CARDIAC STRIP (07/28/2025 7:30 AM CDT) us Scanner OTHER Final Result * Hemoglobin A1C Screening - in AM (07/28/2025 6:53 AM CDT) HEMOGLOBIN A1C SCREENING 6.3 <=6.4 % 07/29/2025 3:43 PM CDT [facility] Blood BLOOD SPECIMEN / Unknown Butterfly / Unknown 07/28/2025 6:53 AM CDT 07/28/2025 7:33 AM CDT Narrative [facility] - 07/29/2025 3:43 PM CDT (<5.7%) Normal (5.7% to 6.4%) Indicates prediabetes (>=6.5%) Confirms diabetes Falsely low levels may be seen with: Recent Transfusion, Recent Significant Blood Loss, Hemolytic Diseases, or Falsely elevated levels may be seen with: Untreated Anemias, Splenectomy Yolis Doty MD CHEMISTRY Final R esult Performing Organization Address City/[facility] Co de Phone Number [facility] [address] [address], [place] * Magnesium - In AM (07/28/2025 6:53 AM CDT) MAGNESIUM 2.0 1.6 - 2.4 mg/dL 07/28/2025 8:04 AM CDT [facility] Blood BLOOD SPECIMEN / Unknown Butterfly / Unknown 07/28/2025 6:53 AM CDT 07/28/2025 7:33 AM CDT us Yolis Doty MD CHEMISTRY Final R esult Performing Organization Address [facility] Co de Phone Number [facility] [address] [place], [place] [id number], [place] * SCAN-CARDIAC STRIP (07/28/2025 5:00 AM CDT) us Scanner OTHER Final Result * SCAN-CARDIAC STRIP (07/27/2025 11:29 PM CDT) us Scanner OTHER Final Result * SCAN-CARDIAC STRIP (07/27/2025 10:37 PM CDT) us Scanner OTHER Final Result * Sodium, urine TODAY (07/27/2025 6:21 PM CDT) SODIUM,RANDOM URINE 25 mmol/L 07/27/2025 7:03 PM CDT [facility] Comment:No Reference Range D efined. Urine URINE SPECIMEN / Unknown Non-Blood / Unknown 07/27/2025 6:21 PM CDT 07/27/2025 6:28 PM CDT us Julio Cesar Rivas MD URINE Final Res ult Performing Organization Address [facility] Co de Phone Number [facility] [address] [address], [place] * Osmolality, urine TODAY (07/27/2025 6:21 PM CDT) OSMOLALITY,URI NE 236 50 - 1,400 mOsmol/kg 07/27/2025 7:00 PM CDT [facility] Urine URINE SPECIMEN / Unknown Non-Blood / Unknown 07/27/2025 6:21 PM CDT 07/27/2025 6:28 PM CDT Julio Cesar Rivas MD URINE Final Res ult Performing Organization Address City/[facility]/ZIP Co de Phone Number [facility] [address] [address], [place] * Osmolality, serum TODAY (07/27/2025 3:56 PM CDT) OSMOLALITY 283 275 - 300 mOsmol/kg 07/27/2025 5:22 PM CDT [facility] Blood BLOOD SPECIMEN / Unknown Venipuncture / Unknown 07/27/2025 3:56 PM CDT 07/27/2025 4:16 PM CDT Julio Cesar Rivas MD CHEMISTRY Final Res ult Performing Organization Address City/[facility]/ZIP Co de Phone Number [facility] [address] [address], [place] * CVL CORONARY ANGIOGRAM POSS PCI (07/27/2025 12:54 PM CDT) Anatomical Region Laterality Modality X-Ray Angiograph y, X-Ray Angiography 07/27/2025 12:5 4 PM CDT Narrative Transcriptions Sami Kaur MD, PhD - 07/27/2025 2:05 PM CDT [place] [facility] [place] [facility] Cardiac Catheterization Report Name: SIENA ORR Event Date: 07/27/2025 12:54 Excellian ID #: [id number] [facility] #: [id number] Diagnostic Physician: SAMI KAUR [facility] Interventional Physician: SAMI KAUR [facility] Referring Physician: Shila Parmar Date: 1940 Gender: Male Age: 84 Summary/Conclusions [...] (drug eluting) of the proximal LAD witha [id number] Ruben stent. Following pre-stent balloon angioplasty there wasembolization of thrombotic material to the distal LAD for which a Penumbraaspiration catheter was used with cheondoism of KENY III coronary flow.Post dilation of the proximal LAD was performed using a 2.0vzn54ui NCballoon. Post intervention IVUS revealed good stent expansion andapposition. * Successful IVUS guided stenting of the distal LAD with a [id number] Onyxstent. HEMODYNAMICS * The LVEDP is within [...] with primary physician * Follow up with waste recycler Consent & [place] Protocol The risks, benefits, and alternatives of the procedure were discussed withthe patient and written informed consent was obtained. [place] protocol was followed. TIME OUT conducted just prior tostarting procedure confirmed patient identity, site/side, procedure,patient position, and availability of correct equipment and implants (ifapplicable). Staff Name Title Sami Kaur Diagnostic Regional Psychiatric Director Fausto Jones RN Nurse Malinda Mathews RN Nurse Blair Choi CVT Monitor Wetter, Guillaume CVT Television Agent JogreIndigo Antonio CVT Scrub Sami Kaur Personal Consultant Procedures ? Ultrasound Guided Vascular Access ? [...] Mid LAD Drug Eluting Stent [facility] [place] RX 2.0jnN75st 1 Mid LAD IVUS CATH IVUS [facility] 1 Mid LAD Thrombectomy CATH CAT RX Aspiration + Tubing 2 Distal LAD Drug Eluting Stent [facility] [place] RX [id number] Procedure Details Estimated Blood Loss: < 30 [...] 13:47 Nitroglycerin 200 mcg IC Sami Kaur MelanieCVT I personally monitored the patient?s conscious sedation during theprocedure. Conscious sedation starts with the first sedation medication dose ofFentanyl or Versed and ends when the procedure is completed, the patientis stable for recovery status, and the physician or other qualified healthcare professional providing the sedation ends personal [id number] time with the patient. The medications listed above were verbally ordered by me and read back tome as documented above. Refer to the procedure log report for additional case details. electronically signed on 07/27/2025 2:05:16 PM with status of Final Sami Kaur MD [facility] [address] [place] [address] (p) [phone](f) us Provider Referring CV IMAGING Edited Result - Final * PET CT SKULL BASE TO MID [...] neoplasm withleft level IIA lymph node metastasis us Avery Holland MD PET Dalila l Result * US BIOPSY NECK SOFT TISSUE (06/13/2025 10:07 AM CDT) Anatomical Region Laterality Modality NECK Ultrasound 06/13/2025 10:0 7 AM CDT Impressions 06/13/2025 10:34 AM CDT 1. Status post ultrasound-guided core needle biopsy of a 2.9 cm left neck lymph node. Reference CPT Code: 40854, 04031 Narrative 06/13/2025 10:34 AM CDT For Patients: [...] Patient reevaluated immediately before beginning the procedure. [place] protocol was followed. Time out performed. The [...] band. Patient reevaluated immediatelybefore beginning the procedure. [place] protocol was followed. Time outperformed. The site [...] cm left necklymph node. Reference CPT Code: 77273, 15498 Avery Holland MD Dalila luna Result * FNA Cytology SATELLITE TV INSTALLER (06/13/2025 9:15 AM CDT) Case Report Medical Cytology Report Case: [id number] Authorizing Provider: Avery Holland, Collected: 06/13/2025 0915 Ordering Location: [facility] Received: 06/13/2025 1044 Imaging Pathologist: Helen Taveras MD Specimen: Left Neck Lymph Node 5 5:18 PM CDT [facility] Final Diagnosis A) LYMPH NODE, LEFT NECK, RADIOGRAPHIC GUIDED CORE BIOPSY: 1. Positive for metastatic minimally keratinizing, HPV positive squamous cell carcinoma 2. Focal lymphoid tissue consistent with sampling of a lymph node 5 5:[address] [facility] at 1718 CDT Comment HPV Status [...] Testing performed on block A4 Reference: [email or web address].[email or web address] Case seen in consultation with Dr. Mcclelland. 5 5:[address] [facility] Clinical Information Mr. Orr is [...] level III nodes. 5 5:[address] [facility] Gross Description A) Received identified [...] hours and no more than 72 hours. 5:[address] [facility] Adequacy Assessment A) [facility] assessed adequacy from the air-dried smears at the time of the procedure with an impression of Adequate. 5:18 PM CDT [facility] Microscopic Description Specimen adequacy: Adequate for interpretation. All slides were reviewed. The microscopic appearance substantiates the diagnosis. To confirm the squamous nature p40 immunoperoxidase stain is performed on A4 and is positive. 5:[address] [facility] Additional Information Cytology is screened at [facility] - [address] [place] [address] and [facility] - [address] [place] [address] and [facility] - [address] [place] [address] Interpreted at [facility] - [address], [place] [address] Immunohistochemistry controls were reviewed and approved as appropriate by the pathologist during this examination. 5:[address] [facility] Aspirate (Left Neck Lymph Node) 06/13/2025 9:15 AM CDT 06/13/2025 10:44 AM CDT Avery Holland MD PATHOLOGY/CYTOLOGY F inal Result [facility] [address] [place] [address], [facility] S[employer]OUT INTERNAL [address] [place] [phone] from Last 3 Months Insurance [employer] MEDICARE ADVANTAGE MR MEDICARE PART A HB ONLY Advance Directives Documents on File Type Date Recorded Patient Reserves Clerk Expl anation Healthcare Directive 07/27/2021 2:44 PM HE ALTHCARE DIRECTIVE/UNJWKC03/23/2 008 * Full Code (Latest Code Status on File) Date Activated Date Inactivated Comments 08/02/2025 2:12 AM 08/03/2025 1:48 PM Question Answer Comments Code Status Discussion: Reviewed Preferences * Full Code Date Activated Date Inactivated Comments 07/27/2025 1:04 PM 07/29/2025 5:45 PM Question Answer Comments Code Status Discussion: Reviewed Preferences Care Teams Wall Cleaner Relationship Specialty Start Date End Date Shila Parmar MD [address] [place] [address] PCP - General Family Practice 07/27/15 Katie Nevarez BALLISTICIAN [address] [place] [id number] Nurse Practitioner Hematology and Oncology 07/02/24 Annika Gray MD [address] [place] [address] DAVID RICE [address] Medical Oncologist Hematology and Oncology 07/02/24
--- OUTSIDE RECORDS SUMMARY | 2025-09-11 05:47 | XMS_ITS ---
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 04/11/2011 Current Treatment and Therapy Plans No current plan information found. Past Treatment and Therapy Plans No past plan information found. Past Radiation Episodes * IMRT: Midline Head and neckOverview* First Treatment Date Last Treatment Date Treatment Site Technique Goal Episode Provider 07/21/2025 09/09/2025 Midline Head and neck IMRT Curative * Linked Problems Malignant Neoplasm Of Tongue Base Treatment Courses* Course 1xOpx 07/21/2025 - 09/09/2025 Treatment Period Fraction Dose Fractions Total Dose Plans Planned F12Opx 08/07/2025 - 09/09/2025 200 cGy 4 ,800 cGy F1Opx 07/21/2025 - 08/06/2025 200 cGy 7 ,000 cGy Reference Points Delivered [id number] 07/21/2025 - 09/09/2025 7,000 cGy
--- OUTSIDE RECORDS SUMMARY | 2025-09-11 05:47 | XMS_ITS | Encounter Summary ---
Author Organization [facility] Address [address] [place] [address] Care Team Providers Care Manager Welding Name Role Phone Unavailable Primary Care Provider Unavailabl e Reason for Referral * Radiation Therapy (Routine) - Closed Specialty Diagnoses / Procedures Referred By Norma t Referred To Contact Diagnoses Malignant Neoplasm Of Tongue Base (HCC) Procedures Verification/Re-Sim Jamie Maria M.D. [address] [place] [phone] Phone: tel: fax: [facility] Region Referral ID Status Reason Start Date Expiration Date Visits Re quested Visits Authorized [id number] Closed 08/01/2025 11/01/2026 1 1 Encounter Details Date Type Department Care Team (Late st Contact Info) Description 08/01/2025 Orders Only Department of Radiation Oncology in [address] [phone] Jamie Maria M.D. [address] [place] [phone] Malignant Neoplasm Of Tongue Base (HCC) (Primary [...] things needed for daily living? No 07/22/2025 [facility] Utilities Answer Date Recorded In the past 12 months has e electric, gas, oil, or water [employer] threatened to shut off services in your home? No 07/22/2025 Housing Stability Answer Date Recorded What is your living situation today? I have a [facility] place to live 07/22/2025 Sex and [...] CDT Appointment Department of Radiation Oncology in [place], [place] [address] [place] [address] Julio Cesar Rebolledo M.D. [address] [place] [phone] Britt Ayala R.N. [address] [place] [phone] 09/24/2025 10:30 AM CDT Appointment Department of Radiation Oncology in [place], [place] [address] [place] [address] Julio Cesar Rebolledo M.D. [address] [place] [phone] Britt Ayala R.N. [address] [place] [phone] 10/01/2025 10:30 AM ENTERTAINMENT LAWYER Appointment Department of Radiation Oncology in [place], [place] [address] [place] [address] Julio Cesar Rebolledo M.D. [address] [place] [address] Michel Leach R.N. 10/08/2025 10:30 AM ENTERTAINMENT LAWYER Appointment Department of Radiation Oncology in [place], [place] [address] [place] [address] Julio Cesar Rebolledo M.D. [address] [place] [address] Britt Ayala R.N. [address] [place] [phone] 10/15/2025 10:30 AM ENTERTAINMENT LAWYER Appointment Department of Radiation Oncology in [place], [place] [address] [place] [address] Julio Cesar Rebolledo M.D. [facility] [place] [address] Britt Ayala R.N. [address] [place] [phone] 10/22/2025 2:30 PM ENTERTAINMENT LAWYER Appointment Department of Radiation Oncology in [place], [place] [address] [place] [phone] Julio Cesar Rebolledo M.D. [address] [place] [phone] documented as of this encounter Results * Verification/Re-Sim (08/04/2025 8:31 [...]
--- NOTE | 2025-09-11 05:52 | CRLHL7_ITS ---
For Patients: As a result of the Century Cures Act, medical imaging exams and procedure reports are released immediately into your electronic medical record. You may view this report before your referring provider. If you have questions, please contact your health care provider. INDICATION: Fell yesterday. Pain posterior left ribcage left lumbar region. COMPARISON: Limited portions of a PET-CT dated June 27, 2025 TECHNIQUE: CT examination of the chest, abdomen and pelvis was performed following the uneventful intravenous administration of 70 cc of Isovue 370. Thin section axial images were obtained from the thoracic inlet through the pubic symphysis. Oral contrast was not administered. Please note that all CT scans at this facility use dose modulation, iterative reconstruction, and/or weight-based dosing when appropriate to reduce radiation dose to as low as reasonably achievable. FINDINGS: CHEST: There has been a sternotomy. The heart size is top-normal. There is no mediastinal or hilar adenopathy or mass. No pericardial effusion. Atherosclerotic vascular calcifications are observed. The lungs show no focal consolidation, infiltrate or mass. No pleural effusion or pneumothorax. No suspicious nodule. Bibasilar atelectasis, left greater than right. No pleural effusion or pneumothorax. ABDOMEN AND PELVIS: LIVER/BILIARY SYSTEM:The liver is normal in size and configuration. There is no focal mass and there is no intra- or extra hepatic biliary ductal dilatation.Distended but otherwise unremarkable appearing gallbladder. If this is an active area of clinical concern, recommend sonography ADRENALS: Normal KIDNEYS, URETERS and BLADDER:The kidneys appear normal. No visible mass, calculus or hydronephrosis. The ureters and bladder as visualized appear normal. SPLEEN:Normal appearance. PANCREAS: Appears normal. RETROPERITONEUM and MESENTERY: There is no mass, adenopathy or aortic aneurysm. Atherosclerotic vascular calcifications. Aortoiliac ectasia without marie aneurysm. GASTROINTESTINAL SYSTEM: There is no evidence of diverticulitis, colitis, mechanical obstruction, or appendicitis. The small bowel as visualized appears normal.Fecal retention. Diverticulosis PELVIS: No mass, adenopathy or free fluid.Enlarged prostate OSSEOUS STRUCTURES and ABDOMINAL WALL: There are very subtle nondisplaced fractures of the posterior aspect of the 11th and 12th ribs medially on the left. There are chronic fractures of L3 L2, L1 and T11 when compared to the prior PET-CT. No acute spine fracture OTHER: No free fluid or free air. IMPRESSION: 1. CHEST: No visible acute posttraumatic finding regarding the mediastinal vascular structures, lungs and pleural spaces 2. ABDOMEN AND PELVIS: No visible acute posttraumatic findings regarding the viscera. Distended but otherwise unremarkable appearing gallbladder. If this is an active area of clinical concern, consider sonography. Other nonacute appearing findings as above 3. OSSEOUS STRUCTURES: Subtle acute nondisplaced fractures of the posterior aspect of the left 11th and 12th ribs medially. Chronic fractures of T11, L1, L2 and L3. Please note that all CT scans at this facility use dose modulation, iterative reconstruction, and/or weight-based dosing when appropriate to reduce radiation dose to as low as reasonably achievable. Dictated by Julio Cesar Estrada MD @ 09/11/2025 7:13:57 AM (Electronically Signed)
--- NOTE | 2025-09-11 05:58 | ED.GENADULT ---
HPI - General Adult General Date Seen: 09/11/25 Chief complaint: Rib Pain Stated complaint: fall yesterday Time Seen by Provider: 09/11/25 05:44 History of Present Illness HPI narrative: Patient is an 84-year-old gentleman here with his and daughter for evaluation of some back pain after a fall yesterday. He said he got his feet kind of caught on the ground and tipped over. Denies loss of consciousness. Was at the infusion center yesterday after his fall, he says that they evaluated him and told him if he was having a lot of pain he should go to the ER. It sounds like he had more pain today and was not able to sleep very well and so they elected to come in. Denies difficulty breathing. No head or neck injury. No midline back pain, has pain in the lower posterior ribcage on the left as well as the mid and lumbar back on the left. He is not anticoagulated. Currently undergoing chemotherapy and radiation for a cancer at the base of his tongue. Related Data Home Medications ?Medication ?Instructions ?Recorded ?Confirmed folic acid 1 mg tablet 1 mg PO DAILY 04/25/24 09/11/25 aspirin 81 mg chewable tablet 81 mg PO QDAY 07/30/25 09/11/25 losartan 25 mg tablet 12.5 mg PO QDAY 07/30/25 09/11/25 metoprolol succinate 25 mg 25 mg PO QDAY 07/30/25 09/11/25 tablet,extended release 24 hr nitroglycerin 0.4 mg sublingual 0.4 mg sublingual Q5-15M PRN 07/30/25 09/11/25 tablet rosuvastatin 20 mg tablet 20 mg PO QDAY 07/30/25 09/11/25 ticagrelor 90 mg tablet 90 mg PO BID 07/30/25 09/11/25 oxycodone 10 mg tablet 10 mg PO Q6H PRN 09/03/25 09/11/25 fentanyl 12 mcg/hr transdermal 1 patch transdermal Q72H 09/11/25 09/15/25 patch Previous Rx's ?Medication ?Instructions ?Recorded prochlorperazine maleate 5 mg 5 mg PO BID PRN nausea and 07/02/25 tablet (Compazine) vomiting #60 tabs Allergies Allergy/AdvReac Type Severity Reaction Status Date / Time No Known Drug Allergies Allergy Verified 09/19/25 08:58 Review of Systems Status of ROS: Reports: 10 or more systems reviewed and unremarkable except as noted in History and below [facility] Medical History (Updated 09/11/25 @ 07:24 by Hanh Huitron MD) Cancer of base of tongue ?C01 - Malignant neoplasm of base of tongue (ICD-10) Psoriasis ?L40.9 - Psoriasis, unspecified (ICD-10) Social History Smoking Status: Former smoker Non-prescribed substance use: denies use Exam Narrative: Exam Narrative: Vital signs reviewed In general, alert, nontoxic elderly male, very thin. Head: Normocephalic, atraumatic. Eyes: Sclera clear. Pupils equal and reactive. ENT: Mucous membranes moist. Neck: Supple without adenopathy. Heart: Regular rate and rhythm without murmur. Lungs: Clear. No increased work of breathing, crackles or wheezes. Abdomen: Soft, nontender to palpation. Back: There is some bruising just above his hip posteriorly, he has tenderness primarily over his posterior lower left rib cage, no crepitus or subcu air, no obvious swelling. Extremities: Well perfused, pulses intact. No significant edema. Neurologic: Alert, conversant. Speech fluent, face symmetric. Moves all extremities equally. Skin: Warm, dry well perfused. Affect: Normal. Const: Vital Signs, click to edit/add: Vital Signs - 24 hr 09/11/25 05:53 Temperature 98.4 F Pulse Rate [Right Pulse Oximeter] 72 Respiratory Rate 18 Blood Pressure [Ri ght Upper Arm] 128/74 Pulse Oximetry 99 Oxygen Delivery Me thod Room Air Course Course ED Course: Patient presents after a fall yesterday, hemodynamically stable, breathing without difficulty. Given his age and frailty, I do think it is reasonable to do CT scans to evaluate for solid organ injury, rib fracture, pneumothorax or pulmonary contusion. Patient had his regularly scheduled oxycodone, [address] scan of the chest abdomen pelvis was done with contrast, recent creatinine was normal. He also had a L of saline, he scheduled to come back to the infusion center later today for fluids so will get that done here. I reviewed the CT scan, there is no evidence of pneumothorax, solid organ injury, hemothorax. I actually did not see any rib fractures but radiology read notes subtle nondisplaced fractures of the posterior left 11th and 12th ribs medially. He has chronic fractures of T11, L1-2 and 3. Discussed this with the patient and his family. They are comfortable going home, he is already on fentanyl and oxycodone and believes he can manage the pain with that. Discussed expected course. Return if not managing well at home or new symptoms arise. Otherwise continue current management. Vital Signs Vital signs: Initial Vital Signs Temperature 98.4 F 09/11/25 05:53 Temperature Source Temporal Artery Scan 09/11/25 05:53 Pulse Rate 72 09/11/25 05:53 Respiratory Rate 18 09/11/25 05:53 Blood Pressure 128/74 09/11/25 05:53 Blood Pressure Mean 92 09/11/25 05:53 Blood Pressure Position Sitting 09/11/25 05:53 Pulse Oximetry 99 09/11/25 05:53 Oxygen Delivery Method Room Air 09/11/25 05:53 Vital Signs Temperature 98.4 F 09/11/25 05:53 Pulse Rate 72 09/11/25 05:53 Respiratory Rate 18 09/11/25 05:53 Blood Pressure 128/74 09/11/25 05:53 Pulse Oximetry 99 09/11/25 05:53 Oxygen Delivery Method Room Air 09/11/25 05:53 Temperature 98.4 F 09/11/25 05:53 Pulse Rate 74 09/11/25 08:17 Respiratory Rate 18 09/11/25 05:53 Blood Pressure 115/70 09/11/25 08:17 Pulse Oximetry 95 09/11/25 08:17 Oxygen Delivery Method Room Air 09/11/25 05:53 Medications Administered Medications: Discontinued Medications Generic Name Dose Route Start Last Admin Trade Name Freq PRN Reason Stop Dose Admin Sodium Chloride 1,000 mls @ 1,000 mls/hr 09/11/25 06:15 09/11/25 08:21 0.9 % Sodium Chloride 1000 Ml IV 09/11/25 07:14 Infused .Q1H [facility] Infusion Oxycodone HCl 10 mg 09/11/25 07:11 09/11/25 07:18 Oxycodone 5 Mg Tablet PO 09/11/25 07:12 10 mg ONCE ONE Administration Medical Decision Making Imaging Data CT Chest/Ab/Pelvis: Attestation: I have reviewed the pertinent imaging results. Radiologist's impression: Patient: SIENA CRISTOBAL Facility: [facility] RIS Site . Site : [id number] Study: CT-Chest/Abd/Pelvis W/ISOVUE 370 72CC-09/11/2025 7:03:36 AM Ordering Physician: Tomy Schafer Final Report: INDICATION: Fell yesterday. Pain posterior left ribcage left lumbar region. COMPARISON: Limited portions of a PET-CT dated June 27, 2025 TECHNIQUE: CT examination of the chest, abdomen and pelvis was performed following the uneventful intravenous administration of 70 cc of Isovue 370. Thin section axial images were obtained from the thoracic inlet through the pubic symphysis. Oral contrast was not administered. Please note that all CT scans at this facility use dose modulation, iterative reconstruction, and/or weight-based dosing when appropriate to reduce radiation dose to as low as reasonably achievable. FINDINGS: CHEST: There has been a sternotomy. The heart size is top-normal. There is no mediastinal or hilar adenopathy or mass. No pericardial effusion. Atherosclerotic vascular calcifications are observed. The lungs show no focal consolidation, infiltrate or mass. No pleural effusion or pneumothorax. No suspicious nodule. Bibasilar atelectasis, left greater than right. No pleural effusion or pneumothorax. ABDOMEN AND PELVIS: LIVER/BILIARY SYSTEM:The liver is normal in size and configuration. There is no focal mass and there is no intra- or extra hepatic biliary ductal dilatation.Distended but otherwise unremarkable appearing gallbladder. If this is an active area of clinical concern, recommend sonography ADRENALS: Normal KIDNEYS, URETERS and BLADDER:The kidneys appear normal. No visible mass, calculus or hydronephrosis. The ureters and bladder as visualized appear normal. SPLEEN:Normal appearance. PANCREAS: Appears normal. RETROPERITONEUM and MESENTERY: There is no mass, adenopathy or aortic aneurysm. Atherosclerotic vascular calcifications. Aortoiliac ectasia without marie aneurysm. GASTROINTESTINAL SYSTEM: There is no evidence of diverticulitis, colitis, mechanical obstruction, or appendicitis. The small bowel as visualized appears normal.Fecal retention. Diverticulosis PELVIS: No mass, adenopathy or free fluid.Enlarged prostate OSSEOUS STRUCTURES and ABDOMINAL WALL: There are very subtle nondisplaced fractures of the posterior aspect of the 11th and 12th ribs medially on the left. There are chronic fractures of L3 L2, L1 and T11 when compared to the prior PET-CT. No acute spine fracture OTHER: No free fluid or free air. IMPRESSION: 1. CHEST: No visible acute posttraumatic finding regarding the mediastinal vascular structures, lungs and pleural spaces 2. ABDOMEN AND PELVIS: No visible acute posttraumatic findings regarding the viscera. Distended but otherwise unremarkable appearing gallbladder. If this is an active area of clinical concern, consider sonography. Other nonacute appearing findings as above 3. OSSEOUS STRUCTURES: Subtle acute nondisplaced fractures of the posterior aspect of the left 11th and 12th ribs medially. Chronic fractures of T11, L1, L2 and L3. Please note that all CT scans at this facility use dose modulation, iterative reconstruction, and/or weight-based dosing when appropriate to reduce radiation dose to as low as reasonably achievable. Dictated by Julio Cesar Estrada MD @ 09/11/2025 7:13:57 AM Discharge Plan Discharge Clinical Impression: Left rib fracture Patient Disposition: Home, Self-Care Condition: Stable Instructions: Rib Fracture (ED) Additional Instructions: Continue your current pain regimen. If you are not managing well at home, or have new symptoms such as shortness of breath, fever, return to the ER. Incentive spirometer. Prescriptions: No Action folic acid 1 mg tablet 1 mg PO DAILY prochlorperazine maleate [Compazine] 5 mg tablet 5 mg PO BID PRN (Reason: nausea and vomiting) Qty: 60 0RF losartan 25 mg tablet 12.5 mg PO QDAY nitroglycerin 0.4 mg tablet, sublingual 0.4 mg sublingual Q5-15M PRN Rx Instructions: do not exceed 3 doses per episode aspirin 81 mg tablet,chewable 81 mg PO QDAY metoprolol succinate 25 mg tablet extended release 24 hr 25 mg PO QDAY rosuvastatin 20 mg tablet 20 mg PO QDAY ticagrelor 90 mg tablet 90 mg PO BID oxycodone 10 mg tablet 10 mg PO Q6H PRN Patient Comments: 09/15: taking much less now w/ fent patch fentanyl 12 mcg/hr patch 72 hour 1 patch transdermal Q72H Follow Up/Referrals: Kallie Rosales MD [Primary Care Provider, Family Practice] Stand Alone Forms: [employer] Info Instructions
== END 2025-09-11 08:29 | disposition home or self-care (01) ==
PROVIDERS: Emergency Provider Emergency Medicine; PCP Family Medicine
DX: S22.42XA Multiple fractures of ribs, left side, initial encounter for closed fracture (principal); W01.0XXA Fall on same level from slipping, tripping and stumbling without subsequent striking against object, initial encounter; Y93.01 Activity, walking, marching and hiking
CPT/HCPCS: 71260; 74177; 82565; 96360; 99284; 99285; A9270; J7030; Q9967

== ENCOUNTER 2025-10-17 07:34 | Outpatient (CLI) | payer MEDICARE, SELFPAY ==
--- NOTE | 2025-10-17 08:00 | CRLHL7_ITS ---
For Patients: As a result of the 21st Century Cures Act, medical imaging exams and procedure reports are released immediately into your electronic medical record. You may view this report before your referring provider. If you have questions, please contact your health care provider. INDICATION: Malignant neoplasm of tongue base. TECHNIQUE: CT of the neck with 70 mL Isovue 370 iodinated contrast agent IV. Coronal and sagittal reconstructions are included. COMPARISON: PET-CT 06/27/2025, CT neck 05/28/2025 FINDINGS: Resolution of enhancing mass at the left tongue base with mild residual fullness at the left base of tongue without abnormal enhancement. Significantly decreased size of the necrotic left level 2A lymph node that measures 2 x 1.8 cm axially with significantly decreased rim enhancement. Decreased size of a left level 3 node measuring 5 mm previously 7 mm. No new lymphadenopathy. No new primary pharyngeal mass. The oral cavity, nasopharyngeal, oropharyngeal and hypopharyngeal mucosal spaces are normal. No periapical dental disease. The supraglottic, glottic and infraglottic larynx are normal. The airway including the trachea is normal and is patent. The parotid glands, submandibular and sublingual glands are normal in appearance. The thyroid gland is normal in appearance. The vascular structures opacify normally with contrast material. No suspicious lytic or blastic osseous lesions. Polypoid mucosal thickening in the maxillary sinuses. The mastoid air cells are clear. Multilevel cervical spondylosis. Retrolisthesis at C4-5 with posterior endplate osteophytic spurring resulting in [id number] spinal canal stenosis. Visualized orbital and intracranial contents are normal. Supraclavicular regions, mediastinum and soft tissues of the imaged chest wall are normal. Sternotomy wires are noted. The patient is edentulous. Visualized portions of the upper lungs are clear. IMPRESSION: 1. Resolution of enhancing mass at the left tongue base. Mild residual fullness at the left base of tongue without abnormal enhancement. No new primary pharyngeal mass. 2. Significantly decreased size of the necrotic left level 2A lymph node that measures 2 x 1.8 cm axially with significantly decreased rim enhancement. Decreased size of a left level 3 node measuring 5 mm previously 7 mm. 3. No new lymphadenopathy. Please note that all CT scans at this facility use dose modulation, iterative reconstruction, and/or weight-based dosing when appropriate to reduce radiation dose to as low as reasonably achievable. Dictated by Lio Erickson MD @ 10/17/2025 3:55:06 PM (Electronically Signed)
== END 2025-10-17 07:35 | disposition home or self-care (01) ==
LOC: CT 07:35
PROVIDERS: PCP Family Medicine; Visit Provider Radiology Radiation Oncology
DX: C01 Malignant neoplasm of base of tongue (principal); J32.0 Chronic maxillary sinusitis; M47.812 Spondylosis without myelopathy or radiculopathy, cervical region; M48.02 Spinal stenosis, cervical region; M43.8X2 Other specified deforming dorsopathies, cervical region; K08.109 Complete loss of teeth, unspecified cause, unspecified class; Z98.890 Other specified postprocedural states
CPT/HCPCS: 70491; Q9967